=== PATIENT | male | born 1940 | race Caucasian/White ===

== ENCOUNTER 2021-05-11 11:13 | Observation (INO) | payer MEDICARE, SELFPAY ==
[2021-05-11] VITALS (11 sets, daily range): BP systolic 160–200; BP diastolic 75–114; PULSE 43–62; RESP 15–18; TEMP 36.3–36.8; O2SAT 92–100; BMI 24.4
--- NOTE | 2021-05-11 11:40 | DI.RAD.S_ITS ---
PROCEDURE: XR CHEST 1V INDICATIONS: Possible stroke TECHNIQUE: One view of the chest was acquired. COMPARISON: None. FINDINGS: Surgical changes and devices: None. Lungs and pleura: Lungs are clear. No pleural effusions or pneumothorax. Mediastinum: Mediastinal contours appear normal. Heart size is normal. Bones and chest wall: No suspicious bony lesions. Overlying soft tissues appear unremarkable. IMPRESSION: No acute cardiopulmonary disease process. Dictated by: Debra Chisholm MD, PhD on 05/11/2021 at 12:13 Approved by: Debra Chisholm MD, PhD on 05/11/2021 at 12:13
--- NOTE | 2021-05-11 11:42 | DI.CT.S_ITS ---
PROCEDURE: CT ANGIO HEAD AND NECK INDICATIONS: right side neglect, last known well 05/10 1999 TECHNIQUE: After the administration of intravenous contrast, 1 mm thick sections acquired from the aortic arch through the [place] of [place]. Post-contrast 4.5 mm thick sections then re-acquired from the foramen magnum to the vertex. 3-dimensional cujphtp-ukdwlxdae-fmpujjfshu (MIP) and/or volume rendering reformats were acquired of the central intracranial vasculature and neck separately. COMPARISON: [facility], CT, CT STROKE, 05/11/2021, 11:46. FINDINGS: Image quality: Excellent. BRAIN: CSF spaces: Ventricles are normal in size and shape. Basal cisterns are patent. No extra-axial fluid collections. Brain: No midline shift. No intracranial bleeds or masses. Funk-white matter interface appears intact. Skull and face: Calvarium and facial bones appear intact, without suspicious lesions. Orbits appear normal. Sinuses: Mucosal thickening noted in the floors of the maxillary sinuses bilaterally. The mastoids are clear. HEAD CT ANGIOGRAPHY: Anterior circulation: Intracranial internal carotid arteries are normal in flow. Atherosclerotic calcifications noted in the cavernous and clinoid segments of the internal carotid arteries bilaterally which causes mild stenosis of the vessels. The flow within the paired anterior cerebral arteries is normal and symmetric. The flow within the middle cerebral arteries is normal and symmetric. The anterior communicating artery is seen. No aneurysms are seen. Posterior circulation: Normal flow noted in the left vertebral artery. There is occlusive thrombus in the V4 segment of the right vertebral artery. Flow within the posterior cerebral arteries is normal and symmetric. No aneurysms are seen. Dural sinuses demonstrate normal postcontrast enhancement. NECK CT ANGIOGRAPHY: Carotid system: The great vessels demonstrate a conventional anatomy as they arise from the aortic arch. The origins of the common carotid arteries appear patent. The common carotid arteries demonstrate normal caliber and courses. Atherosclerotic calcifications noted in the origins of the internal carotid arteries bilaterally which causes high-grade, approximately 80-90% stenosis of the origin of the right internal carotid artery and less than 50% stenosis of the origin of the left internal carotid artery. Posterior circulation: Calcified and soft atherosclerotic plaque noted in the origin of the right vertebral artery which causes high-grade stenosis. Calcified and soft atherosclerotic plaque noted in the origin of the left vertebral artery which causes mild stenosis. Patient is left vertebral artery dominant.. Thrombus identified in the V3 and V4 segments of the right vertebral artery. Normal flow noted in the basilar artery. Soft tissues: Visualized neck soft tissues demonstrate no suspicious abnormalities. Bones: No suspicious bony lesions. Spine degenerative disc disease and facet arthropathy. Visualized cervical spine appears normally aligned. IMPRESSION: 1. No acute intracranial disease process. 2. Occlusive thrombus involving the V3 and V4 segments of the right vertebral artery. 3. High-grade, approximately 80-90% stenosis of the origin of the right internal carotid artery. 4. High-grade stenosis of the origin of the right vertebral artery. 5. Mild stenosis of the origin of the left vertebral artery. 6. Less than 50% stenosis of the origin of the left internal carotid. Findings telephoned to Dr. Alvarez on May 11, 2021 at 12:21 p.m.. Any quantitative measurements of stenosis were performed using NASCET criteria. Dictated by: Debra Chisholm MD, PhD on 05/11/2021 at 12:14 Approved by: Debra Chisholm MD, PhD on 05/11/2021 at 12:24
--- NOTE | 2021-05-11 11:53 | DI.CT.S_ITS ---
PROCEDURE: CT STROKE INDICATIONS: right neglect TECHNIQUE: Noncontrast 4.5 mm thick angled axial sections acquired from the foramen magnum to the vertex, with coronal reformats. For radiation dose reduction, the following was used: automated exposure control, adjustment of mA and/or kV according to patient size. COMPARISON: None. FINDINGS: Image quality: Excellent. CSF spaces: Basal cisterns are patent. No extra-axial fluid collections. The ventricles are symmetric in size and shape. Brain: No intracranial bleeds or masses. There is cerebral volume loss for age, with resultant ventricular and sulcal prominence. There are periventricular and deep white matter chronic small vessel ischemic changes. There is intracranial internal carotid artery atherosclerosis. Skull and face: Calvarium and visualized facial bones appear intact, without suspicious lesions. Sinuses: Visualized sinuses and mastoids are clear. IMPRESSION: No acute intracranial disease process. Findings discussed with Dr. Alvarez on May 11, 2021 at 12:01 p.m.. This study fulfills neurological imaging criteria for inclusion or exclusion of acute stroke therapies based on available published neurological guidelines. Dictated by: Debra Chisholm MD, PhD on 05/11/2021 at 12:02 Approved by: Debra Chisholm MD, PhD on 05/11/2021 at 12:05
--- NOTE | 2021-05-11 12:19 | ED_ITS ---
HPI - Neuro Symptoms/Deficit General Chief Complaint: Neuro Symptoms/Deficit Stated Complaint: Nausea/inbalance x1 day Time Seen by Provider: 05/11/21 11:47 Source: patient Mode of arrival: Ambulatory History of Present Illness HPI Narrative: Patient is an 80-year-old male history of coronary artery disease hypertension presenting with ambulation difficulty. He says last known well at 715pm when he sat in his recliner. By 8:00 p.m. he got up to walk and he noticed he was walking to the right. He said he frequently got up last evening to go to the restroom and needed to hang onto things because he kept running into [place]. He denies any numbness tingling or weakness. has not noted any speech difficulty or facial droop. He denies any visual changes. He was seen at a walk-in clinic initially and was sent to the ER for further evaluation for stroke. Denies any chest pain palpitations or shortness of breath. No fever On Anticoagulants: Yes (ASA 81 mg daily) Related Data Home Medications Medication Instructions Recorded Confirmed aspirin 81 mg tablet 81 mg PO QAM 05/11/21 05/11/21 gabapentin 100 mg capsule 100 mg PO BEDTIME 05/11/21 05/11/21 losartan 100 mg tablet 100 mg PO QAM 05/11/21 05/11/21 methadone 5 mg tablet 10 mg PO BEDTIME 05/11/21 05/11/21 omeprazole 40 mg capsule,delayed 40 mg PO QAM 05/11/21 05/11/21 release ropinirole 1 mg tablet 1 mg PO QPM 05/11/21 05/11/21 ropinirole 1 mg tablet 1.5 mg PO BEDTIME 05/11/21 05/11/21 Allergies Allergy/AdvReac Type Severity Reaction Status Date / Time No Known Drug Allergies Allergy Verified 05/11/21 11:32 Review of Systems Review of Systems Narrative: GENERAL: Denies chills, fatigue, malaise, fever, sweats, travel HEENT: Denies sinus pain, ear pain, sore throat, difficulty swallowing, neck pain RESPIRATORY: Denies dyspnea, cough, wheezing, hemoptysis, sputum. CARDIOVASCULAR: Denies chest pain, palpitations, orthopnea, edema GASTROINTESTINAL: Denies nausea, vomiting, abdominal pain, diarrhea, constipation, melena. : Denies dysuria, frequency, incontinence, hematuria, urinary retention, flank pain. MUSCULOSKELETAL: Denies weakness, joint pain, or bony pain SKIN: No rash, no erythema, no pruritus NEUROLOGIC: See HPI PSYCHIATRIC: No concerning psychosocial issues. 12 point review of systems is negative except for those stated above and HPI Hematologic/Lymphatic On Anticoagulants: Yes (ASA 81 mg daily) Patient History Medical History Hypertension Restless leg syndrome Surgical History S/P CABG (coronary artery bypass graft) Family History (Updated 05/11/21 @ 16:37 by Khoi Bradshaw DO) Mother Hypertension Father Cancer Social History household members: spouse Smoking Status: Former smoker alcohol intake: current Smoking Status: Former smoker alcohol intake frequency: 0-2 drinks per day Substance Use Type: does not use Exam Initial Vital Signs Initial Vital Signs: Vital Signs Temperature 97.6 F 05/11/21 11:27 Pulse Rate 50 L 05/11/21 11:27 Respiratory Rate 17 05/11/21 11:27 Blood Pressure 200/94 H 05/11/21 11:27 Pulse Oximetry 100 05/11/21 11:27 GENERAL: Alert well-appearing [id number] in no acute distress. HEENT: Head atraumatic,EOMI, pupils reactive, face symmetric, moist mucous membranes CARDIOVASCULAR: Regular rate and rhythm without murmurs, rubs or gallops. RESPIRATORY: Breath sounds equal bilaterally, no wheezes rales or rhonchi. ABDOMEN: Soft, nontender. Normoactive bowel sounds all 4 quadrants. No guarding or rebound. EXTREMITIES: Normal range of motion, no clubbing or edema. Neurovascularly intact NEUROLOGICAL: Alert and oriented x4. Ambulating in the emergency department he does walk to the right. Normal speech. Cranial nerves II through XII grossly intact. Good onlioc-lr-gtdb, good tyhv-ft-adgs, strength equal bilaterally, no dysarthria or aphasia, sensation in tact to soft touch bilaterally, no visual changes, no facial droop SKIN: Warm, dry, no laceration, no petechiae, no rashes or lesions. Scores NIH Stroke Scale Level of Conciousness: Alert, keenly responsive Ask month/age: Answers both questions correctly. Open/close eyes, close hand: Performs both tasks correctly Best gaze horizontal: Normal Visual gallo: No visual loss Facial palsy: Normal symetrical movement Left arm drift: No drift for full 10 sec Right arm drift: No drift for full 10 sec Left leg drift: No drift for full 5 sec Right leg drift: No drift for full 5 sec Limb ataxia: Absent Sensory on face/arms/legs: Normal, no sensory loss Best language: No aphasia, normal Dysarthria: Normal Extinction or inattention: No abnormality Total NIH Stroke scale score: 0 Course Orders Ordered: ED Orders 05/11/21 11:40 XR chest 1V Stat EKG-12 Lead Stat 05/11/21 11:42 CT angio head and neck Stat 05/11/21 11:53 CT Stroke Stat 05/11/21 12:17 COVID19 -Nasal swab/Pre-Proc Stat 05/11/21 12:40 Complete Blood Count AUTO DIFF Stat Comprehensive Metabolic Panel Stat Partial Thromboplastin Time Stat Prothrombin Time INR Stat Troponin & CK Cardiac Panel Stat Type and Screen Stat 05/11/21 13:49 Urine Drug Screen, Rapid Stat Acetaminophen (Acetaminophen 325 Mg Tablet) 650 mg PO Q6HR PRN PRN Reason: Fever/Mild Pain (1-3) Last Admin: 05/11/21 18:04 Dose: 650 mg Documented by: DEO Aspirin (Aspirin Ec 81 Mg Tablet) 81 mg PO DAILY IRIS Atorvastatin Calcium (Atorvastatin 20 Mg Tablet) 80 mg PO BEDTIME IRIS Clopidogrel Bisulfate (Clopidogrel 75 Mg Tablet) 75 mg PO DAILY IRIS Enoxaparin Sodium (Enoxaparin 40 Mg/0.4 Ml Syringe) 40 mg SUBCUT DAILY IRIS Gabapentin (Gabapentin 100 Mg Capsule) 100 mg PO BEDTIME IRIS Losartan Potassium (Losartan 50 Mg Tablet) 100 mg PO DAILY IRIS Methadone HCl (Methadone 10 Mg Tablet) 10 mg PO BEDTIME IRIS Ondansetron HCl (Ondansetron 4 Mg/2 Ml Inj) 4 mg IV Q8HR PRN PRN Reason: Nausea And Vomiting Ropinirole HCl (Ropinirole 1 Mg Tablet) 1 mg PO 1500 IRIS Ropinirole HCl (Ropinirole 1 Mg Tablet) 1.5 mg PO BEDTIME IRIS Discontinued Medications Clopidogrel Bisulfate (Clopidogrel 75 Mg Tablet) 300 mg PO NOW ONE Stop: 05/11/21 13:17 Last Admin: 05/11/21 13:31 Dose: 300 mg Documented by: KSCHERE Lorazepam (Lorazepam 2 Mg/Ml Inj) 0.5 mg IV NOW ONE Stop: 05/11/21 15:02 Last Admin: 05/11/21 15:10 Dose: 0.5 mg Documented by: DEO Vital Signs Vital signs: Vital Signs - 8 hr 05/11/21 11:27 05/11/21 12:00 05/11/21 12:30 Temperature 97.6 F Pulse Rate 50 L 49 L 50 L Respiratory Rate 17 16 16 Blood Pressure 200/94 H 188/88 H 181/114 H Pulse Oximetry 100 99 100 05/11/21 13:00 Temperature Pulse Rate 43 L Respiratory Rate 16 Blood Pressure 176/79 H Pulse Oximetry MDM - Neuro Symptoms/Deficit Lab Data Result diagrams: 05/11/21 12:40 05/11/21 12:40 Labs: Lab Results 05/11/21 05/11/21 05/11/21 Range/Units 12:17 12:40 12:40 WBC 5.8 (4.5-11.0) X10^3/uL RBC 4.32 L (4.5-5.9) X10^6/uL Hgb 13.8 (13.5-17.5) g/dL Hct 40.2 L (41-53) % MCV 93.2 (80-100) fL MCH 31.9 (26-34) PG MCHC 34.2 (30-36) % RDW 12.9 (11.6-14.8) % Plt Count 195 (150-400) X10^3/uL Neut % (Auto) 74.1 (50-75) % Lymph % (Auto) 13.8 L (25-40) % Graham % (Auto) 10.0 (3-14) % Eos % (Auto) 1.8 L (2-4) % Baso % (Auto) 0.3 (0-2) % Neut # (Auto) 4300 (0253-8170) /uL Lymph # (Auto) 800 L (7153-9991) /uL Graham # (Auto) 600 (0-900) /uL Eos # (Auto) 100 (0-450) /uL Baso # (Auto) 0 (0-100) /uL PT 11.2 (10.1-12.7) SECONDS INR 1.0 (0.9-1.3) APTT 37 H (26.4-36.2) SECONDS Sodium (137-145) mmol/L Potassium (3.4-5.1) mmol/L Chloride (98-107) mmol/L Carbon Dioxide (22-32) mmol/L BUN (9-20) mg/dL Creatinine (0.66-1.25) mg/dL Estimated GFR (>60) mL/min BUN/Creatinine Ratio (6-22) Glucose (80-110) mg/dL Calcium (8.4-10.2) mg/dL Total Bilirubin (0.2-1.3) mg/dL AST (17-59) IU/L ALT (<50) IU/L Alkaline Phosphatase (38-126) U/L Total Creatine Kinase (55-170) U/L CK-MB (CK-2) CK-MB (CK-2) Rel Index Troponin I (0.01-0.034) ng/mL Total Protein (6.3-8.2) g/dL Albumin (3.5-5.0) g/dL Globulin (1.7-4.1) g/dL Albumin/Globulin Ratio (1.0-2.8) SARS-CoV-2 (PCR) Negative (Negative) Blood Type Antibody Screen 05/11/21 05/11/21 Range/Units 12:40 12:40 WBC (4.5-11.0) X10^3/uL RBC (4.5-5.9) X10^6/uL Hgb (13.5-17.5) g/dL Hct (41-53) % MCV (80-100) fL MCH (26-34) PG MCHC (30-36) % RDW (11.6-14.8) % Plt Count (150-400) X10^3/uL Neut % (Auto) (50-75) % Lymph % (Auto) (25-40) % Graham % (Auto) (3-14) % Eos % (Auto) (2-4) % Baso % (Auto) (0-2) % Neut # (Auto) (1501-6158) /uL Lymph # (Auto) (2144-3232) /uL Graham # (Auto) (0-900) /uL Eos # (Auto) (0-450) /uL Baso # (Auto) (0-100) /uL PT (10.1-12.7) SECONDS INR (0.9-1.3) APTT (26.4-36.2) SECONDS Sodium 136 L (137-145) mmol/L Potassium 4.5 (3.4-5.1) mmol/L Chloride 102 (98-107) mmol/L Carbon Dioxide 30 (22-32) mmol/L BUN 21 H (9-20) mg/dL Creatinine 0.98 (0.66-1.25) mg/dL Estimated GFR > 60.0 (>60) mL/min BUN/Creatinine Ratio 21.4 (6-22) Glucose 95 (80-110) mg/dL Calcium 9.5 (8.4-10.2) mg/dL Total Bilirubin 0.8 (0.2-1.3) mg/dL AST 25 (17-59) IU/L ALT 15 (<50) IU/L Alkaline Phosphatase 59 (38-126) U/L Total Creatine Kinase 57 (55-170) U/L CK-MB (CK-2) TNP CK-MB (CK-2) Rel Index TNP Troponin I < 0.012 (0.01-0.034) ng/mL Total Protein 6.7 (6.3-8.2) g/dL Albumin 4.1 (3.5-5.0) g/dL Globulin 2.6 (1.7-4.1) g/dL Albumin/Globulin Ratio 1.6 (1.0-2.8) SARS-CoV-2 (PCR) (Negative) Blood Type O Negative Antibody Screen Negative Imaging Data CTA - brain/neck: Radiologist's Impression: PROCEDURE:? CT ANGIO HEAD AND NECK ? INDICATIONS:? right side neglect, last known well 05/10 1999 ? TECHNIQUE:? After the administration of intravenous contrast, 1 mm thick sections acquired from the aortic arch through the [place] of [place].? Post-contrast 4.5 mm thick sections then re-acquired from the foramen magnum to the vertex.? 3-dimensional ioucuim-havjaqpbp-szsijpvvld (MIP) and/or volume rendering reformats were acquired of the central intracranial vasculature and neck separately. ? COMPARISON:? [facility], CT, CT STROKE, 05/11/2021, 11:46. ? FINDINGS:? Image quality:? Excellent.? ? BRAIN:? CSF spaces:? Ventricles are normal in size and shape.? Basal cisterns are patent.? No extra-axial fluid collections.? ? Brain:? No midline shift.? No intracranial bleeds or masses.? Funk-white matter interface appears intact.? ? Skull and face:? Calvarium and facial bones appear intact, without suspicious lesions.? Orbits appear normal.? ? Sinuses:? Mucosal thickening noted in the floors of the maxillary sinuses bilaterally.? The mastoids are clear.? ? HEAD CT ANGIOGRAPHY:? Anterior circulation:? Intracranial internal carotid arteries are normal in flow. Atherosclerotic calcifications noted in the cavernous and clinoid segments of the internal carotid arteries bilaterally which causes mild stenosis of the vessels. ? The flow within the paired anterior cerebral arteries is normal and symmetric.? The flow within the middle cerebral arteries is normal and symmetric.? The anterior communicating artery is seen.? No aneurysms are seen.? ? Posterior circulation:? Normal flow noted in the left vertebral artery.? There is occlusive thrombus in the V4 segment of the right vertebral artery.? Flow within the posterior cerebral arteries is normal and symmetric.? No aneurysms are seen. ? Dural sinuses demonstrate normal postcontrast enhancement. ? ? NECK CT ANGIOGRAPHY:? Carotid system:? The great vessels demonstrate a conventional anatomy as they arise from the aortic arch.? The origins of the common carotid arteries appear patent.? The common carotid arteries demonstrate normal caliber and courses.? Atherosclerotic c alcifications noted in the origins of the internal carotid arteries bilaterally which causes high-grade, approximately 80-90% stenosis of the origin of the right internal carotid artery and less than 50% stenosis of the origin of the left internal carotid artery. ? Posterior circulation:? Calcified and soft atherosclerotic plaque noted in the origin of the right vertebral artery which causes high-grade stenosis.? Calcified and soft atherosclerotic plaque noted in the origin of the left vertebral artery which causes mild stenosis.? Patient is left vertebral artery dominant..? Thrombus identified in the V3 and V4 segments of the right vertebral artery.? Normal flow noted in the basilar artery. ? Soft tissues:? Visualized neck soft tissues demonstrate no suspicious abnormalities.? ? Bones:? No suspicious bony lesions. Spine degenerative disc disease and facet arthropathy. Visualized cervical spine appears normally aligned.? ? ? IMPRESSION:? ? 1. No acute intracranial disease process. ? 2. Occlusive thrombus involving the V3 and V4 segments of the right vertebral artery. ? 3. High-grade, approximately 80-90% stenosis of the origin of the right internal carotid artery.? ? 4. High-grade stenosis of the origin of the right vertebral artery.? ? 5. Mild stenosis of the origin of the left vertebral artery. ? 6. Less than 50% stenosis of the origin of the left internal carotid. ? Findings telephoned to Dr. Alvarez on May 11, 2021 at 12:21 p.m.. ? ? Any quantitative measurements of stenosis were performed using NASCET criteria.? ? ? Dictated by: Debra Chisholm MD, PhD on 05/11/2021 at 12:14 ?? CT scan - head: Radiologist's Impression: PROCEDURE:? CT STROKE ? INDICATIONS:? right neglect ? TECHNIQUE:? Noncontrast 4.5 mm thick angled axial sections acquired from the foramen magnum to the vertex, with coronal reformats.? For radiation dose reduction, the following was used:? automated exposure control, adjustment of mA and/or kV according to patient size.? ? COMPARISON:? None. ? FINDINGS:? Image quality:? Excellent.? ? CSF spaces:? Basal cisterns are patent.? No extra-axial fluid collections.? The ventricles are symmetric in size and shape.? ? Brain:? No intracranial bleeds or masses.? There is cerebral volume loss for age, with resultant ventricular and sulcal prominence.? There are periventricular and deep white matter chronic small vessel ischemic changes.? There is intracranial internal carotid artery atherosclerosis.? ? Skull and face:? Calvarium and visualized facial bones appear intact, without suspicious lesions.? ? Sinuses:? Visualized sinuses and mastoids are clear.? ? IMPRESSION:? No acute intracranial disease process. ? Findings discussed with Dr. Alvarez on May 11, 2021 at 12:01 p.m.. ? This study fulfills neurological imaging criteria for inclusion or exclusion of acute stroke therapies based on available published neurological guidelines.? ? ? Dictated by: Debra Chisholm MD, PhD on 05/11/2021 at 12:02 ? ? Approved by: Debra Chisholm MD, PhD on 05/11/2021 at 12:05 ? MDM Narrative Medical decision making narrative: Patient has [employer] of 0. CT angio does show a lesion in V3 and V4. 12:30 Dr. Diaz, stroke doctor has been updated patient's symptoms test results at this time not a candidate for thrombectomy. Recommend stool anti-platelet therapy loading Plavix 300 mg with aspirin 81 mg and continuing and 75 mg of Plavix and aspirin 81 mg for 3 weeks Patient is clearly tPA candidate symptoms have been ongoing for longer than [address] Bradshaw often patient's symptoms test results Neurology recommendations and accepts patient Discharge Plan Departure Patient Disposition: Admitted As Inpatient Clinical Impression: Cerebrovascular accident Admit Date/Time: 05/11/21 13:24 Admit Provider: Khoi Bradshaw
[2021-05-11 12:41] LABS: COVID19 -Nasal RAPID Negative (Negative)
[2021-05-11 12:58] LABS: Add Manual Diff / Slide Review NO; Basophils Absolute Auto 0 /uL (0-100); Basophils Percent Auto 0.3 % (0-2); Eosinophils Absolute Auto 100 /uL (0-450); Eosinophils Percent Auto 1.8 % (2-4); Hematocrit 40.2 % (41-53); Hemoglobin 13.8 g/dL (13.5-17.5); Lymphocytes Absolute Auto 800 /uL (1100-4500); Lymphocytes Percent Auto 13.8 % (25-40); Mean Corpuscular HGB Conc 34.2 % (30-36); Mean Corpuscular Hemoglobin 31.9 PG (26-34); Mean Corpuscular Volume 93.2 fL (80-100); Monocytes Absolute Auto 600 /uL (0-900); Neutrophils Absolute Auto 4300 /uL (1500-7000); Neutrophils Percent Auto 74.1 % (50-75); Platelet Count 195 X10^3/uL (150-400); Red Blood Cell Count 4.32 X10^6/uL (4.5-5.9); Red Cell Distribution Width 12.9 % (11.6-14.8); White Blood Cell Count 5.8 X10^3/uL (4.5-11.0)
[2021-05-11 13:08] LABS: Prothrombin Time 11.2 SECONDS (10.1-12.7)
[2021-05-11 13:11] LABS: PTT Partial Thromboplastin Tim 37 SECONDS (26.4-36.2)
[2021-05-11 13:19] LABS: Alanine Aminotransferase 15 IU/L (<50); Albumin 4.1 g/dL (3.5-5.0); Albumin Globulin Ratio 1.6 (1.0-2.8); Alkaline Phosphatase 59 U/L (38-126); Aspartate Aminotransferase 25 IU/L (17-59); BUN Creatinine Ratio 21.4 (6-22); Bilirubin Total 0.8 mg/dL (0.2-1.3); Blood Urea Nitrogen 21 mg/dL (9-20); Calcium 9.5 mg/dL (8.4-10.2); Carbon Dioxide 30 mmol/L (22-32); Chloride 102 mmol/L (98-107); Creatine Kinase 57 U/L (55-170); Estimated Glomerular Filt Rate > 60.0 mL/min (>60); Globulin 2.6 g/dL (1.7-4.1); Glucose 95 mg/dL (80-110); HEMOLYSIS < 15 (0-50); Potassium 4.5 mmol/L (3.4-5.1); Sodium 136 mmol/L (137-145); Total Protein 6.7 g/dL (6.3-8.2)
[2021-05-11 13:30] LABS: Troponin I < 0.012 ng/mL (0.01-0.034)
[2021-05-11] MEDS: CLOPIDOGREL 75 MG TABLET 300 MG PO (13:31)
[2021-05-11 14:00] LABS: UR Morphine/Opiate cutoff 300 Negative (Negative); Ur Creatinine Normal (Normal); Ur Specific Gravity Normal (Normal); Urine Amphetamines Negative (Negative); Urine Barbiturates Negative (Negative); Urine Benzodiazepines Negative (Negative); Urine Cocaine Negative (Negative); Urine MDMA Negative (Negative); Urine Methadone Negative (Negative); Urine Methamphetamines Negative (Negative); Urine Oxycodone Negative (Negative); Urine Phencyclidine Negative (Negative); Urine Tetrahydrocannabinol Negative (Negative); Urine Tricyclic Antidepressant Negative (Negative); Urine pH Normal (Normal)
--- NOTE | 2021-05-11 14:04 | DI.MRI.S_ITS ---
PROCEDURE: MR HEAD/BRAIN WO CON INDICATIONS: CVA TECHNIQUE: Non-contrast axial T1 spin echo, axial T2 fast spin echo, sagittal and axial FLAIR, coronal T2 fast spin echo, axial gradient echo, axial diffusion and ADC through the brain. COMPARISON: [facility], CT, CT STROKE, 05/11/2021, 11:46. [facility], CT, CT ANGIO HEAD AND NECK, 05/11/2021, 11:46. FINDINGS: Image quality: Degraded by patient motion artifact. CSF spaces: Ventricles appear symmetric in size and shape. Basal cisterns are patent. No extra-axial fluid collections. Brain: No intracranial bleeds or mass effects. There is cerebral volume loss for age. There are mild periventricular and deep white matter chronic small vessel ischemic changes. Brainstem appears normal. Diffusion-weighted images show no acute ischemic insults. No chronic ischemic insults. Absence of intravascular flow void noted in the V4 segment of the right vertebral artery. Skull and face: Calvarial bone marrow is normal in signal. Orbits are normal. Sinuses: Mild mucosal thickening noted in the floor of the maxillary sinuses bilaterally. The mastoids are clear. IMPRESSION: 1. No acute intracranial disease process. 2. No areas of acute or chronic infarction. 3. No intracranial hemorrhage. 4. Mild, diffuse cerebral volume loss. 5. Mild periventricular and subcortical white matter chronic microvascular ischemic changes. Dictated by: Debra Chisholm MD, PhD on 05/11/2021 at 15:51 Approved by: Debra Chisholm MD, PhD on 05/11/2021 at 15:55
[2021-05-11] MEDS: LORazepam 2 MG/ML INJ 0.5 MG IV (15:10)
--- NOTE | 2021-05-11 16:35 | DI.ECHO.S_ITS ---
[facility] +---------+ : : [address] : [place] : : : : [id number] : : : : Phone: [phone]+ Echocardiogram Report + + :Name: ALEK VINCENT Study Date: 05/12/2021 Height: 73 in : :[facility] ReadingLocation: Weight: 185 lb : : Gender: Male BSA: 2.1 m2 : :: 1940 Age: 80 yrs BP: 173/83 mmHg: :Reason For Study: CVA : :Ordering Physician: MICHELLE, : :MAIA YOUNG Performed By: Kb Esteves : :Referring: MAIA MARTINEZ : + + Interpretation Summary The ejection fraction is estimated to be 60-65%. Diastolic parameters suggest probable normal left ventricular diastolic function and normal filling pressures. Borderline right ventricular enlargement. The right ventricular systolic function is normal. There is mild aortic regurgitation. PASP is approximately 30 to 35 mmHg. The aortic root is mildly dilated. Compared to the prior study dated 10/15/2013, no significant change. Procedure: A two-dimensional transthoracic echocardiogram with color flow and Doppler was performed. Comparison is made with the echocardiogram of 10/15/2013. Overall fair image quality. The patient was in normal sinus rhythm during the exam. Left Ventricle: The left ventricle is normal in size and wall thickness. Left ventricular systolic function appears normal without focal wall motion abnormalities. The ejection fraction is estimated to be 60-65%. Diastolic parameters suggest probable normal left ventricular diastolic function and normal filling pressures. Right Ventricle: Borderline right ventricular enlargement. The right ventricular systolic function is normal. Atria: Borderline left atrial enlargement. Borderline right atrial enlargement. There is no Doppler evidence for an interatrial shunt. Mitral Valve: The mitral valve is normal. There is trace mitral regurgitation. Aortic Valve: The aortic valve is trileaflet. The aortic valve opens well. There is no aortic valve stenosis. There is mild aortic regurgitation. Tricuspid Valve: The tricuspid valve is normal. There is trace tricuspid regurgitation. PASP is approximately 30 to 35 mmHg. Pulmonic Valve: The pulmonic valve is not well visualized. Great Vessels: The aortic root is mildly dilated. The ascending aorta is at the upper limits of normal in size. The aortic arch is normal in size. The IVC is of normal diameter and collapses greater than 50% with a sniff. This suggests a low right atrial pressure of 3 mm Hg. Pericardium/ Pleura There is no pericardial effusion. There is an anterior echo-free space consistent with a fat pad. There is no pleural effusion. MMode/2D Measurements & Calculations LVIDd: 3.7 cm LVOT diam: 2.0 cm LVIDs: 3.0 cm Ao root diam: 3.9 cm FS: 18.5 % asc Aorta Diam: 3.7 cm IVSd: 1.1 cm Ao Arch Diam (Prox Trans): 3.0 cm LVPWd: 0.76 cm LV mak. diameter/BSA (cm/m^2): 1.8 LV sys. diameter/BSA (cm/m^2): 1.5 LA A2 area: 21.2 cm2 RA long axis: 6.4 cm LA A4 area: 22.9 cm2 RA area: 20.1 cm2 LA length (vol): 6.1 cm RA vol: 53.5 ml LA vol: 67.9 ml RA : 25.7 ml/m2 LA vol index: 32.6 ml/m2 TAPSE: 2.4 cm Doppler Measurements & Calculations Ao V2 max: 130.2 cm/sec LVOT Max Harman: 108.6 cm/sec Ao V2 mean: 103.4 cm/sec LV V1 max P.7 mmHg Ao max P.8 mmHg LV V1 VTI: 28.0 cm Ao mean P.5 mmHg OLAMIDE(I,D): 2.5 cm2 Ao V2 VTI: 33.7 cm OLAMIDE(V,D): 2.5 cm2 sev ratio: 0.83 OLAMIDE indexed to BSA (cm^2/m^2): 1.2 MV E max harman: 71.5 cm/sec TR max harman: 257.6 cm/sec MV A max harman: 61.1 cm/sec TR max P.5 mmHg MV E/A: 1.2 Med Peak E' Harman: 6.2 cm/sec E/E' med: 11.6 Lat Peak E' Harman: 7.0 cm/sec E/E' lat: 10.2 E/e' average: 10.9 MV dec time: 0.[address] [facility]): 84.0 ml Reading Physician:02:40 PM
--- NOTE | 2021-05-11 16:36 | P.HP_ITS ---
History of Present Illness History of Present Illness Date Patient Seen: 05/11/21 Time Patient Seen: 16:36 Chief complaint: Nausea/inbalance x1 day Narrative: This is an 80-year-old male with a past medical history of restless leg syndrome, hypertension, GERD who presented to the emergency room with continued imbalance since yesterday evening. He states yesterday evening shortly after dinner he began having difficulty ambulating where he would constantly drift to the right. He denies any overt weakness or numbness, he denies any facial droop or slurred speech, he denies any visual deficits. He denies any recent fever, chills, chest pain, palpitations, shortness of breath, vomiting, abdominal pain, dysuria, or urinary frequency. He does endorse some nausea when his symptoms started. He did report a mild headache behind his right eye but this was not out of the ordinary for him. In the emergency room, the patient was mildly hypertensive, but the remainder of his vital signs are unremarkable. Laboratory evaluation revealed an unremarkable CBC, an unremarkable chemistry panel. Urine drug screen were unremarkable. COVID-19 testing was negative. Noncontrast head CT revealed no acute pathologies. CT angiogram of his head and neck showed significant right carotid stenosis and multiple areas of active thrombosis. Telestroke was consulted, however given the posterior location of these infarcts no procedural interventions were recommended. Patient was admitted for further management of his acute CVA. He was loaded with aspirin and Plavix in the emergency room. Patient History Medical History Hypertension Restless leg syndrome Surgical History S/P CABG (coronary artery bypass graft) Family & Social History Family History (Updated 05/11/21 @ 16:37 by Khoi Bradshaw DO) Mother Hypertension Father Cancer Social History: household members spouse Prior Living Arrangements House Safety & Behavioral: Feels Safe in Current Yes Environment Been Physically Hurt or No Threatened By a Person Suicidal Ideation Description None Suicide Plan Description No Plan Tobacco & Substance use: Tobacco type cigarettes Smoking Status Former smoker alcohol intake current alcohol intake frequency 0-2 drinks per day Substance Use Type does not use Meds Home Medications and Allergies Home Medications Medication Instructions Recorded Confirmed Type aspirin 81 mg tablet 81 mg PO QAM 05/11/21 05/11/21 History gabapentin 100 mg capsule 100 mg PO BEDTIME 05/11/21 05/11/21 History losartan 100 mg tablet 100 mg PO QAM 05/11/21 05/11/21 History methadone 5 mg tablet 10 mg PO BEDTIME 05/11/21 05/11/21 History omeprazole 40 mg capsule,delayed 40 mg PO QAM 05/11/21 05/11/21 History release ropinirole 1 mg tablet 1 mg PO QPM 05/11/21 05/11/21 History ropinirole 1 mg tablet 1.5 mg PO BEDTIME 05/11/21 05/11/21 History Allergies Allergy/AdvReac Type Severity Reaction Status Date / Time No Known Drug Allergies Allergy Verified 05/11/21 11:32 Review of Systems Review of Systems Narrative: All other systems reviewed with the patient and are negative unless otherwise stated. Exam Vital Signs (past 8 hours): - 05/11/21 11:27 05/11/21 12:00 05/11/21 12:30 Temperature 97.6 F Pulse Rate 50 L 49 L 50 L Respiratory Rate 17 16 16 Blood Pressure 200/94 H 188/88 H 181/114 H Pulse Oximetry 100 99 100 05/11/21 13:00 05/11/21 13:30 Temperature Pulse Rate 43 L 45 L Respiratory Rate 16 15 Blood Pressure 176/79 H 187/112 H Pulse Oximetry 99 Oxygen Delivery Method Room Air Narrative Exam Narrative: GENERAL APPEARANCE: Well developed, well nourished, in no acute distress. SKIN: Inspection of the skin reveals no rashes, ulcerations or petechiae. HEENT: Normocephalic atraumatic, extraocular muscles are intact, oropharynx is clear and mucous membranes are moist, neck is supple without adenopathy NECK: Supple and symmetric. There was no thyroid enlargement, and no tenderness, or masses were felt. CHEST: Normal AP diameter and normal contour without any kyphoscoliosis. LUNGS: Auscultation of the lungs revealed no wheezes, rhonchi, or rales. CARDIOVASCULAR: There was a regular rate and rhythm without any murmurs, gallops, rubs. Peripheral pulses were 2+ and symmetric. ABDOMEN: Soft and nontender with normal bowel sounds. No ascites was noted. MUSCULOSKELETAL: There was no tenderness or effusions noted. Muscle strength and tone were normal. EXTREMITIES: No cyanosis, clubbing or edema. NEUROLOGIC: Alert and oriented x 3. Normal affect. Gait was normal. Strength is +5/5 in the Upper Extremities and Lower Extremities Bilaterally. Sensation to touch was normal. Objective Labs Result Diagrams: 05/12/21 04:37 05/12/21 04:37 Labs: Laboratory Results - last 24 hr 05/11/21 05/11/21 05/11/21 12:17 12:40 12:40 WBC 5.8 RBC 4.32 L Hgb 13.8 Hct 40.2 L MCV 93.2 MCH 31.9 MCHC 34.2 RDW 12.9 Plt Count 195 Neut % (Auto) 74.1 Lymph % (Auto) 13.8 L [place] % (Auto) 10.0 Eos % (Auto) 1.8 L Baso % (Auto) 0.3 Neut # (Auto) 4300 Lymph # (Auto) 800 L [place] # (Auto) 600 Eos # (Auto) 100 Baso # (Auto) 0 PT 11.2 INR 1.0 APTT 37 H Sodium Potassium Chloride Carbon Dioxide BUN Creatinine Estimated GFR BUN/Creatinine Ratio Glucose Calcium Total Bilirubin AST ALT Alkaline Phosphatase Total Creatine Kinase CK-MB (CK-2) CK-MB (CK-2) Rel Index Troponin I Total Protein Albumin Globulin Albumin/Globulin Ratio U Opiates 300ng/mL cut Ur Oxycodone Screen Urine Methadone Screen Ur Barbiturates Screen U Tricyclic Antidepress Ur Phencyclidine Scrn Ur Amphetamines Screen U Methamphetamines Scrn Ur MDMA Scrn (Ecstasy) U Benzodiazepines Scrn Urine Cocaine Screen U Marijuana (THC) Screen SARS-CoV-2 (PCR) Negative Blood Type Antibody Screen 05/11/21 05/11/21 05/11/21 12:40 12:40 13:49 WBC RBC Hgb Hct MCV MCH MCHC RDW Plt Count Neut % (Auto) Lymph % (Auto) [place] % (Auto) Eos % (Auto) Baso % (Auto) Neut # (Auto) Lymph # (Auto) [place] # (Auto) Eos # (Auto) Baso # (Auto) PT INR APTT Sodium 136 L Potassium 4.5 Chloride 102 Carbon Dioxide 30 BUN 21 H Creatinine 0.98 Estimated GFR > 60.0 BUN/Creatinine Ratio 21.4 Glucose 95 Calcium 9.5 Total Bilirubin 0.8 AST 25 ALT 15 Alkaline Phosphatase 59 Total Creatine Kinase 57 CK-MB (CK-2) TNP CK-MB (CK-2) Rel Index TNP Troponin I < 0.012 Total Protein 6.7 Albumin 4.1 Globulin 2.6 Albumin/Globulin Ratio 1.6 U Opiates 300ng/mL cut Negative Ur Oxycodone Screen Negative Urine Methadone Screen Negative Ur Barbiturates Screen Negative U Tricyclic Antidepress Negative Ur Phencyclidine Scrn Negative Ur Amphetamines Screen Negative U Methamphetamines Scrn Negative Ur MDMA Scrn (Ecstasy) Negative U Benzodiazepines Scrn Negative Urine Cocaine Screen Negative U Marijuana (THC) Screen Negative SARS-CoV-2 (PCR) Blood Type O Negative Antibody Screen Negative Assessment & Plan Assessment & Plan narrative: 1. CVA, acute, present on admission. - NIHSS 0. However patient reports imbalance currently. PT/OT evaluations ordered. - Imaging confirms acute CVA, as well as old infarcts. - loaded with ASA and plavix in the ER. Continue asa and plavix x21 days. - evaluation for afib given infarcts in multiple locations. - vascular surgery evaluation as an outpatient for severe carotid stenosis. - continue tele - TTE ordered 2. Restless legs - continue home medications 3. HTN - continue home losartan. 4. GERD - continue PPI I have utilized all available immediate resources to obtain, update, or review the patient's current medications. Code: Full. Surrogate decision maker oralia DVT: Lovenox Dispo: Admit inpatient COVID-19 COVID-19 status: Negative Time Spent With Patient Critical Care time: I spent a total of [] minutes of critical care time on this patient's care today; this time is exclusive of procedural time. Scores NIHSS Level of Conciousness: Alert, keenly responsive Ask month/age: Answers both questions correctly. Open/close eyes, close hand: Performs both tasks correctly Best gaze horizontal: Normal Visual gallo: No visual loss Facial palsy: Normal symetrical movement Left arm drift: No drift for full 10 sec Right arm drift: No drift for full 10 sec Left leg drift: No drift for full 5 sec Right leg drift: No drift for full 5 sec Limb ataxia: Absent Sensory on face/arms/legs: Normal, no sensory loss Best language: No aphasia, normal Dysarthria: Normal Extinction or inattention: No abnormality Total NIH Stroke scale score: 0 Quality VTE Deep Vein Thrombosis/Pulmonary Embolism Present on Admission: No MIPS - Admit I confirm the patient?s Advance Care Plan is present, Code status is documented, Surrogate decision maker is in patient?s record [If Yes, STOP here]: Yes
[2021-05-11] MEDS: ACETAMINOPHEN 325 MG TABLET 650 MG PO (18:04)
--- NOTE | 2021-05-11 19:34 | PC.NURSE ---
Pt arrived from ED this afternoon. He appears to be neurologically intact on assessment, passing swallow screen, no drifts, droops, clear speech, TMl, ambulating with steady gait. He denies feeling like he is veering to the right this afternoon. He is taken for MRI. Noted elevated BP and Bradycardia he states per baseline. No acute distress. Continuous monitoring.
[2021-05-11] MEDS: METHADONE 10 MG TABLET PO (20:34)
[2021-05-11] MEDS: ATORVASTATIN 20 MG TABLET 80 MG PO (20:34)
[2021-05-11] MEDS: GABAPENTIN 100 MG CAPSULE PO (20:34)
[2021-05-11] MEDS: ROPINIROLE 1 MG TABLET 1.5 MG PO (20:35)
[2021-05-11] MEDS: ROPINIROLE 1 MG TABLET PO (23:48)
[2021-05-12] VITALS (8 sets, daily range): BP systolic 136–163; BP diastolic 70–88; PULSE 50–64; RESP 18–20; TEMP 36.5–36.6; O2SAT 94–98
[2021-05-12 05:23] LABS: Add Manual Diff / Slide Review NO; Basophils Absolute Auto 0 /uL (0-100); Basophils Percent Auto 0.3 % (0-2); Eosinophils Absolute Auto 200 /uL (0-450); Eosinophils Percent Auto 5.3 % (2-4); Hematocrit 39.6 % (41-53); Hemoglobin 13.7 g/dL (13.5-17.5); Lymphocytes Absolute Auto 800 /uL (1100-4500); Lymphocytes Percent Auto 17.6 % (25-40); Mean Corpuscular HGB Conc 34.5 % (30-36); Mean Corpuscular Hemoglobin 31.9 PG (26-34); Mean Corpuscular Volume 92.4 fL (80-100); Monocytes Absolute Auto 600 /uL (0-900); Neutrophils Absolute Auto 3000 /uL (1500-7000); Neutrophils Percent Auto 64.8 % (50-75); Platelet Count 171 X10^3/uL (150-400); Red Blood Cell Count 4.29 X10^6/uL (4.5-5.9); Red Cell Distribution Width 12.8 % (11.6-14.8); White Blood Cell Count 4.7 X10^3/uL (4.5-11.0)
[2021-05-12 05:29] LABS: BUN Creatinine Ratio 20.2 (6-22); Blood Urea Nitrogen 19 mg/dL (9-20); Calcium 9.5 mg/dL (8.4-10.2); Carbon Dioxide 31 mmol/L (22-32); Chloride 105 mmol/L (98-107); Cholesterol 129 mg/dL (140-199); Estimated Glomerular Filt Rate > 60.0 mL/min (>60); Glucose 90 mg/dL (80-110); HDL Cholesterol 36 mg/dL (40-60); HEMOLYSIS < 15 (0-50); LDL Cholesterol Calculated 75 mg/dL (<100); Magnesium 2.1 mg/dL (1.6-2.3); Sodium 136 mmol/L (137-145); Triglycerides 90 mg/dL (35-150)
[2021-05-12 05:58] LABS: TSH w/ Reflex to FT4 1.48 uIU/mL (0.47-4.68)
[2021-05-12] MEDS: LOSARTAN 50 MG TABLET 100 MG PO (08:54)
[2021-05-12] MEDS: CLOPIDOGREL 75 MG TABLET PO (08:54)
[2021-05-12] MEDS: ASPIRIN EC 81 MG TABLET PO (08:54)
[2021-05-12] MEDS: ENOXAPARIN 40 MG/0.4 ML SYRINGE SUBCUT (08:57)
--- NOTE | 2021-05-12 10:06 | PT.IIE ---
Medical History (Last Reviewed 05/11/21 @ 16:37 by Khoi Bradshaw DO) Hypertension Restless leg syndrome Physical Therapy Inpatient Evaluation/Re-Eval M1 PT/OT-IP Prior Functional Status Start: 05/12/21 12:22 Freq: NEEDED Status: Active Protocol: Document 05/12/21 10:06 AB (Rec: 05/12/21 12:45 AB [email or web address]) Medical Review Prior Functional Status Medical History Reviewed Yes Communication able to make needs known Mobility and Gait pt stated that he is independent with all mobilities and ambulation without AD Social History Household Members spouse Number of Floors (Floors) Two Floors Number of Stairs To Enter/Railing? pt stays on main level of the house 2 steps L rail to enter Home Environment Standard Height Toilet,Walk in Shower M2 PT-IP Current Condition Start: 05/12/21 12:22 Freq: NEEDED Status: Active Protocol: Document 05/12/21 10:06 AB (Rec: 05/12/21 12:45 AB [email or web address]) Physical Therapy Current Condition Current Condition Evaluation Date 05/12/21 Treatment Diagnosis CVA; difficulty in walking M3 PT-IP Subjective Start: 05/12/21 12:22 Freq: NEEDED Status: Active Protocol: Document 05/12/21 10:06 AB (Rec: 05/12/21 12:45 AB [email or web address]) Subjective Physical Therapy Visit Type Type Initial Evaluation Visit Start Time 10:06 Visit Stop Time 10:36 Total Visit Minutes 30 Number of PHARMACY DELIVERY DRIVER Visits 0 Physical Therapy Visit Comments Patient Comments pt is agreeable to do PT Therapy Pain Assessment Pain When Pain Assessed At Rest Location Lower Back Scale Used pain scale not stated; stated chronic back pain Description Chronic M4 PT-IP Mobility and Gait Start: 05/12/21 12:22 Freq: NEEDED Status: Active Protocol: Document 05/12/21 10:06 AB (Rec: 05/12/21 12:45 AB [email or web address]) PT-Bed Mobility Assessment Supine to Sit Supine to Sit Standby Assistance PT-Transfer Assessment Sit to and From Stand Sit to and from Stand Contact Guard Assistance,1 Person Assistance,Use of Upper Extremities Equipment Transfer Assistive Device None,Gait Belt Orthotic/Prosthetic Devices or Brace: No Transfers Transfer Destination Toilet Transfer Technique ambulated Transfer Ability Level of Assist Contact Guard Assistance,1 Person Assistance,Use of Upper Extremities Comments Mobility Comments pt completed supine to sit SBA . requested to use the toilet. able to sit on EOB SBA. completed sit to stand CGA with LOB on initial standing posteriorly and unto the R side. ambulated to the toilet without AD CGA. presents with unsteady gait. completed toileting SBA. ambulated to the sink without AD SBA to CGA and was able to maintain standing SBA while completing handwashing. pt ambulated to the chair without AD SBA. educated pt on steadiness, posture and increas [place] and increase COG awareness. Pt. presents with increase lateral trunk lean to the R with increase LE crossing midline during ambulation. pt ambulated in the hallway without AD SBA to occasional CGA with cues for steadiness, posture and increase [place]. pt with initial normal step width but as pt ambulated, LE crosses midline and has a NBOS with one incidence of tripping on RLE. completed up/down steps using L rail step through pattern SBA. pt ambulated back to his room. Standing balance assessment conducted: static standing with NBOS G static standing NBOS with eyes closed F+ , standing with perturbations: G ; single leg stance: RLE completed 15 sec, LLE: 5 sec. pt educated on posture, standing balance ambulation/ gait and informed regarding outpt PT. pt agreed. Gait Assessment Gait Gait Assistance Required: Standby Assistance,Contact Guard Assist Distance (Feet) 125 Able to Maintain Weight Bearing Status Yes During Gait Assistive Devices Assistive Device None,Gait Belt Orthotic/Prosthetic Devices or Brace: No Gait Deviations General Gait Pattern Antalgic,Decreased Stride Length,Decreased Feet Clearance,Narrow Based Gait Factors Limiting Gait Function Factors Limiting Gait Function Decreased Activity Tolerance, Decreased Strength,Limited Range of Motion,Pain,Poor Balance,Poor Safety Awareness Stair Climbing Assessment Evaluation Level of Assist On Stairs Standby Assistance Devices Stair Climbing Assistive Devices Left Railing Technique/Endurance Stair Climbing Direction Ascend and Descend Stair Climbing Technique Step Over Step Number of Steps Climbed 3 Query Text: Stair Climbing Set # Repetitions (reps) 2 PT-Balance Assessment Sitting Balance and Reactions Static Sitting Balance Ability Normal Dynamic Sitting Balance Ability Good Standing Balance and Reactions Static Standing Balance Ability Good Dynamic Standing Balance Ability Fair Device Used without AD M5 PT-IP Objective Assessments Start: 05/12/21 12:22 Freq: NEEDED Status: Active Protocol: Document 05/12/21 10:06 AB (Rec: 05/12/21 12:45 AB [email or web address]) Orientation Orientation/Cognition Level of Alertness Alert Orientation Name,Place,Situation Language Function Ability No Deficits Noted Safety Awareness Decreased Safety Awareness Memory Description No Deficits Noted Gross Range of Motion Lower Extremity ROM Assessment Within Functional Limits Strength Lower Extremity Strength Assessment Within Functional Limits Sensation Assessment Sensation Gross Sensation WNL Muscle Tone Muscle Tone WNL Yes M6 PT-IP Treatment Start: 05/12/21 12: Freq: NEEDED Status: Active Protocol: Document 05/12/21 10:06 AB (Rec: 05/12/21 12:45 AB [email or web address]) Physical Therapy Treatment Education Education Provided Safety M7 PT-IP Assessment and Plan Start: 05/12/21: Freq: NEEDED Status: Active Protocol: Document 05/12/21 10:06 AB (Rec: 05/12/21 12:45 AB [email or web address]) PT Summary Assessment and Plan Potential Rehabilitation Potential Fair Status of Condition at Evaluation Stable Summary Impairments Pain,ROM,Strength,Balance, Coordination,Bed Mobility, Transfers,Gait,Activity Tolerance Assessment Summary pt requiring SBA to CGA with mobility with LOB during ambulation with recovery. Pt plans to go home and has his spouse to assist him when needed. pt will benefit from outpt PT for balance and gait training. Goals Bed Mobility Goal Independent Transfer Goal Independent Gait Goal Independent Gait Distance 250 Other Goals up/down 2 steps L rail mod I Days to Meet Goals 3 Frequency of Treatment Frequency Of Treatment Once a Day Treatment Plan Physical Therapy Treatment Plan Bed Mobility Training,Transfer Training,Gait Training, Therapeutic Exercise,Balance Retraining,Discharge Planning, Hot or Cold Pack,Neuromuscular Re-ed,Coordination Retraining ,Manual Therapy Recommendations To Nursing Amount of Assist Needed 1 Person Assist Discharge Recommendations PT Discharge Recommendations Home with Assistance, Outpatient PT Transportation Needs at Discharge Private Vehicle
--- NOTE | 2021-05-12 11:15 | PM.DS.1 ---
History of Present Illness History of Present Illness Date Patient Seen: 05/12/21 Time Patient Seen: 11:16 Chief complaint: Nausea/inbalance day Narrative: This is an 80-year-old male with a past medical history of restless leg syndrome, hypertension, GERD who presented to the emergency room with continued imbalance since yesterday evening. He states yesterday evening shortly after dinner he began having difficulty ambulating where he would constantly drift to the right. He denies any overt weakness or numbness, he denies any facial droop or slurred speech, he denies any visual deficits. He denies any recent fever, chills, chest pain, palpitations, shortness of breath, vomiting, abdominal pain, dysuria, or urinary frequency. He does endorse some nausea when his symptoms started. He did report a mild headache behind his right eye but this was not out of the ordinary for him. In the emergency room, the patient was mildly hypertensive, but the remainder of his vital signs are unremarkable. Laboratory evaluation revealed an unremarkable CBC, an unremarkable chemistry panel. Urine drug screen were unremarkable. COVID-19 testing was negative. Noncontrast head CT revealed no acute pathologies. CT angiogram of his head and neck showed significant right carotid stenosis and multiple areas of active thrombosis. Telestroke was consulted, however given the posterior location of these infarcts no procedural interventions were recommended. Patient was admitted for further management of his acute CVA. He was loaded with aspirin and Plavix in the emergency room. Discharge Providers Provider Date of admission: 05/11/21 13:24 Discharge Date: 05/12/21 Primary care physician: Khoi Skaggs MD Consults: 05/11/21 16:34 Consult to Discharge Planning Routine Comment: Consult to Occupational Therapy Evaluate & Treat Comment: Physician Instructions: Evaluate and treat Consult to Physical Therapy Evaluate & Treat Comment: Physician Instructions: Evaluate and Treat Discharge provider: Khoi Bradshaw DO Summary Hospital Course Discharge Diagnosis: 1. TIA, acute, resolved. 2. Restless legs syndrome, chronic 3. HTN, chronic 4. GERD 5. 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 Hospital Course: This is an 80-year-old male with a past medical history of hypertension, GERD, restless leg syndrome who presented with difficulty walking. Patient states that he would fall to the right. CT scan and CT head and neck showed an occlusive thrombus of the right vertebral artery as well as high-grade stenosis of the right internal carotid artery. MRI was negative for acute infarct despite the occlusive thrombus noted on CT angiogram. Patient was started on aspirin and clopidogrel, and his symptoms fully resolved the following morning after lasting less than 24 hours consistent with TIA. He was mildly hypertensive, but stated at home he is typically normotensive and did not want to add an additional medication which was my recommendation. He was also started on atorvastatin given his carotid artery disease. I do recommend that he follow-up with a vascular surgeon given 80-90% stenosis on the right carotid artery. I did advise him to keep a blood pressure log and follow-up with his primary care provider in a couple of weeks. ? Exam Vital Signs (past 8 hours): - 05/12/21 03:30 05/12/21 04:00 05/12/21 07:00 Temperature 97.9 F 97.7 F Pulse Rate 64 60 Respiratory Rate 18 20 Blood Pressure 149/70 H 136/76 Pulse Oximetry 97 97 98 05/12/21 08:45 05/12/21 08:54 Temperature Pulse Rate 59 L Respiratory Rate Blood Pressure 155/84 H Pulse Oximetry 97 Oxygen Delivery Method Room Air Oxygen Flow Rate 0 Narrative Exam Narrative: GENERAL APPEARANCE: Well developed, well nourished, in no acute distress. SKIN: Inspection of the skin reveals no rashes, ulcerations or petechiae. HEENT:? Normocephalic atraumatic, extraocular muscles are intact, oropharynx is clear and mucous membranes are moist, neck is supple without adenopathy NECK: Supple and symmetric. There was no thyroid enlargement, and no tenderness, or masses were felt. CHEST: Normal AP diameter and normal contour without any kyphoscoliosis. LUNGS: Auscultation of the lungs revealed no wheezes, rhonchi, or rales. CARDIOVASCULAR: There was a regular rate and rhythm without any murmurs, gallops, rubs. Peripheral pulses were 2+ and symmetric. ABDOMEN: Soft and nontender with normal bowel sounds. No ascites was noted. MUSCULOSKELETAL: There was no tenderness or effusions noted. Muscle strength and tone were normal. EXTREMITIES: No cyanosis, clubbing or edema. NEUROLOGIC: Alert and oriented x 3. Normal affect. Gait was normal. Strength is +5/5 in the Upper Extremities and Lower Extremities Bilaterally. Sensation to touch was normal. Objective Labs Result Diagrams: 05/12/21 04:37 05/12/21 04:37 Labs: Laboratory Results - last 24 hr 05/11/21 05/11/21 05/11/21 12:17 12:40 12:40 WBC 5.8 RBC 4.32 L Hgb 13.8 Hct 40.2 L MCV 93.2 MCH 31.9 MCHC 34.2 RDW 12.9 Plt Count 195 Neut % (Auto) 74.1 Lymph % (Auto) 13.8 L [place] % (Auto) 10.0 Eos % (Auto) 1.8 L Baso % (Auto) 0.3 Neut # (Auto) 4300 Lymph # (Auto) 800 L [place] # (Auto) 600 Eos # (Auto) 100 Baso # (Auto) 0 PT 11.2 INR 1.0 APTT 37 H Sodium Potassium Chloride Carbon Dioxide BUN Creatinine Estimated GFR BUN/Creatinine Ratio Glucose Hemoglobin A1c Calcium Magnesium Total Bilirubin AST ALT Alkaline Phosphatase Total Creatine Kinase CK-MB (CK-2) CK-MB (CK-2) Rel Index Troponin I Total Protein Albumin Globulin Albumin/Globulin Ratio Triglycerides Cholesterol LDL Cholesterol, Calc HDL Cholesterol TSH U Opiates 300ng/mL cut Ur Oxycodone Screen Urine Methadone Screen Ur Barbiturates Screen U Tricyclic Antidepress Ur Phencyclidine Scrn Ur Amphetamines Screen U Methamphetamines Scrn Ur MDMA Scrn (Ecstasy) U Benzodiazepines Scrn Urine Cocaine Screen U Marijuana (THC) Screen SARS-CoV-2 (PCR) Negative Blood Type Antibody Screen 05/11/21 05/11/21 05/11/21 12:40 12:40 13:49 WBC RBC Hgb Hct MCV MCH MCHC RDW Plt Count Neut % (Auto) Lymph % (Auto) [place] % (Auto) Eos % (Auto) Baso % (Auto) Neut # (Auto) Lymph # (Auto) [place] # (Auto) Eos # (Auto) Baso # (Auto) PT INR APTT Sodium 136 L Potassium 4.5 Chloride 102 Carbon Dioxide 30 BUN 21 H Creatinine 0.98 Estimated GFR > 60.0 BUN/Creatinine Ratio 21.4 Glucose 95 Hemoglobin A1c Calcium 9.5 Magnesium Total Bilirubin 0.8 AST 25 ALT 15 Alkaline Phosphatase 59 Total Creatine Kinase 57 CK-MB (CK-2) TNP CK-MB (CK-2) Rel Index TNP Troponin I < 0.012 Total Protein 6.7 Albumin 4.1 Globulin 2.6 Albumin/Globulin Ratio 1.6 Triglycerides Cholesterol LDL Cholesterol, Calc HDL Cholesterol TSH U Opiates 300ng/mL cut Negative Ur Oxycodone Screen Negative Urine Methadone Screen Negative Ur Barbiturates Screen Negative U Tricyclic Antidepress Negative Ur Phencyclidine Scrn Negative Ur Amphetamines Screen Negative U Methamphetamines Scrn Negative Ur MDMA Scrn (Ecstasy) Negative U Benzodiazepines Scrn Negative Urine Cocaine Screen Negative U Marijuana (THC) Screen Negative SARS-CoV-2 (PCR) Blood Type O Negative Antibody Screen Negative 05/12/21 05/12/21 05/12/21 04:37 04:37 04:37 WBC 4.7 RBC 4.29 L Hgb 13.7 Hct 39.6 L MCV 92.4 MCH 31.9 MCHC 34.5 RDW 12.8 Plt Count 171 Neut % (Auto) 64.8 Lymph % (Auto) 17.6 L [place] % (Auto) 12.0 Eos % (Auto) 5.3 H Baso % (Auto) 0.3 Neut # (Auto) 3000 Lymph # (Auto) 800 L [place] # (Auto) 600 Eos # (Auto) 200 Baso # (Auto) 0 PT INR APTT Sodium 136 L Potassium 4.0 Chloride 105 Carbon Dioxide 31 BUN 19 Creatinine 0.94 Estimated GFR > 60.0 BUN/Creatinine Ratio 20.2 Glucose 90 Hemoglobin A1c 5.0 Calcium 9.5 Magnesium 2.1 Total Bilirubin AST ALT Alkaline Phosphatase Total Creatine Kinase CK-MB (CK-2) CK-MB (CK-2) Rel Index Troponin I Total Protein Albumin Globulin Albumin/Globulin Ratio Triglycerides 90 Cholesterol 129 L LDL Cholesterol, Calc 75 HDL Cholesterol 36 L TSH U Opiates 300ng/mL cut Ur Oxycodone Screen Urine Methadone Screen Ur Barbiturates Screen U Tricyclic Antidepress Ur Phencyclidine Scrn Ur Amphetamines Screen U Methamphetamines Scrn Ur MDMA Scrn (Ecstasy) U Benzodiazepines Scrn Urine Cocaine Screen U Marijuana (THC) Screen SARS-CoV-2 (PCR) Blood Type Antibody Screen 05/12/21 04:37 WBC RBC Hgb Hct MCV MCH MCHC RDW Plt Count Neut % (Auto) Lymph % (Auto) [place] % (Auto) Eos % (Auto) Baso % (Auto) Neut # (Auto) Lymph # (Auto) [place] # (Auto) Eos # (Auto) Baso # (Auto) PT INR APTT Sodium Potassium Chloride Carbon Dioxide BUN Creatinine Estimated GFR BUN/Creatinine Ratio Glucose Hemoglobin A1c Calcium Magnesium Total Bilirubin AST ALT Alkaline Phosphatase Total Creatine Kinase CK-MB (CK-2) CK-MB (CK-2) Rel Index Troponin I Total Protein Albumin Globulin Albumin/Globulin Ratio Triglycerides Cholesterol LDL Cholesterol, Calc HDL Cholesterol TSH 1.48 U Opiates 300ng/mL cut Ur Oxycodone Screen Urine Methadone Screen Ur Barbiturates Screen U Tricyclic Antidepress Ur Phencyclidine Scrn Ur Amphetamines Screen U Methamphetamines Scrn Ur MDMA Scrn (Ecstasy) U Benzodiazepines Scrn Urine Cocaine Screen U Marijuana (THC) Screen SARS-CoV-2 (PCR) Blood Type Antibody Screen [facility] Medical History Hypertension Restless leg syndrome Surgical History S/P CABG (coronary artery bypass graft) Family History (Updated 05/11/21 @ 16:37 by Khoi Bradshaw DO) Mother Hypertension Father Cancer Social History household members: spouse Smoking Status: Former smoker alcohol intake: current Discharge Plan Discharge Plan Patient Disposition: Home Provider Discharge Comment: You were admitted to the hospital after a stroke. You were started on new medications to reduce your risk of further strokes. Please keep a log of your BP at home and follow up with your PCP in the next few weeks if your BP remains high as you may need another BP medicaiton. Discharge orders & Medications Prescriptions: New clopidogrel 75 mg Tablet 75 mg PO DAILY 21 Days Qty: 21 0RF atorvastatin 80 mg tablet 80 mg PO BEDTIME 30 Days Qty: 30 0RF Continued omeprazole 40 mg capsule,delayed release(DR/EC) 40 mg PO QAM 0RF Label Comments: TAKE 1 CAPSULE DAILY 20 MINUTES BEFORE A MEAL Rx Instructions: take before meal gabapentin 100 mg capsule 100 mg PO BEDTIME 0RF methadone 5 mg tablet 10 mg PO BEDTIME 0RF Label Comments: take 2 tablets by mouth nightly losartan 100 mg tablet 100 mg PO QAM 0RF ropinirole 1 mg tablet 1 mg PO QPM 0RF Rx Instructions: @ [id number] ropinirole 1 mg tablet 1.5 mg PO BEDTIME 0RF aspirin 81 mg Tablet 81 mg PO QAM 0RF Follow up/Referrals: Khoi Skaggs MD [Primary Care Provider] - Diet/Activity/Treatments Diet: Diet as Tolerated Activity: As tolerated Discharge Data Primary Care Provider: Khoi Skaggs Quality VTE Deep Vein Thrombosis/Pulmonary Embolism Present on Admission: No
--- NOTE | 2021-05-12 13:00 | PC.NURSE ---
Pt discharged at 1300, escorted off floor in wheelchair, accompanied by significant other and hospital staff. IV removed, tele d/c'd, discharge teaching reviewed including follow up appointments and new medications. Pt left floor with all belongings.
--- NOTE | 2021-05-12 13:21 | OT.IPNOTE ---
OT went to check on pt for OT eval and pt was already discharged.
== END 2021-05-12 13:00 | disposition home or self-care (01) ==
LOC: ED 13:17 → AC 13:41
PROVIDERS: Admitting Provider Internal Medicine; Emergency Provider Emergency Medicine; PCP Family Medicine; Referring Provider Emergency Medicine; Visit Provider Internal Medicine
DX: G45.9 Transient cerebral ischemic attack, unspecified (principal); R26.89 Other abnormalities of gait and mobility; G25.81 Restless legs syndrome; I10 Essential (primary) hypertension; K21.9 Gastro-esophageal reflux disease without esophagitis
CPT/HCPCS: 36415; 70450; 70496; 70498; 70551; 71045; 80048; 80053; 80061; 80305; 82550; 83036; 83735; 84443; 84484; 85025; 85610; 85730; 86850; 86900; 86901; 87635; 93005; 93010; 93306; 94760; 96372; 96374; 97161; 99284; 99285; C9803; G0378; J1650; J2060

== ENCOUNTER 2023-04-18 23:25 | Inpatient (IN) | payer MEDICARE, SELFPAY ==
[2021-05-11 13:46] VITALS: BMI 24.4
[2023-04-18 23:41] VITALS: BMI 23.1
[2023-04-19] VITALS (10 sets, daily range): BP systolic 103–176; BP diastolic 47–76; PULSE 50–73; RESP 11–21; TEMP 35.7–36.6; O2SAT 97–100
[2023-04-19] MEDS: LACTATED RINGERS 1,000 ML 75 ML IV (00:50)
[2023-04-19] MEDS: HYDROMORPHONE 0.5 MG INJ IV (01:09)
--- NOTE | 2023-04-19 01:54 | P.HP_ITS ---
History of Present Illness History of Present Illness Date Patient Seen: 04/19/23 Chief complaint: GI BLEED & POST HEMORRHAGIC ANEMIA Narrative: 82 y/o with PMH of suspected GI bleed 6 years ago, when he had inconclusive EGD and colonoscopy, sustained another GI bleed, starting 2 weeks ago. He started to feel dizzy and reported on possible salmonella poisoning and dark, loose BMs. Initially seen in the walk-in clinic and then in the ED of [facility]. Transferred from there as they have no ability to scope. Came as a direct admission. On admission denies abdominal or chest pain. He feels weak, however. [facility] Medical History Hypertension Restless leg syndrome Surgical History S/P CABG (coronary artery bypass graft) Family History Mother Hypertension Father Cancer Social History household members: spouse Smoking Status: Former smoker alcohol intake: current Meds Home Medications and Allergies Home Medications Medication Instructions Recorded Confirmed Type aspirin 81 mg tablet 81 mg PO QAM 05/11/21 04/18/23 History gabapentin 100 mg capsule 100 mg PO BEDTIME 05/11/21 04/18/23 History methadone 5 mg tablet 10 mg PO BEDTIME 05/11/21 04/18/23 History omeprazole 40 mg capsule,delayed 40 mg PO QAM 05/11/21 04/18/23 History release ropinirole 1 mg tablet 1 mg PO QPM 05/11/21 04/18/23 History ropinirole 1 mg tablet 1.5 mg PO BEDTIME 05/11/21 04/18/23 History acetaminophen 500 mg tablet 500 mg PO PRN PRN pain 04/18/23 04/18/23 History atorvastatin 40 mg tablet (Lipitor) 40 mg PO BEDTIME 04/18/23 04/18/23 History ibuprofen 200 mg tablet 400 mg PO Q6H 04/18/23 04/18/23 History polyethylene glycol 3350 17 gram 17 g PO PRN PRN Constipation 04/18/23 04/18/23 History oral powder packet (Miralax) tamsulosin 0.4 mg capsule 0.4 mg PO QPM 04/18/23 04/18/23 History Allergies Allergy/AdvReac Type Severity Reaction Status Date / Time diphenhydramine Allergy Mild Verified 04/19/23 00:28 Review of Systems Constitutional Comments: w/o fever or chills w/o recent weight loss has generalized weakness Cardiovascular Comments: w/o chest pain Respiratory Comments: short of breath with activity Gastrointestinal Comments: dark, loose BMs Genitourinary Comments: w/o blood in the urine Neurologic Comments: w/o recent focal weakness or numbness Exam Vital Signs (past 8 hours): - 04/19/23 00:10 Temperature 96.9 F L Pulse Rate 73 Respiratory Rate 20 Blood Pressure 176/74 H Pulse Oximetry 98 Oxygen Flow Rate 0 Oxygen Flow Rate 0 Const Other: laying in bed in no distress Resp Other: CTA Cardio Other: RRR GI Other: soft, non-distended Neuro Other: w/o deficits Objective Labs Labs: WBC 6 RBC 2.5 Hb 8.4 Hct 26 MCV 102.8 Plt 222 Na 38, K 3.8, Cr 0.9, lipase 32, LFTs WNR Assessment & Plan Assessment and plan (1) GI bleed: Status: Acute (2) Acute posthemorrhagic anemia: Status: Acute Assessment & Plan narrative: 1. Acute GI Bleed - at one point he was suspected for GI bleed 6 years ago - apparently he had non-revealing upper/lower scopes - on ASA since 2021 when diagnosed with severe Rt ICA stenosis and Vertebral art occlusion / TIAs - occasionally takes Ibuprofen - he also takes PPI at home - he reported on possible salmonella poisoning, 2 weeks ago, still has loose stool - stool panel pending - NPO, IVFs, PPI IV - Sx will scope 2. Acute posthemorrhagic anemia - monitored HH - not for transfusion 3. Chronic MSK pain - on methadone, gabapentin - prn dilaudid while npo 4. TIA/Carotid stenosis - ASA and statin at home - on hold DVT prophylaxis - SCDs
--- NOTE | 2023-04-19 07:55 | P.HP_ITS ---
History of Present Illness History of Present Illness Date Patient Seen: 04/19/23 Chief complaint: GI BLEED & POST HEMORRHAGIC ANEMIA Narrative: 82 y/o with PMH of suspected GI bleed 6 years ago, when he had inconclusive EGD and colonoscopy, sustained another GI bleed, starting 2 weeks ago. He started to feel dizzy and reported on possible salmonella poisoning and dark, loose BMs. Initially seen in the walk-in clinic and then in the ED of [facility]. Transferred from there as they have no ability to scope. Came as a direct admission. On admission denies abdominal or chest pain. He feels weak, however. [facility] Medical History Hypertension Restless leg syndrome Surgical History S/P CABG (coronary artery bypass graft) Family History Mother Hypertension Father Cancer Social History household members: spouse Smoking Status: Former smoker alcohol intake: current Meds Home Medications and Allergies Home Medications Medication Instructions Recorded Confirmed Type aspirin 81 mg tablet 81 mg PO QAM 05/11/21 04/18/23 History gabapentin 100 mg capsule 100 mg PO BEDTIME 05/11/21 04/18/23 History methadone 5 mg tablet 10 mg PO BEDTIME 05/11/21 04/18/23 History omeprazole 40 mg capsule,delayed 40 mg PO QAM 05/11/21 04/18/23 History release ropinirole 1 mg tablet 1 mg PO QPM 05/11/21 04/18/23 History ropinirole 1 mg tablet 1.5 mg PO BEDTIME 05/11/21 04/18/23 History acetaminophen 500 mg tablet 500 mg PO PRN PRN pain 04/18/23 04/18/23 History atorvastatin 40 mg tablet (Lipitor) 40 mg PO BEDTIME 04/18/23 04/18/23 History ibuprofen 200 mg tablet 400 mg PO Q6H 04/18/23 04/18/23 History polyethylene glycol 3350 17 gram 17 g PO PRN PRN Constipation 04/18/23 04/18/23 History oral powder packet (Miralax) tamsulosin 0.4 mg capsule 0.4 mg PO QPM 04/18/23 04/18/23 History Allergies Allergy/AdvReac Type Severity Reaction Status Date / Time diphenhydramine Allergy Mild Verified 04/19/23 00:28 Review of Systems Constitutional Comments: w/o fever or chills w/o recent weight loss has generalized weakness Cardiovascular Comments: w/o chest pain Respiratory Comments: short of breath with activity Gastrointestinal Comments: dark, loose BMs Genitourinary Comments: w/o blood in the urine Neurologic Comments: w/o recent focal weakness or numbness Exam Vital Signs (past 8 hours): - 04/19/23 00:10 04/19/23 05:05 Temperature 96.9 F L 97.0 F L Pulse Rate 73 58 L Respiratory Rate 20 18 Blood Pressure 176/74 H 127/56 L Pulse Oximetry 98 98 Oxygen Flow Rate 0 0 Oxygen Flow Rate 0 Const Other: laying in bed in no distress Resp Other: CTA Cardio Other: RRR GI Other: soft, non-distended Neuro Other: w/o deficits Objective Labs 04/19/23 09:15 04/19/23 09:15 Assessment & Plan Assessment & Plan narrative: # Acute GI Bleed - at one point he was suspected for GI bleed 6 years ago - apparently he had non-revealing upper/lower scopes - on ASA since 2021 when diagnosed with severe Rt ICA stenosis and Vertebral art occlusion / TIAs - occasionally takes Ibuprofen - he also takes PPI at home - he reported on possible salmonella poisoning, 2 weeks ago, still has loose stool - stool panel pending - NPO, IVFs, PPI IV - Sx will scope # Acute posthemorrhagic anemia - monitored HH - not for transfusion # Chronic MSK pain - on methadone, gabapentin - prn dilaudid while npo # TIA/Carotid stenosis - ASA and statin at home - on hold DVT prophylaxis - SCDs
[2023-04-19 09:25] LABS: Add Manual Diff / Slide Review NO; Basophils Absolute Auto 0 /uL (0-100); Basophils Percent Auto 0.3 % (0-2); Eosinophils Absolute Auto 200 /uL (0-450); Eosinophils Percent Auto 4.1 % (2-4); Hematocrit 22.5 % (41-53); Hemoglobin 7.6 g/dL (13.5-17.5); Lymphocytes Absolute Auto 600 /uL (1100-4500); Lymphocytes Percent Auto 13.5 % (25-40); Mean Corpuscular HGB Conc 33.7 % (30-36); Mean Corpuscular Hemoglobin 33.1 PG (26-34); Mean Corpuscular Volume 98.2 fL (80-100); Monocytes Absolute Auto 400 /uL (0-900); Monocytes Percent Auto 9.6 % (3-14); Neutrophils Absolute Auto 3300 /uL (1500-7000); Neutrophils Percent Auto 72.5 % (50-75); Platelet Count 187 X10^3/uL (150-400); Red Blood Cell Count 2.29 X10^6/uL (4.5-5.9); Red Cell Distribution Width 14.9 % (11.6-14.8); White Blood Cell Count 4.5 X10^3/uL (4.5-11.0)
--- NOTE | 2023-04-19 09:29 | CM.DANOTE ---
DCP: Case received, EMR reviewed and met with patient. Introduced self and role. Was able to obtain information regarding patient's baseline activity level at home prior to hospitalization. DCP assessment completed with information currently available. Patient is an 82 year old male who admitted yesterday evening to the care of the hospitalist the care of the hospitalist team. PCP: Dr. Pacheco. Payer: confirmed: Medicare/[employer]. Patient came to the hospital via ambulance, a direct admission from [facility]. Patient was sent from their ER at [facility], for patient is in need of a EGD, secondary to acute GI Bleed. Notes indicate thaptient had a inconclusive EGD and colonoscopy, sustained another GI bleed starting 2 weeks ago. Notes also indicate that patient had possible salmonella poisoning, dark and loose BMs. Patient is here for acute GI bleed, and will be having an EGD. Met with patient in his room. He is alert and oriented, pleasant. Confirmed that he resides in [place] with his spouse, My. He is independent at his baseline. He indicated, he had purchased some [employer] at [employer] recently, thinks that he got Salmonella from this. Confirmed that he sees Dr. Pacheco as his primary care provider. He indicated that he was transported here from [facility]. P: DCP to continue to follow. Patient should be able to go home when deemed medically stable. Janny Krause RN/Routing Equipment Tender Discharge Planning/Care Management Advanced directive, confirm from FAMILY Start: 04/19/23 00:17 Freq: Q24H Status: Active Protocol: Document 04/19/23 00:40 SR (Rec: 04/19/23 00:40 SR [id number]) Advance Directive, confirm on record Time 00:40 Person contacted patient Copy received No CM Discharge Assessment Start: 04/19/23 09:28 Freq: Status: Active Protocol: Document 04/19/23 09:28 (Rec: 04/19/23 09:29 [id number]) Discharge Planning Assessment Assigned Special Class Welder Janny Krause RN/Routing Equipment Tender Advance Directives? Yes Advance Directives on File No History Provided By Patient Has Patient been admitted in last 30 No days? Prior Living Arrangements House Household Members spouse Type of transporation used prior to Drives own vehicle admit Independent with ADL's Yes Is patient alert and oriented? Yes Caregiver for Another No Barriers to Discharge No Discharge Plan Home Transportation Arrangement Spouse Referrals Initiated None needed Whiteboard Updated in Patient Room with Yes name and ext. # of Special Class Welder Review Status In Process Next Review Type Continued Stay Review
[2023-04-19] MEDS: PANTOPRAZOLE 40 MG VIAL IV (09:40)
[2023-04-19 09:47] LABS: BUN Creatinine Ratio 25.4 (6-22); Blood Urea Nitrogen 18 mg/dL (9-20); Calcium 8.7 mg/dL (8.4-10.2); Carbon Dioxide 28 mmol/L (22-32); Chloride 107 mmol/L (98-107); Estimated Glomerular Filt Rate > 60 mL/min (>60); Glucose 90 mg/dL (80-110); HEMOLYSIS < 15 (0-50); Sodium 138 mmol/L (137-145)
[2023-04-19 09:55] LABS: Potassium 3.9 mmol/L (3.4-5.1)
--- NOTE | 2023-04-19 10:25 | P.CONS_ITS ---
History of Present Illness Consult details Date Patient Seen: 04/19/23 Time Patient Seen: 10:25 Chief complaint: GI BLEED & POST HEMORRHAGIC ANEMIA Reason for consult: Dark stools, anemia Requesting provider: Larry Mejía Narrative: H/o anemia thought to be GI in origin but inconclusive (6 years ago). No with 11 days loose stools some of which are reported dark. Thought he had Salmonella but not confirmed. Anemia on presentation to [facility] ED. Transferred here due to no beds available there. Meds Home Medications and Allergies Home Medications Medication Instructions Recorded Confirmed Type aspirin 81 mg tablet 81 mg PO QAM 05/11/21 04/18/23 History gabapentin 100 mg capsule 100 mg PO BEDTIME 05/11/21 04/18/23 History methadone 5 mg tablet 10 mg PO BEDTIME 05/11/21 04/18/23 History omeprazole 40 mg capsule,delayed 40 mg PO QAM 05/11/21 04/18/23 History release ropinirole 1 mg tablet 1 mg PO QPM 05/11/21 04/18/23 History ropinirole 1 mg tablet 1.5 mg PO BEDTIME 05/11/21 04/18/23 History acetaminophen 500 mg tablet 500 mg PO PRN PRN pain 04/18/23 04/18/23 History atorvastatin 40 mg tablet (Lipitor) 40 mg PO BEDTIME 04/18/23 04/18/23 History ibuprofen 200 mg tablet 400 mg PO Q6H 04/18/23 04/18/23 History polyethylene glycol 3350 17 gram 17 g PO PRN PRN Constipation 04/18/23 04/18/23 History oral powder packet (Miralax) tamsulosin 0.4 mg capsule 0.4 mg PO QPM 04/18/23 04/18/23 History Allergies Allergy/AdvReac Type Severity Reaction Status Date / Time diphenhydramine Allergy Mild Verified 04/19/23 00:28 Review of Systems Review of Systems ROS: Yes All systems reviewed with the patient and are negative except as otherwise documented Exam Vital Signs (past 8 hours): - 04/19/23 05:05 04/19/23 08:34 Temperature 97.0 F L 97.3 F L Pulse Rate 58 L 50 L Respiratory Rate 18 18 Blood Pressure 127/56 L 136/63 Pulse Oximetry 98 99 Oxygen Flow Rate 0 0 Oxygen Flow Rate 0 Const General: cooperative, healthy appearing and well groomed Nutritional Appearance: average body habitus HENMT Head: normocephalic and atraumatic Ears: hearing grossly normal bilaterally Eyes Sclera: sclerae normal Neck Neck: trachea midline and No JVD Chest Chest: normal inspection of the chest, No crepitus and No tenderness Resp Effort & Inspection: normal respiratory effort, able to speak in complete sentences, respiratory effort not decreased and no respiratory distress Cardio Rate: bradycardic Rhythm: regular rhythm GI Palpation: soft and No tender Skin General: atrophy and pallor Neuro General: patient alert, patient awake and patient oriented x3 Cognition: normal cognition Psych Appearance: grossly normal Mental Status: mental status grossly normal Judgment: judgment good Objective Labs 04/19/23 09:15 04/19/23 09:15 Labs: Laboratory Results - last 24 hr 04/19/23 09:15 WBC 4.5 RBC 2.29 L Hgb 7.6 L Hct 22.5 L MCV 98.2 MCH 33.1 MCHC 33.7 RDW 14.9 H Plt Count 187 Neut % (Auto) 72.5 Lymph % (Auto) 13.5 L [place] % (Auto) 9.6 Eos % (Auto) 4.1 H Baso % (Auto) 0.3 Neut # (Auto) 3300 Lymph # (Auto) 600 L [place] # (Auto) 400 Eos # (Auto) 200 Baso # (Auto) 0 Sodium 138 Potassium 3.9 Chloride 107 Carbon Dioxide 28 BUN 18 Creatinine 0.71 Estimated GFR > 60 BUN/Creatinine Ratio 25.4 H Glucose 90 Calcium 8.7 PFSH Medical History Hypertension Restless leg syndrome Surgical History S/P CABG (coronary artery bypass graft) Family History Mother Hypertension Father Cancer Social History household members: spouse Tobacco & Substance Use Smoking Status: Former smoker alcohol intake: current Assessment & Plan Assessment & Plan narrative: anemia with possible upper GI source. Plan: PPI started, EGD today. Time Spent With Patient Time with patient: less than 30 minutes
[2023-04-19] MEDS: LACTATED RINGERS 1,000 ML 42 ML IV (11:02)
--- NOTE | 2023-04-19 11:31 | PM.OP.EGD ---
Operative Date/Time/Diagnoses Date of procedure: 04/19/23 Time of procedure: 11:31 Pre-op diagnosis: Anemia, suspected upper GI blood loss Post-op diagnosis: same Procedure & Clinicians Study performed: EGD with anesthesia Same procedure as scheduled: Yes Indications: Anemia and history of dark stools Surgeon: Cathy Davis Procedure Notes Procedure in detail: Preop diagnosis: Anemia Postop diagnosis: Same Operative procedure: EGD with anesthesia Surgeon: Cindy Davis MD Findings: Normal EGD, no source for bleeding. Procedure: Patient placed in a supine position. Anesthetic was provided. Scope was inserted into the esophagus and advanced into the stomach. With the insufflation identified the pylorus and intubated into the duodenal. First 2nd and 3rd portion duodenal shows no evidence of abnormality or bleeding source. Stomach and esophagus also within normal limits, no source for bleeding. Evaluation performed with insufflation, extraction, retroflex. Patient was awakened and taken to recovery room in stable condition. Specimen(s): none sent Complications: none Post-procedure Recommendations: Other recommendation(s) (consult with PCP for outpatient Colonoscopy. ) Follow up: as needed Disposition: PACU
--- NOTE | 2023-04-19 12:16 | PC.NURSE ---
Pt returned from PACU at 1205, A&Ox4, no c/o pain, VSS on RA. Ambulated SBA from stretcher to bed. Reoriented to room and call light. Sitting on edge of bed, call light within reach, bed in low position.
--- NOTE | 2023-04-19 14:25 | PM.DS.1 ---
History of Present Illness History of Present Illness Chief complaint: GI BLEED & POST HEMORRHAGIC ANEMIA Narrative: 82 y/o with PMH of suspected GI bleed 6 years ago, when he had inconclusive EGD and colonoscopy, sustained another GI bleed, starting 2 weeks ago. He started to feel dizzy and reported on possible salmonella poisoning and dark, loose BMs. Initially seen in the walk-in clinic and then in the ED of [facility]. Transferred from there as they have no ability to scope. Came as a direct admission. On admission denies abdominal or chest pain. He feels weak, however. 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 - occasionally takes Ibuprofen - he also takes PPI at home - he reported on possible salmonella poisoning, 2 weeks ago, still has loose stool - underwent EGD which was normal - gen surg recommended outpatient colonoscopy if still bleeding - patient will get blood counts checked in 1 week with PCP # Acute posthemorrhagic anemia - monitored HH - not for transfusion # Chronic MSK pain - on methadone, gabapentin - prn dilaudid while npo # TIA/Carotid stenosis - ASA and statin at home - holding aspirin until f/up with PCP for blood count checks Hospital Course: Admitted as direct admit from [facility] ED for GI bleed. Underwent normal EGD. Hgb dipped to 7.6 but may have been dilutional as patient had no further BM's with blood or melena. His guiaic was negative in ED. He will f/up with PCP for repeat blood work in 1 week and hold his aspirin until then. If his diarrhea and blood resolves and Hgb stable he may not need a colonoscopy, but if not then he will pursue one outpatient through his PCP. Exam Vital Signs (past 8 hours): - 04/19/23 08:34 04/19/23 09:15 04/19/23 10:59 Temperature 97.3 F L 98 F Pulse Rate 50 L 67 Respiratory Rate 18 16 Blood Pressure 136/63 148/64 H Pulse Oximetry 99 98 Oxygen Delivery Method Room Air Room Air Oxygen Flow Rate 0 04/19/23 11:38 04/19/23 11:43 04/19/23 11:54 Temperature 97.1 F L Pulse Rate 53 L 61 61 Respiratory Rate 11 L 21 20 Blood Pressure 103/47 L 107/51 L 125/59 L Pulse Oximetry 97 98 98 Oxygen Delivery Method Room Air Room Air Room Air Oxygen Flow Rate 04/19/23 12:05 04/19/23 13:10 04/19/23 13:46 Temperature 96.3 F L 97.0 F L Pulse Rate 58 L 58 L 61 Respiratory Rate 18 18 16 Blood Pressure 137/69 148/76 H 140/60 Pulse Oximetry 100 99 98 Oxygen Delivery Method Oxygen Flow Rate 0 0 0 Oxygen Delivery Method Room Air Oxygen Flow Rate 0 Const Other: laying in bed in no distress Resp Other: CTA Cardio Other: RRR GI Other: soft, non-distended Neuro Other: w/o deficits Objective Labs 04/19/23 09:15 04/19/23 09:15 Labs: Laboratory Results - last 24 hr 04/19/23 09:15 WBC 4.5 RBC 2.29 L Hgb 7.6 L Hct 22.5 L MCV 98.2 MCH 33.1 MCHC 33.7 RDW 14.9 H Plt Count 187 Neut % (Auto) 72.5 Lymph % (Auto) 13.5 L [place] % (Auto) 9.6 Eos % (Auto) 4.1 H Baso % (Auto) 0.3 Neut # (Auto) 3300 Lymph # (Auto) 600 L [place] # (Auto) 400 Eos # (Auto) 200 Baso # (Auto) 0 Sodium 138 Potassium 3.9 Chloride 107 Carbon Dioxide 28 BUN 18 Creatinine 0.71 Estimated GFR > 60 BUN/Creatinine Ratio 25.4 H Glucose 90 Calcium 8.7 PFSH Medical History Hypertension Restless leg syndrome Surgical History S/P CABG (coronary artery bypass graft) Family History Mother Hypertension Father Cancer Social History household members: spouse Smoking Status: Former smoker alcohol intake: current Discharge Plan Discharge Plan Patient Disposition: Home Provider Discharge Comment: Please get a blood test with your PCP in 1 week and hold your aspirin until then. Dr. Mejía Discharge orders & Medications Prescriptions: Continued omeprazole 40 mg capsule,delayed release(DR/EC) 40 mg PO QAM Patient Comments: TAKE 1 CAPSULE DAILY 20 MINUTES BEFORE A MEAL Rx Instructions: take before meal gabapentin 100 mg capsule 100 mg PO BEDTIME methadone 5 mg tablet 10 mg PO BEDTIME Patient Comments: take 2 tablets by mouth nightly ropinirole 1 mg tablet 1 mg PO QPM Rx Instructions: @ 6373-7950 ropinirole 1 mg tablet 1.5 mg PO BEDTIME aspirin 81 mg Tablet 81 mg PO QAM acetaminophen 500 mg Tablet 500 mg PO PRN PRN (Reason: pain) atorvastatin [Lipitor] 40 mg Tablet 40 mg PO BEDTIME tamsulosin 0.4 mg capsule 0.4 mg PO QPM ibuprofen 200 mg Tablet 400 mg PO Q6H polyethylene glycol 3350 [Miralax] 17 gram Powder In Packet 17 g PO PRN PRN (Reason: Constipation) Follow up/Referrals: Khoi Skaggs MD [Primary Care Provider] - 1 Week Visit Report/Discharge Packet Stand Alone Forms: Patient Portal/API, Stroke Signs & Symptoms Discharge Data Primary Care Provider: Khoi Skaggs
--- NOTE | 2023-04-19 15:22 | PC.NURSE ---
Pt discharged home at 1445, escorted off floor in wheelchair accompanied by spouse and hospital staff. IV removed, tele d/c'd, discharge teaching completed including follow up appointments, worsening symptoms and medication changes. Questions and concerns addressed. Patient left floor with all belongings.
== END 2023-04-19 14:45 | disposition home or self-care (01) | DRG 378 ==
PROVIDERS: Surgery; Admitting Provider Internal Medicine; PCP Family Medicine; Referring Provider Internal Medicine; Visit Provider Internal Medicine
PROC: 0DJ08ZZ Inspection of Upper Intestinal Tract, Via Natural or Artificial Opening Endoscopic (ICD-10-PCS; CPT 43235; principal; 2023-04-19 11:00)
DX: K92.2 Gastrointestinal hemorrhage, unspecified (principal); D62 Acute posthemorrhagic anemia; G89.29 Other chronic pain; I65.21 Occlusion and stenosis of right carotid artery; G25.81 Restless legs syndrome; I10 Essential (primary) hypertension; Z87.891 Personal history of nicotine dependence; Z86.73 Personal history of transient ischemic attack (TIA), and cerebral infarction without residual deficits
CPT/HCPCS: 36415; 43235; 80048; 85025; 93005; 93010; 99232; C9113; J1170; J2704

== ENCOUNTER → 2023-09-11 10:21 | Outpatient (CLI) | payer MEDICARE, SELFPAY ==
--- NOTE | 2023-09-11 10:25 | DI.RAD.S_ITS ---
PROCEDURE: XR TOE RT MIN 2V INDICATIONS: R/O FX AND DISLOCATION 2nd toe WB TECHNIQUE: 3 views of the right 2nd toe(s) acquired. COMPARISON: None. FINDINGS: Bones: There is a comminuted displaced fracture that extends into the PIP joint of the right 2nd digit. No other fracture or dislocation. Soft tissues: No suspicious soft tissue densities. IMPRESSION: Intra-articular fracture of the distal aspect of the 2nd proximal phalanx. Dictated by: Bianca Nix M.D. on 09/11/2023 at 14:22 Approved by: Bianca Nix M.D. on 09/11/2023 at 14:23
== END ==
LOC: RAD 10:23
PROVIDERS: PCP Family Medicine; Referring Provider Podiatrist Foot & Ankle Surgery; Visit Provider Podiatrist Foot & Ankle Surgery
DX: S92.511A Displaced fracture of proximal phalanx of right lesser toe(s), initial encounter for closed fracture (principal); M79.674 Pain in right toe(s); X58.XXXA Exposure to other specified factors, initial encounter
CPT/HCPCS: 73660

== ENCOUNTER → 2023-11-06 13:01 | Outpatient (CLI) | payer MEDICARE, SELFPAY ==
--- NOTE | 2023-11-06 13:06 | DI.RAD.S_ITS ---
PROCEDURE: XR TOE RT MIN 2V INDICATIONS: Nondisplaced fracture of middle phalanx of right lesser toe( TECHNIQUE: 3 views of the right toe(s) acquired. COMPARISON: [facility], , XR TOE RT MIN 2V, 09/11/2023, 10:27. FINDINGS: Bones: Fracture again noted of the distal end of the proximal phalanx of the 2nd toe. Mild callus formation is present indicating early healing. The fracture extends into the articular surface. No new injury demonstrated. Soft tissues: No suspicious soft tissue densities. IMPRESSION: Healing fracture of the proximal phalanx of the right 2nd toe. Dictated by: Newton Sher M.D. on 11/06/2023 at 16:47 Approved by: Newton Sher M.D. on 11/06/2023 at 16:51
== END ==
PROVIDERS: PCP Family Medicine; Referring Provider Podiatrist Foot & Ankle Surgery; Visit Provider Podiatrist Foot & Ankle Surgery
DX: S92.524D Nondisplaced fracture of middle phalanx of right lesser toe(s), subsequent encounter for fracture with routine healing (principal); X58.XXXD Exposure to other specified factors, subsequent encounter
CPT/HCPCS: 73660

== ENCOUNTER → 2024-08-19 08:23 | Outpatient (CLI) | payer MEDICARE, SELFPAY ==
--- NOTE | 2024-08-19 08:25 | DI.US.S_ITS ---
PROCEDURE: US CAROTID DOPPLER BI INDICATIONS: Previous R side stenosis s/p revascularization TECHNIQUE: Color and pulse Doppler interrogation was performed of both carotid systems, with image documentation and velocity measurements. COMPARISON: None. FINDINGS: Stenosis calculations are based on SRU (Society of [employer] in Ultras[employer]) criteria. Right side: Brachial blood pressure: 140/58 mm Hg. Common carotid artery peak systolic velocity: 65 cm/sec. Internal carotid artery peak systolic velocity: 121 cm/sec. Internal carotid artery end diastolic velocity: 23 cm/sec. External carotid artery peak systolic velocity: 143 cm/sec. ICA/CCA peak systolic ratio: 1.9 . Funk scale imaging description: There is a carotid stent beginning in the distal common carotid artery and extending into the external and internal carotid arteries. Mild spectral broadening of the right mid internal carotid artery without significant velocity elevation. Percent internal carotid artery stenosis: Less than 50% . Vertebral artery: Flow direction is antegrade. Left side: Brachial blood pressure: 130/61 mm Hg. Common carotid artery peak systolic velocity: 75 cm/sec. Internal carotid artery peak systolic velocity: 81 cm/sec. Internal carotid artery end diastolic velocity: 20 cm/sec. External carotid artery peak systolic velocity: 181 cm/sec. ICA/CCA peak systolic ratio: 1.1 . Funk scale imaging description: Minor calcified plaque at the internal and external carotid artery origins. Waveforms remain normal. Percent internal carotid artery stenosis: Less than 50% . Vertebral artery: Flow direction is antegrade. IMPRESSION: 1. In the right carotid artery, there is no hemodynamically significant stenosis based on peak systolic velocity criteria. 2. Patent right carotid stent. 3. In the left carotid artery, there is no hemodynamically significant stenosis based on peak systolic velocity criteria. 4. Antegrade vertebral arteries. Dictated by: Krista Garcia M.D. on 08/19/2024 at 15:22 Approved by: Krista Garcia M.D. on 08/19/2024 at 15:35
== END ==
PROVIDERS: Family Provider Family Medicine; PCP Family Medicine; Referring Provider Family Medicine; Visit Provider Family Medicine
DX: I10 Essential (primary) hypertension (principal); I25.10 Atherosclerotic heart disease of native coronary artery without angina pectoris; I77.9 Disorder of arteries and arterioles, unspecified; E78.5 Hyperlipidemia, unspecified; Z95.828 Presence of other vascular implants and grafts
CPT/HCPCS: 93880

== ENCOUNTER → 2024-08-27 07:21 | Outpatient (CLI) | payer MEDICARE, SELFPAY ==
[2024-08-27 09:02] LABS: Alanine Aminotransferase 15 IU/L (<50); Albumin 3.9 g/dL (3.5-5.0); Albumin Globulin Ratio 1.9 (1.0-2.8); Alkaline Phosphatase 91 U/L (38-126); Aspartate Aminotransferase 22 IU/L (17-59); BUN Creatinine Ratio 31.6 (6-22); Bilirubin Total 0.8 mg/dL (0.2-1.3); Blood Urea Nitrogen 24 mg/dL (9-20); Carbon Dioxide 28 mmol/L (22-32); Chloride 103 mmol/L (98-107); Cholesterol 87 mg/dL (140-199); Estimated Glomerular Filt Rate > 60 mL/min (>60); Globulin 2.1 g/dL (1.7-4.1); Glucose 90 mg/dL (70-99); HDL Cholesterol 52 mg/dL (40-60); HEMOLYSIS < 15 (0-50); LDL Cholesterol Calculated 25 mg/dL (<100); Potassium 4.5 mmol/L (3.4-5.1); Sodium 137 mmol/L (137-145); Triglycerides 48 mg/dL (35-150)
[2024-08-27 09:29] LABS: Hematocrit 38.3 % (41-53); Hemoglobin 13.3 g/dL (13.5-17.5); Mean Corpuscular HGB Conc 34.6 % (30-36); Mean Corpuscular Hemoglobin 31.9 PG (26-34); Platelet Count 156 X10^3/uL (150-400); Red Blood Cell Count 4.16 X10^6/uL (4.5-5.9); Red Cell Distribution Width 14.6 % (11.6-14.8); White Blood Cell Count 4.6 X10^3/uL (4.5-11.0)
== END ==
PROVIDERS: Family Provider Family Medicine; PCP Family Medicine; Referring Provider Family Medicine; Visit Provider Family Medicine
DX: I10 Essential (primary) hypertension (principal); I25.10 Atherosclerotic heart disease of native coronary artery without angina pectoris; I77.9 Disorder of arteries and arterioles, unspecified; E78.5 Hyperlipidemia, unspecified
CPT/HCPCS: 36415; 80053; 80061; 85027

== ENCOUNTER 2024-09-23 14:30 | Outpatient (RCR) | payer MEDICARE, SELFPAY ==
--- NOTE | 2024-06-22 21:07 | PT.OIE ---
Current Diagnoses Pain in right shoulder (06/22/24) Muscle weakness (generalized) (06/22/24) Past Medical History (Last Updated 06/04/24 @ 17:55 by Arnaldo Hendrix MD) Acute posthemorrhagic anemia Cerebrovascular accident GI bleed Hypertension Restless leg syndrome Past Surgical History (Last Reviewed 04/19/23 @ 10:29 by Cathy Davis MD) S/P CABG (coronary artery bypass graft) Visit Care Team Role Provider Type Arnaldo Hendrix MD Attending Provider Physician Family Provider Primary Care Provider Referring Provider Specialty: [facility] Address: [address] [place] [address], [facility] Email: [email or web address] Physical Therapy Initial Evaluation PT-OP-A Visit Information Start: 06/17/24 19:09 Freq: Status: Active Protocol: Document 06/22/24 08:22 LRN (Rec: 06/22/24 09:11 LRN [id number]) Out-Patient Physical Therapy Visit Information Visit Information Visit Type Initial Evaluation Visit Start Time 08:22 Visit Stop Time 09:07 Visit Number 1 Evaluation Information Evaluation Date 06/22/24 Precautions Precautions Uncontrolled HBP being monitored with meds, ocassionally dizzy after couple cups of coffee and hiking, minor stroke in eary 2022 f/b stents in L coronory & R carotid artery in 2020 or 2022. PT-OP-B Current Condition Start: 06/17/24 19:09 Freq: Status: Active Protocol: Document 06/22/24 08:22 LRN (Rec: 06/22/24 09:11 LRN [id number]) Current Condition History of Current Condition Onset Date Nov 2023 Current Complaints R shdr pain w/removing wallet, scratch back,resting arm in armchair. History of Current Condition Pt reports in preparing to move from [place] to [place] his R shoulder started to hurt and since then has not improved. Taking Advil for the pain has been helpful. Pt used to sleep on his R side, but is not able to because of the pain, and can't vacuum. Pt has changed to sleeping on his L side. He does wake at night, but it is due to back pain and other pains. He finds it painful to rest his arm on an armchair, demonstrating a position with his arm out to side. His pain is intermittent in nature. 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 Treatment Goals Patient/Caregiver Goals Pt goals: -being able to sleep on the R side. -pain to decrease 50-60% prior to DC, to be able to rest his R arm on armchair for a an hour long program comfortably. - improve mobility to remove wallet an scatch back. Personal Factors Other Personal Factors That May Effect Minor stroke in 2022 ( Therapy/Recovery Lives in [place] w/spouse). Uncontrolled HBP being monitored as medications are tried. Occasionally dizzy. PT-OP-C Subjective Start: 06/17/24 19:09 Freq: Status: Active Protocol: Document 06/22/24 08:22 LRN (Rec: 06/22/24 09:11 LRN [id number]) Patient Questionnaires Quick Dash- Upper Extremity Quick Dash UE Score 2 unanswered questions OP-PT Pain Assessment Pain Assessment Grid Paper Pain Assessment Grid Completed Yes Location R shoulder Pain Location Details Supraspinatus fossa Intensity 7 Scale Used Numeric (0 - 10) Description Sharp,With Movement Description- Other At rest Frequency Intermittent Pain Aggravating Factors Changing Position Pain Alleviating Factors Heat,Medication Other Pain Alleviating Factors Biofreeze and Advil. PT-OP-E Functional Tests Start: 06/17/24 19:09 Freq: Status: Active Protocol: Document 06/22/24 08:22 LRN (Rec: 06/22/24 09:11 LRN [id number]) Functional Tests Apley's Scratch Test Action 1- Left Mid of inferior border of R scaula Action 1- Right Spine of L scapula Action 2- Left T2 Action 2- Right T2 Action 3- Left T8 Action 3- Right L4 PT-OP-F Manual Assessment Start: 06/17/24 19:09 Freq: Status: Active Protocol: Document 06/22/24 08:22 LRN (Rec: 06/22/24 09:11 LRN [id number]) Manual Assessments Soft Tissue Assessment Soft Tissue Mobility Assessment Supraspinatus tight (constant) and tender. No tenderness of neck or subacromial location. PT-OP-H Neuro Start: 06/17/24 19:09 Freq: Status: Active Protocol: Document 06/22/24 08:22 LRN (Rec: 06/22/24 09:11 LRN [id number]) Sensation Evaluation Gross Sensation Gross Sensation WNL PT-OP-J Posture/Palpation/Skin Start: 06/17/24 19:09 Freq: Status: Active Protocol: Document 06/22/24 08:22 LRN (Rec: 06/22/24 09:11 LRN [id number]) Posture Evaluation Position Sitting Head/C-Spine Posture Forward Head T-Spine Posture Increased Kyphosis Shoulder Posture (R) Rounded,(R) Forward,(L) Elevated Scapula Posture (R) Elevated Arm Posture (L) Internally Rotated,(R) Internally Rotated Pelvis Posture (R) Iliac Crest Superior Weight Distribution Balanced Knee Posture (R) Genu Varus Comments Posture Comments S-curve, thoracic apex on left and lumbar spine apex on the right. Elevated R clavical at ACJ. Palpation Assessment Location R shoulder Palpation Location Supraspinatus fossa Palpation Findings Muscle Guarding,Tenderness PT-OP-K Range of Motion Start: 06/17/24 19:09 Freq: Status: Active Protocol: Document 06/22/24 08:22 LRN (Rec: 06/22/24 09:11 LRN [id number]) Shoulder Goniometric Range of Motion Shoulder Right Passive Testing Position Supine Flexion 148 Left Passive Testing Position Supine Flexion 160 Right Active Testing Position Sitting Flexion 132 Extension 52 Abduction 168 External Rotation at 0 degrees Abduction 73 Internal Rotation Behind Back (text) L4 Left Active Testing Position Sitting External Rotation at 0 degrees Abduction 53 Internal Rotation Behind Back (text) T8 PT-OP-L Special Tests Start: 06/17/24 19:09 Freq: Status: Active Protocol: Document 06/22/24 08:22 LRN (Rec: 06/22/24 09:11 LRN [id number]) Special Tests Cervical Spine Special Tests Traction Test Results - Spurling's Test Test Results - Foraminal Compression Test Results - Shoulder Special Tests Belly Press Test Results + right Empty Can Test Results + right Elevation Impingement Test Results + PT-OP-M Strength Start: 06/17/24 19:09 Freq: Status: Active Protocol: Document 06/22/24 08:22 LRN (Rec: 06/22/24 09:11 LRN [id number]) Shoulder Strength Shoulder Manual Muscle Testing Right Abduction (C5) 4 Good Internal Rotation 4 Good Comments 5/5 except as indicated above due to pain at supraspinatus fossa. Left Comments Generally 5/5 PT-OP-Q Treatments Start: 06/17/24 19:09 Freq: Status: Active Protocol: Document 06/22/24 08:22 LRN (Rec: 06/22/24 09:11 LRN [id number]) Therapeutic Exercises Sitting Exercises Shoulder ER/IR Sitting Exercise Name 0 deg's AB for shoulder ER/IR Side bilateral Reps/Minutes 10x Comments cued for upright posturing and holding shoulders back. Therapeutic Activity Therapeutic Activity night time positiong Name L sidelie positioning for comfort, holding pillow Reps/Minutes 4' Comments I/S pt in use of pillow to support back to avoid lying directly on the R shoulder and more on the posterior scapula . Self-Care/Home Management Treatment Activities Self-Care/Home Management Activities I/S pt in HEP: active R shoulder IR/ER with 0 deg's ABD PT-OP-T Assessment and Plan Start: 06/17/24 19:09 Freq: Status: Active Protocol: Document 06/22/24 08:22 LRN (Rec: 06/22/24 09:11 LRN [id number]) Physical Therapy Assessment Rehab Potential Rehabilitation Potential Good Evaluation Complexity Number of Personal Factors/Comorbidities 3 or More Number of Body Systems Impaired 4 or More Clinical Presentation at Evaluation Evolving Impairments Impairments Activity Tolerance,Functional Activities,Functional Mobility ,Pain,Posture,ROM,Soft Tissue Mobility,Strength Goals pain Impairment Constant R shoulder pain, intermittently increases (6-7/ 10) Short Term Goal (STG) Pt will be educated and able to identify pain management technique of cryotherapy use. STG Duration 07/02/24 Senior Living Goal (LTG) Pain to decrease 50-60% prior to DC, to be able to rest his R arm on an armchair for an hour long program comfortably. LTG Duration 09/17/24 Three Impairment Decrease R shoulder strength Short Term Goal (STG) Improve R shoulder strength with pt able to sleep in a modified position on his R side. STG Duration 08/06/24 Senior Living Goal (LTG) Improve R shoulder strength with pt able to reach out with the arm forward to vacuum and reach out to the side w/pain no greater than 3/10. LTG Duration 09/17/24 Two Impairment Decreased R shoulder functional ROM Short Term Goal (STG) Improve function AROM with pt able to scatch his back with tolerable pain. STG Duration 08/06/24 Senior Living Goal (LTG) Improve R shoulder ROM with pt able to remove his wallet from his back pocket with tolerable discomfort. LTG Duration 09/17/24 One Impairment Lacks self care HEP Short Term Goal (STG) Pt will be able to demonstrate proper body mechanics for ADLs, and show awareness of proper sitting/standing posture as related to shoulder /scapular positioning. STG Duration 07/16/24 Senior Living Goal (LTG) Pt will be independent with a HEP of R shoulder/scapular/ core strengthening and ROM ex' s. LTG Duration 09/17/24 Assessment Summary Assessment Pt is an 83 yo male who presents with possible R rotator cuff dysfunction causing limited shoulder abduction & horiz AD ( supraspinatus) ROM, IR ( subscapularis/infraspinatus) in ROM and strength and , and signs of ACJ strain/sprain. There appears to be no signs of cervcal involvement. He has positional dysfunction of his spine with thoracic kypohiss and scoliosis. The pt will benefit from skilled physical therapy to work towards achieving the above stated goals. Physical Therapy Plan Frequency and Duration Frequency of Treatment 2x/Week Duration of treatment (weeks) 12 Plan of Care Start Date 06/22/24 Plan of Care End Date 09/17/24 Therapeutic Interventions Therapeutic Interventions Home Exercise Program,Joint Mobilizations,Manual Therapy, Neuromuscular Re-education, Self-Care/Home Management,Soft Tissue Mobilization, Therapeutic Activities, Therapeutic Exercises Modalities Cold Pack/Ice Massage,Electric Stimulation,Hot Packs, Ultrasound Next Visit Focus/Plan Next Note Type Treatment Note Next Visit Plan Next: Pt to complete UE Quickdash. Assess L shoulder AROM & L/R PROM. DTR testing. Review nighttime positioning and educate in sitting positioning for pt comfort. POC: R rotator cuff ( supraspinatus, subscap, infrasp) and ACJ strain/sprain rehab (pain at supraspinatus fossa). Shoulder/scapular/ core stabilization/ strengthening, activty tolerance, manual therapy (JMT , STM), modalities as needed for pain, pt education ( nighttime positioning, posture , body mech).
--- NOTE | 2024-06-24 12:50 | PT.OTN ---
Current Diagnoses Pain in right shoulder (06/24/24) Muscle weakness (generalized) (06/24/24) Physical Therapy Treatment Note PT-OP-A Visit Information Start: 06/17/24 19:09 Freq: Status: Active Protocol: Document 06/24/24 07:31 LRN (Rec: 06/24/24 08:18 LRN [id number]) Out-Patient Physical Therapy Visit Information Visit Information Visit Type Treatment Note Visit Start Time 07:31 Visit Stop Time 08:14 Visit Number 2 Evaluation Information Evaluation Date 06/22/24 Precautions Precautions Uncontrolled HBP being monitored with meds, ocassionally dizzy after couple cups of coffee and hiking, minor stroke in 2022 f/b stents in L coronory & R carotid artery in 2020 or 2022. PT-OP-B Current Condition Start: 06/17/24 19:09 Freq: Status: Active Protocol: Document 06/22/24 08:22 LRN (Rec: 06/22/24 09:11 LRN [id number]) Current Condition History of Current Condition Onset Date Nov 2023 Current Complaints R shdr pain w/removing wallet, scratch back,resting arm in armchair. History of Current Condition Pt reports in preparing to move from [place] to [place] his R shoulder started to hurt and since then has not improved. Taking Advil for the pain has been helpful. Pt used to sleep on his R side, but is not able to because of the pain, and can't vacuum. Pt has changed to sleeping on his L side. He does wake at night, but it is due to back pain and other pains. He finds it painful to rest his arm on an armchair, demonstrating a position with his arm out to side. His pain is intermittent in nature. 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 Treatment Goals Patient/Caregiver Goals Pt goals: -being able to sleep on the R side. -pain to decrease 50-60% prior to DC, to be able to rest his R arm on armchair for a an hour long program comfortably. - improve mobility to remove wallet an scatch back. Personal Factors Other Personal Factors That May Effect Minor stroke in 2022 ( Therapy/Recovery Lives in [place] w/spouse). Uncontrolled HBP being monitored as medications are tried. Occasionally dizzy. PT-OP-C Subjective Start: 06/17/24 19:09 Freq: Status: Active Protocol: Document 06/24/24 07:31 LRN (Rec: 06/24/24 08:18 LRN [id number]) OP-PT Subjective Patient Comments Patient Comments Sore in R shoulder from gardening. Patient Questionnaires Quick Dash- Upper Extremity Quick Dash UE Score 30 (missing question #6) Quick Dash UE Impairment 20 to 39% Impaired (Score 20- 39) PT-OP-E Functional Tests Start: 06/17/24 19:09 Freq: Status: Active Protocol: Document 06/22/24 08:22 LRN (Rec: 06/22/24 09:11 LRN [id number]) Functional Tests Apley's Scratch Test Action 1- Left Mid of inferior border of R scaula Action 1- Right Spine of L scapula Action 2- Left T2 Action 2- Right T2 Action 3- Left T8 Action 3- Right L4 PT-OP-F Manual Assessment Start: 06/17/24 19:09 Freq: Status: Active Protocol: Document 06/22/24 08:22 LRN (Rec: 06/22/24 09:11 LRN [id number]) Manual Assessments Soft Tissue Assessment Soft Tissue Mobility Assessment Supraspinatus tight (constant) and tender. No tenderness of neck or subacromial location. PT-OP-H Neuro Start: 06/17/24 19:09 Freq: Status: Active Protocol: Document 06/22/24 08:22 LRN (Rec: 06/22/24 09:11 LRN [id number]) Sensation Evaluation Gross Sensation Gross Sensation WNL PT-OP-J Posture/Palpation/Skin Start: 06/17/24 19:09 Freq: Status: Active Protocol: Document 06/22/24 08:22 LRN (Rec: 06/22/24 09:11 LRN [id number]) Posture Evaluation Position Sitting Head/C-Spine Posture Forward Head T-Spine Posture Increased Kyphosis Shoulder Posture (R) Rounded,(R) Forward,(L) Elevated Scapula Posture (R) Elevated Arm Posture (L) Internally Rotated,(R) Internally Rotated Pelvis Posture (R) Iliac Crest Superior Weight Distribution Balanced Knee Posture (R) Genu Varus Comments Posture Comments S-curve, thoracic apex on left and lumbar spine apex on the right. Elevated R clavical at ACJ. Palpation Assessment Location R shoulder Palpation Location Supraspinatus fossa Palpation Findings Muscle Guarding,Tenderness PT-OP-K Range of Motion Start: 06/17/24 19:09 Freq: Status: Active Protocol: Document 06/24/24 07:31 LRN (Rec: 06/24/24 08:18 LRN [id number]) Shoulder Goniometric Range of Motion Shoulder Right Passive Shoulder ROM WFL No Testing Position Supine Flexion 148 Abduction 130 External Rotation at 90 degrees 70 Abduction Internal Rotation 45 Comments AB in scapular plane Left Passive Shoulder ROM WFL Yes Testing Position Supine Flexion 160 Abduction 180 External Rotation at 90 degrees 70 Abduction Internal Rotation 90 Comments AB in scapular plane Right Active Testing Position Sitting Flexion 132 Extension 52 Abduction 168 External Rotation at 0 degrees Abduction 68 Internal Rotation Behind Back (text) L4 Left Active Shoulder ROM WFL Yes Testing Position Sitting Flexion 150 Extension 65 Abduction 180 External Rotation at 0 degrees Abduction 68 Internal Rotation Behind Back (text) T6 PT-OP-L Special Tests Start: 06/17/24 19:09 Freq: Status: Active Protocol: Document 06/22/24 08:22 LRN (Rec: 06/22/24 09:11 LRN [id number]) Special Tests Cervical Spine Special Tests Traction Test Results - Spurling's Test Test Results - Foraminal Compression Test Results - Shoulder Special Tests Belly Press Test Results + right Empty Can Test Results + right Elevation Impingement Test Results + PT-OP-M Strength Start: 06/17/24 19:09 Freq: Status: Active Protocol: Document 06/22/24 08:22 LRN (Rec: 06/22/24 09:11 LRN [id number]) Shoulder Strength Shoulder Manual Muscle Testing Right Abduction (C5) 4 Good Internal Rotation 4 Good Comments 5/5 except as indicated above due to pain at supraspinatus fossa. Left Comments Generally 5/5 PT-OP-Q Treatments Start: 06/17/24 19:09 Freq: Status: Active Protocol: Document 06/24/24 07:31 LRN (Rec: 06/24/24 08:18 LRN [id number]) Therapeutic Exercises Supine Exercises PROM/AROM Supine Exercise Name L/R PROM: AB, ER, IR Side bilateral Comments ROM taken Neck stretch Supine Exercise Name AAROM L SB stretch Reps/Minutes 10 SH x 10 Comments Extra time to determine max kelsea stretch and positioning for stretch Shoulder ER/IR ROM Supine Exercise Name Stretch Side right Reps/Minutes 5-10SH x 10/2 sets 1 set with cane and pt self stretch for ER Comments Extra time to determine max kelsea stretch. AROM/PROM taken Shoulder flex ROM Supine Exercise Name Overhead cane flex stretch. Side bilateral Reps/Minutes 3 SH x 15 f/b rest Comments Extra time taken to train for scap mvmt w/max flex. AROM/ PROM taken Sitting Exercises Shoulder AROM Sitting Exercise Name Flex, Ext, AB Side bilateral Reps/Minutes 1-2x Comments AROM taken Manual Therapy Treatment Consent Patient gave verbal consent for manual Yes treatment Soft Tissue Mobilization Passive stretch R shoulder Body Location ER/IR Mobilization Type Sustained Pressure Intensity/Depth minimal Body Position Supine Comments Cued for pt to allow mvmt not into pain. Extra time needed to determine max kelsea pain. Self-Care/Home Management Treatment Activities Self-Care/Home Management Activities Issued & reviewed HEP: Dowel stretch for shoulder flex, ER/ IR; Neck elongation, SB, Rot, wall posturing. PT-OP-T Assessment and Plan Start: 06/17/24 19:09 Freq: Status: Active Protocol: Document 06/24/24 07:31 LRN (Rec: 06/24/24 08:18 LRN [id number]) Physical Therapy Assessment Goals pain Impairment Constant R shoulder pain, intermittently increases (6-7/ 10) Short Term Goal (STG) Pt will be educated and able to identify pain management technique of cryotherapy use. STG Duration 07/02/24 Botanical Technical Officer Goal (LTG) Pain to decrease 50-60% prior to DC, to be able to rest his R arm on an armchair for an hour long program comfortably. LTG Duration 09/17/24 Three Impairment Decrease R shoulder strength Short Term Goal (STG) Improve R shoulder strength with pt able to sleep in a modified position on his R side. STG Duration 08/06/24 Botanical Technical Officer Goal (LTG) Improve R shoulder strength with pt able to reach out with the arm forward to vacuum and reach out to the side w/pain no greater than 3/10. LTG Duration 09/17/24 Two Impairment Decreased R shoulder functional ROM Short Term Goal (STG) Improve function AROM with pt able to scatch his back with tolerable pain. STG Duration 08/06/24 Botanical Technical Officer Goal (LTG) Improve R shoulder ROM with pt able to remove his wallet from his back pocket with tolerable discomfort. LTG Duration 09/17/24 One Impairment Lacks self care HEP Short Term Goal (STG) Pt will be able to demonstrate proper body mechanics for ADLs, and show awareness of proper sitting/standing posture as related to shoulder /scapular positioning. STG Duration 07/16/24 Botanical Technical Officer Goal (LTG) Pt will be independent with a HEP of R shoulder/scapular/ core strengthening and ROM ex' s. 06/24/24: HEP: Dowel stretch for shoulder flex, ER/IR; Neck elongation, SB, Rot, wall posturing. LTG Duration 09/17/24 progressed 06/24/24 Assessment Summary Assessment 83 yo male w/possible R rotator cuff dysfunction, dec' d R shdr AB & horiz AD ROM ( supra pn), decr'd IR (subscap/ infrasp) ROM and strength and signs of ACJ strain/sprain, no obdvious C/S involvement; possible hinderance from kyphosis and scoliosis. Today , his R shoulder AROM/PROM is less than L (especially with IR, AB, ER). Scapular setting w/ex (depression/AD) improves flexion mobility. Extra time needed with each ROM ex's to determine max kelsea stretch for exercise. Physical Therapy Plan Frequency and Duration Frequency of Treatment 2x/Week Duration of treatment (weeks) 12 Plan of Care Start Date 06/22/24 Plan of Care End Date 09/17/24 Next Visit Focus/Plan Next Note Type Treatment Note Next Visit Plan Next: DTR testing. Educate in sitting/standing posture & positioning for pt comfort. Educate with pt to be able to identify pain management technique use of cryotherapy. POC: R rotator cuff ( supraspinatus, subscap, infrasp) and ACJ strain/sprain rehab (pain at supraspinatus fossa). Pt education (posture , body mech), Shoulder/ scapular/core stabilization/ strengthening, activty tolerance, manual therapy (JMT , STM), modalities as needed for pain.
--- NOTE | 2024-06-28 09:46 | PT.OTN ---
Current Diagnoses Pain in right shoulder (06/28/24) Muscle weakness (generalized) (06/28/24) Physical Therapy Treatment Note PT-OP-A Visit Information Start: 06/17/24 19:09 Freq: Status: Active Protocol: Document 06/28/24 09:05 SP (Rec: 06/28/24 09:50 SP [id number]) Out-Patient Physical Therapy Visit Information Visit Information Visit Type Treatment Note Visit Start Time 09:05 Visit Stop Time 09:46 Visit Number 3 Number of GERM DRIER Visits 1 Evaluation Information Evaluation Date 06/22/24 Precautions Precautions Uncontrolled HBP being monitored with meds, ocassionally dizzy after couple cups of coffee and hiking, minor stroke in 2022 f/b stents in L coronory & R carotid artery in 2020 or 2022. PT-OP-B Current Condition Start: 06/17/24 19:09 Freq: Status: Active Protocol: Document 06/22/24 08:22 LRN (Rec: 06/22/24 09:11 LRN [id number]) Current Condition History of Current Condition Onset Date Nov 2023 Current Complaints R shdr pain w/removing wallet, scratch back,resting arm in armchair. History of Current Condition Pt reports in preparing to move from [place] to [place] his R shoulder started to hurt and since then has not improved. Taking Advil for the pain has been helpful. Pt used to sleep on his R side, but is not able to because of the pain, and can't vacuum. Pt has changed to sleeping on his L side. He does wake at night, but it is due to back pain and other pains. He finds it painful to rest his arm on an armchair, demonstrating a position with his arm out to side. His pain is intermittent in nature. 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 Treatment Goals Patient/Caregiver Goals Pt goals: -being able to sleep on the R side. -pain to decrease 50-60% prior to DC, to be able to rest his R arm on armchair for a an hour long program comfortably. - improve mobility to remove wallet an scatch back. Personal Factors Other Personal Factors That May Effect Minor stroke in 2022 ( Therapy/Recovery Lives in [place] w/spouse). Uncontrolled HBP being monitored as medications are tried. Occasionally dizzy. PT-OP-C Subjective Start: 06/17/24 19:09 Freq: Status: Active Protocol: Document 06/28/24 09:05 SP (Rec: 06/28/24 09:50 SP [id number]) OP-PT Subjective Patient Comments Patient Comments Pt reports compliant and HEP feels good. He reports suprised with wall posture and challenging getting head back on wall. And struggle to make connection pain in AC jt area and relation to posture. He did some yard work over the weekend picking up stick and putting them in bin so R shld feeling sore. He struggles to find position on R side feels comfortable to sleep but on L ok. PT-OP-E Functional Tests Start: 06/17/24 19:09 Freq: Status: Active Protocol: Document 06/22/24 08:22 LRN (Rec: 06/22/24 09:11 LRN [id number]) Functional Tests Apley's Scratch Test Action 1- Left Mid of inferior border of R scaula Action 1- Right Spine of L scapula Action 2- Left T2 Action 2- Right T2 Action 3- Left T8 Action 3- Right L4 PT-OP-F Manual Assessment Start: 06/17/24 19:09 Freq: Status: Active Protocol: Document 06/22/24 08:22 LRN (Rec: 06/22/24 09:11 LRN [id number]) Manual Assessments Soft Tissue Assessment Soft Tissue Mobility Assessment Supraspinatus tight (constant) and tender. No tenderness of neck or subacromial location. PT-OP-H Neuro Start: 06/17/24 19:09 Freq: Status: Active Protocol: Document 06/22/24 08:22 LRN (Rec: 06/22/24 09:11 LRN [id number]) Sensation Evaluation Gross Sensation Gross Sensation WNL PT-OP-J Posture/Palpation/Skin Start: 06/17/24 19:09 Freq: Status: Active Protocol: Document 06/22/24 08:22 LRN (Rec: 06/22/24 09:11 LRN [id number]) Posture Evaluation Position Sitting Head/C-Spine Posture Forward Head T-Spine Posture Increased Kyphosis Shoulder Posture (R) Rounded,(R) Forward,(L) Elevated Scapula Posture (R) Elevated Arm Posture (L) Internally Rotated,(R) Internally Rotated Pelvis Posture (R) Iliac Crest Superior Weight Distribution Balanced Knee Posture (R) Genu Varus Comments Posture Comments S-curve, thoracic apex on left and lumbar spine apex on the right. Elevated R clavical at ACJ. Palpation Assessment Location R shoulder Palpation Location Supraspinatus fossa Palpation Findings Muscle Guarding,Tenderness PT-OP-K Range of Motion Start: 06/17/24 19:09 Freq: Status: Active Protocol: Document 06/24/24 07:31 LRN (Rec: 06/24/24 08:18 LRN [id number]) Shoulder Goniometric Range of Motion Shoulder Right Passive Shoulder ROM WFL No Testing Position Supine Flexion 148 Abduction 130 External Rotation at 90 degrees 70 Abduction Internal Rotation 45 Comments AB in scapular plane Left Passive Shoulder ROM WFL Yes Testing Position Supine Flexion 160 Abduction 180 External Rotation at 90 degrees 70 Abduction Internal Rotation 90 Comments AB in scapular plane Right Active Testing Position Sitting Flexion 132 Extension 52 Abduction 168 External Rotation at 0 degrees Abduction 68 Internal Rotation Behind Back (text) L4 Left Active Shoulder ROM WFL Yes Testing Position Sitting Flexion 150 Extension 65 Abduction 180 External Rotation at 0 degrees Abduction 68 Internal Rotation Behind Back (text) T6 PT-OP-L Special Tests Start: 06/17/24 19:09 Freq: Status: Active Protocol: Document 06/22/24 08:22 LRN (Rec: 06/22/24 09:11 LRN [id number]) Special Tests Cervical Spine Special Tests Traction Test Results - Spurling's Test Test Results - Foraminal Compression Test Results - Shoulder Special Tests Belly Press Test Results + right Empty Can Test Results + right Elevation Impingement Test Results + PT-OP-M Strength Start: 06/17/24 19:09 Freq: Status: Active Protocol: Document 06/22/24 08:22 LRN (Rec: 06/22/24 09:11 LRN [id number]) Shoulder Strength Shoulder Manual Muscle Testing Right Abduction (C5) 4 Good Internal Rotation 4 Good Comments 5/5 except as indicated above due to pain at supraspinatus fossa. Left Comments Generally 5/5 PT-OP-Q Treatments Start: 06/17/24 19:09 Freq: Status: Active Protocol: Document 06/28/24 09:05 SP (Rec: 06/28/24 09:50 SP [id number]) Therapeutic Exercises Supine Exercises Shoulder ER/IR ROM Supine Exercise Name Stretch Side right Reps/Minutes 5-10SH x 10/2 sets 1 set with cane and pt self stretch for ER Comments cued hold Shoulder flex ROM Supine Exercise Name Overhead cane flex stretch Side bilateral Reps/Minutes 3 SH x 15 f/b rest Comments Extra time taken to train for scap mvmt w/max flex. AROM/ PROM taken Sidelying Exercises open book Sidelying Exercise Name added to HEP with HO Side bilateral Resistance AROM Reps/Minutes 5 reps, 2 breath hold end feel stretch Comments cued slow scapular thorach mobility Sitting Exercises Resisted ER Sitting Exercise Name added to HEP with HO Side bilateral Resistance TB #1 together Reps/Minutes 10 SH x10 Comments cued tall posture, elbows at side, scap retraction and chin tuck Other Exercises self STMs Other Exercise Name UT, Rhomboids Side bilateral Resistance tennis ball in pillow case Reps/Minutes 1 min Comments good feedback response Manual Therapy Treatment Consent Patient gave verbal consent for manual Yes treatment Soft Tissue Mobilization R shld Body Location UT, Rhomboid, Supraspinatus, Infraspinatus Comments STMs and scapulothoracic with ed posture and self STMs use ball wall Self-Care/Home Management Treatment Education Patient Education Body Mechanics,Pain Management Other Education Education and issued HO for alignment sleeping, sitting, standing and use pillows sidesleeping. PT-OP-T Assessment and Plan Start: 06/17/24 19:09 Freq: Status: Active Protocol: Document 06/28/24 09:05 SP (Rec: 06/28/24 09:50 SP [id number]) Physical Therapy Assessment Goals pain Impairment Constant R shoulder pain, intermittently increases (6-7/ 10) Short Term Goal (STG) Pt will be educated and able to identify pain management technique of cryotherapy use. STG Duration 07/02/24 Barrel Tester And Drainer Goal (LTG) Pain to decrease 50-60% prior to DC, to be able to rest his R arm on an armchair for an hour long program comfortably. LTG Duration 09/17/24 Three Impairment Decrease R shoulder strength Short Term Goal (STG) Improve R shoulder strength with pt able to sleep in a modified position on his R side. STG Duration 08/06/24 Half-Way Goal (LTG) Improve R shoulder strength with pt able to reach out with the arm forward to vacuum and reach out to the side w/pain no greater than 3/10. LTG Duration 09/17/24 Two Impairment Decreased R shoulder functional ROM Short Term Goal (STG) Improve function AROM with pt able to scatch his back with tolerable pain. STG Duration 08/06/24 Barrel Tester And Drainer Goal (LTG) Improve R shoulder ROM with pt able to remove his wallet from his back pocket with tolerable discomfort. LTG Duration 09/17/24 One Impairment Lacks self care HEP Short Term Goal (STG) Pt will be able to demonstrate proper body mechanics for ADLs, and show awareness of proper sitting/standing posture as related to shoulder /scapular positioning. STG Duration 07/16/24 Barrel Tester And Drainer Goal (LTG) Pt will be independent with a HEP of R shoulder/scapular/ core strengthening and ROM ex' s. 06/24/24: HEP: Dowel stretch for shoulder flex, ER/IR; Neck elongation, SB, Rot, wall posturing. 06/28/24: added open book, resisted shld ER TB #1, provided HOs for sleeping, sit and stand posture LTG Duration 09/17/24 progressed 06/28/24 Assessment Summary Assessment Pt good feedback resposne to manual and education use pillows with HOs for scapular neutral positoning and pain reduction sleeping . Progressed scapular mobiltiy open book, strengthing with resisted ER TB and self STMs ball wall with response no pain or discomfort. Verbalized good understanding posture related to scapular pain and AC Jt region mechanics and self awareness corrections and HEP performance. Physical Therapy Plan Frequency and Duration Frequency of Treatment 2x/Week Duration of treatment (weeks) 12 Plan of Care Start Date 06/22/24 Plan of Care End Date 09/17/24 Therapeutic Interventions Therapeutic Interventions Home Exercise Program,Joint Mobilizations,Manual Therapy, Neuromuscular Re-education, Self-Care/Home Management,Soft Tissue Mobilization, Therapeutic Activities, Therapeutic Exercises Modalities Cold Pack/Ice Massage,Electric Stimulation,Hot Packs, Ultrasound Next Visit Focus/Plan Next Note Type Treatment Note Next Visit Plan Recheck resisted ER & open book Next: DTR testing. Educate in sitting/standing posture & positioning for pt comfort. Educate with pt to be able to identify pain management technique use of cryotherapy. POC: R rotator cuff ( supraspinatus, subscap, infrasp) and ACJ strain/sprain rehab (pain at supraspinatus fossa). Pt education (posture , body mech), Shoulder/ scapular/core stabilization/ strengthening, activty tolerance, manual therapy (JMT , STM), modalities as needed for pain.
--- NOTE | 2024-06-30 09:49 | PT.OTN ---
Current Diagnoses Pain in right shoulder (06/30/24) Muscle weakness (generalized) (06/30/24) Physical Therapy Treatment Note PT-OP-A Visit Information Start: 06/17/24 19:09 Freq: Status: Active Protocol: Document 06/30/24 09:09 SP (Rec: 06/30/24 10:12 SP [id number]) Out-Patient Physical Therapy Visit Information Visit Information Visit Type Treatment Note Visit Start Time 09:06 Visit Stop Time 09:49 Visit Number 4 Number of CHIEF CONCIERGE Visits 2 Evaluation Information Evaluation Date 06/22/24 Precautions Precautions Uncontrolled HBP being monitored with meds, ocassionally dizzy after couple cups of coffee and hiking, minor stroke in 2022 f/b stents in L coronory & R carotid artery in 2020 or 2022. PT-OP-B Current Condition Start: 06/17/24 19:09 Freq: Status: Active Protocol: Document 06/22/24 08:22 LRN (Rec: 06/22/24 09:11 LRN [id number]) Current Condition History of Current Condition Onset Date Nov 2023 Current Complaints R shdr pain w/removing wallet, scratch back,resting arm in armchair. History of Current Condition Pt reports in preparing to move from [place] to [place] his R shoulder started to hurt and since then has not improved. Taking Advil for the pain has been helpful. Pt used to sleep on his R side, but is not able to because of the pain, and can't vacuum. Pt has changed to sleeping on his L side. He does wake at night, but it is due to back pain and other pains. He finds it painful to rest his arm on an armchair, demonstrating a position with his arm out to side. His pain is intermittent in nature. 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 Treatment Goals Patient/Caregiver Goals Pt goals: -being able to sleep on the R side. -pain to decrease 50-60% prior to DC, to be able to rest his R arm on armchair for a an hour long program comfortably. - improve mobility to remove wallet an scatch back. Personal Factors Other Personal Factors That May Effect Minor stroke in 2022 ( Therapy/Recovery Lives in [place] w/spouse). Uncontrolled HBP being monitored as medications are tried. Occasionally dizzy. PT-OP-C Subjective Start: 06/17/24 19:09 Freq: Status: Active Protocol: Document 06/30/24 09:09 SP (Rec: 06/30/24 10:12 SP [id number]) OP-PT Subjective Patient Comments Patient Comments Pt reports was pretty achy after last tx but didn't affect his ADLs. He comes in today achy. No problems with resisted ER and open book. Question can he do his FF seated OH or does it have to be laying down. PT-OP-E Functional Tests Start: 06/17/24 19:09 Freq: Status: Active Protocol: Document 06/22/24 08:22 LRN (Rec: 06/22/24 09:11 LRN [id number]) Functional Tests Apley's Scratch Test Action 1- Left Mid of inferior border of R scaula Action 1- Right Spine of L scapula Action 2- Left T2 Action 2- Right T2 Action 3- Left T8 Action 3- Right L4 PT-OP-F Manual Assessment Start: 06/17/24 19:09 Freq: Status: Active Protocol: Document 06/22/24 08:22 LRN (Rec: 06/22/24 09:11 LRN [id number]) Manual Assessments Soft Tissue Assessment Soft Tissue Mobility Assessment Supraspinatus tight (constant) and tender. No tenderness of neck or subacromial location. PT-OP-H Neuro Start: 06/17/24 19:09 Freq: Status: Active Protocol: Document 06/22/24 08:22 LRN (Rec: 06/22/24 09:11 LRN [id number]) Sensation Evaluation Gross Sensation Gross Sensation WNL PT-OP-J Posture/Palpation/Skin Start: 06/17/24 19:09 Freq: Status: Active Protocol: Document 06/22/24 08:22 LRN (Rec: 06/22/24 09:11 LRN [id number]) Posture Evaluation Position Sitting Head/C-Spine Posture Forward Head T-Spine Posture Increased Kyphosis Shoulder Posture (R) Rounded,(R) Forward,(L) Elevated Scapula Posture (R) Elevated Arm Posture (L) Internally Rotated,(R) Internally Rotated Pelvis Posture (R) Iliac Crest Superior Weight Distribution Balanced Knee Posture (R) Genu Varus Comments Posture Comments S-curve, thoracic apex on left and lumbar spine apex on the right. Elevated R clavical at ACJ. Palpation Assessment Location R shoulder Palpation Location Supraspinatus fossa Palpation Findings Muscle Guarding,Tenderness PT-OP-K Range of Motion Start: 06/17/24 19:09 Freq: Status: Active Protocol: Document 06/24/24 07:31 LRN (Rec: 06/24/24 08:18 LRN [id number]) Shoulder Goniometric Range of Motion Shoulder Right Passive Shoulder ROM WFL No Testing Position Supine Flexion 148 Abduction 130 External Rotation at 90 degrees 70 Abduction Internal Rotation 45 Comments AB in scapular plane Left Passive Shoulder ROM WFL Yes Testing Position Supine Flexion 160 Abduction 180 External Rotation at 90 degrees 70 Abduction Internal Rotation 90 Comments AB in scapular plane Right Active Testing Position Sitting Flexion 132 Extension 52 Abduction 168 External Rotation at 0 degrees Abduction 68 Internal Rotation Behind Back (text) L4 Left Active Shoulder ROM WFL Yes Testing Position Sitting Flexion 150 Extension 65 Abduction 180 External Rotation at 0 degrees Abduction 68 Internal Rotation Behind Back (text) T6 PT-OP-L Special Tests Start: 06/17/24 19:09 Freq: Status: Active Protocol: Document 06/22/24 08:22 LRN (Rec: 06/22/24 09:11 LRN [id number]) Special Tests Cervical Spine Special Tests Traction Test Results - Spurling's Test Test Results - Foraminal Compression Test Results - Shoulder Special Tests Belly Press Test Results + right Empty Can Test Results + right Elevation Impingement Test Results + PT-OP-M Strength Start: 06/17/24 19:09 Freq: Status: Active Protocol: Document 06/22/24 08:22 LRN (Rec: 06/22/24 09:11 LRN [id number]) Shoulder Strength Shoulder Manual Muscle Testing Right Abduction (C5) 4 Good Internal Rotation 4 Good Comments 5/5 except as indicated above due to pain at supraspinatus fossa. Left Comments Generally 5/5 PT-OP-Q Treatments Start: 06/17/24 19:09 Freq: Status: Active Protocol: Document 06/30/24 09:09 SP (Rec: 06/30/24 10:12 SP [id number]) Therapeutic Exercises Supine Exercises Shoulder flex ROM Supine Exercise Name Overhead cane flex stretch- reviewed Side bilateral Equipment Used hooklying Reps/Minutes 3 SH x 15 f/b rest Comments Extra time taken to train for scap mvmt w/max flex, ed elbow straight Sidelying Exercises open book Sidelying Exercise Name verbal review- recheck next tx Side bilateral Resistance AROM Reps/Minutes 5 reps, 2 breath hold end feel stretch Comments cued slow scapular thorach mobility Sitting Exercises neck stretching Sitting Exercise Name UT, LS, Scalene -reviewed his self stretching (added HOs) Side right Resistance R>L tightness Equipment Used prefers arm behind back Reps/Minutes 30 SH x2 each Comments good responsE-GAVE HOs SNAGS Sitting Exercise Name added PRN: Rotation & Extension with HOs Side bilateral Equipment Used use towel (cross arms pull toward that side) Reps/Minutes 10 SH x5 reps Comments cues for set up and performance max stretch effectiveness Resisted ER Sitting Exercise Name verbal review- recheck time Side bilateral Resistance TB #1 together Reps/Minutes 10 SH x10 Comments cued tall posture, elbows at side, scap retraction and chin tuck Shoulder AROM Sitting Exercise Name AAROM: cane- trial per pt request Side bilateral Reps/Minutes 3 reps 10 SH Comments cued elbow straight, not leaning back or UT recruitment - better laying down Other Exercises self STMs Other Exercise Name UT, Rhomboids; theracane MWM neck Side bilateral Resistance tennis ball in pillow case or cane Reps/Minutes 1 min Comments cued MWM head nods/turns/SB- good feedback response Manual Therapy Treatment Consent Patient gave verbal consent for manual Yes treatment Soft Tissue Mobilization R shld Body Location UT, Rhomboid, Supraspinatus, Infraspinatus, pec major, Lat, SA Body Position L SL Comments STMs and scapulothoracic with ed posture and self STMs use ball wall Joint Mobilizations R scapulothoracic Jt Direction retraction, depression Comments improved with STMs, cued ed continue open book wtih hold stretch support. Self-Care/Home Management Treatment Education Patient Education Pain Management,Posture Other Education Issued HO for stretching, discussion self STMs with good feedback response. Further discussion importance of postural alignment CS and scap retraction for support increase posterior chain strengthening and opening anterior neck/shld/chest. Discussed use of CP for soreness recovery, verbalized forgot has used in past. PT-OP-T Assessment and Plan Start: 06/17/24 19:09 Freq: Status: Active Protocol: Document 06/30/24 09:09 SP (Rec: 06/30/24 10:12 SP [id number]) Physical Therapy Assessment Goals pain Impairment Constant R shoulder pain, intermittently increases (6-7/ 10) Short Term Goal (STG) Pt will be educated and able to identify pain management technique of cryotherapy use. 06/30/24: Discussion use of CP for soreness recovery. STG Duration 07/02/24 progression 06/30/24 [employer] Set[employer] Installer Goal (LTG) Pain to decrease 50-60% prior to DC, to be able to rest his R arm on an armchair for an hour long program comfortably. LTG Duration 09/17/24 Three Impairment Decrease R shoulder strength Short Term Goal (STG) Improve R shoulder strength with pt able to sleep in a modified position on his R side. STG Duration 08/06/24 [employer] Setters Installer Goal (LTG) Improve R shoulder strength with pt able to reach out with the arm forward to vacuum and reach out to the side w/pain no greater than 3/10. LTG Duration 09/17/24 Two Impairment Decreased R shoulder functional ROM Short Term Goal (STG) Improve function AROM with pt able to scatch his back with tolerable pain. 06/30/24: pt is reaching behind back during neck stretching with no reports pain. STG Duration 08/06/24 progression 06/30/24 [employer] Set[employer] Installer Goal (LTG) Improve R shoulder ROM with pt able to remove his wallet from his back pocket with tolerable discomfort. LTG Duration 09/17/24 One Impairment Lacks self care HEP Short Term Goal (STG) Pt will be able to demonstrate proper body mechanics for ADLs, and show awareness of proper sitting/standing posture as related to shoulder /scapular positioning. STG Duration 07/16/24 [employer] Setters Installer Goal (LTG) Pt will be independent with a HEP of R shoulder/scapular/ core strengthening and ROM ex' s. 06/24/24: HEP: Dowel stretch for shoulder flex, ER/IR; Neck elongation, SB, Rot, wall posturing. 06/28/24: added open book, resisted shld ER TB #1, provided HOs for sleeping, sit and stand posture 06/30/24: added neck stretching, SNAGS ext& rotation. LTG Duration 09/17/24 progressed 06/30/24 Assessment Summary Assessment Pt had good feedback response manual and extra time for self STMs use ball wall and theracane and review self stretching with provided HOs. Reviewed FF hooklying vs seated improved isolated ROM, noted stretch under R arm, improved range post manual, measurement not taken due to limited time by end of tx. Pt reports more mobility in neck and R shld by end tx. FF with cane better hooklying vs seated after trialed (per pt request) more effective supine . Physical Therapy Plan Frequency and Duration Frequency of Treatment 2x/Week Duration of treatment (weeks) 12 Plan of Care Start Date 06/22/24 Plan of Care End Date 09/17/24 Therapeutic Interventions Therapeutic Interventions Home Exercise Program,Joint Mobilizations,Manual Therapy, Neuromuscular Re-education, Self-Care/Home Management,Soft Tissue Mobilization, Therapeutic Activities, Therapeutic Exercises Modalities Cold Pack/Ice Massage,Electric Stimulation,Hot Packs, Ultrasound Next Visit Focus/Plan Next Note Type Treatment Note Next Visit Plan Check schedulers called and added more appts next tx. Recheck response to stretching and resisted ER & open book, FF cane, manual lat, UT. Next: DTR testing. Continue Ed in sitting/standing posture & positioning for pt comfort. Educate with pt to be able to identify pain management technique use of cryotherapy. POC: R rotator cuff ( supraspinatus, subscap, infrasp) and ACJ strain/sprain rehab (pain at supraspinatus fossa). Pt education (posture , body mech), Shoulder/ scapular/core stabilization/ strengthening, activty tolerance, manual therapy (JMT , STM), modalities as needed for pain.
--- NOTE | 2024-07-06 18:29 | PT.OTN ---
Current Diagnoses Pain in right shoulder (07/06/24) Muscle weakness (generalized) (07/06/24) Physical Therapy Treatment Note PT-OP-A Visit Information Start: 06/17/24 19:09 Freq: Status: Active Protocol: Document 07/06/24 07:33 LRN (Rec: 07/06/24 08:22 LRN Laptop) Out-Patient Physical Therapy Visit Information Visit Information Visit Type Treatment Note Visit Start Time 07:34 Visit Stop Time 08:14 Visit Number 5 PT-OP-B Current Condition Start: 06/17/24 19:09 Freq: Status: Active Protocol: Document 06/22/24 08:22 LRN (Rec: 06/22/24 09:11 LRN [id number]) Current Condition History of Current Condition Onset Date Nov 2023 Current Complaints R shdr pain w/removing wallet, scratch back,resting arm in armchair. History of Current Condition Pt reports in preparing to move from [place] to [place] his R shoulder started to hurt and since then has not improved. Taking Advil for the pain has been helpful. Pt used to sleep on his R side, but is not able to because of the pain, and can't vacuum. Pt has changed to sleeping on his L side. He does wake at night, but it is due to back pain and other pains. He finds it painful to rest his arm on an armchair, demonstrating a position with his arm out to side. His pain is intermittent in nature. 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 Treatment Goals Patient/Caregiver Goals Pt goals: -being able to sleep on the R side. -pain to decrease 50-60% prior to DC, to be able to rest his R arm on armchair for a an hour long program comfortably. - improve mobility to remove wallet an scatch back. Personal Factors Other Personal Factors That May Effect Minor stroke in 2022 ( Therapy/Recovery Lives in [place] w/spouse). Uncontrolled HBP being monitored as medications are tried. Occasionally dizzy. PT-OP-C Subjective Start: 06/17/24 19:09 Freq: Status: Active Protocol: Document 07/06/24 07:33 LRN (Rec: 07/06/24 08:22 LRN Laptop) OP-PT Subjective Patient Comments Patient Comments Same, pain comes and goes. PT-OP-E Functional Tests Start: 06/17/24 19:09 Freq: Status: Active Protocol: Document 06/22/24 08:22 LRN (Rec: 06/22/24 09:11 LRN [id number]) Functional Tests Apley's Scratch Test Action 1- Left Mid of inferior border of R scaula Action 1- Right Spine of L scapula Action 2- Left T2 Action 2- Right T2 Action 3- Left T8 Action 3- Right L4 PT-OP-F Manual Assessment Start: 06/17/24 19:09 Freq: Status: Active Protocol: Document 06/22/24 08:22 LRN (Rec: 06/22/24 09:11 LRN [id number]) Manual Assessments Soft Tissue Assessment Soft Tissue Mobility Assessment Supraspinatus tight (constant) and tender. No tenderness of neck or subacromial location. PT-OP-H Neuro Start: 06/17/24 19:09 Freq: Status: Active Protocol: Document 06/22/24 08:22 LRN (Rec: 06/22/24 09:11 LRN [id number]) Sensation Evaluation Gross Sensation Gross Sensation WNL PT-OP-J Posture/Palpation/Skin Start: 06/17/24 19:09 Freq: Status: Active Protocol: Document 06/22/24 08:22 LRN (Rec: 06/22/24 09:11 LRN [id number]) Posture Evaluation Position Sitting Head/C-Spine Posture Forward Head T-Spine Posture Increased Kyphosis Shoulder Posture (R) Rounded,(R) Forward,(L) Elevated Scapula Posture (R) Elevated Arm Posture (L) Internally Rotated,(R) Internally Rotated Pelvis Posture (R) Iliac Crest Superior Weight Distribution Balanced Knee Posture (R) Genu Varus Comments Posture Comments S-curve, thoracic apex on left and lumbar spine apex on the right. Elevated R clavical at ACJ. Palpation Assessment Location R shoulder Palpation Location Supraspinatus fossa Palpation Findings Muscle Guarding,Tenderness PT-OP-K Range of Motion Start: 06/17/24 19:09 Freq: Status: Active Protocol: Document 07/06/24 07:33 LRN (Rec: 07/06/24 08:22 LRN Laptop) Cervical Spine Range of Motion Cervical Spine Active Degrees Testing Position Sitting Rotation Left 40 Rotation Right 31 Lateral Flexion Left 16 Lateral Flexion Right 20 PT-OP-L Special Tests Start: 06/17/24 19:09 Freq: Status: Active Protocol: Document 06/22/24 08:22 LRN (Rec: 06/22/24 09:11 LRN [id number]) Special Tests Cervical Spine Special Tests Traction Test Results - Spurling's Test Test Results - Foraminal Compression Test Results - Shoulder Special Tests Belly Press Test Results + right Empty Can Test Results + right Elevation Impingement Test Results + PT-OP-M Strength Start: 06/17/24 19:09 Freq: Status: Active Protocol: Document 06/22/24 08:22 LRN (Rec: 06/22/24 09:11 LRN [id number]) Shoulder Strength Shoulder Manual Muscle Testing Right Abduction (C5) 4 Good Internal Rotation 4 Good Comments 5/5 except as indicated above due to pain at supraspinatus fossa. Left Comments Generally 5/5 PT-OP-Q Treatments Start: 06/17/24 19:09 Freq: Status: Active Protocol: Document 07/06/24 07:33 LRN (Rec: 07/06/24 08:22 LRN Laptop) Therapeutic Exercises Supine Exercises PROM/AROM Supine Exercise Name Neck elong to start: Shoulder R ER focus, desirae Flex with cane Side bilateral Reps/Minutes 10 SH x 10 Comments Extra time for trng on holding cane, thumb back. Shoulder ER/IR ROM Supine Exercise Name Stretch flex, ER Side right Reps/Minutes 5-10SH x 10/2 sets 1 set with cane and pt self stretch for ER Comments cued hold Sidelying Exercises open book Side bilateral Reps/Minutes 5 SH x 5 Comments Cued to let head lead motion Sitting Exercises neck stretching Sitting Exercise Name Stretch ER, SB. ROM taken Side bilateral Reps/Minutes 10 SH x 15 Comments Cued to start in neutral head position to decr pain/tension with R SB SNAGS Sitting Exercise Name DC'd due to improper use of towel Reps/Minutes 10 SH x 5 Comments Extra time taken for ex review Resisted ER Side bilateral Resistance TB 1 Reps/Minutes 5 SH x 5 Comments Cued neck elongation, scap retract and depression to opp back posckets. Standing Exercises Postural ex Standing Exercise Name Standing against wall Reps/Minutes 6' Comments cued head to ceiling and shoulders back, chin tucked Self-Care/Home Management Treatment Education Other Education Pt educated in reason for neutral spine neck positioning , anatomy of c/s, and ability for each joint to provide ROM vs locking out spine with fwd head posturing. PT-OP-T Assessment and Plan Start: 06/17/24 19:09 Freq: Status: Active Protocol: Document 07/06/24 07:33 LRN (Rec: 07/06/24 08:22 LRN Laptop) Physical Therapy Assessment Goals pain Impairment Constant R shoulder pain, intermittently increases (6-7/ 10) Short Term Goal (STG) Pt will be educated and able to identify pain management technique of cryotherapy use. 06/30/24: Discussion use of CP for soreness recovery. STG Duration 07/02/24 progression 06/30/24 Nursing Home Goal (LTG) Pain to decrease 50-60% prior to DC, to be able to rest his R arm on an armchair for an hour long program comfortably. LTG Duration 09/17/24 Three Impairment Decrease R shoulder strength Short Term Goal (STG) Improve R shoulder strength with pt able to sleep in a modified position on his R side. STG Duration 08/06/24 Nursing Home Goal (LTG) Improve R shoulder strength with pt able to reach out with the arm forward to vacuum and reach out to the side w/pain no greater than 3/10. LTG Duration 09/17/24 Two Impairment Decreased R shoulder functional ROM Short Term Goal (STG) Improve function AROM with pt able to scatch his back with tolerable pain. 06/30/24: pt is reaching behind back during neck stretching with no reports pain. STG Duration 08/06/24 progression 06/30/24 [employer] Services Director Goal (LTG) Improve R shoulder ROM with pt able to remove his wallet from his back pocket with tolerable discomfort. LTG Duration 09/17/24 One Impairment Lacks self care HEP Short Term Goal (STG) Pt will be able to demonstrate proper body mechanics for ADLs, and show awareness of proper sitting/standing posture as related to shoulder /scapular positioning. STG Duration 07/16/24 Nursing Home Goal (LTG) Pt will be independent with a HEP of R shoulder/scapular/ core strengthening and ROM ex' s. 06/24/24: HEP: Dowel stretch for shoulder flex, ER/IR; Neck elongation, SB, Rot, wall posturing. 06/28/24: added open book, resisted shld ER TB #1, provided HOs for sleeping, sit and stand posture 06/30/24: added neck stretching, SNAGS ext& rotation. LTG Duration 09/17/24 progressed 06/30/24 Assessment Summary Assessment Today, pt noting no change, but was fatigue in back ms with postural training. DC'd SNAG Cervical rot ex due to pt placing too much strain on jaw/facial bones and lateral neck on opp side. Pt is weak in upper back postural ms. With improved postural awareness, pt is ready for R shoulder ROM and slow progressive RC and shoulder stabilization strengthening ( for RC & ACJ sprain/strain). Physical Therapy Plan Frequency and Duration Frequency of Treatment 2x/Week Duration of treatment (weeks) 12 Plan of Care Start Date 06/22/24 Plan of Care End Date 09/17/24 Next Visit Focus/Plan Next Note Type Treatment Note Next Visit Plan Last appt next visit. Next: DTR testing. Pt to complete UE Quickdash. Complete purple slip to add more pt appts next tx. Recheck response to stretching and resisted ER & open book, FF cane, manual lats, UT. Monitor and improve pt awareness for proper sitting/ standing posture & positioning for pt comfort. Educate with pt to be able to identify pain management technique use of cryotherapy. POC: R rotator cuff ( supraspinatus, subscap, infrasp) and ACJ strain/sprain rehab (pain at supraspinatus fossa). Pt education (posture , body mech), Shoulder/ scapular/core stabilization/ strengthening, activty tolerance, manual therapy (JMT , STM), modalities as needed for pain.
--- NOTE | 2024-07-12 09:46 | PT.OTN ---
Current Diagnoses Pain in right shoulder (07/12/24) Muscle weakness (generalized) (07/12/24) Physical Therapy Treatment Note PT-OP-A Visit Information Start: 06/17/24 19:09 Freq: Status: Active Protocol: Document 07/12/24 09:01 SP (Rec: 07/12/24 09:49 SP Laptop) Out-Patient Physical Therapy Visit Information Visit Information Visit Type Treatment Note Visit Note CHRIS Heron observed tx with permission of pt, in direct supervision of JANIA Beard. 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 PT-OP-B Current Condition Start: 06/17/24 19:09 Freq: Status: Active Protocol: Document 06/22/24 08:22 LRN (Rec: 06/22/24 09:11 LRN [id number]) Current Condition History of Current Condition Onset Date Nov 2023 Current Complaints R shdr pain w/removing wallet, scratch back,resting arm in armchair. History of Current Condition Pt reports in preparing to move from [place] to [place] his R shoulder started to hurt and since then has not improved. Taking Advil for the pain has been helpful. Pt used to sleep on his R side, but is not able to because of the pain, and can't vacuum. Pt has changed to sleeping on his L side. He does wake at night, but it is due to back pain and other pains. He finds it painful to rest his arm on an armchair, demonstrating a position with his arm out to side. His pain is intermittent in nature. 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 Treatment Goals Patient/Caregiver Goals Pt goals: -being able to sleep on the R side. -pain to decrease 50-60% prior to DC, to be able to rest his R arm on armchair for a an hour long program comfortably. - improve mobility to remove wallet an scatch back. Personal Factors Other Personal Factors That May Effect Minor stroke in eary 2023 ( Therapy/Recovery Lives in [place] w/spouse). Uncontrolled HBP being monitored as medications are tried. Occasionally dizzy. PT-OP-C Subjective Start: 06/17/24 19:09 Freq: Status: Active Protocol: Document 07/12/24 09:01 SP (Rec: 07/12/24 09:49 SP Laptop) OP-PT Subjective Patient Comments Patient Comments Pt reports pretty sore after last tx and understanding posture can be a contributor. Is incorporating HEP stretching, posture into his day, not necessarily spending certain time in day. He didn't see supine FF doing much so doesn't perform. Purchased a S curve cane for self manual and helps. Recently bought a new bed, has found a position on PT-OP-E Functional Tests Start: 06/17/24 19:09 Freq: Status: Active Protocol: Document 06/22/24 08:22 LRN (Rec: 06/22/24 09:11 LRN [id number]) Functional Tests Apley's Scratch Test Action 1- Left Mid of inferior border of R scaula Action 1- Right Spine of L scapula Action 2- Left T2 Action 2- Right T2 Action 3- Left T8 Action 3- Right L4 PT-OP-F Manual Assessment Start: 06/17/24 19:09 Freq: Status: Active Protocol: Document 06/22/24 08:22 LRN (Rec: 06/22/24 09:11 LRN [id number]) Manual Assessments Soft Tissue Assessment Soft Tissue Mobility Assessment Supraspinatus tight (constant) and tender. No tenderness of neck or subacromial location. PT-OP-H Neuro Start: 06/17/24 19:09 Freq: Status: Active Protocol: Document 06/22/24 08:22 LRN (Rec: 06/22/24 09:11 LRN [id number]) Sensation Evaluation Gross Sensation Gross Sensation WNL PT-OP-J Posture/Palpation/Skin Start: 06/17/24 19:09 Freq: Status: Active Protocol: Document 06/22/24 08:22 LRN (Rec: 06/22/24 09:11 LRN [id number]) Posture Evaluation Position Sitting Head/C-Spine Posture Forward Head T-Spine Posture Increased Kyphosis Shoulder Posture (R) Rounded,(R) Forward,(L) Elevated Scapula Posture (R) Elevated Arm Posture (L) Internally Rotated,(R) Internally Rotated Pelvis Posture (R) Iliac Crest Superior Weight Distribution Balanced Knee Posture (R) Genu Varus Comments Posture Comments S-curve, thoracic apex on left and lumbar spine apex on the right. Elevated R clavical at ACJ. Palpation Assessment Location R shoulder Palpation Location Supraspinatus fossa Palpation Findings Muscle Guarding,Tenderness PT-OP-K Range of Motion Start: 06/17/24 19:09 Freq: Status: Active Protocol: Document 07/06/24 07:33 LRN (Rec: 07/06/24 08:22 LRN Laptop) Cervical Spine Range of Motion Cervical Spine Active Degrees Testing Position Sitting Rotation Left 40 Rotation Right 31 Lateral Flexion Left 16 Lateral Flexion Right 20 PT-OP-L Special Tests Start: 06/17/24 19:09 Freq: Status: Active Protocol: Document 06/22/24 08:22 LRN (Rec: 06/22/24 09:11 LRN [id number]) Special Tests Cervical Spine Special Tests Traction Test Results - Spurling's Test Test Results - Foraminal Compression Test Results - Shoulder Special Tests Belly Press Test Results + right Empty Can Test Results + right Elevation Impingement Test Results + PT-OP-M Strength Start: 06/17/24 19:09 Freq: Status: Active Protocol: Document 06/22/24 08:22 LRN (Rec: 06/22/24 09:11 LRN [id number]) Shoulder Strength Shoulder Manual Muscle Testing Right Abduction (C5) 4 Good Internal Rotation 4 Good Comments 5/5 except as indicated above due to pain at supraspinatus fossa. Left Comments Generally 5/5 PT-OP-Q Treatments Start: 06/17/24 19:09 Freq: Status: Active Protocol: Document 07/12/24 09:01 SP (Rec: 07/12/24 09:49 SP Laptop) Therapeutic Exercises Supine Exercises Shoulder flex ROM Supine Exercise Name Overhead cane flex stretch- reviewed Side bilateral Resistance AROM> 4# wt on dowel Equipment Used hooklying Reps/Minutes 3 SH x 20 f/b rest Comments cued as needed for scap mvmt w /max flex, decreased tricep and lat stretch Sitting Exercises Resisted ER Sitting Exercise Name verbal review Side bilateral Resistance TB 1 Reps/Minutes 5 SH x 5 Comments Cued neck elongation, scap retract and depression to opp back posckets. Standing Exercises Postural ex Standing Exercise Name Standing against wall Resistance added TB #1 with ER Equipment Used towel roll behind head Reps/Minutes x10 reps Comments cued head elongated ceiling and shoulders back, chin tucked Other Exercises self STMs Other Exercise Name UT, Rhomboids; theracane MWM neck and ballwall Side bilateral Resistance tennis ball in pillow case or cane Comments verbal ed review MWM head nods /turns/SB and self STMs posteriorn neck cane Manual Therapy Treatment Consent Patient gave verbal consent for manual Yes treatment Soft Tissue Mobilization neck Body Location UT, SOR, LS Mobilization Type Myofascial Release,Rolling, Sustained Pressure,Other Intensity/Depth Moderate Body Position Hooklying Comments Gentle STMs, MWM with CS head nods/turn and ed for self carryover with S cane. Good feedback response. R shld Body Location R UT, Rhomboid, Supraspinatus, Infraspinatus, pec major, Lat , SA, tricep Mobilization Type Myofascial Release,Rolling, Sustained Pressure,Other Body Position L SL Comments STMs and scapulothoracic with ed posture and self STMs use ball wall Joint Mobilizations R scapulothoracic Jt Direction adduction, depression Comments improved with STMs, ed on active pec stretch and scap mobility for carryover posture support. Self-Care/Home Management Treatment Education Patient Education Pain Management,Posture Other Education Pt ed, side sleeping using pillows for improved posture alignment; between the knees, behind back, between arms. Pt ed for massage with ball on wall and mobilization movement with thera-cane. PT-OP-T Assessment and Plan Start: 06/17/24 19:09 Freq: Status: Active Protocol: Document 07/12/24 09:01 SP (Rec: 07/12/24 09:49 SP Laptop) Physical Therapy Assessment Goals pain Impairment Constant R shoulder pain, intermittently increases (6-7/ 10) Short Term Goal (STG) Pt will be educated and able to identify pain management technique of cryotherapy use. 06/30/24: Discussion use of CP for soreness recovery. STG Duration 07/02/24 progression 06/30/24 Skilled Nursing Goal (LTG) Pain to decrease 50-60% prior to DC, to be able to rest his R arm on an armchair for an hour long program comfortably. LTG Duration 09/17/24 Three Impairment Decrease R shoulder strength Short Term Goal (STG) Improve R shoulder strength with pt able to sleep in a modified position on his R side. STG Duration 08/06/24 Skilled Nursing Goal (LTG) Improve R shoulder strength with pt able to reach out with the arm forward to vacuum and reach out to the side w/pain no greater than 3/10. LTG Duration 09/17/24 Two Impairment Decreased R shoulder functional ROM Short Term Goal (STG) Improve function AROM with pt able to scatch his back with tolerable pain. 06/30/24: pt is reaching behind back during neck stretching with no reports pain. STG Duration 08/06/24 progression 06/30/24 Research Chef Goal (LTG) Improve R shoulder ROM with pt able to remove his wallet from his back pocket with tolerable discomfort. LTG Duration 09/17/24 One Impairment Lacks self care HEP Short Term Goal (STG) Pt will be able to demonstrate proper body mechanics for ADLs, and show awareness of proper sitting/standing posture as related to shoulder /scapular positioning. STG Duration 07/16/24 Skilled Nursing Goal (LTG) Pt will be independent with a HEP of R shoulder/scapular/ core strengthening and ROM ex' s. 06/24/24: HEP: Dowel stretch for shoulder flex, ER/IR; Neck elongation, SB, Rot, wall posturing. 06/28/24: added open book, resisted shld ER TB #1, provided HOs for sleeping, sit and stand posture 06/30/24: added neck stretching, SNAGS ext& rotation. LTG Duration 09/17/24 progressed 06/30/24 Assessment Summary Assessment Incorporated increased weight 4# to hooklying FF which demonstrated increased range with reps with only report of stretch to R tricep and lat which lessened. Improved TS extension during wall posture noted when provided towel roll behind head and cues for maintain contact and awareness of LS toward wall, a work in progress. Discussed askign outside visual support with for carryover posture corrections. Added resisted ER to wall posture today to support scapular adduction for posture support while wall for feedback. Physical Therapy Plan Frequency and Duration Frequency of Treatment 2x/Week Duration of treatment (weeks) 12 Plan of Care Start Date 06/22/24 Plan of Care End Date 09/17/24 Therapeutic Interventions Therapeutic Interventions Home Exercise Program,Joint Mobilizations,Manual Therapy, Neuromuscular Re-education, Self-Care/Home Management,Soft Tissue Mobilization, Therapeutic Activities, Therapeutic Exercises Modalities Cold Pack/Ice Massage,Electric Stimulation,Hot Packs, Ultrasound Next Visit Focus/Plan Next Note Type Treatment Note Next Visit Plan Ask response to added wt to FF hooklying and posture progression with resisted ER and towel roll behind head. Next: Pt to complete UE Quickdash. Recheck response to stretching and resisted ER & open book, FF cane, manual lats, UT. Check GOALs if need for update. DTR testing. Monitor and improve pt awareness for proper sitting/ standing posture & positioning for pt comfort. Educate with pt to be able to identify pain management technique use of cryotherapy. POC: R rotator cuff ( supraspinatus, subscap, infrasp) and ACJ strain/sprain rehab (pain at supraspinatus fossa). Pt education (posture , body mech), Shoulder/ scapular/core stabilization/ strengthening, activty tolerance, manual therapy (JMT , STM), modalities as needed for pain.
--- NOTE | 2024-07-23 11:33 | PT.OTN ---
Current Diagnoses Pain in right shoulder (07/23/24) Muscle weakness (generalized) (07/23/24) Physical Therapy Treatment Note PT-OP-A Visit Information Start: 06/17/24 19:09 Freq: Status: Active Protocol: Document 07/23/24 10:46 SP (Rec: 07/23/24 11:36 SP [id number]) Out-Patient Physical Therapy Visit Information Visit Information Visit Type Treatment Note Visit Note CHRIS Damonyton observed tx with permission of pt, in direct supervision of JANIA Beard. 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 PT-OP-B Current Condition Start: 06/17/24 19:09 Freq: Status: Active Protocol: Document 06/22/24 08:22 LRN (Rec: 06/22/24 09:11 LRN [id number]) Current Condition History of Current Condition Onset Date Nov 2023 Current Complaints R shdr pain w/removing wallet, scratch back,resting arm in armchair. History of Current Condition Pt reports in preparing to move from [place] to [place] his R shoulder started to hurt and since then has not improved. Taking Advil for the pain has been helpful. Pt used to sleep on his R side, but is not able to because of the pain, and can't vacuum. Pt has changed to sleeping on his L side. He does wake at night, but it is due to back pain and other pains. He finds it painful to rest his arm on an armchair, demonstrating a position with his arm out to side. His pain is intermittent in nature. 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 Treatment Goals Patient/Caregiver Goals Pt goals: -being able to sleep on the R side. -pain to decrease 50-60% prior to DC, to be able to rest his R arm on armchair for a an hour long program comfortably. - improve mobility to remove wallet an scatch back. Personal Factors Other Personal Factors That May Effect Minor stroke in 2022 ( Therapy/Recovery Lives in [place] w/spouse). Uncontrolled HBP being monitored as medications are tried. Occasionally dizzy. PT-OP-C Subjective Start: 06/17/24 19:09 Freq: Status: Active Protocol: Document 07/23/24 10:46 SP (Rec: 07/23/24 11:36 SP [id number]) OP-PT Subjective Patient Comments Patient Comments Pt reports has incorporating HEP into his day and mindful of use pillows with sleeping but challenge getting tangles with blankets. He states no activity causes pain but its after that feel in neck and R shld. Arrives soreness, had been doing digging with shovel yesterday. Patient Questionnaires Quick Dash- Work and Sports Modules Quick Dash W&S Score 20.5 Quick Dash Work and Sport Impairment 20 to 39% Impaired (Score 20- 39) PT-OP-E Functional Tests Start: 06/17/24 19:09 Freq: Status: Active Protocol: Document 06/22/24 08:22 LRN (Rec: 06/22/24 09:11 LRN [id number]) Functional Tests Apley's Scratch Test Action 1- Left Mid of inferior border of R scaula Action 1- Right Spine of L scapula Action 2- Left T2 Action 2- Right T2 Action 3- Left T8 Action 3- Right L4 PT-OP-F Manual Assessment Start: 06/17/24 19:09 Freq: Status: Active Protocol: Document 06/22/24 08:22 LRN (Rec: 06/22/24 09:11 LRN [id number]) Manual Assessments Soft Tissue Assessment Soft Tissue Mobility Assessment Supraspinatus tight (constant) and tender. No tenderness of neck or subacromial location. PT-OP-H Neuro Start: 06/17/24 19:09 Freq: Status: Active Protocol: Document 06/22/24 08:22 LRN (Rec: 06/22/24 09:11 LRN [id number]) Sensation Evaluation Gross Sensation Gross Sensation WNL PT-OP-J Posture/Palpation/Skin Start: 06/17/24 19:09 Freq: Status: Active Protocol: Document 06/22/24 08:22 LRN (Rec: 06/22/24 09:11 LRN [id number]) Posture Evaluation Position Sitting Head/C-Spine Posture Forward Head T-Spine Posture Increased Kyphosis Shoulder Posture (R) Rounded,(R) Forward,(L) Elevated Scapula Posture (R) Elevated Arm Posture (L) Internally Rotated,(R) Internally Rotated Pelvis Posture (R) Iliac Crest Superior Weight Distribution Balanced Knee Posture (R) Genu Varus Comments Posture Comments S-curve, thoracic apex on left and lumbar spine apex on the right. Elevated R clavical at ACJ. Palpation Assessment Location R shoulder Palpation Location Supraspinatus fossa Palpation Findings Muscle Guarding,Tenderness PT-OP-K Range of Motion Start: 06/17/24 19:09 Freq: Status: Active Protocol: Document 07/06/24 07:33 LRN (Rec: 07/06/24 08:22 LRN Laptop) Cervical Spine Range of Motion Cervical Spine Active Degrees Testing Position Sitting Rotation Left 40 Rotation Right 31 Lateral Flexion Left 16 Lateral Flexion Right 20 PT-OP-L Special Tests Start: 06/17/24 19:09 Freq: Status: Active Protocol: Document 06/22/24 08:22 LRN (Rec: 06/22/24 09:11 LRN [id number]) Special Tests Cervical Spine Special Tests Traction Test Results - Spurling's Test Test Results - Foraminal Compression Test Results - Shoulder Special Tests Belly Press Test Results + right Empty Can Test Results + right Elevation Impingement Test Results + PT-OP-M Strength Start: 06/17/24 19:09 Freq: Status: Active Protocol: Document 06/22/24 08:22 LRN (Rec: 06/22/24 09:11 LRN [id number]) Shoulder Strength Shoulder Manual Muscle Testing Right Abduction (C5) 4 Good Internal Rotation 4 Good Comments 5/5 except as indicated above due to pain at supraspinatus fossa. Left Comments Generally 5/5 PT-OP-Q Treatments Start: 06/17/24 19:09 Freq: Status: Active Protocol: Document 07/23/24 10:46 SP (Rec: 07/23/24 11:36 SP [id number]) Therapeutic Exercises Supine Exercises chin tuck with scap retraction Supine Exercise Name in PT Equipment Used 1 pillow under head, arms at side Reps/Minutes 10 Sh x10 Comments cued chin nod neutral CS retraction, scap retraction Shoulder flex ROM Supine Exercise Name Overhead cane flex stretch- reviewed 165 deg Side bilateral Resistance 4# wt on dowel, trialed Efraín 2# DB causes pain top shld stopped Equipment Used hooklying Reps/Minutes 3 SH x 20 f/b rest Comments cued as needed for scap mvmt w /max flex, decreased tricep and lat stretch Sidelying Exercises open book Sidelying Exercise Name reviewed Side bilateral Reps/Minutes 5 SH x 5 Comments Cued to let head lead motion Sitting Exercises neck stretching Sitting Exercise Name Stretch ER & SB Side bilateral Reps/Minutes 10 SH x 15 Comments Cued to start in neutral head position to decr pain/tension with R SB Resisted ER Sitting Exercise Name verbal review Side bilateral Resistance TB 1 Reps/Minutes 5 SH x 10 Comments Cued neck elong/retract, scap retract and depression to opp back posckets. Standing Exercises Postural ex Standing Exercise Name Standing against wall- reviewed Resistance TB #1 with ER Equipment Used towel roll behind head Reps/Minutes 5 SH x10 reps Comments cued head elongated ceiling and shoulders back, chin tucked Manual Therapy Treatment Consent Patient gave verbal consent for manual Yes treatment Soft Tissue Mobilization neck Body Location SOR, CS paraspinals, UT, LS, SCM Mobilization Type Myofascial Release,Rolling, Sustained Pressure,Other Intensity/Depth Moderate Body Position Hooklying Comments Gentle STMs, verbal review use theracane has home. Good feedback response. R shld Body Location R pec major, Lat, SA, tricep Mobilization Type Myofascial Release,Rolling, Sustained Pressure,Other Body Position Hooklying Joint Mobilizations GH Jt Joint R Direction posterior glide Body Position Hooklying Comments gentle glides Taping K taping Body Location B UT C3-T2 Treatment Focus self feedback CS for postural corrections Type of Tape Kinesio Tape Skin Inspection normal color intact Comments Good feedback response, instructed can wear for few hrs and up to next day if no adverse affects of redness of skin, itching, discomfort, can be worn in shower, careful removal. 2 thin strips superior to inferior over Es. Self-Care/Home Management Treatment Education Patient Education Body Mechanics,Pain Management ,Posture Other Education Continued education use pillows sleeping, sitting pillow under arms vs high arm rests causes shortening UT and when stand increased tension on neck. Head CS retraction neutral and hip hinge shoveling for decrease posterior neck tension head dangling against gravity fwd. Verbalized understnanding. PT-OP-T Assessment and Plan Start: 06/17/24 19:09 Freq: Status: Active Protocol: Document 07/23/24 10:46 SP (Rec: 07/23/24 11:36 SP [id number]) Physical Therapy Assessment Goals pain Impairment Constant R shoulder pain, intermittently increases (6-7/ 10) Short Term Goal (STG) Pt will be educated and able to identify pain management technique of cryotherapy use. 06/30/24: Discussion use of CP for soreness recovery. STG Duration 07/02/24 progression 06/30/24 Multimedia Designer Goal (LTG) Pain to decrease 50-60% prior to DC, to be able to rest his R arm on an armchair for an hour long program comfortably. LTG Duration 09/17/24 Three Impairment Decrease R shoulder strength Short Term Goal (STG) Improve R shoulder strength with pt able to sleep in a modified position on his R side. STG Duration 08/06/24 Multimedia Designer Goal (LTG) Improve R shoulder strength with pt able to reach out with the arm forward to vacuum and reach out to the side w/pain no greater than 3/10. LTG Duration 09/17/24 Two Impairment Decreased R shoulder functional ROM Short Term Goal (STG) Improve function AROM with pt able to scatch his back with tolerable pain. 06/30/24: pt is reaching behind back during neck stretching with no reports pain. STG Duration 08/06/24 progression 06/30/24 Multimedia Designer Goal (LTG) Improve R shoulder ROM with pt able to remove his wallet from his back pocket with tolerable discomfort. LTG Duration 09/17/24 One Impairment Lacks self care HEP Short Term Goal (STG) Pt will be able to demonstrate proper body mechanics for ADLs, and show awareness of proper sitting/standing posture as related to shoulder /scapular positioning. 07/23/24: provided HO for sleeping, sitting alignment and discussion of alignment. STG Duration 07/16/24 progression 07/23/24 Residential Goal (LTG) Pt will be independent with a HEP of R shoulder/scapular/ core strengthening and ROM ex' s. 06/24/24: HEP: Dowel stretch for shoulder flex, ER/IR; Neck elongation, SB, Rot, wall posturing. 06/28/24: added open book, resisted shld ER TB #1, provided HOs for sleeping, sit and stand posture 06/30/24: added neck stretching, SNAGS ext& rotation. 07/23/24: reviewed wall posture with humeral ER TB #1, towel roll behind head. LTG Duration 09/17/24 progressed 07/23/24 Progress Towards Goals Progress Comments Quick Dash score 20.5-20-39% impaired Assessment Summary Assessment Pt reports challenging remembering head positioning and posture, has remind him. Added Ktape to posterior neck for self feedback up to tomorrow latest wearing, verbalized understanding adverse affects. Progressed humeral ER with wall posture today for upright awareness, cuing for alignment. Verbal discussion use pillows for sleeping, would benefit again next tx. Physical Therapy Plan Frequency and Duration Frequency of Treatment 2x/Week Duration of treatment (weeks) 12 Plan of Care Start Date 06/22/24 Plan of Care End Date 09/17/24 Therapeutic Interventions Therapeutic Interventions Home Exercise Program,Joint Mobilizations,Manual Therapy, Neuromuscular Re-education, Self-Care/Home Management,Soft Tissue Mobilization, Therapeutic Activities, Therapeutic Exercises Modalities Cold Pack/Ice Massage,Electric Stimulation,Hot Packs, Ultrasound Next Visit Focus/Plan Next Note Type Treatment Note Next Visit Plan REview use pillows again next tx. Ask response Ktaping posterior neck for postureal feedback. Next: Pt to complete UE Quickdash. recheck stretching and resisted ER & open book, FF cane, manual lats, UT. Check GOALs if need for update. DTR testing. Monitor and improve pt awareness for proper sitting/ standing posture & positioning for pt comfort. Next Educate with pt to be able to identify pain management technique use of cryotherapy. POC: R rotator cuff ( supraspinatus, subscap, infrasp) and ACJ strain/sprain rehab (pain at supraspinatus fossa). Pt education (posture , body mech), Shoulder/ scapular/core stabilization/ strengthening, activty tolerance, manual therapy (JMT , STM), modalities as needed for pain.
--- NOTE | 2024-07-29 13:25 | PT.OTN ---
Current Diagnoses Pain in right shoulder (07/29/24) Muscle weakness (generalized) (07/29/24) Physical Therapy Treatment Note PT-OP-A Visit Information Start: 06/17/24 19:09 Freq: Status: Active Protocol: Document 07/29/24 08:21 LRN (Rec: 07/29/24 09:04 LRN Laptop) Out-Patient Physical Therapy Visit Information Visit Information Visit Type Treatment Note Visit Start Time 08:21 Visit Stop Time 09:01 Visit Number 8 Evaluation Information Evaluation Date 06/22/24 Precautions Precautions Uncontrolled HBP being monitored with meds, ocassionally dizzy after couple cups of coffee and hiking, minor stroke in 2022 f/b stents in L coronory & R carotid artery in 2020 or 2022. PT-OP-B Current Condition Start: 06/17/24 19:09 Freq: Status: Active Protocol: Document 06/22/24 08:22 LRN (Rec: 06/22/24 09:11 LRN [id number]) Current Condition History of Current Condition Onset Date Nov 2023 Current Complaints R shdr pain w/removing wallet, scratch back,resting arm in armchair. History of Current Condition Pt reports in preparing to move from [place] to [place] his R shoulder started to hurt and since then has not improved. Taking Advil for the pain has been helpful. Pt used to sleep on his R side, but is not able to because of the pain, and can't vacuum. Pt has changed to sleeping on his L side. He does wake at night, but it is due to back pain and other pains. He finds it painful to rest his arm on an armchair, demonstrating a position with his arm out to side. His pain is intermittent in nature. 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 Treatment Goals Patient/Caregiver Goals Pt goals: -being able to sleep on the R side. -pain to decrease 50-60% prior to DC, to be able to rest his R arm on armchair for a an hour long program comfortably. - improve mobility to remove wallet an scatch back. Personal Factors Other Personal Factors That May Effect Minor stroke in 2022 ( Therapy/Recovery Lives in [place] w/spouse). Uncontrolled HBP being monitored as medications are tried. Occasionally dizzy. PT-OP-C Subjective Start: 06/17/24 19:09 Freq: Status: Active Protocol: Document 07/29/24 08:21 LRN (Rec: 07/29/24 09:04 LRN Laptop) OP-PT Subjective Patient Comments Patient Comments Can now reach into back pocket w/o R shoulder pain. Has pain at rest. Last night slept on R side for 3 hrs and when got up was in pain, but was able to get up and walk around for 2' before going back to bed w/biofreeze. PT-OP-E Functional Tests Start: 06/17/24 19:09 Freq: Status: Active Protocol: Document 06/22/24 08:22 LRN (Rec: 06/22/24 09:11 LRN [id number]) Functional Tests Apley's Scratch Test Action 1- Left Mid of inferior border of R scaula Action 1- Right Spine of L scapula Action 2- Left T2 Action 2- Right T2 Action 3- Left T8 Action 3- Right L4 PT-OP-F Manual Assessment Start: 06/17/24 19:09 Freq: Status: Active Protocol: Document 06/22/24 08:22 LRN (Rec: 06/22/24 09:11 LRN [id number]) Manual Assessments Soft Tissue Assessment Soft Tissue Mobility Assessment Supraspinatus tight (constant) and tender. No tenderness of neck or subacromial location. PT-OP-H Neuro Start: 06/17/24 19:09 Freq: Status: Active Protocol: Document 06/22/24 08:22 LRN (Rec: 06/22/24 09:11 LRN [id number]) Sensation Evaluation Gross Sensation Gross Sensation WNL PT-OP-J Posture/Palpation/Skin Start: 06/17/24 19:09 Freq: Status: Active Protocol: Document 06/22/24 08:22 LRN (Rec: 06/22/24 09:11 LRN [id number]) Posture Evaluation Position Sitting Head/C-Spine Posture Forward Head T-Spine Posture Increased Kyphosis Shoulder Posture (R) Rounded,(R) Forward,(L) Elevated Scapula Posture (R) Elevated Arm Posture (L) Internally Rotated,(R) Internally Rotated Pelvis Posture (R) Iliac Crest Superior Weight Distribution Balanced Knee Posture (R) Genu Varus Comments Posture Comments S-curve, thoracic apex on left and lumbar spine apex on the right. Elevated R clavical at ACJ. Palpation Assessment Location R shoulder Palpation Location Supraspinatus fossa Palpation Findings Muscle Guarding,Tenderness PT-OP-K Range of Motion Start: 06/17/24 19:09 Freq: Status: Active Protocol: Document 07/29/24 08:21 LRN (Rec: 07/29/24 09:04 LRN Laptop) Shoulder Goniometric Range of Motion Shoulder Right Passive Testing Position Supine Flexion 160 External Rotation at 90 degrees 75 Abduction Comments ABD in scapular plane is 180 deg's. Left Passive Testing Position Supine Flexion 160 External Rotation at 0 degrees Abduction 70 Comments ABD in scapular plane is 180 deg's. PT-OP-L Special Tests Start: 06/17/24 19:09 Freq: Status: Active Protocol: Document 06/22/24 08:22 LRN (Rec: 06/22/24 09:11 LRN [id number]) Special Tests Cervical Spine Special Tests Traction Test Results - Spurling's Test Test Results - Foraminal Compression Test Results - Shoulder Special Tests Belly Press Test Results + right Empty Can Test Results + right Elevation Impingement Test Results + PT-OP-M Strength Start: 06/17/24 19:09 Freq: Status: Active Protocol: Document 06/22/24 08:22 LRN (Rec: 06/22/24 09:11 LRN [id number]) Shoulder Strength Shoulder Manual Muscle Testing Right Abduction (C5) 4 Good Internal Rotation 4 Good Comments 5/5 except as indicated above due to pain at supraspinatus fossa. Left Comments Generally 5/5 PT-OP-Q Treatments Start: 06/17/24 19:09 Freq: Status: Active Protocol: Document 07/29/24 08:21 LRN (Rec: 07/29/24 09:04 LRN Laptop) Therapeutic Exercises Supine Exercises chin tuck with scap retraction Supine Exercise Name Scap retract/depression Equipment Used 1 pillow under head, arms at side Reps/Minutes 10 SH x 10 rep, 2 sets Comments Cued to move R scap to opp back pocket PROM/AROM Supine Exercise Name AROM shoulder flex/ER stretch Side right Reps/Minutes 2' Shoulder ER/IR ROM Supine Exercise Name Shoulder ER stretch w/cane initially with 4#, but removed 2ndary to pain Side right Reps/Minutes 3' Shoulder flex ROM Supine Exercise Name After MWM, Overhead cane flex stretch (MWM see manual)-155 deg's Side bilateral Resistance 4# wt on dowel Equipment Used hooklying Reps/Minutes 5 SH x 20 f/b rest Comments cued as needed for scap mvmt w /max flex, decreased tricep and lat stretch Sidelying Exercises R shdr AB Sidelying Exercise Name R shdr AB w/scap pinch/ depression Side right Reps/Minutes 0# x 1' R Shdr ER/Depression Sidelying Exercise Name R shdr ER w/scap pinch/ depression Side right Equipment Used Mvmt 0-170, decr'd 0-85 due to pain Reps/Minutes 4' Comments Assist to start for scap retract/depression, then cuing as needed. Self-Care/Home Management Treatment Activities Self-Care/Home Management Activities Issued & reviewed HEP: Sidelie shoulder ER and AB to 90 deg's. PT-OP-T Assessment and Plan Start: 06/17/24 19:09 Freq: Status: Active Protocol: Document 07/29/24 08:21 LRN (Rec: 07/29/24 09:04 LRN Laptop) Physical Therapy Assessment Goals pain Impairment Constant R shoulder pain, intermittently increases (6-7/ 10) Short Term Goal (STG) Pt will be educated and able to identify pain management technique of cryotherapy use. 06/30/24: Discussion use of CP for soreness recovery. STG Duration 07/02/24 progression 06/30/24 Spring Up Supervisor Goal (LTG) Pain to decrease 50-60% prior to DC, to be able to rest his R arm on an armchair for an hour long program comfortably. LTG Duration 09/17/24 Three Impairment Decrease R shoulder strength Short Term Goal (STG) Improve R shoulder strength with pt able to sleep in a modified position on his R side. STG Duration 08/06/24 Fdc Goal (LTG) Improve R shoulder strength with pt able to reach out with the arm forward to vacuum and reach out to the side w/pain no greater than 3/10. LTG Duration 09/17/24 Two Impairment Decreased R shoulder functional ROM Short Term Goal (STG) Improve function AROM with pt able to scatch his back with tolerable pain. 06/30/24: pt is reaching behind back during neck stretching with no reports pain. STG Duration 08/06/24 progression 06/30/24 Fdc Goal (LTG) Improve R shoulder ROM with pt able to remove his wallet from his back pocket with tolerable discomfort. 07/29/24: Pt reporting no pain removing wallet from back pocket. LTG Duration 09/17/24 (07/29/24: MET GOAL ) One Impairment Lacks self care HEP Short Term Goal (STG) Pt will be able to demonstrate proper body mechanics for ADLs, and show awareness of proper sitting/standing posture as related to shoulder /scapular positioning. 07/23/24: provided HO for sleeping, sitting alignment and discussion of alignment. STG Duration 07/16/24 progression 07/23/24 Spring Up Supervisor Goal (LTG) Pt will be independent with a HEP of R shoulder/scapular/ core strengthening and ROM ex' s. 06/24/24: HEP: Dowel stretch for shoulder flex, ER/IR; Neck elongation, SB, Rot, wall posturing. 06/28/24: added open book, resisted shld ER TB #1, provided HOs for sleeping, sit and stand posture 06/30/24: added neck stretching, SNAGS ext& rotation. 07/23/24: reviewed wall posture with humeral ER TB #1, towel roll behind head. 07/29/24: HEP: Sidelie shoulder ER and AB to 90 deg's . LTG Duration 09/17/24 progressed 07/29/24 Assessment Summary Assessment Pt pain reduced with reaching into back pocket. Pt having R Supraspinatus pain with end- range FF due to poor scapulohumeral mechanics and RC dysfunction. Pt feeling he may be ready for DC soon. At least next 3-4 visits for R scap stab & RC strengthening HEP, ?DC; then will need recheck for DC. Physical Therapy Plan Frequency and Duration Frequency of Treatment 2x/Week Duration of treatment (weeks) 12 Plan of Care Start Date 06/22/24 Plan of Care End Date 09/17/24 Next Visit Focus/Plan Next Note Type Treatment Note Next Visit Plan PN in 2 visits. Check GOALs ( some or all) for progress. Next: REview use pillows again next tx. Ask response Ktaping posterior neck for postural feedback. recheck stretching and resisted ER & open book, FF cane, manual lats, UT. May add lat strengthening. PT to assess DTR's. Assess ( STG #1) for pt awareness for proper sitting/standing posture & positioning for pt comfort. Educate (Pain STG) with pt to be able to identify pain management technique use of cryotherapy. POC: R rotator cuff ( supraspinatus, subscap, infrasp) and ACJ strain/sprain rehab (pain at supraspinatus fossa). Pt education (posture , body mech), Shoulder/ scapular/core stabilization/ strengthening, activty tolerance, manual therapy (JMT , STM), modalities as needed for pain.
--- NOTE | 2024-08-02 08:16 | PT.OTN ---
Current Diagnoses Pain in right shoulder (08/02/24) Muscle weakness (generalized) (08/02/24) Physical Therapy Treatment Note PT-OP-A Visit Information Start: 06/17/24 19:09 Freq: Status: Active Protocol: Document 08/02/24 08:16 PG (Rec: 08/02/24 09:42 PG [id number]) Out-Patient Physical Therapy Visit Information Visit Information Visit Type Treatment Note Visit Note CHRIS Mcelroy led tx with permission of pt and direct supervision of Kisha DYKES. Visit Start Time 08:16 Visit Stop Time 09:02 Evaluation Information Evaluation Date 06/22/24 Precautions Precautions Uncontrolled HBP being monitored with meds, ocassionally dizzy after couple cups of coffee and hiking, minor stroke in 2022 f/b stents in L coronory & R carotid artery in 2020 or 2022. PT-OP-B Current Condition Start: 06/17/24 19:09 Freq: Status: Active Protocol: Document 06/22/24 08:22 LRN (Rec: 06/22/24 09:11 LRN [id number]) Current Condition History of Current Condition Onset Date Nov 2023 Current Complaints R shdr pain w/removing wallet, scratch back,resting arm in armchair. History of Current Condition Pt reports in preparing to move from [place] to [place] his R shoulder started to hurt and since then has not improved. Taking Advil for the pain has been helpful. Pt used to sleep on his R side, but is not able to because of the pain, and can't vacuum. Pt has changed to sleeping on his L side. He does wake at night, but it is due to back pain and other pains. He finds it painful to rest his arm on an armchair, demonstrating a position with his arm out to side. His pain is intermittent in nature. 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 Treatment Goals Patient/Caregiver Goals Pt goals: -being able to sleep on the R side. -pain to decrease 50-60% prior to DC, to be able to rest his R arm on armchair for a an hour long program comfortably. - improve mobility to remove wallet an scatch back. Personal Factors Other Personal Factors That May Effect Minor stroke in 2022 ( Therapy/Recovery Lives in [place] w/spouse). Uncontrolled HBP being monitored as medications are tried. Occasionally dizzy. PT-OP-C Subjective Start: 06/17/24 19:09 Freq: Status: Active Protocol: Document 08/02/24 08:16 PG (Rec: 08/02/24 09:42 PG [id number]) OP-PT Subjective Patient Comments Patient Comments Pt is feeling good, able to reach behind his back and his back pocket with limited discomfort. Patient Questionnaires Quick Dash- Upper Extremity Quick Dash UE Score 18 Quick Dash UE Impairment 1 to 19% Impaired (Score 1-19) PT-OP-E Functional Tests Start: 06/17/24 19:09 Freq: Status: Active Protocol: Document 06/22/24 08:22 LRN (Rec: 06/22/24 09:11 LRN [id number]) Functional Tests Apley's Scratch Test Action 1- Left Mid of inferior border of R scaula Action 1- Right Spine of L scapula Action 2- Left T2 Action 2- Right T2 Action 3- Left T8 Action 3- Right L4 PT-OP-F Manual Assessment Start: 06/17/24 19:09 Freq: Status: Active Protocol: Document 06/22/24 08:22 LRN (Rec: 06/22/24 09:11 LRN [id number]) Manual Assessments Soft Tissue Assessment Soft Tissue Mobility Assessment Supraspinatus tight (constant) and tender. No tenderness of neck or subacromial location. PT-OP-H Neuro Start: 06/17/24 19:09 Freq: Status: Active Protocol: Document 06/22/24 08:22 LRN (Rec: 06/22/24 09:11 LRN [id number]) Sensation Evaluation Gross Sensation Gross Sensation WNL PT-OP-J Posture/Palpation/Skin Start: 06/17/24 19:09 Freq: Status: Active Protocol: Document 06/22/24 08:22 LRN (Rec: 06/22/24 09:11 LRN [id number]) Posture Evaluation Position Sitting Head/C-Spine Posture Forward Head T-Spine Posture Increased Kyphosis Shoulder Posture (R) Rounded,(R) Forward,(L) Elevated Scapula Posture (R) Elevated Arm Posture (L) Internally Rotated,(R) Internally Rotated Pelvis Posture (R) Iliac Crest Superior Weight Distribution Balanced Knee Posture (R) Genu Varus Comments Posture Comments S-curve, thoracic apex on left and lumbar spine apex on the right. Elevated R clavical at ACJ. Palpation Assessment Location R shoulder Palpation Location Supraspinatus fossa Palpation Findings Muscle Guarding,Tenderness PT-OP-K Range of Motion Start: 06/17/24 19:09 Freq: Status: Active Protocol: Document 07/29/24 08:21 LRN (Rec: 07/29/24 09:04 LRN Laptop) Shoulder Goniometric Range of Motion Shoulder Right Passive Testing Position Supine Flexion 160 External Rotation at 90 degrees 75 Abduction Comments ABD in scapular plane is 180 deg's. Left Passive Testing Position Supine Flexion 160 External Rotation at 0 degrees Abduction 70 Comments ABD in scapular plane is 180 deg's. PT-OP-L Special Tests Start: 06/17/24 19:09 Freq: Status: Active Protocol: Document 06/22/24 08:22 LRN (Rec: 06/22/24 09:11 LRN [id number]) Special Tests Cervical Spine Special Tests Traction Test Results - Spurling's Test Test Results - Foraminal Compression Test Results - Shoulder Special Tests Belly Press Test Results + right Empty Can Test Results + right Elevation Impingement Test Results + PT-OP-M Strength Start: 06/17/24 19:09 Freq: Status: Active Protocol: Document 06/22/24 08:22 LRN (Rec: 06/22/24 09:11 LRN [id number]) Shoulder Strength Shoulder Manual Muscle Testing Right Abduction (C5) 4 Good Internal Rotation 4 Good Comments 5/5 except as indicated above due to pain at supraspinatus fossa. Left Comments Generally 5/5 PT-OP-Q Treatments Start: 06/17/24 19:09 Freq: Status: Active Protocol: Document 08/02/24 08:16 PG (Rec: 08/02/24 09:42 PG [id number]) Therapeutic Exercises Supine Exercises Shoulder flex ROM Supine Exercise Name Overhead can flex stretch Side bilateral Resistance 4# wt on dowel Equipment Used hooklying Reps/Minutes 5 SH x 20 f/b rest Sidelying Exercises R shdr AB Sidelying Exercise Name R shdr AB w/scap pinch/ depression Side right Resistance 2# Reps/Minutes 10x 1' Comments cued to lead with thumb to increase space for humeral head R Shdr ER/Depression Sidelying Exercise Name Reviewed: R shdr ER w/scap pinch/depression Side right Resistance 3# Reps/Minutes 10 x 4' open book Sidelying Exercise Name Reviewed Side right Resistance 2# Reps/Minutes x10 Comments cues for thoracic rotation to decrease strain on anterior g/ h joint Other Exercises self STMs Other Exercise Name R Lat and Rhomboids Side right Equipment Used tennis ball in pillowcase, against wall Manual Therapy Treatment Soft Tissue Mobilization R shld Body Location R Lat, rhomboids Mobilization Type Rolling,Sustained Pressure Intensity/Depth Moderate Body Position Hooklying Self-Care/Home Management Treatment Education Patient Education Pain Management Other Education Educated pt on self STM with tennis ball in pillow to target insertion of R lat muscles to decrease tension and improve R FF ROM. Pt used tennis ball on R rhomboids as well to decrease tension with FF and improve scapular retraction. PT-OP-T Assessment and Plan Start: 06/17/24 19:09 Freq: Status: Active Protocol: Document 08/02/24 08:16 PG (Rec: 08/02/24 09:42 PG [id number]) Physical Therapy Assessment Goals pain Impairment Constant R shoulder pain, intermittently increases (6-7/ 10) Short Term Goal (STG) Pt will be educated and able to identify pain management technique of cryotherapy use. 06/30/24: Discussion use of CP for soreness recovery. 08/02/24: Goal met - reports he is able to identify and utilizes bio freeze to help reduce pain STG Duration 07/02/24 (Goal Met 08/02/24) Bobbin Marker Goal (LTG) Pain to decrease 50-60% prior to DC, to be able to rest his R arm on an armchair for an hour long program comfortably. 08/02/24: Goal Met, has self strategies of supporting arm. If needed, is able to sit in chair for an hour long with pn decreased more then 50-60%, no number identified. LTG Duration 09/17/24 (Goal Met 08/02/24) Three Impairment Decrease R shoulder strength Short Term Goal (STG) Improve R shoulder strength with pt able to sleep in a modified position on his R side. STG Duration 08/06/24 Bobbin Marker Goal (LTG) Improve R shoulder strength with pt able to reach out with the arm forward to vacuum and reach out to the side w/pain no greater than 3/10. LTG Duration 09/17/24 Two Impairment Decreased R shoulder functional ROM Short Term Goal (STG) Improve function AROM with pt able to scatch his back with tolerable pain. 06/30/24: pt is reaching behind back during neck stretching with no reports pain. STG Duration 08/06/24 progression 06/30/24 Senior Living Goal (LTG) Improve R shoulder ROM with pt able to remove his wallet from his back pocket with tolerable discomfort. 07/29/24: Pt reporting no pain removing wallet from back pocket. LTG Duration 09/17/24 (07/29/24: MET GOAL ) One Impairment Lacks self care HEP Short Term Goal (STG) Pt will be able to demonstrate proper body mechanics for ADLs, and show awareness of proper sitting/standing posture as related to shoulder /scapular positioning. 07/23/24: provided HO for sleeping, sitting alignment and discussion of alignment. STG Duration 07/16/24 progression 07/23/24 Bobbin Marker Goal (LTG) Pt will be independent with a HEP of R shoulder/scapular/ core strengthening and ROM ex' s. 06/24/24: HEP: Dowel stretch for shoulder flex, ER/IR; Neck elongation, SB, Rot, wall posturing. 06/28/24: added open book, resisted shld ER TB #1, provided HOs for sleeping, sit and stand posture 06/30/24: added neck stretching, SNAGS ext& rotation. 07/23/24: reviewed wall posture with humeral ER TB #1, towel roll behind head. 07/29/24: HEP: Sidelie shoulder ER and AB to 90 deg's . LTG Duration 09/17/24 progressed 07/29/24 Progress Towards Goals Progress Towards Goals Progressing Toward Goals Progress Comments 08/02/24: Quick Dash score: 18 - 1 to 19% Impaired, improvement of 12 from previous of 06/24/24. Demonstrates a decrease in impairment. Met pain goals Assessment Summary Assessment Progressed pt's sidelying R shoulder ER, abduction and open book with weights to work on strengthening and stabilizing scapular and RC muscles. Pt responded well and was aware of scapular retraction and depression motions with each rep. Required tactile and v/c's to incorporate trunk movement with openbook stretch to reduce anterior stress on g/h joint. Reviewed weighted FF exercise, used manual to decrease tension in R lat insertion and rhomboids for increased FF ROM, also reviewed self STM with tennis ball in pillowcase to target lat insertion for self carry over when performing overhead ADL's. Pt met short and intermodal customer service goals to support himself for pain management. Physical Therapy Plan Frequency and Duration Frequency of Treatment 2x/Week Duration of treatment (weeks) 12 Plan of Care Start Date 06/22/24 Plan of Care End Date 09/17/24 Next Visit Focus/Plan Next Note Type Treatment Note Next Visit Plan PN in 1 visits. Check short term #3 and #2 GOALs for progress. Next: Recheck stretching and resisted ER & open book, FF cane, manual lats, UT. May add lat strengthening. PT to assess DTR's. Assess ( STG #1) for pt awareness for proper sitting/standing posture & positioning for pt comfort. POC: R rotator cuff ( supraspinatus, subscap, infrasp) and ACJ strain/sprain rehab (pain at supraspinatus fossa). Pt education (posture , body mech), Shoulder/ scapular/core stabilization/ strengthening, activty tolerance, manual therapy (JMT , STM), modalities as needed for pain.
--- NOTE | 2024-08-04 14:30 | PT.OTN ---
Current Diagnoses Pain in right shoulder (08/04/24) Muscle weakness (generalized) (08/04/24) Physical Therapy Treatment Note PT-OP-A Visit Information Start: 06/17/24 19:09 Freq: Status: Active Protocol: Document 08/04/24 13:46 SP (Rec: 08/04/24 15:17 SP [id number]) Out-Patient Physical Therapy Visit Information Visit Information Visit Type Treatment Note Visit Note SPTA Lilibeth observed tx provided by JANIA Beard with permission of pt. Visit Start Time 13:46 Visit Stop Time 14:30 Visit Number 10 Number of REFERENCE LIBRARY ASSISTANT Visits 2 Evaluation Information Evaluation Date 06/22/24 Precautions Precautions Uncontrolled HBP being monitored with meds, ocassionally dizzy after couple cups of coffee and hiking, minor stroke in 2022 f/b stents in L coronory & R carotid artery in 2020 or 2022. PT-OP-B Current Condition Start: 06/17/24 19:09 Freq: Status: Active Protocol: Document 06/22/24 08:22 LRN (Rec: 06/22/24 09:11 LRN [id number]) Current Condition History of Current Condition Onset Date Nov 2023 Current Complaints R shdr pain w/removing wallet, scratch back,resting arm in armchair. History of Current Condition Pt reports in preparing to move from [place] to [place] his R shoulder started to hurt and since then has not improved. Taking Advil for the pain has been helpful. Pt used to sleep on his R side, but is not able to because of the pain, and can't vacuum. Pt has changed to sleeping on his L side. He does wake at night, but it is due to back pain and other pains. He finds it painful to rest his arm on an armchair, demonstrating a position with his arm out to side. His pain is intermittent in nature. 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 Treatment Goals Patient/Caregiver Goals Pt goals: -being able to sleep on the R side. -pain to decrease 50-60% prior to DC, to be able to rest his R arm on armchair for a an hour long program comfortably. - improve mobility to remove wallet an scatch back. Personal Factors Other Personal Factors That May Effect Minor stroke in 2022 ( Therapy/Recovery Lives in [place] w/spouse). Uncontrolled HBP being monitored as medications are tried. Occasionally dizzy. PT-OP-C Subjective Start: 06/17/24 19:09 Freq: Status: Active Protocol: Document 08/04/24 13:46 SP (Rec: 08/04/24 15:17 SP [id number]) OP-PT Subjective Patient Comments Patient Comments Pt reports did some halling mulch yesterday and little sore and achy in R shld especially when peforms a pulling back motion like starting lawnmower. PT-OP-E Functional Tests Start: 06/17/24 19:09 Freq: Status: Active Protocol: Document 06/22/24 08:22 LRN (Rec: 06/22/24 09:11 LRN [id number]) Functional Tests Apley's Scratch Test Action 1- Left Mid of inferior border of R scaula Action 1- Right Spine of L scapula Action 2- Left T2 Action 2- Right T2 Action 3- Left T8 Action 3- Right L4 PT-OP-F Manual Assessment Start: 06/17/24 19:09 Freq: Status: Active Protocol: Document 06/22/24 08:22 LRN (Rec: 06/22/24 09:11 LRN [id number]) Manual Assessments Soft Tissue Assessment Soft Tissue Mobility Assessment Supraspinatus tight (constant) and tender. No tenderness of neck or subacromial location. PT-OP-H Neuro Start: 06/17/24 19:09 Freq: Status: Active Protocol: Document 06/22/24 08:22 LRN (Rec: 06/22/24 09:11 LRN [id number]) Sensation Evaluation Gross Sensation Gross Sensation WNL PT-OP-J Posture/Palpation/Skin Start: 06/17/24 19:09 Freq: Status: Active Protocol: Document 06/22/24 08:22 LRN (Rec: 06/22/24 09:11 LRN [id number]) Posture Evaluation Position Sitting Head/C-Spine Posture Forward Head T-Spine Posture Increased Kyphosis Shoulder Posture (R) Rounded,(R) Forward,(L) Elevated Scapula Posture (R) Elevated Arm Posture (L) Internally Rotated,(R) Internally Rotated Pelvis Posture (R) Iliac Crest Superior Weight Distribution Balanced Knee Posture (R) Genu Varus Comments Posture Comments S-curve, thoracic apex on left and lumbar spine apex on the right. Elevated R clavical at ACJ. Palpation Assessment Location R shoulder Palpation Location Supraspinatus fossa Palpation Findings Muscle Guarding,Tenderness PT-OP-K Range of Motion Start: 06/17/24 19:09 Freq: Status: Active Protocol: Document 07/29/24 08:21 LRN (Rec: 07/29/24 09:04 LRN Laptop) Shoulder Goniometric Range of Motion Shoulder Right Passive Testing Position Supine Flexion 160 External Rotation at 90 degrees 75 Abduction Comments ABD in scapular plane is 180 deg's. Left Passive Testing Position Supine Flexion 160 External Rotation at 0 degrees Abduction 70 Comments ABD in scapular plane is 180 deg's. PT-OP-L Special Tests Start: 06/17/24 19:09 Freq: Status: Active Protocol: Document 06/22/24 08:22 LRN (Rec: 06/22/24 09:11 LRN [id number]) Special Tests Cervical Spine Special Tests Traction Test Results - Spurling's Test Test Results - Foraminal Compression Test Results - Shoulder Special Tests Belly Press Test Results + right Empty Can Test Results + right Elevation Impingement Test Results + PT-OP-M Strength Start: 06/17/24 19:09 Freq: Status: Active Protocol: Document 06/22/24 08:22 LRN (Rec: 06/22/24 09:11 LRN [id number]) Shoulder Strength Shoulder Manual Muscle Testing Right Abduction (C5) 4 Good Internal Rotation 4 Good Comments 5/5 except as indicated above due to pain at supraspinatus fossa. Left Comments Generally 5/5 PT-OP-Q Treatments Start: 06/17/24 19:09 Freq: Status: Active Protocol: Document 08/04/24 13:46 SP (Rec: 08/04/24 15:17 SP [id number]) Therapeutic Exercises Supine Exercises Shoulder ER/IR ROM Supine Exercise Name Shoulder ER stretch w/ DB. Side right Resistance 5# DB 75 deg before feels pain post shld Reps/Minutes 5 reps x2 Shoulder flex ROM Supine Exercise Name Overhead can flex stretch Side bilateral Resistance 4>5# wt on dowel Equipment Used hooklying Reps/Minutes 5 SH x 20 f/b rest Comments progresssed range post manual 145 deg >155- 162 deg with reps Prone Exercises Scap Retraction Prone Exercise Name Trialed in PT post manual Side bilateral Reps/Minutes 5 SH x5 reps Comments Initially lower Scap clicking on ribcage, improved glide no click w/ manual Sitting Exercises Resisted ER Sitting Exercise Name Reviewed Side bilateral Resistance TB #1>2 Reps/Minutes 5 SH x 10 Comments Cued head up, scap retract and depression to opp back posckets. Standing Exercises Single Arm Pull Standing Exercise Name added to HEP with HO (ROM& strength for lift single item & underwriting account representative pull) Side right Resistance Tb #3 anchored under L foot Reps/Minutes 10 reps x2 sets Comments cued L foot fwd, soft knee bend, head up, slight hip hinge/bk straight Resisted Shld Ext Standing Exercise Name added to HEP with HO Side bilateral Resistance TB #3 Reps/Minutes 2x10 reps Comments cued head up/tall posture- support lat strengthening Other Exercises self STMs Other Exercise Name R Lat and Rhomboids Side right Equipment Used tennis ball in pillowcase, against wall Comments verbal review- performing and helps with R scap tension reduction Manual Therapy Treatment Consent Patient gave verbal consent for manual Yes treatment Soft Tissue Mobilization R shld Body Location R Lat, rhomboids Mobilization Type Rolling,Sustained Pressure Intensity/Depth Moderate Body Position Hooklying Comments hookyling and prone Joint Mobilizations TS Joint TS and ribcage approx T3-8 Direction PA and caudal glide: Body Position Prone Comments Gentle PA and inferior glide R scapulothoracic Jt Joint R Direction adduction, depression Grade III Body Position Prone Comments addcuation, depression- scap mobility PT-OP-T Assessment and Plan Start: 06/17/24 19:09 Freq: Status: Active Protocol: Document 08/04/24 13:46 SP (Rec: 08/04/24 15:17 SP [id number]) Physical Therapy Assessment Goals pain Impairment Constant R shoulder pain, intermittently increases (6-7/ 10) Short Term Goal (STG) Pt will be educated and able to identify pain management technique of cryotherapy use. 06/30/24: Discussion use of CP for soreness recovery. 08/02/24: Goal met - reports he is able to identify and utilizes bio freeze to help reduce pain STG Duration 07/02/24 (Goal Met 08/02/24) Penitentiary Goal (LTG) Pain to decrease 50-60% prior to DC, to be able to rest his R arm on an armchair for an hour long program comfortably. 08/02/24: Goal Met, has self strategies of supporting arm. If needed, is able to sit in chair for an hour long with pn decreased more then 50-60%, no number identified. LTG Duration 09/17/24 (Goal Met 08/02/24) Three Impairment Decrease R shoulder strength Short Term Goal (STG) Improve R shoulder strength with pt able to sleep in a modified position on his R side. 08/04/24: can sleep on R side occasionally approx 1.5 hrs now, improved from start PT, either R shld tucked under trunk or arm 90/90 front and trunk rolled slight back to ove weight. STG Duration 08/06/24 progressing 08/04/24 Shop Teacher Goal (LTG) Improve R shoulder strength with pt able to reach out with the arm forward to vacuum and reach out to the side w/pain no greater than 3/10. 08/04/24: GOAL MET: no pain reaching forward and to side if not repetitive, reports more pain when reached behind trunk. LTG Duration 09/17/24 GOAL MET 08/04/24 Two Impairment Decreased R shoulder functional ROM Short Term Goal (STG) Improve function AROM with pt able to scatch his back with tolerable pain. 06/30/24: pt is reaching behind back during neck stretching with no reports pain. 08/04/24: able to reach approx T11 before feeling in tolerant pain. STG Duration 08/06/24 progression 08/04/24 Penitentiary Goal (LTG) Improve R shoulder ROM with pt able to remove his wallet from his back pocket with tolerable discomfort. 07/29/24: Pt reporting no pain removing wallet from back pocket. LTG Duration 09/17/24 (07/29/24: MET GOAL ) One Impairment Lacks self care HEP Short Term Goal (STG) Pt will be able to demonstrate proper body mechanics for ADLs, and show awareness of proper sitting/standing posture as related to shoulder /scapular positioning. 07/23/24: provided HO for sleeping, sitting alignment and discussion of alignment. 08/04/24: continue educational cues for upright posture during ther ex today. STG Duration 07/16/24 progression 08/04/24 Shop Teacher Goal (LTG) Pt will be independent with a HEP of R shoulder/scapular/ core strengthening and ROM ex' s. 06/24/24: HEP: Dowel stretch for shoulder flex, ER/IR; Neck elongation, SB, Rot, wall posturing. 06/28/24: added open book, resisted shld ER TB #1, provided HOs for sleeping, sit and stand posture 06/30/24: added neck stretching, SNAGS ext& rotation. 07/23/24: reviewed wall posture with humeral ER TB #1, towel roll behind head. 07/29/24: HEP: Sidelie shoulder ER and AB to 90 deg's . 08/04/24: added resisted shld ext TB #3 and single arm pull (like underwriting account representative pull) LTG Duration 09/17/24 progressed 08/04/24 Progress Towards Goals Progress Towards Goals Progressing Toward Goals Progress Comments 08/02/24: Quick Dash score: 18 - 1 to 19% Impaired, improvement of 12 from previous of 06/24/24. Demonstrates a decrease in impairment. 08/04/24: MET LTG #3. Assessment Summary Assessment Pt improved R scapular inferior glide post manual, was able to gain FF OH in hooklying with increased resistance 5# wt on dowel up to 162 deg. Progressed resisted seated humeral ER with TB #2 and added standing shld extension to support lat strengthening. Physical Therapy Plan Frequency and Duration Frequency of Treatment 2x/Week Duration of treatment (weeks) 12 Plan of Care Start Date 06/22/24 Plan of Care End Date 09/17/24 Therapeutic Interventions Therapeutic Interventions Home Exercise Program,Joint Mobilizations,Manual Therapy, Neuromuscular Re-education, Self-Care/Home Management,Soft Tissue Mobilization, Therapeutic Activities, Therapeutic Exercises Modalities Cold Pack/Ice Massage,Electric Stimulation,Hot Packs, Ultrasound Next Visit Focus/Plan Next Note Type Treatment Note Next Visit Plan PN Next visit. PT to assess DTR's. POC: R rotator cuff ( supraspinatus, subscap, infrasp) and ACJ strain/sprain rehab (pain at supraspinatus fossa). Pt education (posture , body mech), Shoulder/ scapular/core stabilization/ strengthening, activty tolerance, manual therapy (JMT , STM), modalities as needed for pain.
--- NOTE | 2024-08-12 09:47 | PT.OTN ---
Current Diagnoses Pain in right shoulder (08/12/24) Muscle weakness (generalized) (08/12/24) Physical Therapy Treatment Note PT-OP-A Visit Information Start: 06/17/24 19:09 Freq: Status: Active Protocol: Document 08/12/24 09:04 PG (Rec: 08/12/24 10:28 PG Laptop) Out-Patient Physical Therapy Visit Information Visit Information Visit Type Treatment Note Visit Note Lilibeth PEREZ led tx with permission of pt and direct supervision of Kisha DYKES. Visit Start Time 09:04 Visit Stop Time 09:47 Visit Number 11 Number of FORMULA MAKER Visits 3 Evaluation Information Evaluation Date 06/22/24 Precautions Precautions Uncontrolled HBP being monitored with meds, ocassionally dizzy after couple cups of coffee and hiking, minor stroke in 2022 f/b stents in L coronory & R carotid artery in 2020 or 2022. PT-OP-B Current Condition Start: 06/17/24 19:09 Freq: Status: Active Protocol: Document 06/22/24 08:22 LRN (Rec: 06/22/24 09:11 LRN [id number]) Current Condition History of Current Condition Onset Date Nov 2023 Current Complaints R shdr pain w/removing wallet, scratch back,resting arm in armchair. History of Current Condition Pt reports in preparing to move from [place] to [place] his R shoulder started to hurt and since then has not improved. Taking Advil for the pain has been helpful. Pt used to sleep on his R side, but is not able to because of the pain, and can't vacuum. Pt has changed to sleeping on his L side. He does wake at night, but it is due to back pain and other pains. He finds it painful to rest his arm on an armchair, demonstrating a position with his arm out to side. His pain is intermittent in nature. 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 Treatment Goals Patient/Caregiver Goals Pt goals: -being able to sleep on the R side. -pain to decrease 50-60% prior to DC, to be able to rest his R arm on armchair for a an hour long program comfortably. - improve mobility to remove wallet an scatch back. Personal Factors Other Personal Factors That May Effect Minor stroke in 2022 ( Therapy/Recovery Lives in [place] w/spouse). Uncontrolled HBP being monitored as medications are tried. Occasionally dizzy. PT-OP-C Subjective Start: 06/17/24 19:09 Freq: Status: Active Protocol: Document 08/12/24 09:04 PG (Rec: 08/12/24 10:28 PG Laptop) OP-PT Subjective Patient Comments Patient Comments Achy here and there, not as much as usual. HEP is going well, seems to get increased pn with repetitive use. PT-OP-E Functional Tests Start: 06/17/24 19:09 Freq: Status: Active Protocol: Document 06/22/24 08:22 LRN (Rec: 06/22/24 09:11 LRN [id number]) Functional Tests Apley's Scratch Test Action 1- Left Mid of inferior border of R scaula Action 1- Right Spine of L scapula Action 2- Left T2 Action 2- Right T2 Action 3- Left T8 Action 3- Right L4 PT-OP-F Manual Assessment Start: 06/17/24 19:09 Freq: Status: Active Protocol: Document 06/22/24 08:22 LRN (Rec: 06/22/24 09:11 LRN [id number]) Manual Assessments Soft Tissue Assessment Soft Tissue Mobility Assessment Supraspinatus tight (constant) and tender. No tenderness of neck or subacromial location. PT-OP-H Neuro Start: 06/17/24 19:09 Freq: Status: Active Protocol: Document 06/22/24 08:22 LRN (Rec: 06/22/24 09:11 LRN [id number]) Sensation Evaluation Gross Sensation Gross Sensation WNL PT-OP-J Posture/Palpation/Skin Start: 06/17/24 19:09 Freq: Status: Active Protocol: Document 06/22/24 08:22 LRN (Rec: 06/22/24 09:11 LRN [id number]) Posture Evaluation Position Sitting Head/C-Spine Posture Forward Head T-Spine Posture Increased Kyphosis Shoulder Posture (R) Rounded,(R) Forward,(L) Elevated Scapula Posture (R) Elevated Arm Posture (L) Internally Rotated,(R) Internally Rotated Pelvis Posture (R) Iliac Crest Superior Weight Distribution Balanced Knee Posture (R) Genu Varus Comments Posture Comments S-curve, thoracic apex on left and lumbar spine apex on the right. Elevated R clavical at ACJ. Palpation Assessment Location R shoulder Palpation Location Supraspinatus fossa Palpation Findings Muscle Guarding,Tenderness PT-OP-K Range of Motion Start: 06/17/24 19:09 Freq: Status: Active Protocol: Document 07/29/24 08:21 LRN (Rec: 07/29/24 09:04 LRN Laptop) Shoulder Goniometric Range of Motion Shoulder Right Passive Testing Position Supine Flexion 160 External Rotation at 90 degrees 75 Abduction Comments ABD in scapular plane is 180 deg's. Left Passive Testing Position Supine Flexion 160 External Rotation at 0 degrees Abduction 70 Comments ABD in scapular plane is 180 deg's. PT-OP-L Special Tests Start: 06/17/24 19:09 Freq: Status: Active Protocol: Document 06/22/24 08:22 LRN (Rec: 06/22/24 09:11 LRN [id number]) Special Tests Cervical Spine Special Tests Traction Test Results - Spurling's Test Test Results - Foraminal Compression Test Results - Shoulder Special Tests Belly Press Test Results + right Empty Can Test Results + right Elevation Impingement Test Results + PT-OP-M Strength Start: 06/17/24 19:09 Freq: Status: Active Protocol: Document 06/22/24 08:22 LRN (Rec: 06/22/24 09:11 LRN [id number]) Shoulder Strength Shoulder Manual Muscle Testing Right Abduction (C5) 4 Good Internal Rotation 4 Good Comments 5/5 except as indicated above due to pain at supraspinatus fossa. Left Comments Generally 5/5 PT-OP-Q Treatments Start: 06/17/24 19:09 Freq: Status: Active Protocol: Document 08/12/24 09:04 PG (Rec: 08/12/24 10:28 PG Laptop) Therapeutic Exercises Supine Exercises 90/90 IR Supine Exercise Name Trialed in PT for subscap strngth & ROM Side right Resistance AROM Comments DC due to pn w shldr at 90deg Shoulder flex ROM Supine Exercise Name Overhead can flex stretch Side bilateral Resistance 5# wt on dowel Equipment Used hooklying Reps/Minutes 5 SH x 20 f/b rest Comments 156deg of R shoulder flexion Standing Exercises Shoulder IR Standing Exercise Name Trialed - Hand behind back, lifting palm away from body Side right Resistance AROM Comments DC due to discomfort 90/90 IR Standing Exercise Name 90/90 against wall for posture cues, Trialed in PT for subscap strngth & RO Side right Resistance AROM Comments DC due to discomfort with shoulder at 90deg Single Arm Pull Standing Exercise Name Verbally Reviewed: Lawnmower Pull Side right Comments pt stated he is able to complete with no pain Resisted Shld Ext Standing Exercise Name Reviewed: added slight shoulder IR to target subscap Side bilateral Resistance TB #3 Reps/Minutes 2x10 Comments cued tall posture, scap retration and control w eccentric mvmnt Manual Therapy Treatment Soft Tissue Mobilization R shld Body Location R Lat, rhomboids Mobilization Type Rolling,Sustained Pressure Intensity/Depth Moderate Body Position Hooklying Joint Mobilizations GH Jt Joint R Direction posterior glide Body Position Hooklying Comments gentle glides R scapulothoracic Jt Joint R Direction adduction, depression Grade III Body Position Prone Comments adduction, depression- scap mobility PT-OP-T Assessment and Plan Start: 06/17/24 19:09 Freq: Status: Active Protocol: Document 08/12/24 09:04 PG (Rec: 08/12/24 10:28 PG Laptop) Physical Therapy Assessment Goals Three Impairment Decrease R shoulder strength Short Term Goal (STG) Improve R shoulder strength with pt able to sleep in a modified position on his R side. 08/04/24: can sleep on R side occasionally approx 1.5 hrs now, improved from start PT, either R shld tucked under trunk or arm 90/90 front and trunk rolled slight back to ove weight. STG Duration 08/06/24 progressing 08/04/24 Healthcare Recruiter Goal (LTG) Improve R shoulder strength with pt able to reach out with the arm forward to vacuum and reach out to the side w/pain no greater than 3/10. 08/04/24: GOAL MET: no pain reaching forward and to side if not repetitive, reports more pain when reached behind trunk. LTG Duration 09/17/24 GOAL MET 08/04/24 Two Impairment Decreased R shoulder functional ROM Short Term Goal (STG) Improve function AROM with pt able to scatch his back with tolerable pain. 06/30/24: pt is reaching behind back during neck stretching with no reports pain. 08/04/24: able to reach approx T11 before feeling in tolerant pain. STG Duration 08/06/24 progression 08/04/24 Healthcare Recruiter Goal (LTG) Improve R shoulder ROM with pt able to remove his wallet from his back pocket with tolerable discomfort. 07/29/24: Pt reporting no pain removing wallet from back pocket. LTG Duration 09/17/24 (07/29/24: MET GOAL ) One Impairment Lacks self care HEP Short Term Goal (STG) Pt will be able to demonstrate proper body mechanics for ADLs, and show awareness of proper sitting/standing posture as related to shoulder /scapular positioning. 07/23/24: provided HO for sleeping, sitting alignment and discussion of alignment. 08/04/24: continue educational cues for upright posture during ther ex today. STG Duration 07/16/24 progression 08/04/24 Assisted Goal (LTG) Pt will be independent with a HEP of R shoulder/scapular/ core strengthening and ROM ex' s. 06/24/24: HEP: Dowel stretch for shoulder flex, ER/IR; Neck elongation, SB, Rot, wall posturing. 06/28/24: added open book, resisted shld ER TB #1, provided HOs for sleeping, sit and stand posture 06/30/24: added neck stretching, SNAGS ext& rotation. 07/23/24: reviewed wall posture with humeral ER TB #1, towel roll behind head. 07/29/24: HEP: Sidelie shoulder ER and AB to 90 deg's . 08/04/24: added resisted shld ext TB #3 and single arm pull (like human resources compensation analyst pull) LTG Duration 09/17/24 progressed 08/04/24 Progress Towards Goals Progress Towards Goals Progressing Toward Goals Progress Comments 08/02/24: Quick Dash score: 18 - 1 to 19% Impaired, improvement of 12 from previous of 06/24/24. Demonstrates a decrease in impairment. 08/04/24: MET LTG #3. Assessment Summary Assessment Continued with scapulothoracic mobilization and STM, especially focusing on R rhomboids where pt states discomfort is located with repetitive reps/activities. Trialed IR exercises at 90/90 to target subscapularis muscle , DC'd due to pt discomfort. Incorporated shoulder IR with while reviewing TheraBand extension from HEP to target subscap mm's. Pt required cues to help slow eccentric movements, keeping scapula's squeezed together while releasing tension. Physical Therapy Plan Frequency and Duration Frequency of Treatment 2x/Week Duration of treatment (weeks) 12 Plan of Care Start Date 06/22/24 Plan of Care End Date 09/17/24 Next Visit Focus/Plan Next Note Type Treatment Note Next Visit Plan PN Next visit. PT to assess DTR's Trial: Resisted IR in standing /walkouts, eccentric shldr ext (back to band anchor) for subscap strength POC: R rotator cuff ( supraspinatus, subscap, infrasp) and ACJ strain/sprain rehab (pain at supraspinatus fossa). Pt education (posture , body mech), Shoulder/ scapular/core stabilization/ strengthening, activty tolerance, manual therapy (JMT , STM), modalities as needed for pain.
--- NOTE | 2024-08-16 19:20 | PT.OTN ---
Addendum entered and electronically signed by Bianca Puente, PT 08/16/24 20:00: UE Quickdash score 22.72 Pain Diagram - R Scapula posteriorly, pain rated 6/10. Original Note: Current Diagnoses Pain in right shoulder (08/16/24) Muscle weakness (generalized) (08/16/24) Physical Therapy Treatment Note PT-OP-A Visit Information Start: 06/17/24 19:09 Freq: Status: Active Protocol: Document 08/16/24 10:00 LRN (Rec: 08/16/24 11:42 LRN Laptop) Out-Patient Physical Therapy Visit Information Visit Information Visit Type Progress Note Visit Start Time 10:56 Visit Stop Time 11:42 Visit Number 12 Evaluation Information Evaluation Date 06/22/24 Precautions Precautions Uncontrolled HBP being monitored with meds, ocassionally dizzy after couple cups of coffee and hiking, minor stroke in ear2022 f/b stents in L coronory & R carotid artery in 2020 or 2022. PT-OP-B Current Condition Start: 06/17/24 19:09 Freq: Status: Active Protocol: Document 06/22/24 08:22 LRN (Rec: 06/22/24 09:11 LRN [id number]) Current Condition History of Current Condition Onset Date Nov 2023 Current Complaints R shdr pain w/removing wallet, scratch back,resting arm in armchair. History of Current Condition Pt reports in preparing to move from [place] to [place] his R shoulder started to hurt and since then has not improved. Taking Advil for the pain has been helpful. Pt used to sleep on his R side, but is not able to because of the pain, and can't vacuum. Pt has changed to sleeping on his L side. He does wake at night, but it is due to back pain and other pains. He finds it painful to rest his arm on an armchair, demonstrating a position with his arm out to side. His pain is intermittent in nature. 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 Treatment Goals Patient/Caregiver Goals Pt goals: -being able to sleep on the R side. -pain to decrease 50-60% prior to DC, to be able to rest his R arm on armchair for a an hour long program comfortably. - improve mobility to remove wallet an scatch back. Personal Factors Other Personal Factors That May Effect Minor stroke in 2022 ( Therapy/Recovery Lives in [place] w/spouse). Uncontrolled HBP being monitored as medications are tried. Occasionally dizzy. PT-OP-C Subjective Start: 06/17/24 19:09 Freq: Status: Active Protocol: Document 08/16/24 10:00 LRN (Rec: 08/16/24 11:42 LRN Laptop) OP-PT Subjective Patient Comments Patient Comments Has pain but not as often, now more tense muscles. Pain in R rhomboids and scapula, like a sore muscle. States he is 80% better after today's treatment, with less R upper back pain. PT-OP-E Functional Tests Start: 06/17/24 19:09 Freq: Status: Active Protocol: Document 08/16/24 10:00 LRN (Rec: 08/16/24 11:42 LRN Laptop) Functional Tests Apley's Scratch Test Action 1- Left Medial border of scapula Action 1- Right Medial border of scapula Action 2- Left T2 Action 2- Right T3 Action 3- Left T6 Action 3- Right T11 PT-OP-F Manual Assessment Start: 06/17/24 19:09 Freq: Status: Active Protocol: Document 06/22/24 08:22 LRN (Rec: 06/22/24 09:11 LRN [id number]) Manual Assessments Soft Tissue Assessment Soft Tissue Mobility Assessment Supraspinatus tight (constant) and tender. No tenderness of neck or subacromial location. PT-OP-H Neuro Start: 06/17/24 19:09 Freq: Status: Active Protocol: Document 08/16/24 10:00 LRN (Rec: 08/16/24 18:14 LRN Laptop) Deep Tendon Reflex & Clonus Assessment Deep Tendon Reflex Bilateral Tricep Deep Tendon Reflex 1+ Diminished Bilateral Bicep Deep Tendon Reflex 2+ Normal PT-OP-J Posture/Palpation/Skin Start: 06/17/24 19:09 Freq: Status: Active Protocol: Document 06/22/24 08:22 LRN (Rec: 06/22/24 09:11 LRN [id number]) Posture Evaluation Position Sitting Head/C-Spine Posture Forward Head T-Spine Posture Increased Kyphosis Shoulder Posture (R) Rounded,(R) Forward,(L) Elevated Scapula Posture (R) Elevated Arm Posture (L) Internally Rotated,(R) Internally Rotated Pelvis Posture (R) Iliac Crest Superior Weight Distribution Balanced Knee Posture (R) Genu Varus Comments Posture Comments S-curve, thoracic apex on left and lumbar spine apex on the right. Elevated R clavical at ACJ. Palpation Assessment Location R shoulder Palpation Location Supraspinatus fossa Palpation Findings Muscle Guarding,Tenderness PT-OP-K Range of Motion Start: 06/17/24 19:09 Freq: Status: Active Protocol: Document 07/29/24 08:21 LRN (Rec: 07/29/24 09:04 LRN Laptop) Shoulder Goniometric Range of Motion Shoulder Right Passive Testing Position Supine Flexion 160 External Rotation at 90 degrees 75 Abduction Comments ABD in scapular plane is 180 deg's. Left Passive Testing Position Supine Flexion 160 External Rotation at 0 degrees Abduction 70 Comments ABD in scapular plane is 180 deg's. PT-OP-L Special Tests Start: 06/17/24 19:09 Freq: Status: Active Protocol: Document 06/22/24 08:22 LRN (Rec: 06/22/24 09:11 LRN [id number]) Special Tests Cervical Spine Special Tests Traction Test Results - Spurling's Test Test Results - Foraminal Compression Test Results - Shoulder Special Tests Belly Press Test Results + right Empty Can Test Results + right Elevation Impingement Test Results + PT-OP-M Strength Start: 06/17/24 19:09 Freq: Status: Active Protocol: Document 06/22/24 08:22 LRN (Rec: 06/22/24 09:11 LRN [id number]) Shoulder Strength Shoulder Manual Muscle Testing Right Abduction (C5) 4 Good Internal Rotation 4 Good Comments 5/5 except as indicated above due to pain at supraspinatus fossa. Left Comments Generally 5/5 PT-OP-Q Treatments Start: 06/17/24 19:09 Freq: Status: Active Protocol: Document 08/16/24 10:00 LRN (Rec: 08/16/24 11:42 LRN Laptop) Therapeutic Exercises Supine Exercises Shoulder ER/IR ROM Side bilateral Reps/Minutes x 2 Comments Functional mvmt taken Sitting Exercises Shdr AD, IR, horz AD, scap protraction Sitting Exercise Name Reaching hand behind opposite shoulder Side bilateral Reps/Minutes x2 Comments Functional mobility assessed Shdr AB, ER, scap upwd rot & elevation Sitting Exercise Name Reaching behind head Side bilateral Reps/Minutes x 2 Comments Functional mobility assessed Shoulder AD, IR, scap retract w/dnwrd rot Sitting Exercise Name Reaching behind back Side bilateral Reps/Minutes x 2 Comments Functional mobility assessed Therapeutic Activity Therapeutic Activity Sit<>stand Name Postural awareness training sit<>stand Reps/Minutes 5' Manual Therapy Treatment Consent Patient gave verbal consent for manual Yes treatment Neuro Re-Education Treatment Other Activities C5 reeducation Details DODIE C5 treatment Reps/Duration 25 Comments Posture starting, pain in R posterior shoulder at scapula. Posture: Head - forward ( flexed) & L lateral flexed. Scapula - L elevated & retracted, R depressed, protracted, down rot. Shoulder - L elevated & med rot (IR), R lat rot (ER). Elbow L pronated. Thumb - desirae ABD. Finger - desirae flexed. PT-OP-T Assessment and Plan Start: 06/17/24 19:09 Freq: Status: Active Protocol: Document 08/16/24 10:00 LRN (Rec: 08/16/24 11:42 LRN Laptop) Physical Therapy Assessment Rehab Potential Rehabilitation Potential Good Evaluation Complexity Number of Personal Factors/Comorbidities 3 or More Number of Body Systems Impaired 4 or More Clinical Presentation at Evaluation Evolving Impairments Impairments Activity Tolerance,Functional Activities,Pain,Posture,ROM, Soft Tissue Mobility,Strength Goals pain Impairment Constant R shoulder pain, intermittently increases (6-7/ 10) Short Term Goal (STG) Pt will be educated and able to identify pain management technique of cryotherapy use. 06/30/24: Discussion use of CP for soreness recovery. 08/02/24: Goal met - reports he is able to identify and utilizes bio freeze to help reduce pain STG Duration 07/02/24 (Goal Met 08/02/24) Longterm Goal (LTG) Pain to decrease 50-60% prior to DC, to be able to rest his R arm on an armchair for an hour long program comfortably. 08/02/24: Goal Met, has self strategies of supporting arm. If needed, is able to sit in chair for an hour long with pn decreased more then 50-60%, no number identified. LTG Duration 09/17/24 (Goal Met 08/02/24) Three Impairment Decrease R shoulder strength Short Term Goal (STG) Improve R shoulder strength with pt able to sleep in a modified position on his R side. 08/04/24: can sleep on R side occasionally approx 1.5 hrs now, improved from start PT, either R shld tucked under trunk or arm 90/90 front and trunk rolled slight back to ove weight. 08/16/24: Can sleep on R side if is in the right position, sometimes wakes with pain. STG Duration 09/16/24 progressing 08/16/24 Director Of Rehabilitation Goal (LTG) Improve R shoulder strength with pt able to reach out with the arm forward to vacuum and reach out to the side w/pain no greater than 3/10. 08/04/24: GOAL MET: no pain reaching forward and to side if not repetitive, reports more pain when reached behind trunk. LTG Duration 09/17/24 (GOAL MET 08/04/24) Two Impairment Decreased R shoulder functional ROM Short Term Goal (STG) Improve function AROM with pt able to scatch his back with tolerable pain. 06/30/24: pt is reaching behind back during neck stretching with no reports pain. 08/04/24: able to reach approx T11 before feeling in tolerant pain. 08/26/24: Reaches behind back with R arm to T11, (L hand T6 ) STG Duration 09/16/24 progression 08/04/24 Longterm Goal (LTG) Improve R shoulder ROM with pt able to remove his wallet from his back pocket with tolerable discomfort. 07/29/24: Pt reporting no pain removing wallet from back pocket. LTG Duration 09/17/24 (07/29/24: MET GOAL ) One Impairment Lacks self care HEP Short Term Goal (STG) Pt will be able to demonstrate proper body mechanics for ADLs, and show awareness of proper sitting/standing posture as related to shoulder /scapular positioning. 07/23/24: provided HO for sleeping, sitting alignment and discussion of alignment. 08/04/24: continue educational cues for upright posture during ther ex today. STG Duration 09/16/24 progression Longterm Goal (LTG) Pt will be independent with a HEP of R shoulder/scapular/ core strengthening and ROM ex' s. 06/24/24: HEP: Dowel stretch for shoulder flex, ER/IR; Neck elongation, SB, Rot, wall posturing. 06/28/24: added open book, resisted shld ER TB #1, provided HOs for sleeping, sit and stand posture 06/30/24: added neck stretching, SNAGS ext& rotation. 07/23/24: reviewed wall posture with humeral ER TB #1, towel roll behind head. 07/29/24: HEP: Sidelie shoulder ER and AB to 90 deg's . 08/04/24: added resisted shld ext TB #3 and single arm pull (like pyrometer temperature regulator pull) LTG Duration 10/14/24 progressed 08/04/24 Assessment Summary Assessment 83 yo male w/possible R rotator cuff dysfunction, dec' d R shdr AB & horiz AD ROM ( supra pn), decr'd IR (subscap/ infrasp) ROM and strength and signs of ACJ strain/sprain, postural assessment indicates C5 involvement; possible hinderance from kyphosis and scoliosis. Today, pt reports doing HEP every other day. Pain in R posterior scapula to start, decreased reportedly 80% with treatment. DTR's decreased for triceps (C5-C7). Pt would benefit from continued skilled physical therapy to promote decrease in R posterior scapular pain, improved ms strength & UE mobility, as he was able to have a reduction of pain fo 80% after treatment . Physical Therapy Plan Frequency and Duration Frequency of Treatment 2x/Week Duration of treatment (weeks) 8 Plan of Care Start Date 08/16/24 Plan of Care End Date 10/14/24 Therapeutic Interventions Therapeutic Interventions Home Exercise Program,Manual Therapy,Neuromuscular Re- education,Self-Care/Home Management,Soft Tissue Mobilization,Therapeutic Activities,Therapeutic Exercises Modalities Hot Packs Next Visit Focus/Plan Next Note Type Treatment Note Next Visit Plan Trial: Resisted IR in standing /walkouts, eccentric shldr ext (back to band anchor) for subscap strengthening. DODIE C5 manual treatment, accompanying exers ( strengthening & stretches). POC: R rotator cuff ( supraspinatus, subscap, infrasp) and ACJ strain/sprain rehab (pain at supraspinatus fossa). Pt education (posture , body mech), Shoulder/ scapular/core stabilization/ strengthening, activty tolerance, manual therapy (JMT , STM), modalities as needed for pain.
--- NOTE | 2024-08-31 10:18 | PT.OTN ---
Current Diagnoses Pain in right shoulder (08/31/24) Muscle weakness (generalized) (08/31/24) Physical Therapy Treatment Note PT-OP-A Visit Information Start: 06/17/24 19:09 Freq: Status: Active Protocol: Document 08/31/24 09:08 LRN (Rec: 08/31/24 10:06 LRN Laptop) Out-Patient Physical Therapy Visit Information Visit Information Visit Type Treatment Note Visit Start Time 09:08 Visit Stop Time 09:58 Visit Number 13 (1 after PN) Evaluation Information Evaluation Date 06/22/24 Precautions Precautions Uncontrolled HBP being monitored with meds, ocassionally dizzy after couple cups of coffee and hiking, minor stroke in 2022 f/b stents in L coronory & R carotid artery in 2020 or 2022. PT-OP-B Current Condition Start: 06/17/24 19:09 Freq: Status: Active Protocol: Document 06/22/24 08:22 LRN (Rec: 06/22/24 09:11 LRN [id number]) Current Condition History of Current Condition Onset Date Nov 2023 Current Complaints R shdr pain w/removing wallet,scratch back,resting arm in armchair. History of Current Pt reports in preparing to move from [place] to [facility], [place] his R shoulder started to hurt and since then has not improved. Taking Advil for the pain has been helpful. Pt used to sleep on his R side, but is not able to because of the pain, and can't vacuum. Pt has changed to sleeping on his L side. He does wake at night, but it is due to back pain and other pains. He finds it painful to rest his arm on an armchair, demonstrating a position with his arm out to side. His pain is intermittent in nature. 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 Treatment Goals Patient/Caregiver Pt goals: Goals -being able to sleep on the R side. -pain to decrease 50-60% prior to DC, to be able to rest his R arm on armchair for a an hour long program comfortably. - improve mobility to remove wallet an scatch back. Personal Factors Other Personal Minor stroke in 2022 (Lives in [place] w/spouse) Factors That May . Effect Therapy/ Uncontrolled HBP being monitored as medications are Recovery tried. Occasionally dizzy. PT-OP-C Subjective Start: 06/17/24 19:09 Freq: Status: Active Protocol: Document 08/31/24 09:08 LRN (Rec: 08/31/24 10:06 LRN Laptop) OP-PT Subjective Patient Comments Patient Comments Last few mornings have been waking with R shoulder tight and aching. During the day doing normal functional activities with a little discomfort/ache, not sharp pain. Problem is at nighttime. Report of feeling looser in R shoulder after treatment. PT-OP-E Functional Tests Start: 06/17/24 19:09 Freq: Status: Active Protocol: Document 08/16/24 10:00 LRN (Rec: 08/16/24 11:42 LRN Laptop) Functional Tests Apley's Scratch Test Action 1- Left Medial border of scapula Action 1- Right Medial border of scapula Action 2- Left T2 Action 2- Right T3 Action 3- Left T6 Action 3- Right T11 PT-OP-F Manual Assessment Start: 06/17/24 19:09 Freq: Status: Active Protocol: Document 06/22/24 08:22 LRN (Rec: 06/22/24 09:11 LRN [id number]) Manual Assessments Soft Tissue Assessment Soft Tissue Mobility Supraspinatus tight (constant) and tender. No Assessment tenderness of neck or subacromial location. PT-OP-H Neuro Start: 06/17/24 19:09 Freq: Status: Active Protocol: Document 08/16/24 10:00 LRN (Rec: 08/16/24 18:14 LRN Laptop) Deep Tendon Reflex & Clonus Assessment Deep Tendon Reflex Bilateral Tricep Deep Tendon Reflex 1+ Diminished Bilateral Bicep Deep Tendon Reflex 2+ Normal PT-OP-J Posture/Palpation/Skin Start: 06/17/24 19:09 Freq: Status: Active Protocol: Document 06/22/24 08:22 LRN (Rec: 06/22/24 09:11 LRN [id number]) Posture Evaluation Position Sitting Head/C-Spine Posture Forward Head T-Spine Posture Increased Kyphosis Shoulder Posture (R) Rounded,(R) Forward,(L) Elevated Scapula Posture (R) Elevated Arm Posture (L) Internally Rotated,(R) Internally Rotated Pelvis Posture (R) Iliac Crest Superior Weight Distribution Balanced Knee Posture (R) Genu Varus Comments Posture Comments S-curve, thoracic apex on left and lumbar spine apex on the right. Elevated R clavical at ACJ. Palpation Assessment Location R shoulder Palpation Location Supraspinatus fossa Palpation Findings Muscle Guarding,Tenderness PT-OP-K Range of Motion Start: 06/17/24 19:09 Freq: Status: Active Protocol: Document 07/29/24 08:21 LRN (Rec: 07/29/24 09:04 LRN Laptop) Shoulder Goniometric Range of Motion Shoulder Right Passive Testing Position Supine Flexion 160 External Rotation at 75 90 degrees Abduction Comments ABD in scapular plane is 180 deg's. Left Passive Testing Position Supine Flexion 160 External Rotation at 70 0 degrees Abduction Comments ABD in scapular plane is 180 deg's. PT-OP-L Special Tests Start: 06/17/24 19:09 Freq: Status: Active Protocol: Document 06/22/24 08:22 LRN (Rec: 06/22/24 09:11 LRN [id number]) Special Tests Cervical Spine Special Tests Traction Test Results - Spurling's Test Test Results - Foraminal Compression Test Results - Shoulder Special Tests Belly Press Test Results + right Empty Can Test Results + right Elevation Impingement Test Results + PT-OP-M Strength Start: 06/17/24 19:09 Freq: Status: Active Protocol: Document 08/31/24 09:08 LRN (Rec: 08/31/24 10:18 LRN Laptop) Shoulder Strength Shoulder Manual Muscle Testing Right Abduction (C5) 5 Normal External Rotation 5 Normal Internal Rotation 5 Normal PT-OP-Q Treatments Start: 06/17/24 19:09 Freq: Status: Active Protocol: Document 08/31/24 09:08 LRN (Rec: 08/31/24 10:06 LRN Laptop) Therapeutic Exercises Sidelying Exercises R shoulder IR Sidelying Exercise Arm at 30-45 deg's AB Name Side right Equipment Used 1# Reps/Minutes 15x 2 Comments Initial c/o infraspinatus pain w/arm in 0 deg's AB R shdr AB Sidelying Exercise 0-90 deg's Name Side right Equipment Used 0#, 1# Reps/Minutes 15x Comments Cued to lead with thumb R Shdr ER/Depression Equipment Used 0#, 1# Reps/Minutes 15x each Comments Cued to lead with thumb ER, lead with palm IR. Standing Exercises Resisted Shld Ext Standing Exercise Shoulder ext with palms back Name Side bilateral Resistance TB #3 Reps/Minutes 2x10 Comments cued head to ceiling, scap retration and control w eccentric mvmnt Therapeutic Activity Therapeutic Activity night time positiong Reps/Minutes 15' Comments Positioning on R & L side: R side with humerus tucked into glenoid cavity, 30 deg's AB. On L side: Pillow behind back and arm on side of body. Manual Therapy Treatment Consent Patient gave verbal Yes consent for manual treatment Neuro Re-Education Treatment Other Activities C5 reeducation Details DODIE C5 treatment Reps/Duration 22' Comments Ending posture: Fwd head; R shoulder slight elevated; dseirae elbows flexed; thumbs AB; fingers curled. Less pain at posterior R scapula with palpation. (Initial Eval Posture starting: pain in R posterior shoulder at scapula. Posture: Head - forward (flexed) & L lateral flexed. Scapula - L elevated & retracted, R depressed, protracted, down rot. Shoulder - L elevated & med rot (IR), R lat rot (ER). Elbow L pronated. Thumb - desirae ABD. Finger - desirae flexed) PT-OP-T Assessment and Plan Start: 06/17/24 19:09 Freq: Status: Active Protocol: Document 08/31/24 09:08 LRN (Rec: 08/31/24 10:06 LRN Laptop) Physical Therapy Assessment Goals Three Impairment Decrease R shoulder strength Short Term Goal (STG Improve R shoulder strength with pt able to sleep in a ) modified position on his R side. 08/04/24: can sleep on R side occasionally approx 1.5 hrs now, improved from start PT, either R shld tucked under trunk or arm 90/90 front and trunk rolled slight back to ove weight. 08/16/24: Can sleep on R side if is in the right position, sometimes wakes with pain. 08/31/24: Primary reason for R shoulder pain is nighttime sleeping. STG Duration 09/16/24 progressing 08/16/24 Fpc Goal (LTG) Improve R shoulder strength with pt able to reach out with the arm forward to vacuum and reach out to the side w/pain no greater than 3/10. 08/04/24: GOAL MET: no pain reaching forward and to side if not repetitive, reports more pain when reached behind trunk. LTG Duration 09/17/24 (GOAL MET 08/04/24) Two Impairment Decreased R shoulder functional ROM Short Term Goal (STG Improve function AROM with pt able to scatch his back ) with tolerable pain. 06/30/24: pt is reaching behind back during neck stretching with no reports pain. 08/04/24: able to reach approx T11 before feeling in tolerant pain. 08/26/24: Reaches behind back with R arm to T11, (L hand T6) STG Duration 09/16/24 progression 08/04/24 Market Development Executive Goal (LTG) Improve R shoulder ROM with pt able to remove his wallet from his back pocket with tolerable discomfort. 07/29/24: Pt reporting no pain removing wallet from back pocket. LTG Duration 09/17/24 (07/29/24: MET GOAL) One Impairment Lacks self care HEP Short Term Goal (STG Pt will be able to demonstrate proper body mechanics ) for ADLs, and show awareness of proper sitting/standing posture as related to shoulder/scapular positioning. 07/23/24: provided HO for sleeping, sitting alignment and discussion of alignment. 08/04/24: continue educational cues for upright posture during ther ex today. STG Duration 09/16/24 progression 08/16/24 Market Development Executive Goal (LTG) Pt will be independent with a HEP of R shoulder/ scapular/core strengthening and ROM ex's. 06/24/24: HEP: Dowel stretch for shoulder flex, ER/IR ; Neck elongation, SB, Rot, wall posturing. 06/28/24: added open book, resisted shld ER TB #1, provided HOs for sleeping, sit and stand posture 06/30/24: added neck stretching, SNAGS ext& rotation. 07/23/24: reviewed wall posture with humeral ER TB #1, towel roll behind head. 07/29/24: HEP: Sidelie shoulder ER and AB to 90 deg's . 08/04/24: added resisted shld ext TB #3 and single arm pull (like clinical team manager pull) LTG Duration 10/14/24 progressed 08/04/24 Assessment Summary Assessment Pt reports 50% better, but discouraged not returned to prior function yet because nighttime pain is still waking him up at night. Less discomfort in the daytime. Pain mainly at night, being woken by pain when lying on the painful shoulder side. Pt R shoulder strengthening kelsea is good except with Rhomboid strengthening eliciting pain at Infraspinatus. + response to DODIE treatment with leveling of shoulders, straightening of elbow and less thumbs AB. Physical Therapy Plan Frequency and Duration Frequency of 2x/Week Treatment Duration of 8 treatment (weeks) Plan of Care Start 08/16/24 Date Plan of Care End 10/14/24 Date Next Visit Focus/Plan Next Note Type Treatment Note Next Visit Plan Assess nighttime positioning in reducing r shdr pain. Trial: Resisted IR in standing w/o resistance, eccentric shldr ext (back to band anchor) for subscap strengthening. DODIE C5 manual treatment, accompanying exers ( strengthening & stretches). POC: R rotator cuff (supraspinatus, subscap, infrasp) and ACJ strain/sprain rehab (pain at supraspinatus fossa). Pt education (posture, body mech), Shoulder/ scapular/core stabilization/strengthening, activty tolerance, manual therapy (JMT, STM), modalities as needed for pain.
--- NOTE | 2024-09-07 16:23 | PT.OTN ---
Current Diagnoses Pain in right shoulder (09/07/24) Muscle weakness (generalized) (09/07/24) Physical Therapy Treatment Note PT-OP-A Visit Information Start: 06/17/24 19:09 Freq: Status: Active Protocol: Document 09/07/24 09:55 LRN (Rec: 09/07/24 10:45 LRN Laptop) Out-Patient Physical Therapy Visit Information Visit Information Visit Type Treatment Note Visit Start Time 09:55 Visit Stop Time 10:33 Visit Number 14 (2 after PN) Evaluation Information Evaluation Date 06/22/24 Precautions Precautions Uncontrolled HBP being monitored with meds, ocassionally dizzy after couple cups of coffee and hiking, minor stroke in 2022 f/b stents in L coronory & R carotid artery in 2020 or 2022. PT-OP-B Current Condition Start: 06/17/24 19:09 Freq: Status: Active Protocol: Document 06/22/24 08:22 LRN (Rec: 06/22/24 09:11 LRN [id number]) Current Condition History of Current Condition Onset Date Nov 2023 Current Complaints R shdr pain w/removing wallet,scratch back,resting arm in armchair. History of Current Pt reports in preparing to move from [place] to [facility], [place] his R shoulder started to hurt and since then has not improved. Taking Advil for the pain has been helpful. Pt used to sleep on his R side, but is not able to because of the pain, and can't vacuum. Pt has changed to sleeping on his L side. He does wake at night, but it is due to back pain and other pains. He finds it painful to rest his arm on an armchair, demonstrating a position with his arm out to side. His pain is intermittent in nature. 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 Treatment Goals Patient/Caregiver Pt goals: Goals -being able to sleep on the R side. -pain to decrease 50-60% prior to DC, to be able to rest his R arm on armchair for a an hour long program comfortably. - improve mobility to remove wallet an scatch back. Personal Factors Other Personal Minor stroke in 2022 (Lives in [place] w/spouse) Factors That May . Effect Therapy/ Uncontrolled HBP being monitored as medications are Recovery tried. Occasionally dizzy. PT-OP-C Subjective Start: 06/17/24 19:09 Freq: Status: Active Protocol: Document 09/07/24 09:55 LRN (Rec: 09/07/24 10:45 LRN Laptop) OP-PT Subjective Patient Comments Patient Comments States pain is intermittent, episodes of severe pain and pain generally is not as often. Yesterday went on hike and used walking sticks went well, had just a little bit on the R shoulder after ~3 hrs. Last week same but had tightness and achiness on R upper back and shoulder after hike. Trying different positioning at night hasn't helped. If lie on R side wakes with pain. Trying to lie on L side. Back lying leads to back pain. PT-OP-E Functional Tests Start: 06/17/24 19:09 Freq: Status: Active Protocol: Document 08/16/24 10:00 LRN (Rec: 08/16/24 11:42 LRN Laptop) Functional Tests Apley's Scratch Test Action 1- Left Medial border of scapula Action 1- Right Medial border of scapula Action 2- Left T2 Action 2- Right T3 Action 3- Left T6 Action 3- Right T11 PT-OP-F Manual Assessment Start: 06/17/24 19:09 Freq: Status: Active Protocol: Document 06/22/24 08:22 LRN (Rec: 06/22/24 09:11 LRN [id number]) Manual Assessments Soft Tissue Assessment Soft Tissue Mobility Supraspinatus tight (constant) and tender. No Assessment tenderness of neck or subacromial location. PT-OP-H Neuro Start: 06/17/24 19:09 Freq: Status: Active Protocol: Document 08/16/24 10:00 LRN (Rec: 08/16/24 18:14 LRN Laptop) Deep Tendon Reflex & Clonus Assessment Deep Tendon Reflex Bilateral Tricep Deep Tendon Reflex 1+ Diminished Bilateral Bicep Deep Tendon Reflex 2+ Normal PT-OP-J Posture/Palpation/Skin Start: 06/17/24 19:09 Freq: Status: Active Protocol: Document 06/22/24 08:22 LRN (Rec: 06/22/24 09:11 LRN [id number]) Posture Evaluation Position Sitting Head/C-Spine Posture Forward Head T-Spine Posture Increased Kyphosis Shoulder Posture (R) Rounded,(R) Forward,(L) Elevated Scapula Posture (R) Elevated Arm Posture (L) Internally Rotated,(R) Internally Rotated Pelvis Posture (R) Iliac Crest Superior Weight Distribution Balanced Knee Posture (R) Genu Varus Comments Posture Comments S-curve, thoracic apex on left and lumbar spine apex on the right. Elevated R clavical at ACJ. Palpation Assessment Location R shoulder Palpation Location Supraspinatus fossa Palpation Findings Muscle Guarding,Tenderness PT-OP-K Range of Motion Start: 06/17/24 19:09 Freq: Status: Active Protocol: Document 07/29/24 08:21 LRN (Rec: 07/29/24 09:04 LRN Laptop) Shoulder Goniometric Range of Motion Shoulder Right Passive Testing Position Supine Flexion 160 External Rotation at 75 90 degrees Abduction Comments ABD in scapular plane is 180 deg's. Left Passive Testing Position Supine Flexion 160 External Rotation at 70 0 degrees Abduction Comments ABD in scapular plane is 180 deg's. PT-OP-L Special Tests Start: 06/17/24 19:09 Freq: Status: Active Protocol: Document 06/22/24 08:22 LRN (Rec: 06/22/24 09:11 LRN [id number]) Special Tests Cervical Spine Special Tests Traction Test Results - Spurling's Test Test Results - Foraminal Compression Test Results - Shoulder Special Tests Belly Press Test Results + right Empty Can Test Results + right Elevation Impingement Test Results + PT-OP-M Strength Start: 06/17/24 19:09 Freq: Status: Active Protocol: Document 09/07/24 09:55 LRN (Rec: 09/07/24 10:45 LRN Laptop) Shoulder Strength Shoulder Manual Muscle Testing Right Abduction (C5) 4+ Good+ Comments Strength is 5/5, except as indicated above. Shoulder flex had pain at [place] customs and border officer shoulder until neck/ head posture corrected (head to ceiling) Left External Rotation 4+ Good+ Comments Strength is 5/5 except as indicated above. PT-OP-Q Treatments Start: 06/17/24 19:09 Freq: Status: Active Protocol: Document 09/07/24 09:55 LRN (Rec: 09/07/24 10:45 LRN Laptop) Therapeutic Exercises Supine Exercises Lat pull down Side bilateral Equipment Used lev 2 TB, dowel Reps/Minutes 10x2 with rest btn sets Comments cued in lat and for scap depression/retract Sitting Exercises Shoulder ER/IR Sitting Exercise Shdr ER/IR Name Side bilateral Equipment Used Lev 2 TB Reps/Minutes 10x 2 Standing Exercises Shoulder rolls backward Standing Exercise Shoulder rolls with stim to Pec Minor Name Side bilateral Reps/Minutes 7' Comments Phys cuing assist Therapeutic Activity Therapeutic Activity night time positiong Name Briefly discussed for pt to try partial R sidelie Reps/Minutes 1' Manual Therapy Treatment Consent Patient gave verbal Yes consent for manual treatment Neuro Re-Education Treatment Other Activities C5 reeducation Details DODIE C5 treatment Reps/Duration 17' Comments Ending posture: Fwd head; desirae elbows flexed; thumbs AB ; fingers curled. No pain at posterior R scapula or shoulder (Initial Eval Posture starting: pain in R posterior shoulder at scapula. Posture: Head - forward (flexed) & L lateral flexed. Scapula - L elevated & retracted, R depressed, protracted, down rot. Shoulder - L elevated & med rot (IR), R lat rot (ER). Elbow L pronated. Thumb - desirae ABD. Finger - desirae flexed). Self-Care/Home Management Treatment Activities Self-Care/Home HEP: I/S pt in Shoulder Shrug with Latissimus Dorsi Management contraction on the depression movement Activities PT-OP-T Assessment and Plan Start: 06/17/24 19:09 Freq: Status: Active Protocol: Document 09/07/24 09:55 LRN (Rec: 09/07/24 10:45 LRN Laptop) Physical Therapy Assessment Goals Three Impairment Decrease R shoulder strength Short Term Goal (STG Improve R shoulder strength with pt able to sleep in a ) modified position on his R side. 08/04/24: can sleep on R side occasionally approx 1.5 hrs now, improved from start PT, either R shld tucked under trunk or arm 90/90 front and trunk rolled slight back to ove weight. 08/16/24: Can sleep on R side if is in the right position, sometimes wakes with pain. 08/31/24: Primary reason for R shoulder pain is nighttime sleeping. STG Duration 09/16/24 progressing 08/16/24 Custodial Goal (LTG) Improve R shoulder strength with pt able to reach out with the arm forward to vacuum and reach out to the side w/pain no greater than 3/10. 08/04/24: GOAL MET: no pain reaching forward and to side if not repetitive, reports more pain when reached behind trunk. LTG Duration 09/17/24 (GOAL MET 08/04/24) Two Impairment Decreased R shoulder functional ROM Short Term Goal (STG Improve function AROM with pt able to scatch his back ) with tolerable pain. 06/30/24: pt is reaching behind back during neck stretching with no reports pain. 08/04/24: able to reach approx T11 before feeling in tolerant pain. 08/26/24: Reaches behind back with R arm to T11, (L hand T6) STG Duration 09/16/24 progression 08/04/24 Custodial Goal (LTG) Improve R shoulder ROM with pt able to remove his wallet from his back pocket with tolerable discomfort. 07/29/24: Pt reporting no pain removing wallet from back pocket. LTG Duration 09/17/24 (07/29/24: MET GOAL) One Impairment Lacks self care HEP Short Term Goal (STG Pt will be able to demonstrate proper body mechanics ) for ADLs, and show awareness of proper sitting/standing posture as related to shoulder/scapular positioning. 07/23/24: provided HO for sleeping, sitting alignment and discussion of alignment. 08/04/24: continue educational cues for upright posture during ther ex today. STG Duration 09/16/24 progression 08/16/24 Filter Press Supervisor Goal (LTG) Pt will be independent with a HEP of R shoulder/ scapular/core strengthening and ROM ex's. 06/24/24: HEP: Dowel stretch for shoulder flex, ER/IR ; Neck elongation, SB, Rot, wall posturing. 06/28/24: added open book, resisted shld ER TB #1, provided HOs for sleeping, sit and stand posture 06/30/24: added neck stretching, SNAGS ext& rotation. 07/23/24: reviewed wall posture with humeral ER TB #1, towel roll behind head. 07/29/24: HEP: Sidelie shoulder ER and AB to 90 deg's . 08/04/24: added resisted shld ext TB #3 and single arm pull (like solar panel installer pull). 09/07/24: HEP: I/S pt in Shoulder Shrug with Latissimus Dorsi contraction on the depression movement LTG Duration 10/14/24 progressed 09/07/24 Assessment Summary Assessment 83 yo male w/possible C5 nerve root involvement (per posture assess) - irritated by nighttime sleeping; ACJ strain/sprain, ?possible mild R rotator cuff dysfunction, dec'd R shdr AB & horiz AD ROM (supra pn), decr'd IR (subscap/infrasp) ROM and strength and signs of ACJ strain/sprain; hinderance from kyphosis and scoliosis. Today, no pain after treatment. Improved posture with forearms in netural and shoulders & head level. Physical Therapy Plan Next Visit Focus/Plan Next Note Type Treatment Note Next Visit Plan Check pt's modification to nighttime positioning in reducing R shdr pain. Trial: Resisted IR in standing w /o resistance, eccentric shldr ext (back to band anchor ) for subscap strengthening. DODIE C5 manual treatment, accompanying exers ( strengthening & stretches). POC: R rotator cuff (supraspinatus, subscap, infrasp) and ACJ strain/sprain rehab (pain at supraspinatus fossa). Pt education (posture, body mech), Shoulder/ scapular/core stabilization/strengthening, activity tolerance, manual therapy (JMT, STM), modalities as needed for pain.
--- NOTE | 2024-09-13 11:15 | PT.OTN ---
Current Diagnoses Pain in right shoulder (09/13/24) Muscle weakness (generalized) (09/13/24) Physical Therapy Treatment Note PT-OP-A Visit Information Start: 06/17/24 19:09 Freq: Status: Active Protocol: Document 09/13/24 08:22 LRN (Rec: 09/13/24 09:10 LRN Laptop) Out-Patient Physical Therapy Visit Information Visit Information Visit Type Treatment Note Visit Start Time 08:23 Visit Stop Time 09:08 Visit Number 15 (3 after PN) Evaluation Information Evaluation Date 06/22/24 Precautions Precautions Uncontrolled HBP being monitored with meds, ocassionally dizzy after couple cups of coffee and hiking, minor stroke in 2022 f/b stents in L coronory & R carotid artery in 2020 or 2022. PT-OP-B Current Condition Start: 06/17/24 19:09 Freq: Status: Active Protocol: Document 06/22/24 08:22 LRN (Rec: 06/22/24 09:11 LRN [id number]) Current Condition History of Current Condition Onset Date Nov 2023 Current Complaints R shdr pain w/removing wallet,scratch back,resting arm in armchair. History of Current Pt reports in preparing to move from [place] to [facility] his R shoulder started to hurt and since then has not improved. Taking Advil for the pain has been helpful. Pt used to sleep on his R side, but is not able to because of the pain, and can't vacuum. Pt has changed to sleeping on his L side. He does wake at night, but it is due to back pain and other pains. He finds it painful to rest his arm on an armchair, demonstrating a position with his arm out to side. His pain is intermittent in nature. 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 Treatment Goals Patient/Caregiver Pt goals: Goals -being able to sleep on the R side. -pain to decrease 50-60% prior to DC, to be able to rest his R arm on armchair for a an hour long program comfortably. - improve mobility to remove wallet an scatch back. Personal Factors Other Personal Minor stroke in 2022 (Lives in [place] w/spouse) Factors That May . Effect Therapy/ Uncontrolled HBP being monitored as medications are Recovery tried. Occasionally dizzy. PT-OP-C Subjective Start: 06/17/24 19:09 Freq: Status: Active Protocol: Document 09/13/24 08:22 LRN (Rec: 09/13/24 09:10 LRN Laptop) OP-PT Subjective Patient Comments Patient Comments States he had a bad night. Woke with R posterior shoulder pain. Pain rated 5/10, after manual C.tx pain 3/10, but returns to 5/10 after awhile. PT-OP-E Functional Tests Start: 06/17/24 19:09 Freq: Status: Active Protocol: Document 08/16/24 10:00 LRN (Rec: 08/16/24 11:42 LRN Laptop) Functional Tests Apley's Scratch Test Action 1- Left Medial border of scapula Action 1- Right Medial border of scapula Action 2- Left T2 Action 2- Right T3 Action 3- Left T6 Action 3- Right T11 PT-OP-F Manual Assessment Start: 06/17/24 19:09 Freq: Status: Active Protocol: Document 06/22/24 08:22 LRN (Rec: 06/22/24 09:11 LRN [id number]) Manual Assessments Soft Tissue Assessment Soft Tissue Mobility Supraspinatus tight (constant) and tender. No Assessment tenderness of neck or subacromial location. PT-OP-H Neuro Start: 06/17/24 19:09 Freq: Status: Active Protocol: Document 08/16/24 10:00 LRN (Rec: 08/16/24 18:14 LRN Laptop) Deep Tendon Reflex & Clonus Assessment Deep Tendon Reflex Bilateral Tricep Deep Tendon Reflex 1+ Diminished Bilateral Bicep Deep Tendon Reflex 2+ Normal PT-OP-J Posture/Palpation/Skin Start: 06/17/24 19:09 Freq: Status: Active Protocol: Document 06/22/24 08:22 LRN (Rec: 06/22/24 09:11 LRN [id number]) Posture Evaluation Position Sitting Head/C-Spine Posture Forward Head T-Spine Posture Increased Kyphosis Shoulder Posture (R) Rounded,(R) Forward,(L) Elevated Scapula Posture (R) Elevated Arm Posture (L) Internally Rotated,(R) Internally Rotated Pelvis Posture (R) Iliac Crest Superior Weight Distribution Balanced Knee Posture (R) Genu Varus Comments Posture Comments S-curve, thoracic apex on left and lumbar spine apex on the right. Elevated R clavical at ACJ. Palpation Assessment Location R shoulder Palpation Location Supraspinatus fossa Palpation Findings Muscle Guarding,Tenderness PT-OP-K Range of Motion Start: 06/17/24 19:09 Freq: Status: Active Protocol: Document 07/29/24 08:21 LRN (Rec: 07/29/24 09:04 LRN Laptop) Shoulder Goniometric Range of Motion Shoulder Right Passive Testing Position Supine Flexion 160 External Rotation at 75 90 degrees Abduction Comments ABD in scapular plane is 180 deg's. Left Passive Testing Position Supine Flexion 160 External Rotation at 70 0 degrees Abduction Comments ABD in scapular plane is 180 deg's. PT-OP-L Special Tests Start: 06/17/24 19:09 Freq: Status: Active Protocol: Document 06/22/24 08:22 LRN (Rec: 06/22/24 09:11 LRN [id number]) Special Tests Cervical Spine Special Tests Traction Test Results - Spurling's Test Test Results - Foraminal Compression Test Results - Shoulder Special Tests Belly Press Test Results + right Empty Can Test Results + right Elevation Impingement Test Results + PT-OP-M Strength Start: 06/17/24 19:09 Freq: Status: Active Protocol: Document 09/07/24 09:55 LRN (Rec: 09/07/24 10:45 LRN Laptop) Shoulder Strength Shoulder Manual Muscle Testing Right Abduction (C5) 4+ Good+ Comments Strength is 5/5, except as indicated above. Shoulder flex had pain at vice president [employer] shoulder until neck/ head posture corrected (head to ceiling) Left External Rotation 4+ Good+ Comments Strength is 5/5 except as indicated above. PT-OP-Q Treatments Start: 06/17/24 19:09 Freq: Status: Active Protocol: Document 09/13/24 08:22 LRN (Rec: 09/13/24 09:10 LRN Laptop) Therapeutic Exercises Supine Exercises Scalene stretch (prec)) Supine Exercise Name Ant, mid, & post stretch w/precaution of stent in R carotid Side bilateral Reps/Minutes 10 SH x 6 each Comments Extra time needed to train for max kelsea stretch and position. Manual Therapy Treatment Consent Patient gave verbal Yes consent for manual treatment Soft Tissue Mobilization R shld Body Location Rhomboid ~ level T3 Mobilization Type Trigger Point Release Intensity/Depth Moderate Body Position Sitting Manual Traction Cervical Details Gentle tx for lower C/S Body Position Supine Reps/Duration 10' Neuro Re-Education Treatment Other Activities C5 reeducation Details DODIE C5 treatment Reps/Duration 17' Comments Ending posture: Fwd head; desirae elbows flexed; thumbs AB ; fingers curled. No pain at posterior R scapula or shoulder (Initial Eval Posture starting: pain in R posterior shoulder at scapula. Posture: Head - forward (flexed) & L lateral flexed. Scapula - L elevated & retracted, R depressed, protracted, down rot. Shoulder - L elevated & med rot (IR), R lat rot (ER). Elbow L pronated. Thumb - desirae ABD. Finger - desirae flexed). Self-Care/Home Management Treatment Activities Self-Care/Home Reviewed & issued HEP: Supine Scalene stretches with I Management /S for Gentle stretch and verbal reminder of being Activities gentle and w/o pain due to R stent at carotid artery. PT-OP-T Assessment and Plan Start: 06/17/24 19:09 Freq: Status: Active Protocol: Document 09/13/24 08:22 LRN (Rec: 09/13/24 09:10 LRN Laptop) Physical Therapy Assessment Goals Three Impairment Decrease R shoulder strength Short Term Goal (STG Improve R shoulder strength with pt able to sleep in a ) modified position on his R side. 08/04/24: can sleep on R side occasionally approx 1.5 hrs now, improved from start PT, either R shld tucked under trunk or arm 90/90 front and trunk rolled slight back to ove weight. 08/16/24: Can sleep on R side if is in the right position, sometimes wakes with pain. 08/31/24: Primary reason for R shoulder pain is nighttime sleeping. STG Duration 09/16/24 progressing 08/16/24 Retirement Goal (LTG) Improve R shoulder strength with pt able to reach out with the arm forward to vacuum and reach out to the side w/pain no greater than 3/10. 08/04/24: GOAL MET: no pain reaching forward and to side if not repetitive, reports more pain when reached behind trunk. LTG Duration 09/17/24 (GOAL MET 08/04/24) Two Impairment Decreased R shoulder functional ROM Short Term Goal (STG Improve function AROM with pt able to scatch his back ) with tolerable pain. 06/30/24: pt is reaching behind back during neck stretching with no reports pain. 08/04/24: able to reach approx T11 before feeling in tolerant pain. 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 07/29/24: Pt reporting no pain removing wallet from back pocket. LTG Duration 09/17/24 (07/29/24: MET GOAL) One Impairment Lacks self care HEP Short Term Goal (STG Pt will be able to demonstrate proper body mechanics ) for ADLs, and show awareness of proper sitting/ standing posture as related to shoulder/scapular positioning. 07/23/24: provided HO for sleeping, sitting alignment and discussion of alignment. 08/04/24: continue educational cues for upright posture during ther ex today. STG Duration 09/16/24 progression 08/16/24 Retirement Goal (LTG) Pt will be independent with a HEP of R shoulder/ scapular/core strengthening and ROM ex's. 06/24/24: HEP: Dowel stretch for shoulder flex, ER/IR ; Neck elongation, SB, Rot, wall posturing. 06/28/24: added open book, resisted shld ER TB #1, provided HOs for sleeping, sit and stand posture 06/30/24: added neck stretching, SNAGS ext& rotation. 07/23/24: reviewed wall posture with humeral ER TB #1, towel roll behind head. 07/29/24: HEP: Sidelie shoulder ER and AB to 90 deg's . 08/04/24: added resisted shld ext TB #3 and single arm pull (like car rental manager pull). 09/07/24: HEP: I/S pt in Shoulder Shrug with Latissimus Dorsi contraction on the depression movement . 09/13/24: DC'd shdr flex stretch, Added HEP: Anter, Middle, & Human Relations Manager Scalene stretch w/verbal caution on R side due to stent. LTG Duration 10/14/24 progressed Assessment Summary Assessment Probable C5 nerve root involvement irritated by sleeping. No palpable pain or discomfort at ACJ, pain in Rhomboids ~T3 level, possible R RC dys although strength is good. Dec'd R shdr AB & horiz AD ROM ( supra pn), decr'd IR (subscap/infrasp) ROM and strength ; rehab hinderance from kyphosis and scoliosis. Today pt had ~50% decr in posterior shoulder pain with Manual C.tx targeting lower cervical (C5) spine, but return of pain with C. stretches. Pain returning at nighttime ; therefore making progress difficult. Pt appeared to have a better understanding of why posture may be impacting his ongoing return of R posterior shoulder pain daily. Physical Therapy Plan Next Visit Focus/Plan Next Note Type Treatment Note Next Visit Plan -Review for proper body mechanics for ADLs, and awareness of proper sitting/standing posture (as related to shoulder/scapular positioning). -Check pt's modification (supine lying) to nighttime positioning in reducing R shdr pain. -Trial: Resisted IR in standing w/o resistance, eccentric shldr ext ( back to band anchor) for subscap strengthening. -DODIE C5 manual treatment, accompanying exers ( strengthening & stretches). POC: R rotator cuff (supraspinatus, subscap, infrasp) and ACJ strain/sprain rehab (pain at supraspinatus fossa). Pt education (posture, body mech), Shoulder/ scapular/core stabilization/strengthening, activity tolerance, manual therapy (JMT, STM), modalities as needed for pain.
--- NOTE | 2024-09-14 11:17 | PT.OTN ---
Current Diagnoses Pain in right shoulder (09/14/24) Muscle weakness (generalized) (09/14/24) Physical Therapy Treatment Note PT-OP-A Visit Information Start: 06/17/24 19:09 Freq: Status: Active Protocol: Document 09/14/24 09:48 LRN (Rec: 09/14/24 11:15 LRN Laptop) Out-Patient Physical Therapy Visit Information Visit Information Visit Type Progress Note Visit Start Time 09:48 Visit Stop Time 10:33 Visit Number 15 (3 after 08/16 PN) Evaluation Information Evaluation Date 06/22/24 Precautions Precautions Uncontrolled HBP being monitored with meds, ocassionally dizzy after couple cups of coffee and hiking, minor stroke in 2022 f/b stents in L coronory & R carotid artery in 2020 or 2022. PT-OP-B Current Condition Start: 06/17/24 19:09 Freq: Status: Active Protocol: Document 06/22/24 08:22 LRN (Rec: 06/22/24 09:11 LRN [id number]) Current Condition History of Current Condition Onset Date Nov 2023 Current Complaints R shdr pain w/removing wallet,scratch back,resting arm in armchair. History of Current Pt reports in preparing to move from [place] to [facility] his R shoulder started to hurt and since then has not improved. Taking Advil for the pain has been helpful. Pt used to sleep on his R side, but is not able to because of the pain, and can't vacuum. Pt has changed to sleeping on his L side. He does wake at night, but it is due to back pain and other pains. He finds it painful to rest his arm on an armchair, demonstrating a position with his arm out to side. His pain is intermittent in nature. 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 Treatment Goals Patient/Caregiver Pt goals: Goals -being able to sleep on the R side. -pain to decrease 50-60% prior to DC, to be able to rest his R arm on armchair for a an hour long program comfortably. - improve mobility to remove wallet an scatch back. Personal Factors Other Personal Minor stroke in 2022 (Lives in [place] w/spouse) Factors That May . Effect Therapy/ Uncontrolled HBP being monitored as medications are Recovery tried. Occasionally dizzy. PT-OP-C Subjective Start: 06/17/24 19:09 Freq: Status: Active Protocol: Document 09/14/24 09:48 LRN (Rec: 09/14/24 11:15 LRN Laptop) OP-PT Subjective Patient Comments Patient Comments Feeling pretty good since last session. Having occasional aches pain down the R shoulder. Slept on back, woke the R shoulder pain. OP-PT Pain Assessment Pain Assessment Grid Paper Pain No Assessment Grid Completed Location R shoulder Pain Location Posterior R shoulder (Rhomboids, ~T3-T5 level). Details Intensity 0 Scale Used Numeric (0 - 10) Description- Other No pain attending therapy for the first time. Frequency Intermittent Comments Pain Comments Pt slept supine for first time and woke without R shoulder pain. PT-OP-E Functional Tests Start: 06/17/24 19:09 Freq: Status: Active Protocol: Document 08/16/24 10:00 LRN (Rec: 08/16/24 11:42 LRN Laptop) Functional Tests Apley's Scratch Test Action 1- Left Medial border of scapula Action 1- Right Medial border of scapula Action 2- Left T2 Action 2- Right T3 Action 3- Left T6 Action 3- Right T11 PT-OP-F Manual Assessment Start: 06/17/24 19:09 Freq: Status: Active Protocol: Document 06/22/24 08:22 LRN (Rec: 06/22/24 09:11 LRN [id number]) Manual Assessments Soft Tissue Assessment Soft Tissue Mobility Supraspinatus tight (constant) and tender. No Assessment tenderness of neck or subacromial location. PT-OP-H Neuro Start: 06/17/24 19:09 Freq: Status: Active Protocol: Document 08/16/24 10:00 LRN (Rec: 08/16/24 18:14 LRN Laptop) Deep Tendon Reflex & Clonus Assessment Deep Tendon Reflex Bilateral Tricep Deep Tendon Reflex 1+ Diminished Bilateral Bicep Deep Tendon Reflex 2+ Normal PT-OP-J Posture/Palpation/Skin Start: 06/17/24 19:09 Freq: Status: Active Protocol: Document 06/22/24 08:22 LRN (Rec: 06/22/24 09:11 LRN [id number]) Posture Evaluation Position Sitting Head/C-Spine Posture Forward Head T-Spine Posture Increased Kyphosis Shoulder Posture (R) Rounded,(R) Forward,(L) Elevated Scapula Posture (R) Elevated Arm Posture (L) Internally Rotated,(R) Internally Rotated Pelvis Posture (R) Iliac Crest Superior Weight Distribution Balanced Knee Posture (R) Genu Varus Comments Posture Comments S-curve, thoracic apex on left and lumbar spine apex on the right. Elevated R clavical at ACJ. Palpation Assessment Location R shoulder Palpation Location Supraspinatus fossa Palpation Findings Muscle Guarding,Tenderness PT-OP-K Range of Motion Start: 06/17/24 19:09 Freq: Status: Active Protocol: Document 07/29/24 08:21 LRN (Rec: 07/29/24 09:04 LRN Laptop) Shoulder Goniometric Range of Motion Shoulder Right Passive Testing Position Supine Flexion 160 External Rotation at 75 90 degrees Abduction Comments ABD in scapular plane is 180 deg's. Left Passive Testing Position Supine Flexion 160 External Rotation at 70 0 degrees Abduction Comments ABD in scapular plane is 180 deg's. PT-OP-L Special Tests Start: 06/17/24 19:09 Freq: Status: Active Protocol: Document 06/22/24 08:22 LRN (Rec: 06/22/24 09:11 LRN [id number]) Special Tests Cervical Spine Special Tests Traction Test Results - Spurling's Test Test Results - Foraminal Compression Test Results - Shoulder Special Tests Belly Press Test Results + right Empty Can Test Results + right Elevation Impingement Test Results + PT-OP-M Strength Start: 06/17/24 19:09 Freq: Status: Active Protocol: Document 09/07/24 09:55 LRN (Rec: 09/07/24 10:45 LRN Laptop) Shoulder Strength Shoulder Manual Muscle Testing Right Abduction (C5) 4+ Good+ Comments Strength is 5/5, except as indicated above. Shoulder flex had pain at education liaison shoulder until neck/ head posture corrected (head to ceiling) Left External Rotation 4+ Good+ Comments Strength is 5/5 except as indicated above. PT-OP-Q Treatments Start: 06/17/24 19:09 Freq: Status: Active Protocol: Document 09/14/24 09:48 LRN (Rec: 09/14/24 11:15 LRN Laptop) Therapeutic Exercises Sitting Exercises Pec Minor stretch Sitting Exercise Shoulder Posterior shrug with manual assist Name Side bilateral Reps/Minutes 2' neck stretching Sitting Exercise Scalene Middle and posterior, and UT Name Side bilateral Reps/Minutes 8' Standing Exercises Postural ex Standing Exercise HEP: Standing with toes elevated on incline Name Side bilateral Reps/Minutes 4' Manual Therapy Treatment Consent Patient gave verbal Yes consent for manual treatment Soft Tissue Mobilization R shld Body Location Rhomboid ~ level T3 Mobilization Type Strumming Intensity/Depth Moderate Body Position Sitting Neuro Re-Education Treatment Other Activities C5 reeducation Details DODIE C5 treatment Reps/Duration 17' Comments Ending posture: Fwd head; desirae elbows flexed; thumbs AB ; fingers curled. No pain at posterior R scapula or shoulder. Shoulders level. (Initial Eval Posture starting: pain in R posterior shoulder at scapula. Posture: Head - forward (flexed) & L lateral flexed. Scapula - L elevated & retracted, R depressed, protracted, down rot. Shoulder - L elevated & med rot (IR), R lat rot (ER). Elbow L pronated. Thumb - desirae ABD. Finger - desirae flexed). Self-Care/Home Management Treatment Education Other Education Discussed positioning on back with corrections to help alleviate onset of neck pain, and slide sleeping that caused R shoulder pain on waking. Discussed neck stretch in sitting vs supine to relieve posterior R shoulder pain. Discussed/educated pt in methods to counteract positioning for gardening and puzzle making. Activities Self-Care/Home Reviewed & Issued Handouts: Proper sitting posture Management with anatomy and with corrective sitting on different Activities seat types. Proper standing posture. PT-OP-T Assessment and Plan Start: 06/17/24 19:09 Freq: Status: Active Protocol: Document 09/14/24 09:48 LRN (Rec: 09/14/24 11:15 LRN Laptop) Physical Therapy Assessment Goals Three Impairment Decrease R shoulder strength Short Term Goal (STG Improve R shoulder strength with pt able to sleep in a ) modified position on his R side. 08/04/24: can sleep on R side occasionally approx 1.5 hrs now, improved from start PT, either R shld tucked under trunk or arm 90/90 front and trunk rolled slight back to ove weight. 08/16/24: Can sleep on R side if is in the right position, sometimes wakes with pain. 08/31/24: Primary reason for R shoulder pain is nighttime sleeping. STG Duration 10/07/24 progressing 08/16/24 Group Home Goal (LTG) Improve R shoulder strength with pt able to reach out with the arm forward to vacuum and reach out to the side w/pain no greater than 3/10. 08/04/24: GOAL MET: no pain reaching forward and to side if not repetitive, reports more pain when reached behind trunk. LTG Duration 09/17/24 (GOAL MET 08/04/24) Two Impairment Decreased R shoulder functional ROM Short Term Goal (STG Improve function AROM with pt able to scatch his back ) with tolerable pain. 06/30/24: pt is reaching behind back during neck stretching with no reports pain. 08/04/24: able to reach approx T11 before feeling in tolerant pain. 08/26/24: Reaches behind back with R arm to T11, (L hand T6) STG Duration 10/07/24 progression 08/04/24 Group Home Goal (LTG) Improve R shoulder ROM with pt able to remove his wallet from his back pocket with tolerable discomfort. 07/29/24: Pt reporting no pain removing wallet from back pocket. LTG Duration 09/17/24 (07/29/24: MET GOAL) One Impairment Lacks self care HEP Short Term Goal (STG Pt will be able to demonstrate proper body mechanics ) for ADLs, and show awareness of proper sitting/standing posture as related to shoulder/scapular positioning. 07/23/24: provided HO for sleeping, sitting alignment and discussion of alignment. 09/14/24: Education & Handouts: Proper sitting posture with anatomy and with corrective sitting on different seat types. Proper standing posture. 08/04/24: continue educational cues for upright posture during ther ex today. 09/14/24: Pt slept on back last night and verbally agreed that improving posture sleeping (lying on back) will be beneficial to eliminating R shoulder pain on waking in the morning, as he had not R shoulder pain this morning. Discussed methods to counteract positioning for gardening and puzzle making. STG Duration 10/07/24 progression 09/14/24 (need body mech for ADL trng) Group Home Goal (LTG) Pt will be independent with a HEP of R shoulder/ scapular/core strengthening and ROM ex's. 06/24/24: HEP: Dowel stretch for shoulder flex, ER/IR ; Neck elongation, SB, Rot, wall posturing. 06/28/24: added open book, resisted shld ER TB #1, provided HOs for sleeping, sit and stand posture 06/30/24: added neck stretching, SNAGS ext& rotation. 07/23/24: reviewed wall posture with humeral ER TB #1, towel roll behind head. 07/29/24: HEP: Sidelie shoulder ER and AB to 90 deg's . 08/04/24: added resisted shld ext TB #3 and single arm pull (like refuge manager pull). 09/07/24: HEP: I/S pt in Shoulder Shrug with Latissimus Dorsi contraction on the depression movement . 09/13/24: DC'd shdr flex stretch, Added HEP: Anter, Middle, & Seed Corn Manager Production Scalene stretch w/verbal caution on R side due to stent. LTG Duration 10/28/24 progressed Assessment Summary Assessment 83 yo male w/possible C5 nerve root involvement (per postural assessment) - irritated by nighttime sleeping; possible mild R rotator cuff dysfunction, although strength is good. Pt has no palpable pain or discomfort at ACJ, pain in Rhomboids ~T3 level, with dec'd R shdr AB & horiz AD ROM (supra pn), decr'd IR ( subscap/infrasp) ROM and strength; rehab hinderance from kyphosis and scoliosis is prolonging his rehabilitation. The pt has made good progress with the first time waking without pain in is posterior R shoulder. The pt will benefit from continued skilled physical therapy to improve posture and muscle imbalances to stabilize his condition and work towards pt being able to scratch his back and possibly tolerate sleeping on his R side for short periods of time. Physical Therapy Plan Frequency and Duration Frequency of 2x/Week Treatment Duration of 6 treatment (weeks) Plan of Care Start 09/14/24 Date Plan of Care End 10/28/24 Date Therapeutic Interventions Therapeutic Home Exercise Program,Manual Therapy,Neuromuscular Re- Interventions education,Self-Care/Home Management,Soft Tissue Mobilization,Therapeutic Activities,Therapeutic Exercises Next Visit Focus/Plan Next Note Type Treatment Note Next Visit Plan - Assess response to pt switching to sup sleeping & trng for proper body mechanics for ADLs. -Shdr eccentric shldr ext (back to band anchor) for subscap strengthening. Try sup lying on towel roll. -DODIE C5 manual treatment, accompanying exers ( strengthening & stretches). POC: R rotator cuff (supraspinatus, subscap, infrasp) and ACJ strain/sprain rehab (pain at supraspinatus fossa). Pt education (posture, body mech), Shoulder/ scapular/core stabilization/strengthening, activity tolerance, manual therapy (JMT, STM), modalities as needed for pain.
--- NOTE | 2024-09-20 17:04 | PT.OTN ---
Current Diagnoses Pain in right shoulder (09/20/24) Muscle weakness (generalized) (09/20/24) Physical Therapy Treatment Note PT-OP-A Visit Information Start: 06/17/24 19:09 Freq: Status: Active Protocol: Document 09/20/24 08:15 LRN (Rec: 09/20/24 09:04 LRN Laptop) Out-Patient Physical Therapy Visit Information Visit Information Visit Type Treatment Note Visit Start Time 08:15 Visit Stop Time 08:57 Visit Number 16 (4 after 09/16 PN) Evaluation Information Evaluation Date 06/22/24 Precautions Precautions Pt reported stents in L coronary & R carotid artery in 2022 (reports stent after minor stroke in 2022), uncontrolled HBP being monitored with meds, ocassionally dizzy after couple cups of coffee and hiking. PT-OP-B Current Condition Start: 06/17/24 19:09 Freq: Status: Active Protocol: Document 06/22/24 08:22 LRN (Rec: 06/22/24 09:11 LRN [id number]) Current Condition History of Current Condition Onset Date Nov 2023 Current Complaints R shdr pain w/removing wallet,scratch back,resting arm in armchair. History of Current Pt reports in preparing to move from [place] to [facility] his R shoulder started to hurt and since then has not improved. Taking Advil for the pain has been helpful. Pt used to sleep on his R side, but is not able to because of the pain, and can't vacuum. Pt has changed to sleeping on his L side. He does wake at night, but it is due to back pain and other pains. He finds it painful to rest his arm on an armchair, demonstrating a position with his arm out to side. His pain is intermittent in nature. 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 Treatment Goals Patient/Caregiver Pt goals: Goals -being able to sleep on the R side. -pain to decrease 50-60% prior to DC, to be able to rest his R arm on armchair for a an hour long program comfortably. - improve mobility to remove wallet an scatch back. Personal Factors Other Personal Minor stroke in 2022 (Lives in [place] w/spouse) Factors That May . Effect Therapy/ Uncontrolled HBP being monitored as medications are Recovery tried. Occasionally dizzy. PT-OP-C Subjective Start: 06/17/24 19:09 Freq: Status: Active Protocol: Document 09/20/24 08:15 LRN (Rec: 09/20/24 09:04 LRN Laptop) OP-PT Subjective Patient Comments Patient Comments States he tried sleeping on his back again, but only tolerated 4 nights because of LBP on waking. R posterior shoulder pain now when sleeping on L side is 1/10 after 4 days of sleeping supine. Patient Questionnaires Quick Dash- Upper Extremity Quick Dash UE Score 15.09 Quick Dash UE 1 to 19% Impaired (Score 1-19) Impairment PT-OP-E Functional Tests Start: 06/17/24 19:09 Freq: Status: Active Protocol: Document 08/16/24 10:00 LRN (Rec: 08/16/24 11:42 LRN Laptop) Functional Tests Apley's Scratch Test Action 1- Left Medial border of scapula Action 1- Right Medial border of scapula Action 2- Left T2 Action 2- Right T3 Action 3- Left T6 Action 3- Right T11 PT-OP-F Manual Assessment Start: 06/17/24 19:09 Freq: Status: Active Protocol: Document 06/22/24 08:22 LRN (Rec: 06/22/24 09:11 LRN [id number]) Manual Assessments Soft Tissue Assessment Soft Tissue Mobility Supraspinatus tight (constant) and tender. No Assessment tenderness of neck or subacromial location. PT-OP-H Neuro Start: 06/17/24 19:09 Freq: Status: Active Protocol: Document 08/16/24 10:00 LRN (Rec: 08/16/24 18:14 LRN Laptop) Deep Tendon Reflex & Clonus Assessment Deep Tendon Reflex Bilateral Tricep Deep Tendon Reflex 1+ Diminished Bilateral Bicep Deep Tendon Reflex 2+ Normal PT-OP-J Posture/Palpation/Skin Start: 06/17/24 19:09 Freq: Status: Active Protocol: Document 06/22/24 08:22 LRN (Rec: 06/22/24 09:11 LRN [id number]) Posture Evaluation Position Sitting Head/C-Spine Posture Forward Head T-Spine Posture Increased Kyphosis Shoulder Posture (R) Rounded,(R) Forward,(L) Elevated Scapula Posture (R) Elevated Arm Posture (L) Internally Rotated,(R) Internally Rotated Pelvis Posture (R) Iliac Crest Superior Weight Distribution Balanced Knee Posture (R) Genu Varus Comments Posture Comments S-curve, thoracic apex on left and lumbar spine apex on the right. Elevated R clavical at ACJ. Palpation Assessment Location R shoulder Palpation Location Supraspinatus fossa Palpation Findings Muscle Guarding,Tenderness PT-OP-K Range of Motion Start: 06/17/24 19:09 Freq: Status: Active Protocol: Document 07/29/24 08:21 LRN (Rec: 07/29/24 09:04 LRN Laptop) Shoulder Goniometric Range of Motion Shoulder Right Passive Testing Position Supine Flexion 160 External Rotation at 75 90 degrees Abduction Comments ABD in scapular plane is 180 deg's. Left Passive Testing Position Supine Flexion 160 External Rotation at 70 0 degrees Abduction Comments ABD in scapular plane is 180 deg's. PT-OP-L Special Tests Start: 06/17/24 19:09 Freq: Status: Active Protocol: Document 06/22/24 08:22 LRN (Rec: 06/22/24 09:11 LRN [id number]) Special Tests Cervical Spine Special Tests Traction Test Results - Spurling's Test Test Results - Foraminal Compression Test Results - Shoulder Special Tests Belly Press Test Results + right Empty Can Test Results + right Elevation Impingement Test Results + PT-OP-M Strength Start: 06/17/24 19:09 Freq: Status: Active Protocol: Document 09/07/24 09:55 LRN (Rec: 09/07/24 10:45 LRN Laptop) Shoulder Strength Shoulder Manual Muscle Testing Right Abduction (C5) 4+ Good+ Comments Strength is 5/5, except as indicated above. Shoulder flex had pain at cost and risk analysis manager shoulder until neck/ head posture corrected (head to ceiling) Left External Rotation 4+ Good+ Comments Strength is 5/5 except as indicated above. PT-OP-Q Treatments Start: 06/17/24 19:09 Freq: Status: Active Protocol: Document 09/20/24 08:15 LRN (Rec: 09/20/24 09:04 LRN Laptop) Therapeutic Exercises Supine Exercises Trunk flex stretch Reps/Minutes 5-10SH x 5 Comments Extra time to determine max kelsea stretch. Pain in R post shdr hindered reps Scalene stretch (prec)) Supine Exercise Name Ant, mid, stretch w/precaution of stent in R carotid Side bilateral Reps/Minutes 10 SH x 6 each Comments Extra time needed to train for max kelsea stretch on R - NO PAIN side. Lat pull down Side bilateral Reps/Minutes 10x Comments cued in lat and for scap depression/retract Sitting Exercises Trunk flex stretch Reps/Minutes 5 SH x 6 Comments Extra time to determine max kelsea stretch. Other Exercises Child's Pose Other Exercise Name Radha pose with arms retracted inward to prevent cost and risk analysis manager shdr pain Reps/Minutes 10 SH x 6 Comments Extra time to determine max kelsea stretch. Manual Therapy Treatment Consent Patient gave verbal Yes consent for manual treatment Soft Tissue Mobilization L shoulder Body Location Teres Minor/Lower infraspinatus Mobilization Type Trigger Point Release Intensity/Depth Moderate Body Position Sitting Neuro Re-Education Treatment Other Activities C5 reeducation Details DODIE C5 treatment Reps/Duration 20' Comments Ending posture: Fwd head; desirae elbows?; thumbs neutral; fingers neutral. Shoulders level. (Initial Eval Posture starting: pain in R posterior shoulder at scapula. Posture: Head - forward (flexed) & L lateral flexed. Scapula - L elevated & retracted, R depressed, protracted, down rot. Shoulder - L elevated & med rot (IR), R lat rot (ER). Elbow L pronated. Thumb - desirae ABD. Finger - desirae flexed). PT-OP-T Assessment and Plan Start: 06/17/24 19:09 Freq: Status: Active Protocol: Document 09/20/24 08:15 LRN (Rec: 09/20/24 09:04 LRN Laptop) Physical Therapy Assessment Goals Three Impairment Decrease R shoulder strength Short Term Goal (STG Improve R shoulder strength with pt able to sleep in a ) modified position on his R side. 08/04/24: can sleep on R side occasionally approx 1.5 hrs now, improved from start PT, either R shld tucked under trunk or arm 90/90 front and trunk rolled slight back to ove weight. 08/16/24: Can sleep on R side if is in the right position, sometimes wakes with pain. 08/31/24: Primary reason for R shoulder pain is nighttime sleeping. : Pt not able to sleep on R side, but pain reduced with supine sleeping. STG Duration 10/07/24 progressing 08/16/24 Welder 2Nd Shift Goal (LTG) Improve R shoulder strength with pt able to reach out with the arm forward to vacuum and reach out to the side w/pain no greater than 3/10. 08/04/24: GOAL MET: no pain reaching forward and to side if not repetitive, reports more pain when reached behind trunk. LTG Duration 09/17/24 (GOAL MET 08/04/24) Two Impairment Decreased R shoulder functional ROM Short Term Goal (STG Improve function AROM with pt able to scatch his back ) with tolerable pain. 06/30/24: pt is reaching behind back during neck stretching with no reports pain. 08/04/24: able to reach approx T11 before feeling in tolerant pain. 08/26/24: Reaches behind back with R arm to T11, (L hand T6). 09/20/24: UE Quickdash score of 15.90 (initial score 30 with one unanswered question). STG Duration 10/07/24 progression 09/20/24 Welder 2Nd Shift Goal (LTG) Improve R shoulder ROM with pt able to remove his wallet from his back pocket with tolerable discomfort. 07/29/24: Pt reporting no pain removing wallet from back pocket. LTG Duration 09/17/24 (07/29/24: MET GOAL) One Impairment Lacks self care HEP Short Term Goal (STG Pt will be able to demonstrate proper body mechanics ) for ADLs, and show awareness of proper sitting/standing posture as related to shoulder/scapular positioning. 07/23/24: provided HO for sleeping, sitting alignment and discussion of alignment. 09/14/24: Education & Handouts: Proper sitting posture with anatomy and with corrective sitting on different seat types. Proper standing posture. 08/04/24: continue educational cues for upright posture during ther ex today. 09/14/24: Pt slept on back last night and verbally agreed that improving posture sleeping (lying on back) will be beneficial to eliminating R shoulder pain on waking in the morning, as he had not R shoulder pain this morning. Discussed methods to counteract positioning for gardening and puzzle making. STG Duration 10/07/24 progression 09/14/24 (need body mech for ADL trng) Snf Goal (LTG) Pt will be independent with a HEP of R shoulder/ scapular/core strengthening and ROM ex's. 06/24/24: HEP: Dowel stretch for shoulder flex, ER/IR ; Neck elongation, SB, Rot, wall posturing. 06/28/24: added open book, resisted shld ER TB #1, provided HOs for sleeping, sit and stand posture 06/30/24: added neck stretching, SNAGS ext& rotation. 07/23/24: reviewed wall posture with humeral ER TB #1, towel roll behind head. 07/29/24: HEP: Sidelie shoulder ER and AB to 90 deg's . 08/04/24: added resisted shld ext TB #3 and single arm pull (like research physiologist pull). 09/07/24: HEP: I/S pt in Shoulder Shrug with Latissimus Dorsi contraction on the depression movement . 09/13/24: DC'd shdr flex stretch, Added HEP: Anter, Middle, & Change Management Manager Scalene stretch w/verbal caution on R side due to stent. LTG Duration 10/28/24 progressed 09/13/24 Assessment Summary Assessment Pt having very little pain in R posterior back pain after sleeping 4 nights on back; slept on L side x 2 and pain is now 1/10. Strengthening and stretching of R rhomboids elicits pain; therefore neck/shoulder posturing needs cuing (neck elongation) during shoulder strengthening. Poor tolerance to supine sleeping due to LBP from excessive lordosis/thoracic kyphosis. Physical Therapy Plan Frequency and Duration Frequency of 2x/Week Treatment Duration of 6 treatment (weeks) Plan of Care Start 09/14/24 Date Plan of Care End 10/28/24 Date Next Visit Focus/Plan Next Note Type Treatment Note Next Visit Plan Trng for proper body mechanics for ADLs. Assess progression towards STG #1 & 2. Possible DC to HEP if pt pain tolerable and he feels ready for self care HEP. -Try ex: sup lying on towel roll. -Subscap strengthening, try eccentric shldr ext (back to band anchor) and for rhomboids with neck elongation (caution: stent in neck). -DODIE C5 manual treatment, accompanying exers ( strengthening & stretches). POC: R rotator cuff (supraspinatus, subscap, infrasp). Pt education (body mech), Shoulder/scapular/core stabilization/strengthening, activity tolerance, manual therapy (caution JMT, STM), modalities as needed for pain.
--- NOTE | 2024-09-21 16:58 | PT.OTN ---
Current Diagnoses Pain in right shoulder (09/21/24) Muscle weakness (generalized) (09/21/24) Physical Therapy Treatment Note PT-OP-A Visit Information Start: 06/17/24 19:09 Freq: Status: Active Protocol: Document 09/21/24 09:54 LRN (Rec: 09/21/24 10:48 LRN Laptop) Out-Patient Physical Therapy Visit Information Visit Information Visit Type Treatment Note Visit Start Time 09:54 Visit Stop Time 10:37 Evaluation Information Evaluation Date 06/22/24 Precautions Precautions Pt reported stents in L coronary & R carotid artery in 2022 (reports stent after minor stroke in 2022), uncontrolled HBP being monitored with meds, ocassionally dizzy after couple cups of coffee and hiking. PT-OP-B Current Condition Start: 06/17/24 19:09 Freq: Status: Active Protocol: Document 06/22/24 08:22 LRN (Rec: 06/22/24 09:11 LRN [id number]) Current Condition History of Current Condition Onset Date Nov 2023 Current Complaints R shdr pain w/removing wallet,scratch back,resting arm in armchair. History of Current Pt reports in preparing to move from [place] to [facility] his R shoulder started to hurt and since then has not improved. Taking Advil for the pain has been helpful. Pt used to sleep on his R side, but is not able to because of the pain, and can't vacuum. Pt has changed to sleeping on his L side. He does wake at night, but it is due to back pain and other pains. He finds it painful to rest his arm on an armchair, demonstrating a position with his arm out to side. His pain is intermittent in nature. 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 Treatment Goals Patient/Caregiver Pt goals: Goals -being able to sleep on the R side. -pain to decrease 50-60% prior to DC, to be able to rest his R arm on armchair for a an hour long program comfortably. - improve mobility to remove wallet an scatch back. Personal Factors Other Personal Minor stroke in ear2022 (Lives in [place] w/spouse) Factors That May . Effect Therapy/ Uncontrolled HBP being monitored as medications are Recovery tried. Occasionally dizzy. PT-OP-C Subjective Start: 06/17/24 19:09 Freq: Status: Active Protocol: Document 09/21/24 09:54 LRN (Rec: 09/21/24 10:48 LRN Laptop) OP-PT Subjective Patient Comments Patient Comments R posterior back aching pain is 3/10. Was mowing his lawn and gardening yesterday. Slept on back until 4am due to LBP (normal wake time). PT-OP-E Functional Tests Start: 06/17/24 19:09 Freq: Status: Active Protocol: Document 08/16/24 10:00 LRN (Rec: 08/16/24 11:42 LRN Laptop) Functional Tests Apley's Scratch Test Action 1- Left Medial border of scapula Action 1- Right Medial border of scapula Action 2- Left T2 Action 2- Right T3 Action 3- Left T6 Action 3- Right T11 PT-OP-F Manual Assessment Start: 06/17/24 19:09 Freq: Status: Active Protocol: Document 06/22/24 08:22 LRN (Rec: 06/22/24 09:11 LRN [id number]) Manual Assessments Soft Tissue Assessment Soft Tissue Mobility Supraspinatus tight (constant) and tender. No Assessment tenderness of neck or subacromial location. PT-OP-H Neuro Start: 06/17/24 19:09 Freq: Status: Active Protocol: Document 08/16/24 10:00 LRN (Rec: 08/16/24 18:14 LRN Laptop) Deep Tendon Reflex & Clonus Assessment Deep Tendon Reflex Bilateral Tricep Deep Tendon Reflex 1+ Diminished Bilateral Bicep Deep Tendon Reflex 2+ Normal PT-OP-J Posture/Palpation/Skin Start: 06/17/24 19:09 Freq: Status: Active Protocol: Document 06/22/24 08:22 LRN (Rec: 06/22/24 09:11 LRN [id number]) Posture Evaluation Position Sitting Head/C-Spine Posture Forward Head T-Spine Posture Increased Kyphosis Shoulder Posture (R) Rounded,(R) Forward,(L) Elevated Scapula Posture (R) Elevated Arm Posture (L) Internally Rotated,(R) Internally Rotated Pelvis Posture (R) Iliac Crest Superior Weight Distribution Balanced Knee Posture (R) Genu Varus Comments Posture Comments S-curve, thoracic apex on left and lumbar spine apex on the right. Elevated R clavical at ACJ. Palpation Assessment Location R shoulder Palpation Location Supraspinatus fossa Palpation Findings Muscle Guarding,Tenderness PT-OP-K Range of Motion Start: 06/17/24 19:09 Freq: Status: Active Protocol: Document 07/29/24 08:21 LRN (Rec: 07/29/24 09:04 LRN Laptop) Shoulder Goniometric Range of Motion Shoulder Right Passive Testing Position Supine Flexion 160 External Rotation at 75 90 degrees Abduction Comments ABD in scapular plane is 180 deg's. Left Passive Testing Position Supine Flexion 160 External Rotation at 70 0 degrees Abduction Comments ABD in scapular plane is 180 deg's. PT-OP-L Special Tests Start: 06/17/24 19:09 Freq: Status: Active Protocol: Document 06/22/24 08:22 LRN (Rec: 06/22/24 09:11 LRN [id number]) Special Tests Cervical Spine Special Tests Traction Test Results - Spurling's Test Test Results - Foraminal Compression Test Results - Shoulder Special Tests Belly Press Test Results + right Empty Can Test Results + right Elevation Impingement Test Results + PT-OP-M Strength Start: 06/17/24 19:09 Freq: Status: Active Protocol: Document 09/07/24 09:55 LRN (Rec: 09/07/24 10:45 LRN Laptop) Shoulder Strength Shoulder Manual Muscle Testing Right Abduction (C5) 4+ Good+ Comments Strength is 5/5, except as indicated above. Shoulder flex had pain at bottle house cleaners supervisor shoulder until neck/ head posture corrected (head to ceiling) Left External Rotation 4+ Good+ Comments Strength is 5/5 except as indicated above. PT-OP-Q Treatments Start: 06/17/24 19:09 Freq: Status: Active Protocol: Document 09/21/24 09:54 LRN (Rec: 09/21/24 10:48 LRN Laptop) Therapeutic Exercises Sitting Exercises neck stretching Sitting Exercise Scalene Middle and posterior, and UT Name Side bilateral Reps/Minutes 8' Resisted ER Sitting Exercise Shoulder relaxed, sitting upright for scap retract/shdr Name ER Side bilateral Equipment Used L3 TB Reps/Minutes 10x 3 Comments Extra time to focus on scap retract Standing Exercises Resisted shdr ER Standing Exercise Forearms against wall moving hands outward. Name Side bilateral Equipment Used Lev 3 Reps/Minutes 10x Comments much cuing for intrascapular contraction, xtra time to focus on scap retra Rhomboid strengthening Standing Exercise Arms 90/90 and hands moving backward, relax moving fwd. Name Side bilateral Comments Cuing for conc/ecc shdr rot for rhomboids w/neck elong and scap pinch Shoulder rolls backward Side bilateral Reps/Minutes 10x 3 Comments cued to open chest and pinch scapula, xtra time to focus on scap retract Resisted Shld Ext Standing Exercise Shdr ext with scap pinch Name Side bilateral Reps/Minutes 15x Self-Care/Home Management Treatment Activities Self-Care/Home Reviewed & Issued HEP: Sit & stand Resisted shdr ER, Management standing shdr ER (in position of prone on elbows w/ Activities elastic). PT-OP-T Assessment and Plan Start: 06/17/24 19:09 Freq: Status: Active Protocol: Document 09/21/24 09:54 LRN (Rec: 09/21/24 10:48 LRN Laptop) Physical Therapy Assessment Goals Three Impairment Decrease R shoulder strength Short Term Goal (STG Improve R shoulder strength with pt able to sleep in a ) modified position on his R side. 08/04/24: can sleep on R side occasionally approx 1.5 hrs now, improved from start PT, either R shld tucked under trunk or arm 90/90 front and trunk rolled slight back to ove weight. 08/16/24: Can sleep on R side if is in the right position, sometimes wakes with pain. 08/31/24: Primary reason for R shoulder pain is nighttime sleeping. : Pt not able to sleep on R side, but pain reduced with supine sleeping. STG Duration 10/07/24 progressing 08/16/24 Residential Program Director Goal (LTG) Improve R shoulder strength with pt able to reach out with the arm forward to vacuum and reach out to the side w/pain no greater than 06/07. 08/04/24: GOAL MET: no pain reaching forward and to side if not repetitive, reports more pain when reached behind trunk. LTG Duration 09/17/24 (GOAL MET 08/04/24) Two Impairment Decreased R shoulder functional ROM Short Term Goal (STG Improve function AROM with pt able to scatch his back ) with tolerable pain. 06/30/24: pt is reaching behind back during neck stretching with no reports pain. 08/04/24: able to reach approx T11 before feeling in tolerant pain. 08/26/24: Reaches behind back with R arm to T11, (L hand T6). 09/20/24: UE Quickdash score of 15.90 (initial score 30 with one unanswered question). STG Duration 10/07/24 progression 09/20/24 (scratch back pn rating) Residential Program Director Goal (LTG) Improve R shoulder ROM with pt able to remove his wallet from his back pocket with tolerable discomfort. 07/29/24: Pt reporting no pain removing wallet from back pocket. LTG Duration 09/17/24 (07/29/24: MET GOAL) One Impairment Lacks self care HEP Short Term Goal (STG Pt will be able to demonstrate proper body mechanics ) for ADLs, and show awareness of proper sitting/standing posture as related to shoulder/scapular positioning. 07/23/24: provided HO for sleeping, sitting alignment and discussion of alignment. 09/14/24: Education & Handouts: Proper sitting posture with anatomy and with corrective sitting on different seat types. Proper standing posture. 08/04/24: continue educational cues for upright posture during ther ex today. 09/14/24: Pt slept on back last night and verbally agreed that improving posture sleeping (lying on back) will be beneficial to eliminating R shoulder pain on waking in the morning, as he had not R shoulder pain this morning. Discussed methods to counteract positioning for gardening and puzzle making. STG Duration 10/07/24 progression 09/14/24 (need body mech for ADL trng) Residential Program Director Goal (LTG) Pt will be independent with a HEP of R shoulder/ scapular/core strengthening and ROM ex's. 06/24/24: HEP: Dowel stretch for shoulder flex, ER/IR ; Neck elongation, SB, Rot, wall posturing. 06/28/24: added open book, resisted shld ER TB #1, provided HOs for sleeping, sit and stand posture 06/30/24: added neck stretching, SNAGS ext& rotation. 07/23/24: reviewed wall posture with humeral ER TB #1, towel roll behind head. 07/29/24: HEP: Sidelie shoulder ER and AB to 90 deg's . 08/04/24: added resisted shld ext TB #3 and single arm pull (like strategic account manager pull). 09/07/24: HEP: I/S pt in Shoulder Shrug with Latissimus Dorsi contraction on the depression movement . 09/13/24: DC'd shdr flex stretch, Added HEP: Anter, Middle, & Desk Reporter Scalene stretch w/verbal caution on R side due to stent. 09/21/24: HEP: Sit & stand Resisted shdr ER, standing shdr ER (in position of prone on elbows w/elastic). LTG Duration 10/28/24 progressed 09/21/24 Assessment Summary Assessment 83 yo male, initially w/C5 nerve root involvement (per postural assessment) - irritated by nighttime sleeping; possible mild R rotator cuff dysfunction, although strength is good. He presents with c/o stretch pain from poor posturing and weakness of rhomboids. Pt had less pain in R posterior shoulder after strengthening. Pt pain is intermittent, appearing to be based on his activity level because of his posture. Pt feels ready for discharge but review of ex's is needed before DC. Physical Therapy Plan Frequency and Duration Frequency of 2x/Week Treatment Duration of 6 treatment (weeks) Plan of Care Start 09/14/24 Date Plan of Care End 10/28/24 Date Next Visit Focus/Plan Next Note Type Discharge Summary Next Visit Plan (caution pt has stent in R carotid artery). Trng for proper body mechanics for ADLs. Assess progression towards STG #1 & 2. DC to HEP, he feels ready for self care HEP. -DODIE C5 manual treatment, accompanying exers ( strengthening & stretches) if time.
--- NOTE | 2024-09-23 15:56 | PT.OTN ---
Current Diagnoses Pain in right shoulder (09/23/24) Muscle weakness (generalized) (09/23/24) Physical Therapy Treatment Note PT-OP-A Visit Information Start: 06/17/24 19:09 Freq: Status: Active Protocol: Document 09/23/24 14:39 LRN (Rec: 09/23/24 15:56 LRN Laptop) Out-Patient Physical Therapy Visit Information Visit Information Visit Type Treatment Note Visit Start Time 14:39 Visit Stop Time 15:23 Evaluation Information Evaluation Date 06/22/24 Precautions Precautions Pt reported stents in L coronary & R carotid artery in 2022 (reports stent after minor stroke in 2022), uncontrolled HBP being monitored with meds, ocassionally dizzy after couple cups of coffee and hiking. PT-OP-B Current Condition Start: 06/17/24 19:09 Freq: Status: Active Protocol: Document 06/22/24 08:22 LRN (Rec: 06/22/24 09:11 LRN [id number]) Current Condition History of Current Condition Onset Date Nov 2023 Current Complaints R shdr pain w/removing wallet,scratch back,resting arm in armchair. History of Current Pt reports in preparing to move from [place] to [facility] his R shoulder started to hurt and since then has not improved. Taking Advil for the pain has been helpful. Pt used to sleep on his R side, but is not able to because of the pain, and can't vacuum. Pt has changed to sleeping on his L side. He does wake at night, but it is due to back pain and other pains. He finds it painful to rest his arm on an armchair, demonstrating a position with his arm out to side. His pain is intermittent in nature. 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 Treatment Goals Patient/Caregiver Pt goals: Goals -being able to sleep on the R side. -pain to decrease 50-60% prior to DC, to be able to rest his R arm on armchair for a an hour long program comfortably. - improve mobility to remove wallet an scatch back. Personal Factors Other Personal Minor stroke in ear2022 (Lives in [place] w/spouse) Factors That May . Effect Therapy/ Uncontrolled HBP being monitored as medications are Recovery tried. Occasionally dizzy. PT-OP-C Subjective Start: 06/17/24 19:09 Freq: Status: Active Protocol: Document 09/23/24 14:39 LRN (Rec: 09/23/24 15:56 LRN Laptop) OP-PT Subjective Patient Comments Patient Comments Forgot his ex's. His R upper back is sporadic and hurts with heavy activities but goes away after awhile. Somewhat same intensity of pain, but not as frequent. PT-OP-E Functional Tests Start: 06/17/24 19:09 Freq: Status: Active Protocol: Document 08/16/24 10:00 LRN (Rec: 08/16/24 11:42 LRN Laptop) Functional Tests Apley's Scratch Test Action 1- Left Medial border of scapula Action 1- Right Medial border of scapula Action 2- Left T2 Action 2- Right T3 Action 3- Left T6 Action 3- Right T11 PT-OP-F Manual Assessment Start: 06/17/24 19:09 Freq: Status: Active Protocol: Document 06/22/24 08:22 LRN (Rec: 06/22/24 09:11 LRN [id number]) Manual Assessments Soft Tissue Assessment Soft Tissue Mobility Supraspinatus tight (constant) and tender. No Assessment tenderness of neck or subacromial location. PT-OP-H Neuro Start: 06/17/24 19:09 Freq: Status: Active Protocol: Document 08/16/24 10:00 LRN (Rec: 08/16/24 18:14 LRN Laptop) Deep Tendon Reflex & Clonus Assessment Deep Tendon Reflex Bilateral Tricep Deep Tendon Reflex 1+ Diminished Bilateral Bicep Deep Tendon Reflex 2+ Normal PT-OP-J Posture/Palpation/Skin Start: 06/17/24 19:09 Freq: Status: Active Protocol: Document 06/22/24 08:22 LRN (Rec: 06/22/24 09:11 LRN [id number]) Posture Evaluation Position Sitting Head/C-Spine Posture Forward Head T-Spine Posture Increased Kyphosis Shoulder Posture (R) Rounded,(R) Forward,(L) Elevated Scapula Posture (R) Elevated Arm Posture (L) Internally Rotated,(R) Internally Rotated Pelvis Posture (R) Iliac Crest Superior Weight Distribution Balanced Knee Posture (R) Genu Varus Comments Posture Comments S-curve, thoracic apex on left and lumbar spine apex on the right. Elevated R clavical at ACJ. Palpation Assessment Location R shoulder Palpation Location Supraspinatus fossa Palpation Findings Muscle Guarding,Tenderness PT-OP-K Range of Motion Start: 06/17/24 19:09 Freq: Status: Active Protocol: Document 07/29/24 08:21 LRN (Rec: 07/29/24 09:04 LRN Laptop) Shoulder Goniometric Range of Motion Shoulder Right Passive Testing Position Supine Flexion 160 External Rotation at 75 90 degrees Abduction Comments ABD in scapular plane is 180 deg's. Left Passive Testing Position Supine Flexion 160 External Rotation at 70 0 degrees Abduction Comments ABD in scapular plane is 180 deg's. PT-OP-L Special Tests Start: 06/17/24 19:09 Freq: Status: Active Protocol: Document 06/22/24 08:22 LRN (Rec: 06/22/24 09:11 LRN [id number]) Special Tests Cervical Spine Special Tests Traction Test Results - Spurling's Test Test Results - Foraminal Compression Test Results - Shoulder Special Tests Belly Press Test Results + right Empty Can Test Results + right Elevation Impingement Test Results + PT-OP-M Strength Start: 06/17/24 19:09 Freq: Status: Active Protocol: Document 09/07/24 09:55 LRN (Rec: 09/07/24 10:45 LRN Laptop) Shoulder Strength Shoulder Manual Muscle Testing Right Abduction (C5) 4+ Good+ Comments Strength is 5/5, except as indicated above. Shoulder flex had pain at guardian ad litem shoulder until neck/ head posture corrected (head to ceiling) Left External Rotation 4+ Good+ Comments Strength is 5/5 except as indicated above. PT-OP-Q Treatments Start: 06/17/24 19:09 Freq: Status: Active Protocol: Document 09/23/24 14:39 LRN (Rec: 09/23/24 15:56 LRN Laptop) Therapeutic Exercises Supine Exercises Anterior chest/neck stretch Supine Exercise Name Supine on rolled towel Reps/Minutes Combo of time to equal 60 SH x 2 Comments Pt had pain in posterior R shoulder holding too long. PROM/AROM Supine Exercise Name Shoulder flex/ER cane stretch review - HEP Reps/Minutes 3' Sidelying Exercises R shdr AB Side bilateral Reps/Minutes 15x Comments Modified I/S for palm facing forward. R Shdr ER/Depression Sidelying Exercise Shoulder ER of hand lift arm in 0/90 position - HEP Name review Sitting Exercises neck stretching Sitting Exercise Scalene Middle and posterior, and UT-HEP review Name Side bilateral Reps/Minutes 8' Resisted ER Sitting Exercise Shoulder relaxed, sitting upright for scap retract/shdr Name ER Side bilateral Equipment Used L3 TB Reps/Minutes 10x Comments Extra time to focus on scap retract Standing Exercises Resisted shdr ER Standing Exercise Forearms against wall moving hands outward - HEP review Name Side bilateral Equipment Used Lev 3 Reps/Minutes 10 SH x 10, modified I/S to HEP. Comments Cuing for intrascapular contraction, xtra time to focus on scap retra Rhomboid strengthening Standing Exercise Arms 90/90 and hands moving backward, relax moving fwd Name - HEP review Side bilateral Reps/Minutes 10 SH x 10, modified I/S to HEP. Comments Cuing for conc/ecc shdr rot for rhomboids w/neck elong and scap pinch Resisted Shld Ext Standing Exercise Reviewed HEP verbally Name Postural ex Standing Exercise Verbal review of handouts associated to proper Name posturing. Self-Care/Home Management Treatment Activities Self-Care/Home Reissued reviewed/modified HEP. Management Activities PT-OP-T Assessment and Plan Start: 06/17/24 19:09 Freq: Status: Active Protocol: Document 09/23/24 14:39 LRN (Rec: 09/23/24 15:56 LRN Laptop) Physical Therapy Assessment Goals Three Impairment Decrease R shoulder strength Short Term Goal (STG Improve R shoulder strength with pt able to sleep in a ) modified position on his R side. 08/04/24: can sleep on R side occasionally approx 1.5 hrs now, improved from start PT, either R shld tucked under trunk or arm 90/90 front and trunk rolled slight back to ove weight. 08/16/24: Can sleep on R side if is in the right position, sometimes wakes with pain. 08/31/24: Primary reason for R shoulder pain is nighttime sleeping. : Pt not able to sleep on R side, but pain reduced with supine sleeping. STG Duration 10/07/24 (09/23/24: Goal not met, pt not able to transition to sup sleep) Penitentiary Goal (LTG) Improve R shoulder strength with pt able to reach out with the arm forward to vacuum and reach out to the side w/pain no greater than 3/10. 08/04/24: GOAL MET: no pain reaching forward and to side if not repetitive, reports more pain when reached behind trunk. LTG Duration 09/17/24 (GOAL MET 08/04/24) Two Impairment Decreased R shoulder functional ROM Short Term Goal (STG Improve function AROM with pt able to scatch his back ) with tolerable pain. 06/30/24: pt is reaching behind back during neck stretching with no reports pain. 08/04/24: able to reach approx T11 before feeling in tolerant pain. 08/26/24: Reaches behind back with R arm to T11, (L hand T6). 09/20/24: UE Quickdash score of 15.90 (initial score 30 with one unanswered question). 09/24/23: Pt able to wash his back without difficulty; therefore can scratch his back. UE Quickdash score 13 .63. STG Duration 10/07/24 (09/23/24: MET GOAL) Penitentiary Goal (LTG) Improve R shoulder ROM with pt able to remove his wallet from his back pocket with tolerable discomfort. 07/29/24: Pt reporting no pain removing wallet from back pocket. LTG Duration 09/17/24 (07/29/24: MET GOAL) One Impairment Lacks self care HEP Short Term Goal (STG Pt will be able to demonstrate proper body mechanics ) for ADLs, and show awareness of proper sitting/standing posture as related to shoulder/scapular positioning. 07/23/24: provided HO for sleeping, sitting alignment and discussion of alignment. 09/14/24: Education & Handouts: Proper sitting posture with anatomy and with corrective sitting on different seat types. Proper standing posture. 08/04/24: continue educational cues for upright posture during ther ex today. 09/14/24: Pt slept on back last night and verbally agreed that improving posture sleeping (lying on back) will be beneficial to eliminating R shoulder pain on waking in the morning, as he had not R shoulder pain this morning. Discussed methods to counteract positioning for gardening and puzzle making. 09/23/24: Pt appears to have good understanding of good body mechanics for ADLs, goal not formally assessed as today he wanted to focus on review of his HEP. STG Duration 10/07/24 (: Goal partially met). Brick Grader Goal (LTG) Pt will be independent with a HEP of R shoulder/ scapular/core strengthening and ROM ex's. 06/24/24: HEP: Dowel stretch for shoulder flex, ER/IR ; Neck elongation, SB, Rot, wall posturing. 06/28/24: added open book, resisted shld ER TB #1, provided HOs for sleeping, sit and stand posture 06/30/24: added neck stretching, SNAGS ext& rotation. 07/23/24: reviewed wall posture with humeral ER TB #1, towel roll behind head. 07/29/24: HEP: Sidelie shoulder ER and AB to 90 deg's . 08/04/24: added resisted shld ext TB #3 and single arm pull (like instrument panel assembler pull). 09/07/24: HEP: I/S pt in Shoulder Shrug with Latissimus Dorsi contraction on the depression movement . 09/13/24: DC'd shdr flex stretch, Added HEP: Anter, Middle, & Relationship Mgr Scalene stretch w/verbal caution on R side due to stent. 09/21/24: HEP: Sit & stand Resisted shdr ER, standing shdr ER (in position of prone on elbows w/elastic). LTG Duration 10/28/24 progressed 09/21/24 Assessment Summary Assessment Pt is an 83 yo male, initially w/C5 nerve root involvement (per postural assessment) - irritated by nighttime sleeping. He continues to have c/o R upper back pain from poor posturing causing stretch to rhomboids and weakness of rhomboids. Last session he had less pain in R posterior shoulder after rhomboid strengthening. Pt's pain is now less often, appearing to be based on his activity level because of his posture. Pt has been encouraged to avoid sleeping in sidelye, as it results in pain on waking in the morning . Today, we reviewed his HEP for ex's to focus on and information of proper head/neck posturing. His function has improved per UE Quickdash score of 13.63 ( initial score 30 with one unanswered question). Pt is ready for discharge to his HEP and he feels confident in continuing to work towards further resolution of his pain. Daytime and nighttime proper posturing will be necessary to minimze his pain over time. Physical Therapy Plan Discharge Physical Therapy Discharge Reasons Plateau in Progress Discharge Comments Pt has same intensity of pain but not as often. He has a home exercise program to advance his R upper back strength and improve posture, as pt has noticed with improved posture he can decrease or eliminate his R upper back pain in some cases.
== END 2024-09-24 10:51 | disposition home or self-care (01) ==
LOC: PHYS 14:30
PROVIDERS: Family Provider Family Medicine; PCP Family Medicine; Referring Provider Family Medicine; Visit Provider Family Medicine
DX: M25.511 Pain in right shoulder (principal); M62.81 Muscle weakness (generalized)
CPT/HCPCS: 97110; 97112; 97140; 97162; 97530; 97535

== ENCOUNTER 2025-01-20 07:53 | Observation (INO) | payer MEDICARE, SELFPAY ==
[2024-11-10 08:56] VITALS: BMI 22.2
[2025-01-20] VITALS (12 sets, daily range): BP systolic 126–186; BP diastolic 56–80; PULSE 48–74; RESP 10–20; TEMP 36–36.4; O2SAT 89–98; BMI 25.0; BMI 23.3
--- NOTE | 2025-01-20 08:07 | DI.RAD.S_ITS ---
PROCEDURE: XR CHEST 1V INDICATIONS: Chest Pain TECHNIQUE: One view of the chest was acquired. COMPARISON: [facility], CR, XR CHEST 1V, 11/08/2024, 14:48. FINDINGS: Surgical changes and devices: None. Lungs and pleura: Lungs are clear. No pleural effusions or pneumothorax. Mediastinum: Mediastinal contours appear normal. Heart size is normal. Bones and chest wall: No suspicious bony lesions. Overlying soft tissues appear unremarkable. IMPRESSION: No acute cardiopulmonary abnormality is seen. Dictated by: Madan Valera M.D. on 01/20/2025 at 8:31 Approved by: Madan Valera M.D. on 01/20/2025 at 8:36
--- NOTE | 2025-01-20 08:07 | EKG_ITS ---
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
--- NOTE | 2025-01-20 08:08 | DI.RAD.S_ITS ---
PROCEDURE: XR WRIST RT MIN 3V INDICATIONS: injury TECHNIQUE: 4 views of the wrist were acquired. COMPARISON: None. FINDINGS: Bones: Comminuted minimally displaced distal ulna shaft fracture. No other fractures or dislocations noted. No suspicious bony lesions. Soft tissues: No suspicious soft tissue calcifications. IMPRESSION: Distal ulnar shaft fracture, minimally displaced. Dictated by: Madan Valera M.D. on 01/20/2025 at 8:36 Approved by: Madan Valera M.D. on 01/20/2025 at 8:36
--- NOTE | 2025-01-20 08:19 | DI.CT.S_ITS ---
PROCEDURE: CT ANGIO HEAD AND NECK INDICATIONS: Right facial droop TECHNIQUE: After the administration of intravenous contrast, 1 mm thick sections acquired from the aortic arch through the [place] of [place]. 3-dimensional kcniiuq-qxtzwzubc-eunucqakez (MIP) and/or volume rendering reformats were acquired of the central intracranial vasculature and neck separately. For radiation dose reduction, the following was used: automated exposure control, adjustment of mA and/or kV according to patient size. COMPARISON: [facility], CT, CT ANGIO HEAD AND NECK, 11/08/2024, 14:54. FINDINGS: Image quality: Diagnostic. Cerebral CT Angiogram: Internal carotid arteries: No acute findings. Intracranial ICA are patent with no significant stenosis. No occlusion. No aneurysm. Anterior cerebral arteries: Unremarkable. No significant stenosis. No occlusion. No aneurysm. Middle cerebral arteries: Unremarkable. No significant stenosis. No occlusion. No aneurysm. Posterior cerebral arteries: Unremarkable. No significant stenosis. No occlusion. No aneurysm. Basilar artery: Unremarkable. No significant stenosis. No occlusion. No aneurysm. 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 Left vertebral artery patent. Dural venous sinuses: Unremarkable given phase of enhancement. Other: Arterial phase appearance of the brain parenchyma is unremarkable. Neck CT Angiogram: Internal carotid arteries: Again noted is a right carotid stent with luminal patency inside of the stent, but extrinsic compression by calcified plaque adjacent to the stent in the proximal internal carotid, narrowing the lumen by approximately 65 %. Left internal carotid artery is again noted to have calcified stenosis of less than 50%. No dissection or occlusion. Common carotid arteries: Unremarkable. No significant stenosis. No dissection or occlusion. External carotid arteries: Unremarkable. No occlusion. 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 Left vertebral artery widely patent. Aortic Arch and Mediastinum: Partially visualized aortic arch unremarkable without evidence of aneurysm. Origins of the great vessels unremarkable. Other: Arterial phase soft tissues of the neck and chest are unremarkable. IMPRESSION: 1. 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 2. Otherwise unremarkable CTA head. No acute findings. 3. Again noted is a stented right carotid with extrinsic compression of the stent by calcific plaque resulting in a stenosis of approximately 65%. The stent lumen is widely patent. There is a less than 50% proximal left internal carotid artery stenosis. Any quantitative measurements of stenosis were performed using NASCET criteria. Dictated by: Madan Valera M.D. on 01/20/2025 at 8:51 Approved by: Madan Valera M.D. on 01/20/2025 at 9:18
--- NOTE | 2025-01-20 08:19 | DI.CT.S_ITS ---
PROCEDURE: CT STROKE INDICATIONS: Right facial droop TECHNIQUE: Noncontrast 4.5 mm thick angled axial sections acquired from the foramen magnum to the vertex, with coronal reformats. For radiation dose reduction, the following was used: automated exposure control, adjustment of mA and/or kV according to patient size. COMPARISON: [facility], CT, CT STROKE, 11/08/2024, 14:54. FINDINGS: Image quality: Diagnostic. CSF spaces: Basal cisterns are patent. No extra-axial fluid collections. The ventricles are symmetric in size and shape. Brain: No intracranial bleeds or mass effect. There is cerebral volume loss, with resultant ventricular and sulcal prominence. There are periventricular and deep white matter chronic small vessel ischemic changes. There is intracranial internal carotid artery atherosclerosis. Skull and face: Calvarium and visualized facial bones appear intact, without suspicious lesions. Sinuses: Visualized sinuses and mastoids are clear. IMPRESSION: No acute intracranial pathology. Comment: Findings were discussed with Dr. Hall on 01/20/2025 at 0842 hours This study fulfills neurological imaging criteria for inclusion or exclusion of acute stroke therapies based on available published neurological guidelines. Dictated by: Madan Valera M.D. on 01/20/2025 at 8:41 Approved by: Madan Valera M.D. on 01/20/2025 at 8:42
[2025-01-20 08:21] LABS: Add Manual Diff / Slide Review NO; Hematocrit 37.9 % (41-53); Hemoglobin 12.9 g/dL (13.5-17.5); Lymphocytes Absolute Auto 800 /uL (1100-4500); Mean Corpuscular HGB Conc 33.9 % (30-36); Mean Corpuscular Hemoglobin 31.7 PG (26-34); Mean Corpuscular Volume 93.5 fL (80-100); Platelet Count 163 X10^3/uL (150-400)
--- NOTE | 2025-01-20 08:21 | ED.NEUROSD ---
HPI - Neuro Symptoms/Deficit General Chief Complaint: Syncope Stated Complaint: Fall this morning, right wrist arm pain Time Seen by Provider: 01/20/25 08:04 Source: patient Mode of arrival: Family Vehicle History of Present Illness HPI Narrative: Patient brought here by for dizziness syncope right facial tingling and left facial droop. Onset 7:00 a.m. today. Patient was placing eyedrops in his eyes in the bathroom and felt dizzy. He felt flushed and awoke on the floor. No preceding chest pain back pain abdominal pain or headache. responded right away. He denies hitting his head. Only complains of right wrist pain and right rib pain. Patient is on aspirin. Patient has history of TIA October 2024. Patient has history of right carotid stenting. He denies any head or neck pain. Complains of right wrist pain and right rib pain from the fall. He hit a cabinet in the bathroom. He laid his head on the bath tub edge. He did take his blood pressure medication this morning. He states his heart rate is usually in the upper 40s and low 50s. This is not new. On Anticoagulants: No Related Data Home Medications ?Medication ?Instructions ?Recorded ?Confirmed aspirin 81 mg tablet 81 mg PO QAM 05/11/21 12/03/24 omeprazole 40 mg capsule,delayed 40 mg PO QAM 05/11/21 12/03/24 release ropinirole 1 mg tablet 1 mg PO BEDTIME 05/11/21 12/03/24 ropinirole 1 mg tablet 1.5 mg PO DAILY 05/11/21 12/03/24 acetaminophen 500 mg tablet 500 mg PO PRN PRN pain 04/18/23 12/03/24 atorvastatin 40 mg tablet (Lipitor) 40 mg PO BEDTIME 04/18/23 12/03/24 ibuprofen 200 mg tablet 400 mg PO Q6H 04/18/23 12/03/24 tamsulosin 0.4 mg capsule 0.4 mg PO QPM 04/18/23 12/03/24 turmeric root extract 500 mg 1,000 mg PO BID 06/04/24 12/03/24 capsule Previous Rx's ?Medication ?Instructions ?Recorded gabapentin 100 mg capsule 100 mg PO ONCE PM #90 caps 06/28/24 amlodipine 2.5 mg tablet 2.5 mg PO DAILY #90 tabs 12/03/24 amlodipine 5 mg tablet 5 mg PO DAILY #90 tabs 12/03/24 methadone 10 mg tablet 10 mg PO BEDTIME #30 tabs 12/03/24 Allergies Allergy/AdvReac Type Severity Reaction Status Date / Time diphenhydramine Allergy Mild Verified 01/20/25 08:17 Review of Systems Review of Systems Narrative: GENERAL: Negative chills, fatigue, malaise, fever, sweats. HEENT: Negative sinus pain, ear pain, sore throat RESPIRATORY: Negative dyspnea, cough CARDIOVASCULAR: Negative chest pain, palpitations GASTROINTESTINAL: Negative vomiting, nausea, abdominal pain : Negative dysuria, frequency, hematuria MUSCULOSKELETAL: Positive muscle or bony pain SKIN: Negative rash, skin lesions NEUROLOGIC: Negative weakness, positive facial droop and numbness, negative headache, negative limb weakness ROS Unobtainable: All systems reviewed & are unremarkable except as noted in HPI and below Hematologic/Lymphatic On Anticoagulants: No Patient History Medical History CAD (coronary artery disease) (~2014) History of stroke Arthritis of both knees Chronic low back pain GERD (gastroesophageal reflux disease) Hyperlipidemia (~2014) Methadone dependence Sigmoid diverticulosis Carotid artery disease Normocytic anemia Acute posthemorrhagic anemia GI bleed Hypertension Restless leg syndrome Cerebrovascular accident Surgical History S/P CABG (coronary artery bypass graft) Family History Mother Hypertension Father Cancer Social History household members: spouse Smoking Status: Former smoker alcohol intake: current Smoking Status: Former smoker tobacco type: cigarettes alcohol intake frequency: 0-2 drinks per day Alcohol type: wine Exam Narrative Exam Narrative: GENERAL: in no distress, not toxic not dyspneic HEAD: Normocephalic. EYES: Pupils equal round ENT: Mucous membranes moist. NECK: Trachea midline. CARDIOVASCULAR: Regular rate and rhythm RESPIRATORY: Clear to auscultation. Breath sounds equal bilaterally. No wheezes, rales, or rhonchi. GASTROINTESTINAL: Abdomen soft, non-tender EXTREMITIES: No gross deformities. BACK: No flank tenderness. NEURO: AOx4. Clear speech, slight droop on the left lip. Light touch intact bilateral face hands and legs strong equal financial controller negative pronator drift. No leg drift. SKIN: Warm and dry PSYCH: Not anxious, is cooperative Initial Vital Signs Initial Vital Signs: Vital Signs Temperature 97.5 F L 01/20/25 08:05 Pulse Rate 48 L 01/20/25 08:05 Respiratory Rate 16 01/20/25 08:05 Blood Pressure 183/78 H 01/20/25 08:05 Pulse Oximetry 97 01/20/25 08:05 Oxygen Delivery Method Room Air 01/20/25 08:05 Procedures Orthopedic Splinting/Casting Injury #1: Time of procedure: 09:01 Side: right Upper Extremity Injury Location: forearm Upper Extremity Immobilizer: sugar tong splint Post splinting neuro exam: intact and no change Post splinting vascular exam: no change Placed by: Nursing Scores NIH Stroke Scale Level of Conciousness: Alert, keenly responsive Ask month/age: Answers both questions correctly. Open/close eyes, close hand: Performs both tasks correctly Best gaze horizontal: Normal Visual gallo: No visual loss Facial palsy: Minor paralysis, flattened nasolabial fold, asymmetry on smiling Left arm drift: No drift for full 10 sec Right arm drift: No drift for full 10 sec Left leg drift: No drift for full 5 sec Right leg drift: No drift for full 5 sec Limb ataxia: Absent Sensory on face/arms/legs: Normal, no sensory loss Best language: No aphasia, normal Dysarthria: Normal Extinction or inattention: No abnormality Total NIH Stroke scale score: 1 Course Orders Ordered: ED Orders 01/20/25 08:07 XR chest 1V Stat EKG-12 Lead Stat 01/20/25 08:08 XR wrist RT min 3V Stat 01/20/25 08:15 Complete Blood Count AUTO DIFF Stat Comprehensive Metabolic Panel Stat Lipase Stat Magnesium Stat NT-proBNP (BNP-Adult 18+) Stat PTT Partial Thromboplastin [place] Stat Prothrombin Time INR Stat Troponin & CK Cardiac Panel Stat 01/20/25 08:[address] angio head and neck Stat 01/20/25 08:22 CT chest w con Stat 01/20/25 08:58 XR forearm RT 2V Stat Discontinued Medications Aspirin (Aspirin 81 Mg Chew Tab) 324 mg PO NOW ONE Stop: 01/20/25 08:08 Last Admin: 01/20/25 08:35 Dose: Not Given Documented By: SBF Sodium Chloride (Normal Saline 0.9%) 500 mls @ 1,000 mls/hr IV BOLUS ONE Stop: 01/20/25 09:29 Last Infusion: 01/20/25 10:01 Dose: Infused Documented By: Admin: 01/20/25 09:04 Dose: 1,000 mls/hr Documented By: SGF Morphine Sulfate (Morphine 4 Mg/Ml Inj) 4 mg IV NOW ONE Stop: 01/20/25 09:34 Last Admin: 01/20/25 09:47 Dose: 4 mg Documented By: MIKA Ondansetron HCl (Ondansetron 4 Mg/2 Ml Inj) 4 mg IV NOW ONE Stop: 01/20/25 09:34 Last Admin: 01/20/25 09:46 Dose: 4 mg Documented By: MIKA Vital Signs Vital signs: Vital Signs - 8 hr 01/20/25 08:05 01/20/25 08:36 01/20/25 08:42 Temperature 97.5 F L Pulse Rate 48 L 50 L 49 L Respiratory Rate 16 20 Blood Pressure 183/78 H Pulse Oximetry 97 89 L 98 Oxygen Delivery Method Room Air 01/20/25 08:42 01/20/25 09:00 01/20/25 09:00 Temperature Pulse Rate 48 L Respiratory Rate 12 Blood Pressure 174/78 H 186/80 H Pulse Oximetry 97 Oxygen Delivery Method 01/20/25 09:30 01/20/25 10:00 01/20/25 10:04 Temperature Pulse Rate 50 L 48 L 49 L Respiratory Rate 16 17 16 Blood Pressure Pulse Oximetry 98 96 98 Oxygen Delivery Method 01/20/25 10:04 01/20/25 10:30 01/20/25 10:30 Temperature Pulse Rate 49 L Respiratory Rate 11 L Blood Pressure 158/73 H 173/72 H Pulse Oximetry 94 Oxygen Delivery Method 01/20/25 11:00 01/20/25 11:00 Temperature Pulse Rate 51 L Respiratory Rate 10 L Blood Pressure 161/75 H Pulse Oximetry 96 Oxygen Delivery Method MDM - Neuro Symptoms/Deficit Lab Data 01/20/25 08:15 01/20/25 08:15 Labs: Lab Results 01/20/25 Range/Units 08:15 WBC 10.2 (4.5-11.0) X10^3/uL RBC 4.06 L (4.5-5.9) X10^6/uL Hgb 12.9 L (13.5-17.5) g/dL Hct 37.9 L (41-53) % MCV 93.5 (80-100) fL MCH 31.7 (26-34) PG MCHC 33.9 (30-36) % RDW 13.6 (11.6-14.8) % Plt Count 163 (150-400) X10^3/uL Neut % (Auto) 83.2 H (50-75) % Lymph % (Auto) 7.4 L (25-40) % [place] % (Auto) 7.6 (3-14) % Eos % (Auto) 1.6 L (2-4) % Baso % (Auto) 0.2 (0-2) % Neut # (Auto) 8500 H (8292-3300) /uL Lymph # (Auto) 800 L (2693-9194) /uL [place] # (Auto) 800 (0-900) /uL Eos # (Auto) 200 (0-450) /uL Baso # (Auto) 0 (0-100) /uL PT 12.0 (9.4-12.5) SECONDS INR 1.1 (0.9-1.3) APTT 30 (25.1-36.5) SECONDS Sodium 135 L (137-145) mmol/L Potassium 3.6 (3.4-5.1) mmol/L Chloride 102 (98-107) mmol/L Carbon Dioxide 27 (22-32) mmol/L BUN 27 H (9-20) mg/dL Creatinine 0.76 (0.66-1.25) mg/dL Estimated GFR > 60 (>60) mL/min BUN/Creatinine Ratio 35.5 H (6-22) Glucose 141 H (70-99) mg/dL Calcium 9.0 (8.4-10.2) mg/dL Magnesium 1.9 (1.6-2.3) mg/dL Total Bilirubin 0.7 (0.2-1.3) mg/dL AST 22 (17-59) IU/L ALT 16 (<50) IU/L Alkaline Phosphatase 84 (38-126) U/L Total Creatine Kinase 75 (55-170) U/L Troponin I < 0.012 (0.01-0.034) ng/mL NT-Pro-B Natriuret Pep 431 (<450) pg/mL Total Protein 6.3 (6.3-8.2) g/dL Albumin 3.6 (3.5-5.0) g/dL Globulin 2.7 (1.7-4.1) g/dL Albumin/Globulin Ratio 1.3 (1.0-2.8) Lipase 55 (23-300) U/L Imaging Data Extremity x-ray #1: Radiologist's Impression: [address] [address] XRay Report Signed Patient: Julian Jackson MR#: [id number] : 1940 Acct:[id number] Age/Sex: 84 / M Date of Service: 01/20/25 Loc: ED Accession Number: [id number] Procedure: XR wrist RT min 3V Ordering Provider: Yg Hall MD PROCEDURE: XR WRIST RT MIN 3V INDICATIONS: injury TECHNIQUE: 4 views of the wrist were acquired. COMPARISON: None. FINDINGS: Bones: Comminuted minimally displaced distal ulna shaft fracture. No other fractures or dislocations noted. No suspicious bony lesions. Soft tissues: No suspicious soft tissue calcifications. IMPRESSION: Distal ulnar shaft fracture, minimally displaced. Dictated by: Madan Valera M.D. on 01/20/2025 at 8:36 Approved by: Madan Valera M.D. on 01/20/2025 at 8:36 CT scan - head: Radiologist's Impression: [address] [address] [address] Scan Report Signed Patient: Julian Jackson MR#: [id number] : 1940 Acct:[id number] Age/Sex: 84 / M Date of Service: 01/20/25 Loc: ED Accession Number: [id number] Procedure: CT Stroke Ordering Provider: Yg Hall MD PROCEDURE: CT STROKE INDICATIONS: Right facial droop TECHNIQUE: Noncontrast 4.5 mm thick angled axial sections acquired from the foramen magnum to the vertex, with coronal reformats. For radiation dose reduction, the following was used: automated exposure control, adjustment of mA and/or kV according to patient size. COMPARISON: [facility], CT, CT STROKE, 11/08/2024, 14:54. FINDINGS: Image quality: Diagnostic. CSF spaces: Basal cisterns are patent. No extra-axial fluid collections. The ventricles are symmetric in size and shape. Brain: No intracranial bleeds or mass effect. There is cerebral volume loss, with resultant ventricular and sulcal prominence. There are periventricular and deep white matter chronic small vessel ischemic changes. There is intracranial internal carotid artery atherosclerosis. Skull and face: Calvarium and visualized facial bones appear intact, without suspicious lesions. Sinuses: Visualized sinuses and mastoids are clear. IMPRESSION: No acute intracranial pathology. Comment: Findings were discussed with Dr. Hall on 01/20/2025 at 0842 hours This study fulfills neurological imaging criteria for inclusion or exclusion of acute stroke therapies based on available published neurological guidelines. Dictated by: Madan Valera M.D. on 01/20/2025 at 8:41 Approved by: Madan Valera M.D. on 01/20/2025 at 8:42 CTA - brain/neck: Radiologist's Impression: [place] [address] CT Scan Report Signed Patient: Julian Jackson MR#: [id number] : 1940 Acct:[id number] Age/Sex: 84 / M Date of Service: 01/20/25 Loc: ED Accession Number: [id number] Procedure: CT angio head and neck Ordering Provider: Yg Hall MD PROCEDURE: CT ANGIO HEAD AND NECK INDICATIONS: Right facial droop TECHNIQUE: After the administration of intravenous contrast, 1 mm thick sections acquired from the aortic arch through the [place] of [place]. 3-dimensional nqeltwu-ewyvifukt-pmexqveicd (MIP) and/or volume rendering reformats were acquired of the central intracranial vasculature and neck separately. For radiation dose reduction, the following was used: automated exposure control, adjustment of mA and/or kV according to patient size. COMPARISON: [facility], CT, CT ANGIO HEAD AND NECK, 11/08/2024, 14:54. FINDINGS: Image quality: Diagnostic. Cerebral CT Angiogram: Internal carotid arteries: No acute findings. Intracranial ICA are patent with no significant stenosis. No occlusion. No aneurysm. Anterior cerebral arteries: Unremarkable. No significant stenosis. No occlusion. No aneurysm. Middle cerebral arteries: Unremarkable. No significant stenosis. No occlusion. No aneurysm. Posterior cerebral arteries: Unremarkable. No significant stenosis. No occlusion. No aneurysm. Basilar artery: Unremarkable. No significant stenosis. No occlusion. No aneurysm. 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 Left vertebral artery patent. Dural venous sinuses: Unremarkable given phase of enhancement. Other: Arterial phase appearance of the brain parenchyma is unremarkable. Neck CT Angiogram: Internal carotid arteries: Again noted is a right carotid stent with luminal patency inside of the stent, but extrinsic compression by calcified plaque adjacent to the stent in the proximal internal carotid, narrowing the lumen by approximately 65 %. Left internal carotid artery is again noted to have calcified stenosis of less than 50%. No dissection or occlusion. Common carotid arteries: Unremarkable. No significant stenosis. No dissection or occlusion. External carotid arteries: Unremarkable. No occlusion. 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 Left vertebral artery widely patent. Aortic Arch and Mediastinum: Partially visualized aortic arch unremarkable without evidence of aneurysm. Origins of the great vessels unremarkable. Other: Arterial phase soft tissues of the neck and chest are unremarkable. IMPRESSION: 1. 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 2. Otherwise unremarkable CTA head. No acute findings. 3. Again noted is a stented right carotid with extrinsic compression of the stent by calcific plaque resulting in a stenosis of approximately 65%. The stent lumen is widely patent. There is a less than 50% proximal left internal carotid artery stenosis. Any quantitative measurements of stenosis were performed using NASCET criteria. Dictated by: Madan Valera M.D. on 01/20/2025 at 8:51 Approved by: Madan Valera M.D. on 01/20/2025 at 9:18 CT scan - chest: Radiologist's Impression: [place] [address] CT Scan Report Signed Patient: Julian Jackson MR#: [id number] : 1940 Acct:[id number] Age/Sex: 84 / M Date of Service: 01/20/25 Loc: ED Accession Number: [id number] Procedure: CT chest w con Ordering Provider: Yg Hall MD PROCEDURE: CT CHEST W CON INDICATIONS: Right-sided pain/fall/pain TECHNIQUE: After the administration of intravenous contrast, 5 mm thick sections acquired from the pulmonary apices to the posterior costophrenic angles. 1 mm axial lung, 5 mm thick coronal and sagittal reformats and 7 mm axial MIP were acquired. For radiation dose reduction, the following was used: automated exposure control, adjustment of mA and/or kV according to patient size. COMPARISON: [facility], XR CHEST 1V, 01/20/2025, 8:01. FINDINGS: Image quality: Diagnostic. Lower Neck: No enlarged lymph nodes. Thyroid: No thyroid nodules which require sonographic follow up, per consensus guidelines. Axillae: No enlarged lymph nodes. Chest Wall: Mild subcutaneous emphysema adjacent to the right-sided rib fractures. Bones: Minimally and mildly displaced fractures of the right posterior lateral 7th through 10th ribs. Generalized osteopenia. Multilevel degenerative changes in the spine. Lungs and Pleura: Trace right pleural effusion. No pneumothorax. Mild atelectasis at the right lung base. Lungs otherwise clear. No consolidation or suspicious nodules. Heart: Heart size is normal. No pericardial effusion. Moderate to severe coronary artery calcifications. Thoracic Vessels: The aorta and pulmonary arteries demonstrate normal size. Mediastinum and Radha: No enlarged lymph nodes. Esophagus: No wall thickening. No hiatal hernia. Upper Abdomen: Renal cysts are partially included, one of which has associated calcifications. Colonic diverticulosis. Visualized upper abdomen solid organs and bowel loops otherwise appear normal. IMPRESSION: Mildly displaced fractures of the right posterolateral 7th through 10th ribs. Trace right pleural effusion. No pneumothorax. Approved by: Karan Banerjee M.D. on 01/20/2025 at 9:11 Chest x-ray: Radiologist's Impression: [address] [address] XRay Report Signed Patient: Julian Jackson MR#: [id number] : 1940 Acct:[id number] Age/Sex: 84 / M Date of Service: 01/20/25 Loc: ED Accession Number: [id number] Procedure: XR chest 1V Ordering Provider: Yg Hall MD PROCEDURE: XR CHEST 1V INDICATIONS: Chest Pain TECHNIQUE: One view of the chest was acquired. COMPARISON: [facility], XR CHEST 1V, 11/08/2024, 14:48. FINDINGS: Surgical changes and devices: None. Lungs and pleura: Lungs are clear. No pleural effusions or pneumothorax. Mediastinum: Mediastinal contours appear normal. Heart size is normal. Bones and chest wall: No suspicious bony lesions. Overlying soft tissues appear unremarkable. IMPRESSION: No acute cardiopulmonary abnormality is seen. Dictated by: Madan Valera M.D. on 01/20/2025 at 8:31 Approved by: Madan Valera M.D. on 01/20/2025 at 8:36 Extremity x-ray #2: Radiologist's Impression: [address] [address] XRay Report Signed Patient: Julian Jackson MR#: [id number] : 1940 Acct:[id number] Age/Sex: 84 / M Date of Service: 01/20/25 Loc: ED Accession Number: [id number] Procedure: XR forearm RT 2V Ordering Provider: Yg Hall MD PROCEDURE: XR FOREARM RT 2V INDICATIONS: Pain/injury TECHNIQUE: 2 views of the forearm were acquired. COMPARISON: None. FINDINGS: Bones: Mildly displaced, minimally angulated distal shaft fracture of the ulna. No other fractures or dislocations. No suspicious bony lesions. Soft tissues: No suspicious soft tissue calcifications or masses. IMPRESSION: Ulnar shaft fracture Dictated by: Madan Valera M.D. on 01/20/2025 at 9:20 Approved by: Madan Valera M.D. on 01/20/2025 at 9:23 [facility] Narrative Medical decision making narrative: Patient brought here by for dizziness syncope right facial tingling and left facial droop. Onset 7:00 a.m. today. Patient was placing eyedrops in his eyes in the bathroom and felt dizzy. He felt flushed and awoke on the floor. No preceding chest pain back pain abdominal pain or headache. responded right away. He denies hitting his head. Only complains of right wrist pain and right rib pain. Patient is on aspirin. Patient has history of TIA October 2024. Patient has history of right carotid stenting. He denies any head or neck pain. Complains of right wrist pain and right rib pain from the fall. He hit a cabinet in the bathroom. He laid his head on the bath tub edge. He did take his blood pressure medication this morning. He states his heart rate is usually in the upper 40s and low 50s. This is not new. MDM After history and exam, CBC CMP EKG CT head CT angio head and neck troponin x-ray right wrist chest x-ray CT chest Differential considered: Includes but not limited to stroke TIA rib fracture/contusion wrist strain sprain fracture, arrhythmia, vasovagal syncope Medical records reviewed: November 09, 2024 discharge summary for TIA from this hospital Lab Test results independently reviewed as above. Pertinent findings: WBC 10.2 hemoglobin 12.9 INR 1.1 sodium 135 potassium 3.6 BUN 27 creatinine 0.76 GFR greater than 60 troponin less than 0.012 Independently reviewed EKG sinus bradycardia rate 48 Imaging studies independently reviewed: CT head without contrast 8:[address] Valera no acute findings. X-ray left wrist distal ulnar shaft fracture minimally displaced X-ray chest no acute finding Consultations: 8:53 a.m.. Spoke with tele stroke, Dr. Evangelista, agrees for admission observation MRI echocardiogram. No changes in patient's medication at this time. No TNK 9:35 a.m.. Spoke with General surgery, dr ferrari, patient be admitted for stroke workup. He is available for consult if desired by hospitalist/primary care if needed for rib fractures but no intervention indicated at this time. Awaiting callback from orthopedics regarding forearm fracture. 10:01 a.m.. Spoke with Orthopedics, Dr. Grullon, she will follow in consult. 10:09 a.m.. I spoke with Dr. Hendrix, primary care, he will admit patient Re-evaluations: 9:00 a.m.. Updated patient need for admission for TIA as well as for observation. They do agree. Updated them results. Blood pressure noted. Does have wrist pain and rib pain. Reassess after pain medication blood pressure. Discussion: Appropriate for admission for TIA/syncope observation workup. Diagnosis: TIA/ulnar fracture, multiple rib fractures Discharge Plan Departure Patient Disposition: Admitted as Observation Clinical Impression: Brain TIA Fracture of ulnar shaft, closed Qualifiers: Encounter type: initial encounter Fracture morphology: unspecified fracture morphology Laterality: right Qualified Code(s): S52.201A - Unspecified fracture of shaft of right ulna, initial encounter for closed fracture Multiple fractures of ribs Qualifiers: Encounter type: initial encounter Fracture type: closed Laterality: right Qualified Code(s): S22.41XA - Multiple fractures of ribs, right side, initial encounter for closed fracture Admit Date/Time: 01/20/25 11:03 Admit Provider: Arnaldo Hendrix
[2025-01-20 08:27] LABS: INR 1.1 (0.9-1.3); Prothrombin Time 12.0 SECONDS (9.4-12.5)
[2025-01-20 08:30] LABS: PTT Partial Thromboplastin Tim 30 SECONDS (25.1-36.5)
[2025-01-20 08:31] LABS: Alanine Aminotransferase 16 IU/L (<50); Albumin 3.6 g/dL (3.5-5.0); Albumin Globulin Ratio 1.3 (1.0-2.8); Alkaline Phosphatase 84 U/L (38-126); Blood Urea Nitrogen 27 mg/dL (9-20); Calcium 9.0 mg/dL (8.4-10.2); Carbon Dioxide 27 mmol/L (22-32); Chloride 102 mmol/L (98-107); Creatine Kinase 75 U/L (55-170); Estimated Glomerular Filt Rate > 60 mL/min (>60); Globulin 2.7 g/dL (1.7-4.1); Glucose 141 mg/dL (70-99); HEMOLYSIS < 15 (0-50); Lipase 55 U/L (23-300); Magnesium 1.9 mg/dL (1.6-2.3); Potassium 3.6 mmol/L (3.4-5.1); Sodium 135 mmol/L (137-145); Total Protein 6.3 g/dL (6.3-8.2)
[2025-01-20 08:43] LABS: NT-proBNP (BNP-Adult 18+) 431 pg/mL (<450); Troponin I < 0.012 ng/mL (0.01-0.034)
--- NOTE | 2025-01-20 08:58 | DI.RAD.S_ITS ---
PROCEDURE: XR FOREARM RT 2V INDICATIONS: Pain/injury TECHNIQUE: 2 views of the forearm were acquired. COMPARISON: None. FINDINGS: Bones: Mildly displaced, minimally angulated distal shaft fracture of the ulna. No other fractures or dislocations. No suspicious bony lesions. Soft tissues: No suspicious soft tissue calcifications or masses. IMPRESSION: Ulnar shaft fracture Dictated by: Madan Valera M.D. on 01/20/2025 at 9:20 Approved by: Madan Valera M.D. on 01/20/2025 at 9:23
[2025-01-20] MEDS: SODIUM CHLORIDE 0.9% 500 ML 1000 ML IV (09:04)
[2025-01-20] MEDS: ONDANSETRON 4 MG/2 ML INJ IV (09:46)
[2025-01-20] MEDS: MORPHINE 4 MG/ML INJ IV (09:47)
--- NOTE | 2025-01-20 11:44 | PM.HP.IH.1 ---
History of Present Illness History of Present Illness Date Patient Seen: 01/20/25 Chief complaint: Fall this morning, right wrist arm pain Narrative: 84-year-old male with hypertension, CAD, carotid artery disease s/p right side revascularization w/stent, hyperlipidemia, RLS with methadone dependence. Presented to ER this morning after presyncopal episode that occurred while administering eye drops at home. The patient was leaning back to put in eye drops when he felt his throat tighten up, which he described as kind of weird. After finishing with the eye drops he started to feel woozy and decided to go back to bed. As he turned to return to bed, the next thing he remembers is hearing a loud crash, which was him hitting the floor and cabinet. He does not recall actually going down but remembers the loud noise from the fall. He is uncertain whether he actually lost consciousness or if it was more of feeling woozy and falling backwards, though he realized what was happening in the moment. He also recalls feeling a mild tingling sensation on right side of face while drinking water prior to this episode. He was recently admitted for TIA 2 months ago with unremarkable workup. Prior to this episode, he had been feeling really good and was actively hiking and gardening as usual. The patient notes that he did not drink much water the day before the incident. He describes the episode as coming out of the blue with no other recent changes or different circumstances that he can identify. He was noted to be hypertensive in the ER with BP 150s to 180s systolic despite having taken his blood pressure medication this morning. Labs notable for WBC 10.2, hemoglobin 12.9, glucose 141. Remainder of CBC, CMP, lipase, troponin normal/negative. EKG demonstrated sinus bradycardia, rate 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 CXR and CT chest notable for mildly displaced fractures of the right posterolateral 7th through 8th ribs, no pneumothorax. XR wrist showed comminuted minimally displaced distal ulnar shaft fracture. Tele stroke consulted from ER, recommend admission for observation with MRI brain and echocardiogram with no tPA. General surgery was consulted and recommended no additional intervention for rib fractures beyond pain control. Orthopedics contacted regarding wrist fracture and will follow as consult. [facility] Medical History CAD (coronary artery disease) (~2014) History of stroke Arthritis of both knees Chronic low back pain GERD (gastroesophageal reflux disease) Hyperlipidemia (~2014) Methadone dependence Sigmoid diverticulosis Carotid artery disease Normocytic anemia Acute posthemorrhagic anemia GI bleed Hypertension Restless leg syndrome Cerebrovascular accident Surgical History S/P CABG (coronary artery bypass graft) Family History Mother Hypertension Father Cancer Social History household members: spouse Smoking Status: Former smoker alcohol intake: current Meds Home Medications and Allergies Home Medications ?Medication ?Instructions ?Recorded ?Confirmed ?Type aspirin 81 mg tablet 81 mg PO QAM 05/11/21 01/20/25 History omeprazole 40 mg capsule,delayed 40 mg PO QAM 05/11/21 01/20/25 History release ropinirole 1 mg tablet 1 mg PO BEDTIME 05/11/21 01/20/25 History ropinirole 1 mg tablet 1.5 mg PO DAILY 05/11/21 01/20/25 History acetaminophen 500 mg tablet 500 mg PO PRN PRN pain 04/18/23 01/20/25 History atorvastatin 40 mg tablet (Lipitor) 40 mg PO BEDTIME 04/18/23 01/20/25 History ibuprofen 200 mg tablet 400 mg PO Q6H 04/18/23 01/20/25 History tamsulosin 0.4 mg capsule 0.4 mg PO QPM 04/18/23 01/20/25 History turmeric root extract 500 mg 1,000 mg PO BID 06/04/24 01/20/25 History capsule gabapentin 100 mg capsule 100 mg PO ONCE PM #90 caps 06/28/24 01/20/25 Rx amlodipine 5 mg tablet 5 mg PO DAILY #90 tabs 12/03/24 01/20/25 Rx methadone 10 mg tablet 10 mg PO BEDTIME #30 tabs 12/03/24 01/20/25 Rx Allergies Allergy/AdvReac Type Severity Reaction Status Date / Time diphenhydramine Allergy Mild Verified 01/20/25 08:17 Exam Vital Signs (past 8 hours): - 01/20/25 08:05 01/20/25 08:36 01/20/25 08:42 Temperature 97.5 F L Pulse Rate 48 L 50 L 49 L Respiratory Rate 16 20 Blood Pressure 183/78 H Pulse Oximetry 97 89 L 98 Oxygen Delivery Method Room Air 01/20/25 08:42 01/20/25 09:00 01/20/25 09:00 Temperature Pulse Rate 48 L Respiratory Rate 12 Blood Pressure 174/78 H 186/80 H Pulse Oximetry 97 Oxygen Delivery Method 01/20/25 09:30 01/20/25 10:00 01/20/25 10:04 Temperature Pulse Rate 50 L 48 L 49 L Respiratory Rate 16 17 16 Blood Pressure Pulse Oximetry 98 96 98 Oxygen Delivery Method 01/20/25 10:04 01/20/25 10:30 01/20/25 10:30 Temperature Pulse Rate 49 L Respiratory Rate 11 L Blood Pressure 158/73 H 173/72 H Pulse Oximetry 94 Oxygen Delivery Method 01/20/25 11:00 01/20/25 11:00 Temperature Pulse Rate 51 L Respiratory Rate 10 L Blood Pressure 161/75 H Pulse Oximetry 96 Oxygen Delivery Method Oxygen Delivery Method Room Air Narrative Exam Narrative: General: Pleasant, NAD HEENT: NC/AT, EOMI, moist membranes CV: Bradycardia, regular rhythm, normal S1-S2, no m/g/r Resp: CTAB, comfortable WOB, moderate pain with deep inspiration Abd: Soft, NTND, +BS MSK: R side ribs TTP, right forearm in sugar-tong splint Ext: No edema Skin: No rash or lesions noted Neuro: A&O x3, CN 2-12 grossly intact with no facial droop appreciated, equal strength in bilateral upper and lower extremities, no focal deficits Objective Imaging XR Forearm: Radiologist's impression: Mildly displaced, minimally angulated distal shaft fracture of the ulna. No other fractures or dislocations. No suspicious bony lesions. Soft tissues: No suspicious soft tissue calcifications or masses. IMPRESSION: Ulnar shaft fracture Dictated by: Madan Valera M.D. on 01/20/2025 at 9:20 Approved by: Madan Valera M.D. on 01/20/2025 at 9:23 XR Wrist: Radiologist's impression: Bones: Comminuted minimally displaced distal ulna shaft fracture. No other fractures or dislocations noted. No suspicious bony lesions. Soft tissues: No suspicious soft tissue calcifications. IMPRESSION: Distal ulnar shaft fracture, minimally displaced. Dictated by: Madan Valera M.D. on 01/20/2025 at 8:36 Approved by: Madan Valera M.D. on 01/20/2025 at 8:36 CTA Head/Neck: Radiologist's impression: 1. 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 2. Otherwise unremarkable CTA head. No acute findings. 3. Again noted is a stented right carotid with extrinsic compression of the stent by calcific plaque resulting in a stenosis of approximately 65%. The stent lumen is widely patent. There is a less than 50% proximal left internal carotid artery stenosis. Any quantitative measurements of stenosis were performed using NASCET criteria. Dictated by: Madan Valera M.D. on 01/20/2025 at 8:51 Approved by: Madan Valera M.D. on 01/20/2025 at 9:18 CT Chest: Radiologist's impression: Mildly displaced fractures of the right posterolateral 7th through 10th ribs. Trace right pleural effusion. No pneumothorax. Approved by: Karan Banerjee M.D. on 01/20/2025 at 9:11 Labs 01/20/25 08:15 01/20/25 08:15 Labs: Laboratory Results - last 24 hr 01/20/25 08:15 WBC 10.2 RBC 4.06 L Hgb 12.9 L Hct 37.9 L MCV 93.5 MCH 31.7 MCHC 33.9 RDW 13.6 Plt Count 163 Neut % (Auto) 83.2 H Lymph % (Auto) 7.4 L [place] % (Auto) 7.6 Eos % (Auto) 1.6 L Baso % (Auto) 0.2 Neut # (Auto) 8500 H Lymph # (Auto) 800 L [place] # (Auto) 800 Eos # (Auto) 200 Baso # (Auto) 0 PT 12.0 INR 1.1 APTT 30 Sodium 135 L Potassium 3.6 Chloride 102 Carbon Dioxide 27 BUN 27 H Creatinine 0.76 Estimated GFR > 60 BUN/Creatinine Ratio 35.5 H Glucose 141 H Calcium 9.0 Magnesium 1.9 Total Bilirubin 0.7 AST 22 ALT 16 Alkaline Phosphatase 84 Total Creatine Kinase 75 Troponin I < 0.012 NT-Pro-B Natriuret Pep 431 Total Protein 6.3 Albumin 3.6 Globulin 2.7 Albumin/Globulin Ratio 1.3 Lipase 55 Assessment & Plan Assessment and plan (1) Brain TIA: Status: Acute (2) Pre-syncope: Status: Acute (3) Carotid artery disease: Problem details: S/p right side revascularization procedure 09/2021 Qualifiers: Carotid artery disease type: stenosis Laterality: right Qualified Code(s): I65.21 - Occlusion and stenosis of right carotid artery Status: Chronic (4) Multiple fractures of ribs: Qualifiers: Encounter type: initial encounter Fracture type: closed Laterality: right Qualified Code(s): S22.41XA - Multiple fractures of ribs, right side, initial encounter for closed fracture Status: Acute (5) Fracture of ulnar shaft, closed: Qualifiers: Encounter type: initial encounter Fracture morphology: unspecified fracture morphology Laterality: right Qualified Code(s): S52.201A - Unspecified fracture of shaft of right ulna, initial encounter for closed fracture Status: Acute (6) CAD (coronary artery disease): Qualifiers: Associated angina: without angina Coronary Disease-Associated Artery/Lesion type: unspecified vessel or lesion type [place] vs. transplanted heart: [place] heart Qualified Code(s): I25.10 - Atherosclerotic heart disease of [place] coronary artery without angina pectoris Status: Chronic (7) Hypertension: Qualifiers: Hypertension type: primary hypertension Qualified Code(s): I10 - Essential (primary) hypertension Status: Chronic (8) Hyperlipidemia: Qualifiers: Hyperlipidemia type: unspecified Qualified Code(s): E78.5 - Hyperlipidemia, unspecified Status: Chronic (9) Restless leg syndrome: Status: Chronic (10) Methadone dependence: Status: Chronic (11) BPH (benign prostatic hyperplasia): Qualifiers: Lower urinary tract symptom presence: symptoms absent Qualified Code(s): N40.0 - Benign prostatic hyperplasia without lower urinary tract symptoms Status: Acute Assessment & Plan narrative: 84-year-old male with hypertension, CAD, carotid artery disease s/p right side revascularization w/stent, hyperlipidemia, RLS with methadone dependence admitted for possible TIA, GLF with multiple right-sided rib and wrist fractures. #TIA #presyncope #carotid artery disease Hypertensive but CT angio demonstrates no new vascular disease and his right carotid remains widely patent with stent, no left-sided carotid disease. Chronic vertebral artery vascular disease noted, CT head unremarkable. ER physician felt there was a slight left-sided facial droop with NIHSS score 1. 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 -MRI brain -TTE -telemetry -continue aspirin, statin #bradycardia Chronic, typically asymptomatic but potential contributing factor given reported lack of oral hydration yesterday. -telemetry #ulnar fracture #right-sided rib fractures Results of GLF, hitting bathroom cabinet/bathtub during presyncopal episode this morning. Dr. Duarte (orthopedics) consulting for wrist fracture, appreciate recommendations. -acetaminophen/NSAID/oxycodone pain scale -stool softener #CAD #HTN #HLD -continue home aspirin, statin, amlodipine #RLS #methadone dependence -continue home gabapentin, ropinirole, methadone q.h.s. #BPH -continue home tamsulosin Dispo: Acute care Diet: NPO for possible surgery, HH after any possible intervention GI ppx: PPI DVT ppx: SCDs, consider Lovenox if no surgery Code: FULL PCP: Simeon MDM: My [facility] (, ) Time-Based Coding :: 50 minutes spent with patient and on the chart (including review of chart, obtaining history, exam, reviewing outside data, placing orders, documenting exam and treatment plan, and counseling patient) on 01/20/2025. Quality VTE Deep Vein Thrombosis/Pulmonary Embolism Present on Admission: No IH PROFEE Land Law Examiner Document charge(s): Yes Charge Codes Initial inpatient/observation care: [id number]
--- NOTE | 2025-01-20 13:30 | DI.MRI.S_ITS ---
PROCEDURE: MR HEAD/BRAIN WO CON INDICATIONS: TIA TECHNIQUE: Noncontrast axial T1 spin echo, axial T2 fast spin echo, sagittal and axial FLAIR, coronal T2 fast spin echo, axial gradient echo, axial diffusion and ADC through the brain. COMPARISON: [facility], CT, CT STROKE, 01/20/2025, 8:31. [facility], MR, MR HEAD/BRAIN WO CON, 11/09/2024, 8:10. FINDINGS: Image quality: Mild motion artifact. Patient positioning also limits evaluation CSF spaces: Basal cisterns are patent. Lateral ventricles are symmetric. Volume: Volume loss. Periventricular white matter signal abnormality most commonly seen with small vessel disease. These findings are [id number] Brain: No acute diffusion restriction. No area of parenchymal edema identified. No acute hemorrhage. Craniofacial structures: No significant paranasal sinus opacity. There is mild mucosal thickening. IMPRESSION: No acute intracranial hemorrhage or infarction identified Dictated by: José Luis Castillo M.D. on 01/20/2025 at 15:19 Approved by: José Luis Castillo M.D. on 01/20/2025 at 15:21
--- NOTE | 2025-01-20 13:30 | DI.ECHO.S_ITS ---
[facility] : : [id number] : [address] : : [id number] : : Phone: [phone] Echocardiogram Report + + :Name: ALEK VINCENT Study Date: 01/21/2025 Height: 72 in : :[facility] ReadingLocation: Weight: 171 lb : : Gender: Male BSA: 2.0 m2 : :: 1940 Age: 84 yrs BP: 134/61 mmHg: :Reason For Study: TIA : :Ordering Physician: RHYS, : :AAKASH Paz Performed By: Samy Wayne : :Referring: AAKASH JOINER : + + Interpretation Summary The patient was in sinus bradycardia with heart rates between 51-56 bpm during the exam. The left ventricle is normal in size. Left ventricular systolic function is normal. The ejection fraction is estimated to be 55-60%. No LV thrombus The right ventricle is normal in size and function. Doppler interrogation and injection of saline echo contrast shows no evidence for an interatrial shunt. There is mild aortic regurgitation. Compared to the prior echo study, there has been no change in the severity of aortic regurgitation. There is mild tricuspid regurgitation. Compared to the prior echo exam, there has been no change in TR severity. The right ventricular systolic pressure is estimated to be at least 48 mmHg based on an estimated right atrial pressure of 3 mm Hg. Previously 35 mmHg. Procedure: A two-dimensional transthoracic echocardiogram with color flow and Doppler was performed in limited views only to assess bubble study and function. The study quality was technically adequate. A saline contrast injection was performed to assess for cardiac shunting. Comparison is made with the echocardiogram of 11/09/2024. The patient was in sinus bradycardia with heart rates between 51-56 bpm during the exam. Left Ventricle: The left ventricle is normal in size. Left ventricular wall thickness is mildly increased. There is no thrombus. Left ventricular systolic function is normal. The ejection fraction is estimated to be 55-60%. There are no focal wall motion abnormalities. Right Ventricle: The right ventricle is normal in size and function. Atria: The left atrium is mildly dilated. The left atrium has mildly decreased in size since the prior echo exam. Bubble study was captured on image frame(s) # [id number]. Doppler interrogation and injection of saline echo contrast shows no evidence for an interatrial shunt. Bubble study preformed per protocol, negative bubble study documented with no bubbles seen crossing into the left atrium or left ventricle. Mitral Valve: There is mild mitral regurgitation. Aortic Valve: The aortic valve is trileaflet. The aortic valve opens well. The aortic valve is mildly calcified. There is mild aortic regurgitation. Compared to the prior echo study, there has been no change in the severity of aortic regurgitation. Tricuspid Valve: There is tricuspid annular calcification. There is mild tricuspid regurgitation. The right ventricular systolic pressure is estimated to be at least 48 mmHg based on an estimated right atrial pressure of 3 mm Hg. Compared to the prior echo exam, there has been no change in TR severity. Great Vessels: The IVC is of normal diameter and collapses greater than 50% with a sniff. This suggests a low right atrial pressure of 3 mm Hg. Pericardium/ Pleura There is no pericardial effusion. MMode/2D Measurements & Calculations LVIDd: 4.4 cm LVOT diam: 2.1 cm LVIDs: 2.7 cm FS: 38.1 % IVSd: 1.2 cm LVPWd: 1.2 cm LV mak. diameter/BSA (cm/m^2): 2.2 LV sys. diameter/BSA (cm/m^2): 1.4 LA A2 area: 25.0 cm2 IVC diam: 2.1 cm LA A4 area: 22.0 cm2 LA length (vol): 6.5 cm LA vol: 72.0 ml LA vol index: 36.1 ml/m2 RVD1 (basal): 3.4 cm RVD2 (mid): 2.7 cm TAPSE: 2.6 cm Doppler Measurements & Calculations Ao V2 max: 168.5 cm/sec LVOT Max Harman: 137.5 cm/sec Ao V2 mean: 125.6 cm/sec LV V1 max P.6 mmHg Ao max P.4 mmHg LV V1 VTI: 30.7 cm Ao mean P.9 mmHg OLAMIDE(I,D): 3.0 cm2 Ao V2 VTI: 37.3 cm OLAMIDE(V,D): 2.9 cm2 sev ratio: 0.82 OLAMIDE indexed to BSA (cm^2/m^2): 1.5 TR max harman: 336.4 cm/sec SV(LVOT): 110.2 ml TR max P.3 mmHg Reading Physician:12:23 PM
[2025-01-20] MEDS: IBUPROFEN 400 MG TABLET PO ×2 (14:02→19:46)
[2025-01-20] MEDS: ACETAMINOPHEN 325 MG TABLET 650 MG PO ×2 (14:07→19:45)
[2025-01-20] MEDS: SODIUM CHLORIDE 0.9% 1,000 ML 100 ML IV (14:08)
--- NOTE | 2025-01-20 15:45 | SLP.IPNOTE ---
INDUCTION COORDINATION POWER ENGINEER completed swallow screen. Pt reports no swallowing difficulties pre/post fall. He consumed an egg salad sandwich with juice without any signs of dysphagia/aspiration such as choking or coughing. INDUCTION COORDINATION POWER ENGINEER recommends another referral for INDUCTION COORDINATION POWER ENGINEER be placed if any change in swallow occurs.
--- NOTE | 2025-01-20 16:11 | PM.HP.IH.1 ---
History of Present Illness History of Present Illness Date Patient Seen: 01/20/25 Time Patient Seen: 15:20 Chief complaint: Fall this morning, right wrist arm pain Narrative: 84-year-old right-hand dominant male with right forearm pain after a fall onto his right side on 01/20/2025. He was seen in the emergency room and is admitted for a workup for stroke. He sustained a right ulnar shaft fracture. He was placed in an ulnar gutter splint in the emergency room. He states the splint feels tight. He denies prior injury to his right upper extremity. Physical exam reveals a well-developed well-nourished 84-year-old in no acute distress Evaluation of his right upper extremity demonstrates that he has a splint in place. This was taken down. His skin was intact. He has no radius tenderness to palpation and has no wrist pain. He fires his EPL FPL and interosseous muscles. His sensation is intact to light touch in the radial ulnar and median nerve distributions. His radial pulse is 2 +and he has brisk capillary refill. X-rays obtained of his right forearm demonstrate a distal ulnar shaft fracture that is oblique and minimally displaced. [facility] Medical History CAD (coronary artery disease) (~2014) History of stroke Arthritis of both knees Chronic low back pain GERD (gastroesophageal reflux disease) Hyperlipidemia (~2014) Methadone dependence Sigmoid diverticulosis Carotid artery disease Normocytic anemia Acute posthemorrhagic anemia GI bleed Hypertension Restless leg syndrome Cerebrovascular accident Surgical History S/P CABG (coronary artery bypass graft) Family History Mother Hypertension Father Cancer Social History household members: spouse Smoking Status: Former smoker alcohol intake: current Meds Home Medications and Allergies Home Medications ?Medication ?Instructions ?Recorded ?Confirmed ?Type aspirin 81 mg tablet 81 mg PO QAM 05/11/21 01/20/25 History omeprazole 40 mg capsule,delayed 40 mg PO QAM 05/11/21 01/20/25 History release ropinirole 1 mg tablet 1 mg PO BEDTIME 05/11/21 01/20/25 History ropinirole 1 mg tablet 1.5 mg PO DAILY 05/11/21 01/20/25 History acetaminophen 500 mg tablet 500 mg PO PRN PRN pain 04/18/23 01/20/25 History atorvastatin 40 mg tablet (Lipitor) 40 mg PO BEDTIME 04/18/23 01/20/25 History ibuprofen 200 mg tablet 400 mg PO Q6H 04/18/23 01/20/25 History tamsulosin 0.4 mg capsule 0.4 mg PO QPM 04/18/23 01/20/25 History turmeric root extract 500 mg 1,000 mg PO BID 06/04/24 01/20/25 History capsule gabapentin 100 mg capsule 100 mg PO ONCE PM #90 caps 06/28/24 01/20/25 Rx amlodipine 5 mg tablet 5 mg PO DAILY #90 tabs 12/03/24 01/20/25 Rx methadone 10 mg tablet 10 mg PO BEDTIME #30 tabs 12/03/24 01/20/25 Rx Allergies Allergy/AdvReac Type Severity Reaction Status Date / Time diphenhydramine Allergy Mild Verified 01/20/25 08:17 Exam Vital Signs (past 8 hours): - 01/20/25 08:36 01/20/25 08:42 01/20/25 08:42 Temperature Pulse Rate 50 L 49 L Respiratory Rate 20 Blood Pressure 174/78 H Pulse Oximetry 89 L 98 Oxygen Flow Rate 01/20/25 09:00 01/20/25 09:00 01/20/25 09:30 Temperature Pulse Rate 48 L 50 L Respiratory Rate 12 16 Blood Pressure 186/80 H Pulse Oximetry 97 98 Oxygen Flow Rate 01/20/25 10:00 01/20/25 10:04 01/20/25 10:04 Temperature Pulse Rate 48 L 49 L Respiratory Rate 17 16 Blood Pressure 158/73 H Pulse Oximetry 96 98 Oxygen Flow Rate 01/20/25 10:30 01/20/25 10:30 01/20/25 11:00 Temperature Pulse Rate 49 L Respiratory Rate 11 L Blood Pressure 173/72 H 161/75 H Pulse Oximetry 94 Oxygen Flow Rate 01/20/25 11:00 01/20/25 11:45 Temperature 96.8 F L Pulse Rate 51 L 56 L Respiratory Rate 10 L 16 Blood Pressure 162/70 H Pulse Oximetry 96 96 Oxygen Flow Rate 0 Oxygen Delivery Method Room Air Oxygen Flow Rate 0 Objective Labs 01/20/25 08:15 01/20/25 08:15 Labs: Laboratory Results - last 24 hr 01/20/25 08:15 WBC 10.2 RBC 4.06 L Hgb 12.9 L Hct 37.9 L MCV 93.5 MCH 31.7 MCHC 33.9 RDW 13.6 Plt Count 163 Neut % (Auto) 83.2 H Lymph % (Auto) 7.4 L [place] % (Auto) 7.6 Eos % (Auto) 1.6 L Baso % (Auto) 0.2 Neut # (Auto) 8500 H Lymph # (Auto) 800 L [place] # (Auto) 800 Eos # (Auto) 200 Baso # (Auto) 0 PT 12.0 INR 1.1 APTT 30 Sodium 135 L Potassium 3.6 Chloride 102 Carbon Dioxide 27 BUN 27 H Creatinine 0.76 Estimated GFR > 60 BUN/Creatinine Ratio 35.5 H Glucose 141 H Calcium 9.0 Magnesium 1.9 Total Bilirubin 0.7 AST 22 ALT 16 Alkaline Phosphatase 84 Total Creatine Kinase 75 Troponin I < 0.012 NT-Pro-B Natriuret Pep 431 Total Protein 6.3 Albumin 3.6 Globulin 2.7 Albumin/Globulin Ratio 1.3 Lipase 55 Assessment & Plan Assessment and plan (1) Fracture of ulnar shaft, closed: Qualifiers: Encounter type: initial encounter Fracture morphology: unspecified fracture morphology Laterality: right Qualified Code(s): S52.201A - Unspecified fracture of shaft of right ulna, initial encounter for closed fracture Status: Acute Plan I will see the patient back in my clinic in 1 week for transitioned to a short-arm cast. I discussed with him that this fracture pattern can be treated nonoperatively. My clinic staff will call him to set up an appointment. Otherwise he should not lift anything with his right upper extremity elevate his right upper extremity as much as possible. Time-Based Coding :: [TOTAL MINUTES] spent with patient and on the chart (including review of chart, obtaining history, exam, reviewing outside data, placing orders, documenting exam and treatment plan, and counseling patient) on [DATE]. Quality VTE Deep Vein Thrombosis/Pulmonary Embolism Present on Admission: No IH PROFEE Bi Lead Document charge(s): No
[2025-01-20] MEDS: TAMSULOSIN 0.4 MG CAPSULE PO (17:45)
--- NOTE | 2025-01-20 17:48 | PC.NURSE ---
Patient admitted earlier for fall, rib fx, and r.wrist fx of the unlar. He had a near syncopal episode and fell in the bathroom. Came to ER for r/o cva, possible tia. There is no facial droop, or speech issues. Patient is tolerating a general diet well. He past his swallow eval. Skin with a scratch to the l.side of his forehead, and his feet are dry, with fungal toe nails. Patients sacrum and bottom clear. Patient given oxycodone, tylenol, and ibuprofen for pain. This has been helpful to patient.
[2025-01-20] MEDS: METHADONE 10 MG TABLET PO (20:37)
[2025-01-20] MEDS: ATORVASTATIN 20 MG TABLET 40 MG PO (20:37)
[2025-01-20] MEDS: DOCUSATE 100 MG CAPSULE PO (20:38)
[2025-01-20] MEDS: GABAPENTIN 100 MG CAPSULE PO (20:38)
[2025-01-21] VITALS: BP 127/67; PULSE 53; RESP 16; TEMP 36.3; O2SAT 95
[2025-01-21] MEDS: ACETAMINOPHEN 325 MG TABLET 650 MG PO ×2 (00:44→09:56)
[2025-01-21] MEDS: IBUPROFEN 400 MG TABLET PO ×2 (00:47→09:57)
[2025-01-21 05:00] VITALS: BP 126/54; PULSE 65; RESP 18; TEMP 36.3; O2SAT 94
[2025-01-21] MEDS: PANTOPRAZOLE DR 40 MG TABLET PO (05:55)
[2025-01-21] MEDS: PANTOPRAZOLE DR 20 MG TABLET PO (05:55)
[2025-01-21 08:00] VITALS: BP 134/61; PULSE 50; RESP 13; TEMP 36.4; O2SAT 90
[2025-01-21] MEDS: DOCUSATE 100 MG CAPSULE PO (09:57)
[2025-01-21] MEDS: ASPIRIN EC 81 MG TABLET PO (09:57)
--- NOTE | 2025-01-21 10:00 | PT.IIE ---
Current Diagnoses Hyperlipidemia, unspecified (01/20/25) Opioid dependence, uncomplicated (01/20/25) Restless legs syndrome (01/20/25) Transient cerebral ischemic attack, unspecified (01/20/25) Essential (primary) hypertension (01/20/25) Atherosclerotic heart disease of [place] coronary artery without angina pectoris (01/20/25) Occlusion and stenosis of right carotid artery (01/20/25) Benign prostatic hyperplasia without lower urinary tract symptoms (01/20/25) Syncope and collapse (01/20/25) Multiple fractures of ribs, right side, initial encounter for closed fracture (01/20/25) Unspecified fracture of shaft of right ulna, initial encounter for closed fracture (01/20/25) Surgical History (Last Reviewed 11/09/24 @ 15:57 by Jose Miguel Richter MD) S/P CABG (coronary artery bypass graft) Medical History (Last Reviewed 11/09/24 @ 15:57 by Jose Miguel Richter MD) Acute posthemorrhagic anemia Arthritis of both knees CAD (coronary artery disease) (~2014) Carotid artery disease Cerebrovascular accident Chronic low back pain GERD (gastroesophageal reflux disease) GI bleed History of stroke Hyperlipidemia (~2014) Hypertension Methadone dependence Normocytic anemia Restless leg syndrome Sigmoid diverticulosis Physical Therapy Inpatient Evaluation/Re-Eval M1 PT/OT-IP Prior Functional Status Start: 01/21/25 12:49 Freq: NEEDED Status: Active Protocol: Document 01/21/25 10:00 AB (Rec: 01/21/25 13:03 AB [id number]) Medical Review Prior Functional Status Medical History Yes Reviewed Communication Pt able to make needs known Mobility and Gait Pt was I with amb without AD at baseline. Pt hikes 1-2x /wk with treking poles, and walks outdoors 3-4x/wk Activities of Daily Pt was I with BADL, IADL, driving, and medication mgmt. Living and IADL's Social History Household Members spouse Living Arrangements House Number of Floors ( Two Floors Floors) Number of Stairs To Pt and spouse live on main level only, no stairs to Enter/Railing? enter Home Environment Standard Height Toilet,Walk in Shower,Built-In Shower Seat,Bidet Home Equipment Hand Held Shower,Grab Bars In Shower Employment Status Retired Additional Social Toileting frame available, trekking poles. History Comment Pt reports that his will have a limited ability to assist him. M2 PT-IP Current Condition Start: 01/21/25 12:49 Freq: NEEDED Status: Active Protocol: Document 01/21/25 10:00 AB (Rec: 01/21/25 13:03 AB [id number]) Physical Therapy Current Condition Current Condition Evaluation Date 01/21/25 Treatment Diagnosis GLF; TIA;R wrist fx; R ribs fx; difficulty in walking Onset Date 01/20/25 M3 PT-IP Subjective Start: 01/21/25 12:49 Freq: NEEDED Status: Active Protocol: Document 01/21/25 10:00 AB (Rec: 01/21/25 13:03 AB [id number]) Subjective Physical Therapy Visit Type Type Initial Evaluation Visit Start Time 10:00 Visit Stop Time 10:25 Number of CLINICAL MICROBIOLOGIST Visits 0 Physical Therapy Visit Comments Patient Comments agreeable to do PT Therapy Pain Assessment Pain When Pain Assessed During Mobility Pain Present Pain Present Pain Reported Location Right Ribs Intensity 7 Scale Used Numeric (0 - 10) Pain Management Distraction,Modification of Treatment,Re-positioning, Techniques Timing of Activity with Medications Right Wrist Intensity 7 Pain Management Distraction,Modification of Treatment,Re-positioning, Techniques Timing of Activity with Medications mid back Intensity 7 Pain Management Distraction,Modification of Treatment,Re-positioning, Techniques Timing of Activity with Medications M4 PT-IP Mobility and Gait Start: 01/21/25 12:49 Freq: NEEDED Status: Active Protocol: Document 01/21/25 10:00 AB (Rec: 01/21/25 13:03 AB [id number]) PT-Bed Mobility Assessment Supine to Sit Supine to Sit Standby Assistance Sit to Supine Sit to Supine Standby Assistance PT-Transfer Assessment Sit to and From Stand Sit to and from Standby Assistance,1 Person Assistance,Use of Upper Stand Extremities Equipment Transfer Assistive None,Gait Belt Device Orthotic/Prosthetic No Devices or Brace: Transfers Transfer Destination Bed,Chair Transfer Technique ambulated Transfer Ability Level of Assist Standby Assistance,1 Person Assistance,Use of Upper Extremities Comments Mobility Comments pt sitting on the chair and agreeable to do PT. obtained PLOF and home set up. informed pt regarding sling order to RUE by ortho MD. Assisted and educated pt on donning/doffing R sling. sit to stand SBA and ambulated in room ~ 20 ft without AD SBA. pt sat on EOB and completed bed mobility sit <> supine SBA. pt presents with difficulty completing task and needed increase time to complete due to R wrist and ribs pain. able to sit on EOB SBA. sit to stand SBA and ambulated to the chair without AD SBA. pt agreed to walk in the hallway but then imaging services director came in to do ECHO. pt got back in bed SBA. positioned pt in bed. Left pt with imaging services director. Gait Assessment Gait Gait Assistance Standby Assistance Required: Distance (Feet) 20 Able to Maintain Yes Weight Bearing Status During Gait Assistive Devices Assistive Device None,Gait Belt Orthotic/Prosthetic No Devices or Brace: Gait Deviations General Gait Pattern Antalgic,Decreased Stride Length,Decreased Feet Clearance Factors Limiting Gait Function Factors Limiting Decreased Sensation,Decreased Strength,Limited Range of Gait Function Motion,Pain,Poor Balance,Poor Safety Awareness PT-Balance Assessment Sitting Balance and Reactions Static Sitting Normal Balance Ability Dynamic Sitting Good Balance Ability Standing Balance and Reactions Static Standing Good Balance Ability Dynamic Standing Good Balance Ability Device Used without AD M5 PT-IP Objective Assessments Start: 01/21/25 12:49 Freq: NEEDED Status: Active Protocol: Document 01/21/25 10:00 AB (Rec: 01/21/25 13:03 AB [id number]) Orientation Orientation/Cognition Level of Alertness Alert Orientation Name,Place,Situation Language Function No Deficits Noted Ability Safety Awareness Understands Safety Issues Memory Description No Deficits Noted Gross Range of Motion Lower Extremity ROM Assessment Within Functional Limits Strength Lower Extremity Strength Assessment Within Functional Limits Muscle Tone Muscle Tone WNL Yes M6 PT-IP Treatment Start: 01/21/25 12:49 Freq: NEEDED Status: Active Protocol: Document 01/21/25 10:00 AB (Rec: 01/21/25 13:03 AB [id number]) Physical Therapy Treatment Education Education Provided Safety Brace Education Don[place],Patient Equipment Issued Equipment Type and Sling was dispensed by night nurse but pt signed Company documents for sling with PT. M7 PT-IP Assessment and Plan Start: 01/21/25 12:49 Freq: NEEDED Status: Active Protocol: Document 01/21/25 10:00 AB (Rec: 01/21/25 13:03 AB [id number]) PT Summary Assessment and Plan Potential Rehabilitation Good Potential Status of Condition Evolving at Evaluation Summary Impairments Pain,ROM,Strength,Balance,Coordination,Sensation,Tone, Cognition,Bed Mobility,Transfers,Gait,Activity Tolerance Assessment Summary pt is an 84 y/o M who is admitted for TIA; GLF sustaining R wrist fx and R 7-10 ribs fx. pt requiring SBA with mobilities and ambulation without AD. pt plans to go home and spouse to assist him. pt needed increase time to complete tasks with c/o R wrist and ribs pain. Goals Bed Mobility Goal Independent Transfer Goal Independent Gait Goal Independent Gait Distance 300 Days to Meet Goals 5 Frequency of Treatment Frequency Of Once a Day Treatment Treatment Plan Physical Therapy Bed Mobility Training,Transfer Training,Gait Training, Treatment Plan Therapeutic Exercise,Balance Retraining,Discharge Planning,Hot or Cold Pack,Neuromuscular Re-ed, Coordination Retraining,Manual Therapy Precautions Brace RUE sling Weight Bearing Status Weight Bearing Non-Weight Bearing Status Allowed Weight RUE NWB and no lifting Bearing Amount ( enter % or #) (%) Recommendations To Nursing Amount of Assist 1 Person Assist Needed Discharge Recommendations PT Discharge Home with Assistance,Outpatient PT Recommendations Transportation Needs Private Vehicle at Discharge - PT assist 1
[2025-01-21] MEDS: SODIUM CHLORIDE 0.9% 1,000 ML 100 ML IV (11:04)
--- NOTE | 2025-01-21 12:38 | OT.IP.EVAL ---
Current Diagnoses Hyperlipidemia, unspecified (01/20/25) Opioid dependence, uncomplicated (01/20/25) Restless legs syndrome (01/20/25) Transient cerebral ischemic attack, unspecified (01/20/25) Essential (primary) hypertension (01/20/25) Atherosclerotic heart disease of [place] coronary artery without angina pectoris (01/20/25) Occlusion and stenosis of right carotid artery (01/20/25) Benign prostatic hyperplasia without lower urinary tract symptoms (01/20/25) Syncope and collapse (01/20/25) Multiple fractures of ribs, right side, initial encounter for closed fracture (01/20/25) Unspecified fracture of shaft of right ulna, initial encounter for closed fracture (01/20/25) Past Medical History (Last Reviewed 11/09/24 @ 15:57 by Jose Miguel Richter MD) Acute posthemorrhagic anemia Arthritis of both knees CAD (coronary artery disease) (~2014) Carotid artery disease Cerebrovascular accident Chronic low back pain GERD (gastroesophageal reflux disease) GI bleed History of stroke Hyperlipidemia (~2014) Hypertension Methadone dependence Normocytic anemia Restless leg syndrome Sigmoid diverticulosis Surgical History (Last Reviewed 11/09/24 @ 15:57 by Jose Miguel Richter MD) S/P CABG (coronary artery bypass graft) Occupational Therapy Inpatient Evaluation/Re-Eval M1 PT/OT-IP Prior Functional Status Start: 01/21/25 12:09 Freq: NEEDED Status: Active Protocol: Document 01/21/25 12:09 [facility] (Rec: 01/21/25 12:37 [facility] Desktop) Medical Review Prior Functional Status Medical History Yes Reviewed Communication Pt able to make needs known Mobility and Gait Pt was I with amb without AD at baseline. Pt hikes 1-2x /wk with treking poles, and walks outdoors 3-4x/wk Activities of Daily Pt was I with BADL, IADL, driving, and medication mgmt. Living and IADL's Social History Household Members spouse Living Arrangements House Number of Floors ( Two Floors Floors) Number of Stairs To Pt and spouse live on main level only, no stairs to Enter/Railing? enter Home Environment Standard Height Toilet,Walk in Shower,Built-In Shower Seat,Bidet Home Equipment Hand Held Shower,Grab Bars In Shower Employment Status Retired Additional Social Toileting frame available, [place]. History Comment Pt reports that his will have a limited ability to assist him. M2 OT-IP Current Condition Start: 01/21/25 12:09 Freq: Status: Active Protocol: Document 01/21/25 12:09 RUDDY (Rec: 01/21/25 12:37 [facility] Desktop) Occupational Therapy Current Condition Current Condition Evaluation Date 01/21/25 Treatment Diagnosis TIA Diagnosis Onset Date 01/20/25 M3 OT- IP Subjective and Pain Start: 01/21/25 12:09 Freq: Status: Active Protocol: Document 01/21/25 12:09 SOLEDDAGREGARIE (Rec: 01/21/25 12:37 [facility] Desktop) OT- Subjective Occupational Therapy Visit Type Type Initial Evaluation Visit Start Time 08:45 Visit Stop Time 09:35 Occupational Therapy Visit Comments Patient Comments Pt reclined in bed on entrance of OT. Pt agreeable to participate in OT eval and to get up to recliner. Patient/Caregiver To go home. Goals OT Pain Assessment Pain When Pain Assessed During Mobility Pain Present Pain Present Pain Reported Location mid back Intensity 8 Scale Used Numeric (0 - 10) M4 OT- IP ADL's Start: 01/21/25 12:09 Freq: Status: Active Protocol: Document 01/21/25 12:09 [facility] (Rec: 01/21/25 12:37 [facility] Desktop) OT IUB-Fetu-Hstavbi Comments OT Self-Feeding not observed Comments OT ADL-Grooming General Evaluation Areas Needing Retrieving/Set-up of Grooming Items Assistance Comments OT Grooming Comments Pt groomed his hair on setup while up in chair. OT ADL-Oral Care Comments Oral Care Comments Pt declined performing due to bringing in his home oral hygiene products. OT ADL-Dressing General Eval Lower Body Dressing Total Assistance Ability Areas Needing Socks Assistance Comments OT Dressing Comments Pt reports pain from ribs/back is why he is unable to perform. During Eval, pt told OT that he was told he may DC home today. Following initial eval, OT educates pt on use of LB dressing AE and yon dressing techniques as pt is limited due to splint on R forearm and pain from rib fxs. Pt did not have a shirt to practice UB dressing, but verbalizes understanding of dressing technique discussed. Pt uses a public service director to doff his socks with S and a sock aid to don his socks with MIN A. Pt initiated pant donning with figure 4 position, to limit trunk flexion and rib discomfort. Pt declined donning pants entirely. OT also demonstrated use of public service director to don pants as an alternative. OT ADL-Toileting General Evaluation Toileting Ability Independent Devices Toileting Assistive Urinal Devices Comments OT Toileting I with urinal, declines other toileting. Pt has a bidet Comments at home, which will assist with hygiene, as dominant hand will not be able to assist. OT ADL-Bathing Comments OT Bathing Comments not observed M5 OT- IP IADL's Start: 01/21/25 12:09 Freq: Status: Active Protocol: Document 01/21/25 12:09 RUDDY (Rec: 01/21/25 12:37 [facility] Desktop) OT-Instrumental Activities of Daily Living Deficits IADL Deficits Deficits Identified Home Safety Awareness Awareness of Need Good Awareness for Assistance at Home Medication Management Medication No Deficits Identified Management Money Management Money Management No Deficits Identified Meal Preparation Meal Preparation Caregiver Provides Assist Lens Maker Lens Maker Caregiver Provides Assist Driving Driving Comments Spouse may need to assist M6 OT- IP Functional Cognition Start: 01/21/25 12:09 Freq: Status: Active Protocol: Document 01/21/25 12:09 RUDDY (Rec: 01/21/25 12:37 [facility] Desktop) Cognitive Factors Limiting Selfcare Function Cognitive Ability Level of Alertness Alert Patient Orientation Name,Age,Birthday,Month,Date,Year,Day of Week,Place, Situation Attention Span Capable of Focused Attention,Capable of Sustained Ability Attention Ability to Follow Able to Follow One Step Commands,Able to Follow Multi- Commands Step Commands Memory Description No Deficits Noted Safety Awareness No Deficits Noted Problem Solving No deficits Noted Ability Executive Function No Deficits Noted Ability Abstract Thinking No Deficits Noted Ability OT- Vision and Hearing OT- Hearing Assessment OT- Hearing Hearing Impaired,Use of Hearing Aids Assessment OT- Vision Assessment Visual Acuity Glasses All The Time M7 OT- IP Mobility and Balance Start: 01/21/25 12:09 Freq: Status: Active Protocol: Document 01/21/25 12:09 RUDDY (Rec: 01/21/25 12:37 [facility] Desktop) OT- Bed Mobility Assessment Supine to Sit Supine to Sit Assist Standby Assistance,Head of Bed Elevated,Bedrails Scooting Scooting to Edge of Standby Assistance,Bedrails Bed OT-Transfer Assessment Sit to and From Stand Sit to and from Contact Guard Assistance Stand Transfers Transfer Ability Contact Guard Assistance Technique Transfer Destination Chair Transfer Technique Stand Step Pivot Devices Transfer Assistive Gait Belt Devices Comments Mobility Comments Pt BP 141/59 and HR 56. Pt performs functional tfs safely using L UE on bed rail and to reach back for chair. OT- Gait Assessment Comments Gait Ability Pt declined walking to the sink t time of eval. Comments OT- Balance Assessment Sitting Balance and Reactions Static Sitting Good Balance Ability Dynamic Sitting Fair Balance Ability Standing Balance and Reactions Static Standing Good Balance Ability Dynamic Standing Fair Balance Ability M8 OT- IP Objective Assessments Start: 01/21/25 12:09 Freq: Status: Active Protocol: Document 01/21/25 12:09 [facility] (Rec: [facility]21[facility]25 [facility]37 [facility] Gross Range of Motion Upper Extremity Range of Motion ROM Impairments L UE WNL, R shoulder WFL, R elbow WNL. Pt able to get R thumb to each of his finger tips OT Strength Upper Extremity Strength Shoulder B 5 Elbow L 5 Hand L 5 Hand Kiln Cleaner Strength Hand Dominance Right Comments Strength Comments R shoulder only tested due to splint placed and protection of distal ulnar shaft fx on R. OT- Coordination Assessment Upper Extremity Finger Tapping Test Within Functional Limits OT-Muscle Tone Assessment Muscle Tone WNL Yes OT Sensation Assessment Comments Summary Comments No deficits noted for sensation on R digits or exposed UE Edema Edema Present Edema Comments Pt with notable edema for all R digits. Pt with sling in room. OT educated pt on keeping UE elevated, when out of sling on pillows above heart level. OT educated on AROM of digits to assist in edema mgmt and to prevent stiffening. M9 OT- IP Assessment and Plan Start: 01/21/25 12:09 Freq: Status: Active Protocol: Document 01/21/25 12:09 [facility] (Rec: 01/21/25 12:37 [facility] OT Summary Assessment and Plan Potential Rehabilitation Excellent Potential Analytic Complexity Low at Evaluation Summary OT Impairments Pain,Balance,Grooming,Dressing,Toileting,Bathing,Toilet Transfers,Shower Transfers,Activity Tolerance Progress Towards Progressing Toward Goals Goals Assessment Summary Pt is an 84 yo M who reports having a syncope episode at home resulting in a fall. Pt has a R distal ulna shaft fx and R 7-10 rib fxs. Pt is wearing a forearm splint to the R and has a sling present to keep UE elevated per orders. On eval, pt presents performs bed mobility with S, sit>stand with CGA, t/f to chair with CGA, performs grooming on Setup, LB dressing with TOTAL A, and uses the urinal with I. Pt reports that his will have limited ability to assist at home. Pt presents with increased pain that limits dressing tasks. Skilled OT services are appropriate to address these deficits and promote return towards PLOF. OT recommends dc home with assist, when medically stable. Pt may benefit from services. Pt was left up in chair with UE elevated and all needs in reach. Goals Grooming Goal Independent Dressing Goal Independent,Button Hook,Long Handled Shoe Horn,Dimensional Inspector, Sock Aid Toileting Goal Independent Bathing Goal Minimal Assistance,Grab Bars,Long Handled Sponge or [place] Toilet Transfer Goal Independent Shower Transfer Goal Independent,Grab Bars Days to Meet Goals 10 Frequency of Treatment Other frequency 5x/wk Treatment Plan OT Treatment Plan ADL Training,Functional Mobility,Patient/Family Education,Discharge Planning Discharge Recommendations OT Discharge Home with Assistance,Home Health Recommendations Transportation Needs Private Vehicle at Discharge
--- NOTE | 2025-01-21 13:06 | PM.DS.IH.1 ---
History of Present Illness History of Present Illness Date Patient Seen: 01/21/25 Chief complaint: Fall this morning, right wrist arm pain Narrative: 84-year-old male with hypertension, CAD, carotid artery disease s/p right side revascularization w/stent, hyperlipidemia, RLS with methadone dependence. Presented to ER this morning after presyncopal episode that occurred while administering eye drops at home. The patient was leaning back to put in eye drops when he felt his throat tighten up, which he described as kind of weird. After finishing with the eye drops he started to feel woozy and decided to go back to bed. As he turned to return to bed, the next thing he remembers is hearing a loud crash, which was him hitting the floor and cabinet. He does not recall actually going down but remembers the loud noise from the fall. He is uncertain whether he actually lost consciousness or if it was more of feeling woozy and falling backwards, though he realized what was happening in the moment. He also recalls feeling a mild tingling sensation on right side of face while drinking water prior to this episode. He was recently admitted for TIA 2 months ago with unremarkable workup. Prior to this episode, he had been feeling really good and was actively hiking and gardening as usual. The patient notes that he did not drink much water the day before the incident. He describes the episode as coming out of the blue with no other recent changes or different circumstances that he can identify. He was noted to be hypertensive in the ER with BP 150s to 180s systolic despite having taken his blood pressure medication this morning. Labs notable for WBC 10.2, hemoglobin 12.9, glucose 141. Remainder of CBC, CMP, lipase, troponin normal/negative. EKG demonstrated sinus bradycardia, rate 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 CXR and CT chest notable for mildly displaced fractures of the right posterolateral 7th through 8th ribs, no pneumothorax. XR wrist showed comminuted minimally displaced distal ulnar shaft fracture. Tele stroke consulted from ER, recommend admission for observation with MRI brain and echocardiogram with no tPA. General surgery was consulted and recommended no additional intervention for rib fractures beyond pain control. Orthopedics contacted regarding wrist fracture and will follow as consult. Discharge Providers Provider Date of admission: 01/20/25 11:03 Discharge Date: 01/21/25 Primary care physician: Arnaldo Hendrix MD Consults: 01/20/25 13:44 Consult to Discharge Planning Routine Comment: Consult to Occupational Therapy Evaluate & Treat Comment: Physician Instructions: Evaluate and treat Consult to Physical Therapy Evaluate & Treat Comment: Physician Instructions: Evaluate and Treat Consult to Speech Therapy Evaluate & Treat Comment: Physician Instructions: Evaluate and treat Discharge provider: Arnaldo Hendrix MD Summary Hospital Course Discharge Diagnosis: #TIA #presyncope #CAD #bradycardia # ulnar fracture #right-sided rib fractures #CAD #HTN #HDL #RLS #BPH Hospital Course: Admitted for observation due to possible TIA vs presyncope. MRI brain and echocardiogram unrevealing in terms of cause aside from known bradycardia. Neurologic exam normal throughout. Of observation with only motor deficits related to pain from rib and wrist fractures. Orthopedics consulted and plan to managed non operatively. Patient was placed in short-arm cast, recommended to follow-up on outpatient basis in 1 week. Status at Discharge Cognitive/behavioral status at discharge: oriented Functional status at discharge: independent ambulation Overall status at discharge: patient is progressing back to baseline Time Spent with Patient Time spent: Less than 30 minutes Exam Vital Signs (past 8 hours): - 01/21/25 08:00 Temperature 97.6 F Pulse Rate 50 L Respiratory Rate 13 Blood Pressure 134/61 Pulse Oximetry 90 L Oxygen Flow Rate 0 Oxygen Delivery Method Room Air Oxygen Flow Rate 0 Narrative Exam Narrative: General: Pleasant, NAD HEENT: NC/AT, EOMI, moist membranes CV: Bradycardia, regular rhythm, normal S1-S2, no m/g/r Resp: CTAB, comfortable WOB, moderate pain with deep inspiration Abd: Soft, NTND, +BS MSK: R side ribs TTP, right forearm in short-arm cast Ext: No edema Skin: No rash or lesions noted Neuro: A&O x3, CN 2-12 grossly intact with no facial droop appreciated, equal strength in bilateral upper and lower extremities, no focal deficits Objective Imaging Echo: Radiologist's impression: Interpretation Summary The patient was in sinus bradycardia with heart rates between 51-56 bpm during the exam. The left ventricle is normal in size. Left ventricular systolic function is normal. The ejection fraction is estimated to be 55-60%. No LV thrombus The right ventricle is normal in size and function. Doppler interrogation and injection of saline echo contrast shows no evidence for an interatrial shunt. There is mild aortic regurgitation. Compared to the prior echo study, there has been no change in the severity of aortic regurgitation. There is mild tricuspid regurgitation. Compared to the prior echo exam, there has been no change in TR severity. The right ventricular systolic pressure is estimated to be at least 48 mmHg based on an estimated right atrial pressure of 3 mm Hg. Previously 35 mmHg. Reading Physician:12:23 PM MRI - head: Radiologist's impression: MR HEAD/BRAIN WO CON FINDINGS: Image quality: Mild motion artifact. Patient positioning also limits evaluation CSF spaces: Basal cisterns are patent. Lateral ventricles are symmetric. Volume: Volume loss. Periventricular white matter signal abnormality most commonly seen with small vessel disease. These findings are [id number] Brain: No acute diffusion restriction. No area of parenchymal edema identified. No acute hemorrhage. Craniofacial structures: No significant paranasal sinus opacity. There is mild mucosal thickening. IMPRESSION: No acute intracranial hemorrhage or infarction identified Dictated by: José Luis Castillo M.D. on 01/20/2025 at 15:19 Approved by: José Luis Castillo M.D. on 01/20/2025 at 15:21 Labs 01/20/25 08:15 01/20/25 08:15 [facility] Medical History CAD (coronary artery disease) (~2014) History of stroke Arthritis of both knees Chronic low back pain GERD (gastroesophageal reflux disease) Hyperlipidemia (~2014) Methadone dependence Sigmoid diverticulosis Carotid artery disease Normocytic anemia Acute posthemorrhagic anemia GI bleed Hypertension Restless leg syndrome Cerebrovascular accident Surgical History S/P CABG (coronary artery bypass graft) Family History Mother Hypertension Father Cancer Social History household members: spouse Smoking Status: Former smoker alcohol intake: current Discharge Assessment & Plan Assessment and Plan Assessment: 84-year-old male with hypertension, CAD, carotid artery disease s/p right side revascularization w/stent, hyperlipidemia, RLS with methadone dependence admitted for possible TIA, GLF with multiple right-sided rib and wrist fractures. Plan of Treatment: #TIA #presyncope #carotid artery disease Hypertensive on admission but CT angio demonstrates no new vascular disease and his right carotid remains widely patent with stent, no left-sided carotid disease. Chronic vertebral artery vascular disease noted, CT head unremarkable. ER physician felt there was a slight left-sided facial droop with NIHSS score 1. No significant droop, weakness, or other neurologic deficit appreciated on my exam, though structural welder strength somewhat limited by pain and splinting of right wrist. MRI brain showed no acute intracranial hemorrhage or infarction. Limited echocardiogram notable for known bradycardia, stable mild aortic regurgitation, stable mild tricuspid regurgitation. -continue aspirin, statin #bradycardia Chronic, typically asymptomatic but potential contributing factor given reported lack of oral hydration yesterday. -outpatient cardiology follow-up to evaluate bradycardia #ulnar fracture #right-sided rib fractures Results of GLF, hitting bathroom cabinet/bathtub during presyncopal episode this morning. Dr. Duarte (orthopedics) consulted, plans to managed non operatively. patient placed in short-arm cast with instructions to follow-up in 1 week for re-evaluation. -acetaminophen/NSAID/oxycodone pain scale -stool softener -outpatient follow-up with orthopedics #CAD #HTN #HLD -continue home aspirin, statin, amlodipine #RLS #methadone dependence -continue home gabapentin, ropinirole, methadone q.h.s. #BPH -continue home tamsulosin Discharge Plan Discharge Plan Patient Disposition: Home Discharge orders & Medications Prescriptions: New docusate sodium 100 mg Capsule 100 mg PO BID Qty: 30 1RF oxycodone 5 mg Tablet 5 mg PO BID Qty: 20 0RF naloxone [Narcan] 4 mg/actuation spray,non-aerosol 4 mg intranasal Q3M PRN (Reason: opioid overdose) Qty: 2 2RF Rx Instructions: spray 1 dose into ONE nostril; alternate nostrils w each dose until help arrives Continued amlodipine 5 mg tablet 5 mg PO DAILY Qty: 90 2RF Rx Instructions: Take w/2.5mg tablet for a total of 7.5mg daily methadone 10 mg tablet 10 mg PO BEDTIME Qty: 30 0RF turmeric root extract 500 mg capsule 1,000 mg PO BID Rx Instructions: with breakfast and lunch gabapentin 100 mg capsule 100 mg PO ONCE PM Qty: 90 3RF omeprazole 40 mg capsule,delayed release(DR/EC) 40 mg PO QAM Patient Comments: TAKE 1 CAPSULE DAILY 20 MINUTES BEFORE A MEAL Rx Instructions: take before meal ropinirole 1 mg tablet 1 mg PO BEDTIME ropinirole 1 mg tablet 1.5 mg PO DAILY Rx Instructions: @ 1500 aspirin 81 mg Tablet 81 mg PO QAM acetaminophen 500 mg Tablet 500 mg PO PRN PRN (Reason: pain) atorvastatin [Lipitor] 40 mg Tablet 40 mg PO BEDTIME tamsulosin 0.4 mg capsule 0.4 mg PO QPM ibuprofen 200 mg Tablet 400 mg PO Q6H Follow up/Referrals: Arnaldo Hendrix MD [Primary Care Provider, Family Practice] Visit Report/Discharge Packet Stand Alone Forms: Patient Portal/API, Stroke Signs & Symptoms Discharge Data Primary Care Provider: Arnaldo Hendrix Attending Provider: Arnaldo Hendrix Admit Date/Time: 01/20/25 11:03 Quality VTE Deep Vein Thrombosis/Pulmonary Embolism Present on Admission: No IH PROFEE Charge Codes Discharge inpatient/observation: 16158
--- NOTE | 2025-01-21 13:34 | CM.DANOTE ---
Initial DCP Assessment Visit Note Reviewed EMR and team rounds for pt's medical status and updates. Met with pt at bedside to introduce self and role. Pt was found to be aler/oriented, sitting upright in the recliner reading. Pt lives independently at baseline with his spouse in their own home here in [place]. He has been medically cleared for home d/c, his will transport him home this afternoon. No CM d/c needs are identified at this time. Payor: Medicare PCP: Dr. Hendrix Pt is a 84 year-old M who presented to the ED with c/o dizziness, syncope, and right-sided facial droop. Pt had reportedly had a recent TIA in October of this year, per his spouse. CT imaging was negative. Plan was made to admit to [facility] for further stroke workup, including brain MRI and ECHO. Both of which were negative. He will plan to f/u with his PCP outpatient. 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 Hendrix Insurance Medicare Advance Directives? Yes Advance Directives No on File History Provided By Patient,Medical Record Has Patient been No admitted in last 30 days? Prior Living House Arrangements Household Members spouse Type of Drives own vehicle transporation used prior to admit Independent with ADL Yes 's Is patient alert and Yes oriented? Comment N/A Caregiver for No Another Comment No DME at baseline. Comment No identified home d/c needs at this time. Barriers to No Discharge Discharge Plan Home Transportation Spouse Arrangement Referrals Initiated None needed Whiteboard Updated Yes in Patient Room with name and ext. # of Asset Protection Manager Review Status In Process Please Provide Date 01/21/25 Initial DC Assessment Was Performed
[2025-01-21 13:57] VITALS: BP 159/64; PULSE 53; RESP 15; TEMP 36.7; O2SAT 93
--- NOTE | 2025-01-21 14:36 | PC.NURSE ---
Pt discharged home at 1430, escorted off floor in wheelchair accompanied by spouse and hospital staff. IV removed, discharge teaching completed including new medications, worsening symptoms and follow up appointments. Patient left the floor with all belongings.
== END 2025-01-21 14:37 | disposition home or self-care (01) ==
LOC: ED 09:04 → AC 11:13
PROVIDERS: Admitting Provider Family Medicine; Emergency Provider Emergency Medicine; PCP Family Medicine; Referring Provider Emergency Medicine; Visit Provider Family Medicine
DX: G45.9 Transient cerebral ischemic attack, unspecified (principal); S52.291A Other fracture of shaft of right ulna, initial encounter for closed fracture; S22.41XA Multiple fractures of ribs, right side, initial encounter for closed fracture; W18.30XA Fall on same level, unspecified, initial encounter; Y92.002 Bathroom of unspecified non-institutional (private) residence as the place of occurrence of the external cause; I10 Essential (primary) hypertension; N40.0 Benign prostatic hyperplasia without lower urinary tract symptoms; E78.5 Hyperlipidemia, unspecified; G25.81 Restless legs syndrome; F11.20 Opioid dependence, uncomplicated; R29.701 NIHSS score 1; Z79.82 Long term (current) use of aspirin; Z87.891 Personal history of nicotine dependence; Z86.73 Personal history of transient ischemic attack (TIA), and cerebral infarction without residual deficits; Z95.1 Presence of aortocoronary bypass graft; Z95.818 Presence of other cardiac implants and grafts
CPT/HCPCS: 36415; 70450; 70496; 70498; 70551; 71045; 71260; 73090; 73110; 80053; 82550; 83690; 83735; 83880; 84484; 85025; 85610; 85730; 93005; 93010; 93307; 96361; 96374; 96375; 97162; 97165; 97530; 97535; 99284; G0378; J2272; J2405; J7030; J7040; Q9967

== ENCOUNTER 2025-03-26 15:28 | Emergency (ER) | payer MEDICARE, SELFPAY ==
[2025-03-08 08:27] VITALS: BMI 23.3
[2025-03-26 15:31] VITALS: BP 188/84; PULSE 55; RESP 16; TEMP 36.3; O2SAT 99; BMI 23.7
--- OUTSIDE RECORDS SUMMARY | 2025-03-26 15:34 | XMS_ITS | Clinical Summary ---
Author Organization [facility] Address [address] [place] [id number] Care Team Providers Care Computer Equipment Repairer Name Role Phone Arnaldo Hendrix MD Primary Care Provider Allergies Active Allergy Reactions Criticality Noted Date Comments No Known Allergies 05/27/2016 Medications aspirin 81 mg EC tablet Take 81 mg by mouth daily. 6 Active ketorolac (ACULAR) 0.5 % ophthalmic solution Administer 1 drop into the left eye 4 (four) times a day. 0 8 Active losartan (COZAAR) 100 mg tablet Take 1 tablet by mouth daily. Active methadone (DOLOPHINE) 5 mg tablet Take 1 tablet by mouth nightly. 0 8 Active pravastatin (PRAVACHOL) 20 mg tablet Take 1 tablet by mouth nightly. 6 Active rOPINIRole (REQUIP) 1 mg tablet Take 1 mg by mouth 2 (two) times a day. Active Social History Tobacco Use Types Packs/Day Years Used Date Smoking Tobacco: Unknown Tobacco Cessation:Counseling Given: No Sex and Gender Information Value Date Recorded Sex Assigned at Not on file Legal Sex Male 7:32 PM PDT Gender Identity Not on file Sexual Orientation Not on file Last Filed Vital Signs Vital Sign Reading Time Taken Comments Blood Pressure 120/60 08/11/2017 1:17 PM PDT Pulse 56 08/11/2017 1:17 PM PDT Temperature - - Respiratory Rate - - Oxygen Saturation - - Inhaled Oxygen Concentration - - Weight 82.2 kg (181 lb 3.2 oz) 08/11/2017 1:17 P M PDT Height 188 cm (6' 2.02) 08/11/2017 1:17 PM PDT Body Mass Index 23.25 08/11/2017 1:17 PM PDT Plan of Treatment Upcoming Encounters Date Type Department Care Team (Late st Contact Info) Description 05/06/2025 10:00 AM PST Office Visit [facility] [place] [address] [facility], [place] [address] Jose A Lopez MD [address] [place] [address] [place] [address] Health Maintenance Due Date Last Done Comments Medicare Annual Wellness (AWV) 1938 Depression Screening (PHQ-2) 1950 DTaP,Tdap,and Td Vaccines (1 - Tdap) 1957 HM Pneumococcal Adult 50+ (1 of 1 - PCV) 1988 Zoster Vaccines (1 of 2) 1988 Fall Risk Screening 12/28/2003 RSV Patients Over 60 years OR qualifying ( Patients) (1 - 1-dose 75+ series) 2013 COVID-19 Vaccine (1 - 2024- season) 2024 Influenza Vaccine (#1) 2024 6, 11/22/2014, 01/06/2014, Additional history exists HPV Vaccines Aged Out No longer eligi ble based on patient's age to complete this topic Hepatitis A Vaccines Aged Out No long er eligible based on patient's age to complete this topic Hepatitis B Vaccines Aged Out No long er eligible based on patient's age to complete this topic IPV Vaccines Aged Out No longer eligi ble based on patient's age to complete this topic MMR Vaccines Aged Out No longer eligi ble based on patient's age to complete this topic Insurance MEDICARE PART A AND B [facility] SUPP Care Teams Computer Equipment Repairer Relationship Specialty Start Date End Date Arnaldo Hendrix MD [address] [place] [address] PCP - General Family Medicine 02/21/25
--- NOTE | 2025-03-26 16:49 | ED.SKABFB ---
HPI - Skin/Abscess/Foreign Bdy General Chief complaint: Skin/Abscess/Foreign Body Stated complaint: Itchy rash in groin area Time Seen by Provider: 03/26/25 16:32 Source: patient Mode of arrival: Ambulatory Limitations: no limitations History of Present Illness HPI narrative: 84-year-old male history of hypertension CAD carotid artery disease status post right-sided revascularization dyslipidemia restless legs syndrome dependent on methadone presents with sudden onset bilateral groin rash on the right side started last night. Patient denies any fever, chills, body aches, urinary complaints. Other than what is stated 14 point review of system is negative Related Data Home Medications ?Medication ?Instructions ?Recorded ?Confirmed aspirin 81 mg tablet 81 mg PO QAM 05/11/21 03/18/25 omeprazole 40 mg capsule,delayed 40 mg PO QAM 05/11/21 03/18/25 release acetaminophen 500 mg tablet 500 mg PO PRN PRN pain 04/18/23 03/18/25 atorvastatin 40 mg tablet (Lipitor) 40 mg PO BEDTIME 04/18/23 03/18/25 ibuprofen 200 mg tablet 400 mg PO Q6H 04/18/23 03/18/25 tamsulosin 0.4 mg capsule 0.4 mg PO QPM 04/18/23 03/18/25 turmeric root extract 500 mg 1,000 mg PO BID 06/04/24 03/18/25 capsule amlodipine 2.5 mg tablet 2.5 mg PO DAILY 03/18/25 03/18/25 Previous Rx's ?Medication ?Instructions ?Recorded amlodipine 5 mg tablet 5 mg PO DAILY #90 tabs 12/03/24 naloxone 4 mg/actuation nasal 4 mg intranasal Q3M PRN opioid 01/21/25 spray (Narcan) overdose #2 ea ropinirole 1 mg tablet 2.5 mg (2.5 x 1 mg) PO .DAILY #225 03/16/25 tabs gabapentin 100 mg capsule 100 mg PO BID #180 caps 03/18/25 methadone 10 mg tablet 10 mg PO BEDTIME #30 tabs 03/18/25 clotrim 1 %-betamet 0.05 % cream 1 pkg topical BID 2 weeks #135 03/26/25 and fepey-hbaj-uds paste topical grams pack Allergies Allergy/AdvReac Type Severity Reaction Status Date / Time diphenhydramine Allergy Mild Verified 03/18/25 08:58 Review of Systems Review of Systems ROS Unobtainable: All systems reviewed & are unremarkable except as noted in HPI and below Patient History Medical History CAD (coronary artery disease) (~2014) History of stroke Arthritis of both knees Chronic low back pain GERD (gastroesophageal reflux disease) Hyperlipidemia (~2014) Methadone dependence Sigmoid diverticulosis Carotid artery disease Normocytic anemia Acute posthemorrhagic anemia GI bleed Hypertension Restless leg syndrome Cerebrovascular accident Surgical History S/P CABG (coronary artery bypass graft) Family History Mother Hypertension Father Cancer Social History household members: spouse Smoking Status: Former smoker alcohol intake: current Smoking Status: Former smoker tobacco type: cigarettes alcohol intake frequency: 0-2 drinks per day Alcohol type: wine Exam Narrative Exam Narrative: GENERAL: [84] year old patient appears stated age. Well-developed patient, in mild distress. HEAD: Atraumatic. Normocephalic. EYES: Pupils equal round and reactive. Extraocular motions intact. No scleral icterus. No injection or drainage. EXTREMITIES: No edema or joint tenderness. BACK: Nontender without deformity or crepitance. No flank tenderness. NEURO: AOx3. SKIN: Bilateral inguinal crease beefy red maculopapular lesion worse on right side Initial Vital Signs Initial Vital Signs: Vital Signs Temperature 97.4 F L 03/26/25 15:31 Pulse Rate 55 L 03/26/25 15:31 Respiratory Rate 16 03/26/25 15:31 Blood Pressure 188/84 H 03/26/25 15:31 Pulse Oximetry 99 03/26/25 15:31 Oxygen Delivery Method Room Air 03/26/25 15:31 Course Vital Signs Vital signs: Vital Signs - 8 hr 03/26/25 15:31 Temperature 97.4 F L Pulse Rate 55 L Respiratory Rate 16 Blood Pressure 188/84 H Pulse Oximetry 99 Oxygen Delivery Method Room Air MDM - Skin/Abscess/Foreign Bdy MDM Narrative Medical decision making narrative: All lab work, vital signs, nurse triage note, medication list, previous ER visits, and all imaging studies reviewed. Discharged on clotrimazole rx. Differential diagnosis tinea cruris, MRSA, cellulitis Discharge Plan Departure Patient Disposition: Home Clinical Impression: Tinea cruris Instructions: Jock Itch Activity Restrictions/Additional Instructions: Return with new or worsening symptoms. Take medicines as directed. Follow up PCP 1-2 weeks if no improvement in symptoms. Prescriptions: New rrigfic-zehkxsds-zvx-zinc-rigoberto 1-0.05-0.44 % combo pack 1 pkg topical BID 14 Days Qty: 135 0RF Rx Instructions: 1 pkg topically; No Action amlodipine 5 mg tablet 5 mg PO DAILY Qty: 90 2RF Rx Instructions: Take w/2.5mg tablet for a total of 7.5mg daily gabapentin 100 mg capsule 100 mg PO BID Qty: 180 0RF methadone 10 mg tablet 10 mg PO BEDTIME Qty: 30 0RF amlodipine 2.5 mg tablet 2.5 mg PO DAILY Rx Instructions: Take w/5mg tablet for a total of 7.5mg daily turmeric root extract 500 mg capsule 1,000 mg PO BID Rx Instructions: with breakfast and lunch ropinirole 1 mg tablet 2.5 mg PO .DAILY Qty: 225 1RF Rx Instructions: Take 1.5mg at 1500, then take 1mg at bedtime daily omeprazole 40 mg capsule,delayed release(DR/EC) 40 mg PO QAM Patient Comments: TAKE 1 CAPSULE DAILY 20 MINUTES BEFORE A MEAL Rx Instructions: take before meal aspirin 81 mg Tablet 81 mg PO QAM acetaminophen 500 mg Tablet 500 mg PO PRN PRN (Reason: pain) atorvastatin [Lipitor] 40 mg Tablet 40 mg PO BEDTIME tamsulosin 0.4 mg capsule 0.4 mg PO QPM ibuprofen 200 mg Tablet 400 mg PO Q6H naloxone [Narcan] 4 mg/actuation spray,non-aerosol 4 mg intranasal Q3M PRN (Reason: opioid overdose) Qty: 2 2RF Rx Instructions: spray 1 dose into ONE nostril; alternate nostrils w each dose until help arrives Referrals: Arnaldo Hendrix MD [Primary Care Provider, Family Practice] Stand Alone Forms: Patient Portal/API
[2025-03-26 16:56] VITALS: BP 178/83; PULSE 59; TEMP 36.8; O2SAT 96
== END 2025-03-26 16:56 | disposition home or self-care (01) ==
PROVIDERS: Emergency Provider Family Medicine; PCP Family Medicine
DX: B35.6 Tinea cruris (principal)
CPT/HCPCS: 99281